=== PATIENT | female | born 1945 | race Caucasian/White ===

== ENCOUNTER 2020-01-03 11:11 | Outpatient (CLI) | payer MEDICARE, SELFPAY ==
--- NOTE | ~2020-01-03 | XR_ITS ---
EXAMINATION: XR hip BI 2V w AP pelvis DATE: 01/03/2020 11:58 INDICATION: Hip pain TECHNIQUE: Anteroposterior view of the pelvis and anteroposterior and frog-leg lateral views of the l eft hip and anteroposterior and frog-leg lateral views of the right hip and were obtained. COMPARISON: 05/21/18 FINDINGS: Mild lower lumbar dextrocurvature. Alignment is otherwise normal. No fracture or suspected avascular necrosis. Bilateral hip joint spaces are relatively preserved. Moderate lower lumbar spondylosis. Mul tiple phleboliths in the pelvis. IMPRESSION: 1. Moderate lumbar spondylosis. Unremarkable bilateral hips. Reviewed, dictated and finalized at location A.
== END 2020-01-03 11:12 | disposition home or self-care (01) ==
LOC: ANHIMG 11:21
PROVIDERS: PCP Internal Medicine; Visit Provider Internal Medicine
DX: M25.559 Pain in unspecified hip (principal); M47.816 Spondylosis without myelopathy or radiculopathy, lumbar region
CPT/HCPCS: 73521

== ENCOUNTER 2020-02-03 07:41 | Outpatient (CLI) | payer MEDICARE, SELFPAY ==
--- NOTE | ~2020-02-03 | MR_ITS ---
EXAMINATION: MR lumbar spine wo [facility] EXAM DATE: 02/03/2020 08:40 INDICATION: Low back pain, right hip and leg pain. TECHNIQUE: Multi-sequential, multiplanar MR images of the lumbar spine were obtained without contrast . Sagittal T1, T2, T2 fat saturation images. Axial T2 weighted images. There is no prior study for comparison. FINDINGS: There is moderate to severe disc disease at L2-3 and L5-S1, moderate at L3-4. There is 2-3 mm retrolisthesis L4 on L5 and 2 mm anterolisthesis L5 on S1. There is no spondylolysis. The conus me dullaris terminates at the L1/2 level and has normal signal intensity and morphology. There are no f ocal marrow signal abnormalities suspicious for malignancy or acute fracture. Prior right L5 hemilami notomy. There is mild to moderate upper lumbar levoscoliosis. Paraspinal soft tissue is unremarkable. Level by level evaluation: T12-L1: There is a mild to moderate diffuse disc bulge. Facet arthropathy: Mild. Neural foraminal stenosis: Mild bilateral. Central canal stenosis: Mild. L1-L2: There is a mild diffuse disc bulge. Facet arthropathy: Mild to moderate. Neural foraminal stenosis: Mild bilateral. Central canal stenosis: Mild. L2-L3: There is a large diffuse disc bulge. Facet arthropathy: Moderate . Ligamentum flavum enlargement. Neural foraminal stenosis: Moderate to severe right, mild left. Central canal stenosis: Moderate. L3-L4: There is a moderate to large diffuse disc bulge. Facet arthropathy: Severe right, moderate left . Ligamentum flavum enlargement. Neural foraminal stenosis: Moderate bilateral. Central canal stenosis: Severe. L4-L5: There is a moderate diffuse disc bulge. Facet arthropathy: Moderate . Ligamentum flavum enlargement. Neural foraminal stenosis: Moderate to severe left, moderate right. Central canal stenosis: Moderate to severe. L5-S1: There is a moderate diffuse disc bulge. Facet arthropathy: Moderate to severe left, moderate right. Neural foraminal stenosis: Moderate left, mild to moderate right. Central canal stenosis: Mild. IMPRESSION: 1. L3-4 severe central canal stenosis and facet arthropathy. 2. Lesser spondylosis above. 3. Mild to moderate upper lumbar levoscoliosis. Reviewed, dictated and finalized at location A.
== END 2020-02-03 07:42 | disposition home or self-care (01) ==
PROVIDERS: PCP Internal Medicine; Visit Provider Internal Medicine
DX: M47.816 Spondylosis without myelopathy or radiculopathy, lumbar region (principal)
CPT/HCPCS: 72148

== ENCOUNTER → 2020-10-13 12:19 | Outpatient (CLI) | payer MEDICARE, SELFPAY ==
--- NOTE | ~2020-10-13 | MM_ITS ---
EXAMINATION: MM screening [facility] HISTORY: Screening mammogram TECHNIQUE: Craniocaudal and mediolateral oblique 3-D tomosynthesis images were obtained and synthetic 2-D images were generated. CAD analysis was submitted and interpreted. COMPARISON: 06/03/2018, 04/29/2016, 04/13/2014 BREAST PARENCHYMAL COMPOSITION: There are scattered areas of fibroglandular density. FINDINGS: There is no evidence of suspicious mass, calcification, or architectural distortion to sugg est malignancy in either breast. There has been no suspicious interval change. IMPRESSION: 1. No mammographic evidence of malignancy. 2. Recommend routine screening mammography in one year. BI-RADS Category 1: Negative Reviewed, dictated and finalized at location A.
== END ==
PROVIDERS: Visit Provider Obstetrics & Gynecology
DX: Z12.31 Encounter for screening mammogram for malignant neoplasm of breast (principal)
CPT/HCPCS: 77063; 77067

== ENCOUNTER 2021-02-27 12:01 | Outpatient (CLI) | payer MEDICARE, SELFPAY ==
--- NOTE | 2021-03-23 10:42 | WPDHOMESLEEP ---
Sleep Study - Home Unattended Date of Study: 02/27/21 Ordering Provider: Seamus Anglin MD Interpreting Provider: Ashleigh Flores MD Home Sleep Study Type: Apnea Link Air Height: 1.68 m Weight: 83.915 kg Body Mass Index: 29.8 Neck Circumference (inches): 15 Strunk: 3 Reason for Sleep Study Hypersomnia Sleep History Bhargavi Denis is a 75 year old woman with a long history with restless sleep with tossing and turning during sleep. She frequently snores at night. She does not have trouble sleeping with a cold, gasping for air at night, sweat excessively at night, notice her heart pounding at night. She does not fall asleep during the day, fall asleep involuntarily, and does not fall asleep while driving. She does not have loss of muscle tone with strong emotion. There is no feeling of paralysis on waking or falling asleep. She denies having vivid dreamlike scenes on waking or falling asleep. She is not afraid to go to sleep. She remembers her dreams occasionally. She frequently has racing thought. She denies feeling sad, depressed or anxious. She has occasional mucles tension. She does not kick at night. She does not crawling or aching feelings in her legs. She occasionally has leg pain at night. No morning jaw pain and grinding teeth at night. She occasionally is bothered by pain in the day. She is rarely awakened by pain in the night. She frequently feels stiff in the morning and wakes with sore or achy muscles. She has vertigo, fatigue, feels unable to relax at night, and she takes sedatives. Normal bedtime is between 9:00 pm and 10:30 pm, and falling asleep takes a while due to inability to get comfortable. She wakes up 2-4 times at night, and she usually urinates while awake, returns to sleep. She wakes several times before 7:00 am which is the time she usually gets out of bed. The weekend schedule is the same. She does not take naps, and naps are not refreshing. She feels tired on waking. Habits: Never smoked. Caffeine used periodically. No alcohol or recreational drugs. [facility] Past Medical History Medical History (Updated 03/24/21 @ 02:53 by Ashleigh Flores MD) Anemia B12 deficiency CKD (chronic kidney disease) stage 3, GFR 30-59 ml/min Essential (primary) hypertension Fatigue Hypothyroidism (acquired) Insomnia Mixed hyperlipidemia Primary osteoarthritis of both hips Spinal stenosis Type 2 diabetes mellitus without complication Family History Family History Sibling Family history of diabetes mellitus in first degree relative Mother Family history of lung cancer Family history of malignant neoplasm of brain Social History Social History Smoking status: Never smoker Second hand tobacco smoke exposure: Yes Alcohol intake: never Medications Home Medications Medication Instructions Recorded Confirmed Type aspirin 81 mg tablet,delayed 81 mg PO DAILY 07/08/19 01/18/21 History release calcium carbonate 500 mg (1,250 1 tablet PO DAILY 07/08/19 01/18/21 History mg)-vitamin D3 125 unit tablet fexofenadine 60 mg tablet 60 mg PO Q12H 07/08/19 01/18/21 History glucosamine sulfate 500 mg capsule See Rx Instructions PO BID 07/08/19 01/18/21 History herbal drugs cap PO 07/08/19 01/18/21 History mecobalamin (vitamin B12) 1,000 1,000 mcg SUBLINGUAL DAILY 07/08/19 01/18/21 History mcg disintegrating tablet,sublingual levothyroxine 88 mcg tablet See Rx Instructions .ROUTE 07/31/20 01/18/21 Rx .COMPLEX #90 tablet trazodone 100 mg tablet 100 mg PO .qhs #90 tablet 02/12/21 Rx Sleep Procedure This test was performed using 4 channel monitoring including respiratory effort channel, snoring channel, heart rate channel, and oxygen saturation channel. This study was scored using CMS guidelines. Sleep Architecture Not applicable for home sleep test. Respiratory Analysis Recording time is 1
[2021-03-24 02:59] VITALS: BMI 29.8
== END 2021-02-28 09:43 | disposition home or self-care (01) ==
LOC: ANHCSM 12:01
PROVIDERS: PCP Internal Medicine; Visit Provider Internal Medicine
DX: G47.33 Obstructive sleep apnea (adult) (pediatric) (principal)
CPT/HCPCS: 95806

== ENCOUNTER → 2021-05-19 00:14 | Outpatient (CLI) | payer MEDICARE, SELFPAY ==
[2021-05-19 13:41] LABS: Influenza Control Positive
[2021-05-19 17:39] LABS: SARS-CoV-2 RNA PCR Negative
== END ==
PROVIDERS: PCP Internal Medicine; Visit Provider Internal Medicine
DX: R09.89 Other specified symptoms and signs involving the circulatory and respiratory systems (principal); Z20.822 Contact with and (suspected) exposure to COVID-19
CPT/HCPCS: 87804; C9803; U0003; U0005

== ENCOUNTER 2021-06-04 07:30 | Outpatient (CLI) | payer MEDICARE, SELFPAY ==
--- NOTE | 2021-06-19 11:40 | WPDSLEEPSTUD ---
Sleep Study Date of Study: 06/04/21 <Nadia Russ DO - Last Filed: 06/19/21 12:33> Ordering Provider: Mateus Vinson APRN <Nadia Russ DO - Last Filed: 06/19/21 12:33> Interpreting Physician: Nadia Russ DO <Nadia Russ DO - Last Filed: 06/19/21 12:33> Sleep Study Type: CPAP Titration <Nadia Russ DO - Last Filed: 06/19/21 12:33> Height: 1.68 m <Nadia Russ DO - Last Filed: 06/19/21 12:33> Weight: 79.379 kg <aNdia Russ DO - Last Filed: 06/19/21 12:33> Body Mass Index: 28.2 <Nadia Russ DO - Last Filed: 06/19/21 12:33> Neck Circumference (inches): 14.5 <Nadia Russ DO - Last Filed: 06/19/21 12:33> Lyle: 3 <Nadia uRss DO - Last Filed: 06/19/21 12:33> Reason for Sleep Study She had a home sleep test using ApneaLink on February 27, 2021 that showed moderate obstructive sleep apnea with an apnea-hypopnea index is 25 with 82% obstructive events, 17% central events, desaturation to 84%, snoring. <Nadia Russ DO - Last Filed: 06/19/21 12:33> Sleep History Bhargavi Denis is a 75 year old woman with a long history with restless sleep with tossing and turning during sleep. She frequently snores at night. She does not have trouble sleeping with a cold, gasping for air at night, sweat excessively at night, notice her heart pounding at night. She does not fall asleep during the day, fall asleep involuntarily, and does not fall asleep while driving. She does not have loss of muscle tone with strong emotion. There is no feeling of paralysis on waking or falling asleep. She denies having vivid dreamlike scenes on waking or falling asleep. She is not afraid to go to sleep. She remembers her dreams occasionally. She frequently has racing thought. She denies feeling sad, depressed or anxious. She has occasional mucles tension. She does not kick at night. She does not crawling or aching feelings in her legs. She occasionally has leg pain at night. No morning jaw pain and grinding teeth at night. She occasionally is bothered by pain in the day. She is rarely awakened by pain in the night. She frequently feels stiff in the morning and wakes with sore or achy muscles. She has vertigo, fatigue, feels unable to relax at night, and she takes sedatives. Normal bedtime is between 9:00 pm and 10:30 pm, and falling asleep takes a while due to inability to get comfortable. She wakes up 2-4 times at night, and she usually urinates while awake, returns to sleep. She wakes several times before 7:00 am which is the time she usually gets out of bed. The weekend schedule is the same. She does not take naps, and naps are not refreshing. She feels tired on waking. Habits: Never smoked. Caffeine used periodically. No alcohol or recreational drugs. <Nadia Russ DO - Last Filed: 06/19/21 12:33> [facility] Past Medical History Medical History: Medical History Anemia B12 deficiency CKD (chronic kidney disease) stage 3, GFR 30-59 ml/min Essential (primary) hypertension Fatigue Hypothyroidism (acquired) Insomnia Mixed hyperlipidemia Primary osteoarthritis of both hips Spinal stenosis Type 2 diabetes mellitus without complication <Nadia Russ DO - Last Filed: 06/19/21 12:33> Family History Family History: Family History Sibling Family history of diabetes mellitus in first degree relative Mother Family history of lung cancer Family history of malignant neoplasm of brain <Nadia Russ DO - Last Filed: 06/19/21 12:33> Social History Social History: Social History Smoking status: Never smoker Second hand tobacco smoke exposure: Yes Alcohol intake: never Substance use: never Substance use type: d
[2021-06-19 11:46] VITALS: BMI 28.2
== END 2021-06-05 07:01 | disposition home or self-care (01) ==
LOC: ANHCSM 07:31
PROVIDERS: PCP Internal Medicine; Visit Provider Nurse Practitioner Family
DX: G47.33 Obstructive sleep apnea (adult) (pediatric) (principal)
CPT/HCPCS: 95811

== ENCOUNTER 2022-10-30 14:04 | Outpatient (CLI) | payer MEDICARE, SELFPAY ==
--- NOTE | ~2022-10-30 | CT_ITS ---
EXAMINATION: CT diagnostic chest wo con DATE: 10/30/2022 14:42 INDICATION: Cough TECHNIQUE: Computed tomography (CT) of the chest was performed without intravenous contrast. The dose -length product was 247.99 mGy-cm. Automated exposure control and iterative reconstruction technique were employed. COMPARISON: CT dated 01/06/2022 FINDINGS: No significant pleural or pericardial effusion. There is atherosclerosis of the aorta and c oronary arteries. No lymphadenopathy. There is evidence for chronic granulomatous disease. No endobro nchial lesions. There are stable bilateral pulmonary nodules, largest measuring 5 mm in the right low er lobe. There is moderate-severe thoracic and upper lumbar spondylosis. No acute osseous abnormality . IMPRESSION: 1. Stable bilateral pulmonary nodules, likely benign. Follow-up low dose CT chest in 12 months recomm ended. Reviewed, dictated and finalized at location A. IMPRESSION: 1. Stable bilateral pulmonary nodules, likely benign. Follow-up low dose CT meir st in 12 months recommended.
--- NOTE | 2022-11-01 10:41 | WPDPFTINT ---
PFT Procedure Performed PFT Procedure Performed Spirometry with Pre/Post Bronchodilator Plethysmography (Lung Vol) Diffusing Cap (DLCO) Flow Vol Loop PFT Interpretation Lung volumes were measured with the body plethysmography method. Lung volumes are unremarkable. Spirometry showed normal expiratory flow rates and a normal FEV1 to FVC ratio 69%. Following administration of a bronchodilator there was significant increase in the FEV1. Lung diffusion capacity is within the normal range at 96% predicted. The flow-volume loop is consistent with suboptimal effort, especially during the initial measurement which may explain the significant post bronchodilator increase in the FEV1. Clinical correlation advised. Impression: spirometry, lung volumes, lung diffusion capacity all within the normal range.
== END 2022-10-30 14:05 | disposition home or self-care (01) ==
PROVIDERS: PCP Nurse Practitioner; Visit Provider Physician Assistant
DX: R05.9 Cough, unspecified (principal); R91.8 Other nonspecific abnormal finding of lung field
CPT/HCPCS: 71250; 94060; 94726; 94729

== ENCOUNTER 2023-01-01 01:39 | Day surgery (SDC) | payer MEDICARE, SELFPAY ==
[2022-12-27 11:08] VITALS: BMI 28.6
--- NOTE | 2022-12-31 22:39 | PM.HPGS ---
History of Present Illness History of Present Illness Consent: Risks, benefits, and alternatives have been discussed and questions answered. Patient agrees to proceed with procedure. Chief complaint: dysphagia Narrative: Bhargavi Denis is a 77 year old female Was having difficulty swallowing.Sometimes feels like she has a lump in her throat when she swallows. She states she does cough while eating and drinking. She has had a few instances in the last 6 months where food went 'down wrong pipe' and she had difficulty breathing/coughing - once was eating fish and another was with soup She also has a history of polyps. Her last 2 colonoscopies in 2008 and 1999 19 were negative for polyps Review of Systems Review of Systems: All systems reviewed & are unremarkable except as noted in HPI and below PMFSH Past Medical History Medical History Anemia B12 deficiency CKD (chronic kidney disease) stage 3, GFR 30-59 ml/min Cough Essential (primary) hypertension Fatigue Hypothyroidism (acquired) Insomnia Mixed hyperlipidemia Primary osteoarthritis of both hips Spinal stenosis Type 2 diabetes mellitus without complication Family History Family History Sibling Family history of diabetes mellitus in first degree relative Mother Family history of lung cancer Family history of malignant neoplasm of brain Social History Social History Smoking status: Never smoker Second hand tobacco smoke exposure: Yes Alcohol intake: never Substance use: never Substance use type: does not use Lack of Transportation: No Lack of Food: Never True Current Housing: I Have Housing Concerned About Future Housing: No Difficulty Paying Gas/Electric Bills: No Difficulty Paying for Meds: No Currently Unemployed: No Education: High School Diploma/GED Difficulty w/ Childcare or Family Care: No Living arrangements: with family Spiritual care concerns: No Meds Home Medications and Allergies Home Medications Medication Instructions Recorded Confirmed Type aspirin 81 mg tablet,delayed 81 mg PO DAILY 07/08/19 12/27/22 History release (Adult Low Dose Aspirin) mecobalamin (vitamin B12) 1,000 1,000 mcg sublingual DAILY 07/08/19 12/27/22 History mcg disintegrating tablet,sublingual Lactobacills gasseri-Bifidobac 1.5 cap PO DAILY 08/13/22 01/01/23 History bifidum,longum 1.5 billion cell capsule (CloudTran) calcium carbonate 500 mg-vitamin 1 tablet PO DAILY 08/13/22 12/27/22 History D3 3.125 mcg (125 unit) tablet (Calcium) folic acid 800 mcg tablet 0.8 mg PO DAILY 08/13/22 12/27/22 History zinc sulfate 50 mg zinc (220 mg) 50 mg PO DAILY 08/13/22 12/27/22 History capsule (Orazinc) trazodone 150 mg tablet See Rx Instructions .Route 10/08/22 12/27/22 Rx .COMPLEX #90 tabs fluoxetine 20 mg capsule (Prozac) 20 mg PO DAILY #90 caps 10/11/22 12/27/22 Rx levothyroxine 88 mcg tablet See Rx Instructions .Route 10/24/22 12/27/22 Rx .COMPLEX #90 tabs fluticasone propionate 110 1 puff inhalation Q12H #12 grams 11/12/22 12/27/22 Rx mcg/actuation HFA aerosol inhaler (Flovent HFA) meloxicam 15 mg tablet 15 mg PO DAILY #30 tabs 12/31/22 01/01/23 Rx Allergies Allergy/AdvReac Type Severity Reaction Status Date / Time erythromycin base Allergy Unknown Rash Verified 01/01/23 09:41 Penicillins Allergy Unknown Hives Verified 01/01/23 09:41 Exam Const: General: alert Orientation/consciousness: patient oriented x3 Resp: Auscultation: clear to auscultation bilaterally Cardio: Rhythm: regular rhythm GI: GI Palp: Yes Soft to palpation and No Tenderness to palpation present (GI) Neuro: General: patient oriented x3 Assessment and Plan Assessment and plan (1) Dysphagia: Code(s): R13.10 - Dysphagia, unspecifie
[2023-01-01 09:42] VITALS: BP 171/86; PULSE 66; RESP 18; TEMP 36.6; O2SAT 100
[2023-01-01] MEDS: LACTATED RINGERS 1,000 ML 150 ML IV CONT (09:58)
--- NOTE | 2023-01-01 10:24 | WPDANESEPPF ---
Anes - Initial Pre Proc Eval Procedure: Operation Date: 01/01/23 10:45 Proposed Procedures p Esophagogastroduodenoscopy - Vipul Meier MD Date/Time: 01/01/23 10:24 Surgeon: Vipul Meier MD Pre Op Diagnosis: dysphagia Patient Data Age: 77 Gender: F Height: 1.68 m Weight: 78.2 kg Last Vital Signs Temp 97.8 F 01/01/23 09:42 Pulse 66 01/01/23 09:42 Resp 18 01/01/23 09:42 BP 171/86 H 01/01/23 09:42 Pulse Ox 100 01/01/23 09:42 O2 Del Method Room Air 01/01/23 09:42 Allergies Allergy/AdvReac Type Severity Reaction Status Date / Time erythromycin base Allergy Unknown Rash Verified 01/01/23 09:41 Penicillins Allergy Unknown Hives Verified 01/01/23 09:41 Home Medications Medication Instructions Recorded Confirmed Type aspirin 81 mg tablet,delayed 81 mg PO DAILY 07/08/19 12/27/22 History release (Adult Low Dose Aspirin) mecobalamin (vitamin B12) 1,000 1,000 mcg sublingual DAILY 07/08/19 12/27/22 History mcg disintegrating tablet,sublingual Lactobacills gasseri-Bifidobac 1.5 cap PO DAILY 08/13/22 01/01/23 History bifidum,longum 1.5 billion cell capsule (Vostu) calcium carbonate 500 mg-vitamin 1 tablet PO DAILY 08/13/22 12/27/22 History D3 3.125 mcg (125 unit) tablet (Calcium) folic acid 800 mcg tablet 0.8 mg PO DAILY 08/13/22 12/27/22 History zinc sulfate 50 mg zinc (220 mg) 50 mg PO DAILY 08/13/22 12/27/22 History capsule (Orazinc) trazodone 150 mg tablet See Rx Instructions .Route 10/08/22 12/27/22 Rx .COMPLEX #90 tabs fluoxetine 20 mg capsule (Prozac) 20 mg PO DAILY #90 caps 10/11/22 12/27/22 Rx levothyroxine 88 mcg tablet See Rx Instructions .Route 10/24/22 12/27/22 Rx .COMPLEX #90 tabs fluticasone propionate 110 1 puff inhalation Q12H #12 grams 11/12/22 12/27/22 Rx mcg/actuation HFA aerosol inhaler (Flovent HFA) meloxicam 15 mg tablet 15 mg PO DAILY #30 tabs 12/31/22 01/01/23 Rx Patient hx anesthesia problems: none Family hx anesthesia problems: none Results Review: All pre-operative results and documents have been reviewed as part of the pre-operative evaluation. [facility] Past Medical History Medical History Anemia B12 deficiency CKD (chronic kidney disease) stage 3, GFR 30-59 ml/min Cough Essential (primary) hypertension Fatigue Hypothyroidism (acquired) Insomnia Mixed hyperlipidemia Primary osteoarthritis of both hips Spinal stenosis Type 2 diabetes mellitus without complication Family History Family History Sibling Family history of diabetes mellitus in first degree relative Mother Family history of lung cancer Family history of malignant neoplasm of brain Social History Social History Smoking status: Never smoker Second hand tobacco smoke exposure: Yes Alcohol intake: never Substance use: never Substance use type: does not use Lack of Transportation: No Lack of Food: Never True Current Housing: I Have Housing Concerned About Future Housing: No Difficulty Paying Gas/Electric Bills: No Difficulty Paying for Meds: No Currently Unemployed: No Education: High School Diploma/GED Difficulty w/ Childcare or Family Care: No Living arrangements: with family Spiritual care concerns: No Anes - Eval Final PreProcedure Day of Procedure 01/01/23 10:24 Patient weight: normal Heart: regular rate and rhythm Lungs: clear to auscultation Airway: Mallampati scale class II Neurological: alert and oriented Last oral intake: >/= 8 hours ASA classification: III Emergent: no Anesthetic plan: proceed Anesthesia type and monitoring: general GIVS and standard monitoring Results Review: All pre-operative results and documents have been reviewed as part of the pre-operative evaluation. Informed Consent: The alanna
[2023-01-01 11:21] VITALS: BP 178/64; PULSE 66; RESP 30; O2SAT 99
[2023-01-01 11:31] VITALS: BP 194/76; PULSE 68; RESP 20; O2SAT 96
[2023-01-01 11:41] VITALS: BP 198/90; PULSE 64; RESP 22; O2SAT 94
== END 2023-01-01 11:51 | disposition home or self-care (01) ==
PROVIDERS: PCP Nurse Practitioner; Referring Provider Physician Assistant; Visit Provider Internal Medicine Gastroenterology
PROC: 0DJ08ZZ Inspection of Upper Intestinal Tract, Via Natural or Artificial Opening Endoscopic (ICD-10-PCS; CPT 43235; principal; 2023-01-01 10:45)
DX: K21.9 Gastro-esophageal reflux disease without esophagitis (principal); K29.70 Gastritis, unspecified, without bleeding; K29.40 Chronic atrophic gastritis without bleeding; I12.9 Hypertensive chronic kidney disease with stage 1 through stage 4 chronic kidney disease, or unspecified chronic kidney disease; E11.22 Type 2 diabetes mellitus with diabetic chronic kidney disease; N18.30 Chronic kidney disease, stage 3 unspecified; E03.9 Hypothyroidism, unspecified; E78.2 Mixed hyperlipidemia; E53.8 Deficiency of other specified B group vitamins; Z79.82 Long term (current) use of aspirin; Z79.51 Long term (current) use of inhaled steroids
CPT/HCPCS: 43239; 87081; J2704; J7120

== ENCOUNTER 2023-01-02 14:00 | Outpatient (CLI) | payer MEDICARE, SELFPAY | END 2023-01-02 14:01 | disposition home or self-care (01) | LOC: ANHLAB 14:02 | PROVIDERS: PCP Nurse Practitioner; Visit Provider Physician Assistant | DX: R05.9 Cough, unspecified (principal); J30.9 Allergic rhinitis, unspecified | CPT/HCPCS: 36415; 82785; 86003 ==

== ENCOUNTER 2023-02-03 14:54 | Outpatient (CLI) | payer MEDICARE, SELFPAY ==
--- NOTE | ~2023-02-03 | XR_ITS ---
XR shoulder LT min 2V DATE: 02/03/2023 15:28 INDICATION: Fall. Left shoulder pain TECHNIQUE: 3 views COMPARISON: None FINDINGS: Diffuse osteopenia. There is joint space narrowing and spurring at the left acromioclavicular joint consistent with degen erative change. No fracture or dislocation, periosteal reaction or bone destruction. Degenerative change at the cervical spine and thoracic spine is noted. IMPRESSION: Osteopenia Degenerative change at the left acromioclavicular joint Reviewed, dictated and finalized at location B.
--- NOTE | ~2023-02-03 | XR_ITS ---
AP and oblique views of the left ribs Clinical History: Pain Findings: No rib fracture is seen. Osseous alignment is anatomic. Lungs are clear, without focal cons olidation or pleural effusion. Cardiomediastinal contour is within normal limits. Soft tissues are un remarkable. Impression: No rib fracture is seen. Reviewed, dictated and finalized at [facility]. Impression: No rib fracture is seen.
--- NOTE | ~2023-02-03 | XR_ITS ---
AP view of the pelvis and AP and lateral views of the bilateral hips Clinical history: Pain Findings: No acute fracture or dislocation is seen. Osseous alignment is anatomic. Bilateral hip and SI joint spaces are preserved. Scoliotic change of the lumbar spine is partially imaged with degenera tive disc disease. Soft tissues are unremarkable. Impression: Degenerative change of the lumbar spine, partially imaged. No significant abnormality of the hips. Reviewed, dictated and finalized at location M. Impression: Degenerative change of the lumbar spine, partially imaged. No significant abnormality of the hips.
== END 2023-02-03 14:55 | disposition home or self-care (01) ==
PROVIDERS: PCP Nurse Practitioner; Visit Provider Nurse Practitioner Family
DX: R07.9 Chest pain, unspecified (principal); M25.512 Pain in left shoulder; M85.88 Other specified disorders of bone density and structure, other site; M19.012 Primary osteoarthritis, left shoulder
CPT/HCPCS: 71100; 73030; 73521

== ENCOUNTER 2023-02-05 14:12 | Outpatient (CLI) | payer MEDICARE, SELFPAY ==
--- NOTE | ~2023-02-05 | CT_ITS ---
EXAMINATION: CT brain wo con DATE: 02/05/2023 14:42 INDICATION: Fall. Left forehead swelling. Headache. TECHNIQUE: Computed tomography (CT) of the head was performed without intravenous contrast. The mA wa s adjusted according to patient size. Iterative reconstruction technique was employed. Exam dose: 60 5.33 mGy-cm total exam DLP. COMPARISON: 06/01/2006 CT brain FINDINGS: The calcifications, basilar artery calcification and prominent bilateral carotid siphon int ernal carotid artery calcifications are noted. There is nonspecific diminished attenuation of the cerebral white matter, likely due to chronic small vessel ischemic changes. No intracranial mass lesion or hemorrhage or cerebrovascular accident, midline shift or mass effect i s detected. There is age-consistent moderate cerebral and cerebellar volume loss. No subdural or epidural hematoma. Focal posterior medial left sphenoid sinus soft tissue thickening and minimal patchy soft tissue thic kening of the ethmoid air cells. The included paranasal sinuses and the mastoid air cells otherwise a re normally developed and aerated. No fracture or bone destruction of the cranial vault. IMPRESSION: Cerebral atherosclerosis and chronic small vessel ischemic changes of the cerebral white matter No skull fracture or acute intracranial finding Reviewed, dictated and finalized at Location A. Reviewed, dictated and finalized at location B.
== END 2023-02-05 14:13 | disposition home or self-care (01) ==
PROVIDERS: PCP Nurse Practitioner; Visit Provider Nurse Practitioner Family
DX: M79.89 Other specified soft tissue disorders (principal); R51.9 Headache, unspecified
CPT/HCPCS: 70450

== ENCOUNTER → 2023-03-28 06:51 | Outpatient (CLI) | payer MEDICARE, SELFPAY ==
--- NOTE | ~2023-03-28 | MR_ITS ---
MRI of the lumbar spine Clinical History: Spinal stenosis Technique: Axial T2-weighted images, and sagittal T1-weighted, T2-weighted, and T2 fat-sat images wer e acquired. COMPARISON: 02/03/2020 Findings: No fracture identified. 3 mm anterolisthesis of L5 over S1 present. There are reactive sb ow signal changes due to underlying degenerative disc disease, particularly about the L2-L3 at L3-L4 disc spaces. At L1-L2, there is minimal disc bulge and mild to moderate facet arthropathy. No central canal stenos is. There is moderate to severe bilateral neural foraminal narrowing. At L2-L3, there is severe degenerative disc narrowing. Disc bulge and moderate facet arthropathy are present. No central canal stenosis. There is severe right neural foraminal narrowing, and moderate to severe left neural foraminal narrowing. At L3-L4, there is mild to moderate degenerative disc narrowing. There is diffuse disc bulge with sup erimposed central disc herniation which extends superiorly, behind the L3 vertebral body. There is se chip facet arthropathy. Deformity factors contribute to severe spinal canal stenosis/thecal sac compr ession. There is severe bilateral neural foraminal narrowing, right worse than left. At L4-L5, there is diffuse disc bulge and moderate to advanced facet arthropathy. There is minimal ce ntral canal stenosis. There is severe left neural foraminal narrowing, and mild right neural foramina l narrowing. At L5-S1, there is mild disc bulge with moderate facet arthropathy. There is severe left neural ramy inal narrowing. Right neural foramen preserved. No central canal stenosis. Paravertebral soft tissues are unremarkable. Impression: Severe degenerative spondylosis at L3-L4, disc bulge, central disc herniation, and severe facet arthr opathy, with severe spinal canal stenosis/thecal sac compression and severe bilateral neural foramina l narrowing. Severe left neural foraminal narrowing at L4-L5 and L5-S1. Moderate degenerative spondylosis at L1-L2 and L2-L3, as detailed above. 3 mm anterolisthesis of L5 over S1. Reviewed, dictated and finalized at [facility]. Impression: Severe degenerative spondylosis at L3-L4, disc bulge, central disc herniation, and severe facet arthropathy, with severe spinal canal stenosis/thecal sac comp ression and severe bilateral neural foraminal narrowing. Severe left neural foraminal narrowing at L4-L5 and L5-S1. Moderate degenerative spondylosis at L1-L2 and L2-L3, as detailed above. 3 mm anterolisthesis of L5 over S1.
== END ==
PROVIDERS: PCP Nurse Practitioner Family; Visit Provider Nurse Practitioner Family
DX: M48.00 Spinal stenosis, site unspecified (principal); R29.898 Other symptoms and signs involving the musculoskeletal system; M47.896 Other spondylosis, lumbar region
CPT/HCPCS: 72148

== ENCOUNTER 2023-07-02 19:39 | Inpatient (IN) | payer MEDICARE, SELFPAY ==
--- NOTE | ~2023-07-02 | CT_ITS ---
EXAMINATION: CT brain wo con DATE: 07/02/2023 23:50 INDICATION: Altered mental status. TECHNIQUE: Computed tomography (CT) of the head was performed without intravenous contrast. The mA wa s adjusted according to patient size. Iterative reconstruction technique was employed. The dose-lengt h product was 681.00 mGy-cm. COMPARISON: Head CT 02/05/2023 FINDINGS: There are scattered areas of low attenuation in the cerebral white matter. There is no intr acranial hemorrhage, acute infarction, or abnormal intracranial mass lesion. The ventricles are vazquez l in size. There is mild mucosal thickening in the paranasal sinuses. There are likely changes of ocu lar lens replacement surgeries. The mastoid air cells are normal. IMPRESSION: 1. Stable moderate nonspecific cerebral white matter disease, which likely represents chronic small v essel ischemic disease. Reviewed, dictated and finalized at location E. CH ENGINE MARKETING MANAGER IMPRESSION: 1. Stable moderate nonspecific cerebral white matter disease, which likely repr esents chronic small vessel ischemic disease.
--- NOTE | ~2023-07-02 | CT_ITS ---
EXAMINATION: CT brain wo con INDICATION: Head injury COMPARISON: TECHNIQUE: Standard unenhanced head CT. The dose-length product (DLP) was 605.33 mGy-cm. The mA was a djusted according to patient size. Iterative reconstruction technique was employed. FINDINGS: No acute intraparenchymal hemorrhage. No evidence of mass lesion. No evidence of acute infa rction. There is mild periventricular and subcortical hypodensity probably related to small vessel is chemic disease. There is mild prominence of the sulci and ventricles related to cerebral atrophy. Int racranial calcified cerebral atherosclerosis is noted. No extra-axial collections. No mass effect or midline shift. Changes in the globes are likely from ocular lens surgery. There is mild mucosal thick ening of the paranasal sinuses. IMPRESSION: 1. No acute intracranial abnormality. 2. Age related findings. Reviewed, dictated and finalized at location L. PACKERS MANAGER
--- NOTE | ~2023-07-02 | MR_ITS ---
EXAMINATION: MR brain/brain stem wo/w con DATE: 07/03/2023 12:11 INDICATION: Encephalopathy and hypertensive urgency. Assess for possible PRES TECHNIQUE: Magnetic resonance imaging (MRI) of the brain and brainstem was performed without and with 10 mL Multihance intravenous contrast. Sequences included sagittal and axial T1-weighted SE, axial d iffusion-weighted FS SE, axial T2*-weighted GRE, axial 3D SWAN, axial T2-weighted FLAIR, and axial T2 -weighted FSE. Postcontrast axial and coronal T1-weighted SE was obtained. Apparent diffusion coeffic ient (ADC) maps were created. COMPARISON: Head CT dated 07/02/2023 and 02/05/2023 FINDINGS: There are no areas of restricted diffusion to suggest acute infarction. No intracranial hemorrhage or abnormal intracranial mass lesion. There are scattered areas of nonspecific increased T2-weighted si gnal intensity in the cerebral white matter, predominantly involving the deep and periventricular whi te matter. The corresponding white matter hypoattenuation seen on the head CT from one day prior also appears stable since 02/05/2023. Small foci of susceptibility artifact at the bilateral basal ganglia which could be seen in setting of chronic microhemorrhage in the setting of hypertension although co uld also be seen with calcification which appears to correspond to one of the foci of susceptibility artifact at the posterior left lentiform nucleus. There are no intraparenchymal signal abnormalities seen on the other pulse sequences. The ventricles are symmetric and normal in size. There are no abno rmal extra-axial fluid collections. Flow voids are seen in the cerebral arteries on the T2-weighted s equences consistent with their expected patency. Changes of bilateral intraocular lens replacement. M ild mucosal thickening the bilateral ethmoid sinuses. Visualized orbits and soft tissues are unremark able. There are no areas of abnormal enhancement on the post contrast images. IMPRESSION: 1. Typical pattern of her ventricular predominant nonspecific white matter T2 hyperintensity which co rresponds to a similar pattern of white matter hypoattenuation on CT which has remained stable since 02/05/2023. This would be most consistent with sequela of chronic small vessel ischemic disease. No ot her acute intracranial process. 2. A few foci of susceptibility artifact at the bilateral basal ganglia suggestive of sequela of wire straightening machine operator tami microhemorrhage, typically related to hypertension. Reviewed, dictated and finalized at location A. ERCIAL LITIGATION ATTORNEY IMPRESSION: 1. Typical pattern of her ventricular predominant nonspecific white matter T2 h yperintensity which corresponds to a similar pattern of white matter hypoattenu ation on CT which has remained stable since 02/05/2023. This would be most consi stent with sequela of chronic small vessel ischemic disease. No other acute int racranial process. 2. A few foci of susceptibility artifact at the bilateral basal ganglia suggest chandrakant of sequela of chronic microhemorrhage, typically related to hypertension.
--- NOTE | ~2023-07-02 | XR_ITS ---
XR hip BI 2V w AP pelvis 07/05/2023 13:17 Indication: Status post fall. Hip pain. Procedure: AP pelvis and 2 views each hip Comparison: Comparison to multiple prior studies sequentially, with oldest reviewed study dated 01/02. Findings: There is mild osteoarthritis of the hips. Pelvic rings are intact. Sacral foramen are symme tric. No acute fracture or traumatic malalignment. There is advanced lower lumbar spondylosis. Impression: 1: Mild osteoarthritis of the hips. Reviewed, dictated and finalized at location A. H FOOD MANAGER Impression: 1: Mild osteoarthritis of the hips.
--- NOTE | ~2023-07-02 | XR_ITS ---
Portable chest x-ray Comparison: 02/03/2023 Clinical History: Altered mental status Findings: Lungs are clear, without focal consolidation or pleural effusion. Stable small calcified l ymph nodes are present. Cardiomediastinal silhouette is stable. Bones and soft tissues are unremarka ble. Impression: Clear lungs. Reviewed, dictated and finalized at location . E THERAPIST Impression: Clear lungs.
[2023-07-02 19:55] VITALS: BP 164/100; PULSE 72; RESP 19; TEMP 36.8; O2SAT 99
--- NOTE | 2023-07-02 20:00 | ECG_ITS ---
Measurements Intervals [place] Rate: 71 P: 53 WA: 182 QRS: -5 QRSD: 102 T: 60 QT: 393 QTc: 427 Interpretive Statements SINUS RHYTHM WITHIN NORMAL LIMITS NO PREVIOUS ECG AVAILABLE FOR COMPARISON Electronically Signed On 07-03-2023 17:29:56 GROUND INTELLIGENCE OFFICER by Moses Gunter M.D.
--- NOTE | 2023-07-02 22:39 | ED.GENADULT ---
HPI - General Adult General Chief complaint: Unspecified Stated complaint: high blood pressure Time Seen by Provider: 07/02/23 22:05 Source: patient and family (Niece who is DPOA) Limitations: no limitations History of Present Illness HPI narrative: Patient is a 77-year-old female presents to the emergency department accompanied by her niece for the knees being concerned that throughout the day today patient has appeared more tired and confused and her blood pressure was high at home and brought her in for further evaluation. Patient denies any current complaints. Patient is oriented x3. Patient denies chest pain, shortness of breath, cough, fever, dysuria, hematuria, urinary frequency, urinary urgency, diarrhea, melena, hematochezia, numbness, weakness, rash, abdominal, nausea, vomiting, headache, difficulty swallowing, dysphonia. No new or change medications. Patient did have a fall approximately 1 week ago min for. Patient is not on any blood thinners. Patient does not have a history of high blood pressure. Related Data Home Medications Medication Instructions Recorded Confirmed mecobalamin (vitamin B12) 1,000 1,000 mcg sublingual DAILY 07/08/19 05/19/23 mcg disintegrating tablet,sublingual Lactobacills gasseri-Bifidobac 1.5 cap PO DAILY 08/13/22 05/19/23 bifidum,longum 1.5 billion cell capsule (E[employer] Lighting) calcium carbonate 500 mg-vitamin 1 tablet PO DAILY 08/13/22 05/19/23 D3 3.125 mcg (125 unit) tablet (Calcium) folic acid 800 mcg tablet 0.8 mg PO DAILY 08/13/22 05/19/23 zinc sulfate 50 mg zinc (220 mg) 50 mg PO DAILY 08/13/22 05/19/23 capsule (Orazinc) Allergies Allergy/AdvReac Type Severity Reaction Status Date / Time erythromycin base Allergy Unknown Rash Verified 05/19/23 10:13 Penicillins Allergy Unknown Hives Verified 05/19/23 10:13 Review of Systems Review of Systems: A 10 system review of systems was completed on the patient and is negative except for what is stated in the HPI. Nursing and ancillary documentation was reviewed. [facility] Past Medical History Medical History Anemia B12 deficiency CKD (chronic kidney disease) stage 3, GFR 30-59 ml/min Cough Essential (primary) hypertension Fatigue Hypothyroidism (acquired) Insomnia Mixed hyperlipidemia Primary osteoarthritis of both hips Spinal stenosis Type 2 diabetes mellitus without complication Family History Family History Sibling Family history of diabetes mellitus in first degree relative Mother Family history of lung cancer Family history of malignant neoplasm of brain Social History Social History Smoking status: Never smoker Second hand tobacco smoke exposure: Yes Alcohol intake: never Substance use: never Substance use type: does not use Lack of Transportation: No Lack of Food: Never True Current Housing: I Have Housing Concerned About Future Housing: No Difficulty Paying Gas/Electric Bills: No Difficulty Paying for Meds: No Currently Unemployed: No Education: High School Diploma/GED Difficulty w/ Childcare or Family Care: No Living arrangements: with family Spiritual care concerns: No Comments At time of signature, I have reviewed and agree with nursing past medical, surgical, social and family history unless otherwise noted. Please see the nursing chart for further information. There is no relevant family history pertinent to the presenting complaint. Exam Narrative: CONST: No acute distress. Well nourished. HENMT: Head is normocephalic and atraumatic. Tacky mucous membranes. No posterior oropharynx erythema. EYES: No conjunctival icterus, injection, or pallor. PERRL. No nystagmus. Extraocular motions intact. NECK: No meningeal signs. RESP: Able to speak in full sentences. Normal resp
[2023-07-02 23:27] VITALS: BP 234/88; PULSE 73; RESP 17; O2SAT 96
[2023-07-02 23:32] LABS: Basophils Absolute Auto 0.1 K/mm3 (0.0-0.1); Eosinophils Absolute Auto 0.1 K/mm3 (0-0.3); Eosinophils Percent Auto 1.7 % (0-4.4); Hematocrit 34.1 % (37.0-47.0); Hemoglobin 10.8 g/dL (12.0-15.0); Lymphocytes Absolute Auto 1.42 K/mm3 (0.9-3.2); Mean Corpuscular HGB Conc 31.7 g/dl (32-36); Mean Corpuscular Hemoglobin 31.1 pg (26-34); Mean Corpuscular Volume 98.3 fl (80-100); Mean Platelet Volume 10.4 fl (7.4-10.4); Monocytes Absolute Auto 0.6 K/mm3 (0.1-0.6); Monocytes Percent Auto 11.4 % (2.6-8.5); Neutrophils Absolute Auto 3.1 K/mm3 (1.3-6.7); Neutrophils Percent Auto 58.9 % (45.5-73.1); Platelet Count Result 173 k/mm3 (150-375); Red Blood Count 3.47 M/mm3 (4.2-5.4); Red Cell Distribution Width 12.8 % (11.5-14.5); White Blood Count 5.3 K/mm3 (4.5-10.0)
[2023-07-02 23:41] LABS: Ethanol < 10 mg/dL (<10); Magnesium 1.6 mg/dL (1.6-2.3)
[2023-07-02 23:50] LABS: Acetaminophen < 10 ug/mL (10-30)
[2023-07-02 23:51] LABS: Alanine Aminotransferase 10 U/L (6-35); Albumin Level 3.8 g/dL (3.5-5.1); Alkaline Phosphatase 60 U/L (38-126); Anion Gap 3 mmol/L (8-16); Aspartate Amino Transferase 26 U/L (14-36); Bilirubin,Total 0.8 mg/dL (0.2-1.3); Blood Urea Nitrogen 17 mg/dL (7-17); Calcium 9.1 mg/dL (8.4-10.2); Carbon Dioxide 32 mmol/L (22-30); Chloride 101 mmol/L (98-107); Estimated CRCL calculation 44 ml/min; Estimated Glomerular Filt Rate 54; Glucose 93 mg/dL (65-110); Potassium 3.8 mmol/L (3.4-5.0); Sodium 136 mmol/L (137-145)
[2023-07-02 23:54] LABS: Troponin I < 0.012 ng/mL (0.000-0.034)
[2023-07-03] VITALS (37 sets, daily range): BP systolic 121–228; BP diastolic 57–136; PULSE 71–108; RESP 13–28; TEMP 36.5–37.2; O2SAT 92–100; BMI 19.8
[2023-07-03 00:07] LABS: Influenza A QL RT-PCR Negative (Negative); Influenza B QL RT-PCR Negative (Negative); SARS-CoV-2 RNA PCR Negative (Negative)
[2023-07-03 00:26] LABS: Appearance Urine Clear (Clear); Bacteria Urine None Seen /hpf; Bilirubin Urine Negative (Negative); Blood Urine 1+ (Negative); Color Urine Yellow (Yellow); Glucose Urine UA Negative (Negative); Ketones Urine Negative (Negative); Leukocyte Esterase Ur Trace LEU/UL (Negative); Nitrate Urine Negative (Negative); Non Pathogenic Casts 0-2; Protein Urine 3+ mg/dL (Negative); RBC Urine 0-2 /hpf (0-2); Specific Grav Ur 1.007 (1.001-1.035); Squamous Epithelial Cell Urine None seen /hpf (Few); Urobilinogen Urine 0.2 mg/dL (<2.0)
[2023-07-03 00:30] LABS: Add Urine Microscopic? YES
[2023-07-03 00:36] LABS: Amphetamine Screen Urine Negative (Negative); Barbiturate Screen Urine Negative (Negative); Benzodiazepines Screen Urine Negative (Negative); Cannabinoid Screen Urine Negative (Negative); Cocaine Screen Urine Negative (Negative); Methadone Screen Urine Negative (Negative); Opiate Screen Urine Negative (Negative); Phencyclidine Screen Urine Negative (Negative)
[2023-07-03] MEDS: niCARdipine 20 MG/200 ML 20 MG/200 ML BAG 50 MG IV CONT (00:57)
[2023-07-03] MEDS: niCARdipine 20 MG/200 ML 20 MG/200 ML BAG 25 MG IV CONT ×2 (02:45→08:32)
--- NOTE | 2023-07-03 02:54 | PM.IMHP ---
H&P: HPI History of Present Illness Date/Time: 07/03/23 02:54 Chief Complaint: Altered mental status Narrative: This is a 77 yo female with PMHx significant for HTN, CKD, osteoarthritis, spinal stenosis. Patient presents to the emergency room due to altered mental status, lethargy, stated states that was all day sleeping had been in her usual state of health prior to this. Upon presentation to emergency room patient was found to have a systolic blood pressure in the 200s. Patient denies any vision changes, no chest pain, no shortness of breath, no lightheadedness, no dizziness, no syncope or near syncope, no nausea, no vomiting, no epigastric pain. Patient has been placed on nicardipine drip and admitted to the intensive care unit. EXAMINATION: CT brain wo con DATE: 07/02/2023 23:50 INDICATION: Altered mental status. TECHNIQUE: Computed tomography (CT) of the head was performed without intravenous contrast. The mA was adjusted according to patient size. Iterative reconstruction technique was employed. The dose-length product was 681.00 mGy-cm. COMPARISON: Head CT 02/05/2023 FINDINGS: There are scattered areas of low attenuation in the cerebral white matter. There is no intracranial hemorrhage, acute infarction, or abnormal intracranial mass lesion. The ventricles are normal in size. There is mild mucosal thickening in the paranasal sinuses. There are likely changes of ocular lens replacement surgeries. The mastoid air cells are normal. IMPRESSION: 1. Stable moderate nonspecific cerebral white matter disease, which likely represents chronic small vessel ischemic disease. Review of Systems Review of Systems: Lethargy Constitutional: Constitutional: Reports daytime sleepiness Eyes: Eyes: Denies change in vision ENT: Denies dysphagia, Denies vertigo, Denies dizziness, Denies headache(s) and Denies odynophagia Cardiovascular: Cardiovascular: Denies chest pain, Denies syncope, Denies irregular heart rhythm, Denies leg edema and Denies lightheadedness Respiratory: Respiratory: Denies cough and Denies dyspnea Gastrointestinal: Gastrointestinal: Denies abdominal pain, Denies nausea and Denies vomiting Genitourinary: Genitourinary: Denies dysuria Musculoskeletal: Musculoskeletal: Denies abnormal gait and Denies myalgias Integumentary/Breasts: Skin/Breast: Denies rash Neurologic: Denies Abnormal speech present, Denies abnormal gait, Denies vertigo, Denies dizziness, Denies focal weakness and Denies Sensory deficit (Neuro) Psychiatric: Psychiatric: Reports no additional psychiatric complaints and Reports as per HPI Endocrine: Endocrine: Denies cold intolerance, Denies fatigue, Denies flushing, Denies heat intolerance, Denies polyphagia, Denies polydipsia and Denies palpitations Hematologic/Lymphatic: Hematologic/Lymphatic: Reports no additional hematologic/lymphatic complaints and Reports as per HPI Allergic/Immunologic: Allergic/Immunologic: Reports no additional allergic/immunologic complaints and Reports as per HPI PMFSH Past Medical History Medical History Anemia B12 deficiency CKD (chronic kidney disease) stage 3, GFR 30-59 ml/min Cough Essential (primary) hypertension Fatigue Hypothyroidism (acquired) Insomnia Mixed hyperlipidemia Primary osteoarthritis of both hips Spinal stenosis Type 2 diabetes mellitus without complication Family History Family History Sibling Family history of diabetes mellitus in first degree relative Mother Family history of lung cancer Family history of malignant neoplasm of brain Social History Social History Smoking status: Never smoker Second hand tobacco smoke exposure: Yes Alcohol intake: never Substance use: never Substance use type: does not use Do You Feel Safe in your Home?: Ye
[2023-07-03] MEDS: ENOXAPARIN 40 MG/0.4 ML SYRINGE SUB-Q (08:31)
[2023-07-03] MEDS: amLODIPine BESYLATE 5 MG TABLET PO (08:32)
[2023-07-03] MEDS: PANTOPRAZOLE 40 MG TABLET PO (08:32)
[2023-07-03] MEDS: SODIUM CHLORIDE 0.9% IV 1,000 ML 75 ML IV CONT (08:32)
[2023-07-03] MEDS: FLUoxetine HCL 10 MG CAPSULE 30 MG PO (08:35)
[2023-07-03] MEDS: CYANOCOBALAMIN 1,000 MCG TABLET 1000 MCG BY MOUTH (08:36)
[2023-07-03] MEDS: LEVOTHYROXINE SODIUM 88 MCG TABLET PO (08:36)
--- NOTE | 2023-07-03 09:43 | WPDCNINT ---
Assessment and Plan Assessment and plan (1) Hypertensive emergency: Code(s): I16.1 - Hypertensive emergency Status: Acute Assessment and Plan: Patient presented to the hospital with altered mental status, increasing confusion and somnolence on the day of admission -patient was started on nicardipine infusion in the ER and transferred to the ICU for further management -continue nicardipine infusion -started on low-dose amlodipine -discussed with TERE, patient was on some blood pressure medications in the past which had bottomed a blood pressures should was discontinued -obtain brain MRI to rule out PRES syndrome -neurology will be consulted (2) Hypertensive encephalopathy: Code(s): I67.4 - Hypertensive encephalopathy Status: Acute Assessment and Plan: As above 07/02/2023 CT brain without contrast: Stable moderate nonspecific cerebral white matter disease which likely represents chronic small vessel ischemic disease (3) Central stenosis of spinal canal: Code(s): M48.00 - Spinal stenosis, site unspecified Status: Acute Assessment and Plan: History of spinal stenosis, patient goes to a chiropractor (4) CKD (chronic kidney disease) stage 3, GFR 30-59 ml/min: Qualifiers: Chronic kidney disease stage 3 subtype: stage 3a (GFR 45-59) Qualified Code(s): N18.31 - Chronic kidney disease, stage 3a Code(s): N18.30 - Chronic kidney disease, stage 3 unspecified Status: Acute Assessment and Plan: BUN creatinine are within normal limits at this time -continue gentle hydration till she is NPO -continue to monitor renal function, electrolytes and urine output (5) GERD (gastroesophageal reflux disease): Code(s): K21.9 - Gastro-esophageal reflux disease without esophagitis Status: Acute Assessment and Plan: Continue Protonix (6) Type 2 diabetes mellitus without complication: Qualifiers: Diabetes mellitus terminal system operator insulin use: without terminal system operator use Qualified Code(s): E11.9 - Type 2 diabetes mellitus without complications Code(s): E11.9 - Type 2 diabetes mellitus without complications Status: Acute Assessment and Plan: Accu-Cheks and sliding scale insulin Plan DVT prophylaxis: Lovenox SQ Stress ulcer prophylaxis: Protonix Nutrition: NPO Code Status: Full code Critical Care Time Spent: 49 minutes Discussed with TERE Oro on the phone and updated her with patient's condition and plan of care. She is aware that the patient will be going for an MRI. Due to a high probability of clinically significant, life threatening deterioration, the patient required my highest level of preparedness to intervene emergently and I personally spent this critical care time directly and personally managing the patient. This critical care time included obtaining a history; examining the patient; pulse oximetry; ordering and review of studies; arranging urgent treatment with development of a management plan; evaluation of patient's response to treatment; frequent reassessment; and discussions with other providers. It was exclusive of separately billable procedures and treating other patients and teaching time. Please see Assessment and Plan section and the rest of the note for further information on patient assessment and treatment This dictation may have been done utilizing a voice recognition system. Attempts have been made to correct errors. However, there may be uncorrected grammatical, spelling, and recognitions errors present. Fence Repairman Consult Note Consult date: 07/03/23 Reason for consult: Hypertensive urgency, altered mental status HPI: Bhargavi Denis is a 77 year old female with past medical history of anemia, essential hypertension not on any medications, hypothyroidism, hyperlipidemia, type 2 diabetes, spinal stenosis presented the ED on on 07/02/2023 with complains of high blood pressures, confusion, altered m
--- NOTE | 2023-07-03 10:51 | WPDNEURCNPN ---
Assessment and Plan Assessment and plan (1) Hypertensive emergency: Code(s): I16.1 - Hypertensive emergency Status: Acute Plan Bhargavi Denis is a 77 year old female with a history of anemia, B12 deficency, CKD, HTN, hypothyroidism, HLD, DM, spinal stenosis who was brought in due to encephalopathy in the setting of hypertensive emergency. Blood pressure was in the 200s on admission, now down to 140-160s systolic. MRI brain to be obtained to evaluate for PRES vs acute stroke as cause of symptoms. - MRI brain pending Consult date: 07/03/23 Reason for consult: Concern for hypertensive encephalopathy HPI: Bhargavi Denis is a 77 year old female with a history of anemia, B12 deficency, CKD, HTN, hypothyroidism, HLD, DM, spinal stenosis who was brought in due to confusion. Per family, on day of presentation, patient was notably more tired, and confused. She was taken to [place] ED where she was noted to have initial BP of 203/93. She did not receive any PRN BP medications. She was started on nicardipine drip and transferred to the ICU. In the ER she was noted to have AOx3 mental status. CT head did not show any acute changes. Her UA showed some protein, trace blood and LE, but no bacteria. Her blood pressure since this morning has ranged from 140-160s systolic. Patient does not take any BP medications at home. There were no reports for any seizure-like activity. MRI brain has been ordered for evaluation of PRES. Patient's neice at bedside. She feels that patient has improved but her speech is not 100% back to baseline. She did not observe any other focal deficits on patient. Patient denies any complaints currently. She just had her MRI brain done. Review of Systems Review of Systems: All systems reviewed & are unremarkable except as noted in HPI and below PMFSH Past Medical History Medical History Anemia B12 deficiency CKD (chronic kidney disease) stage 3, GFR 30-59 ml/min Cough Essential (primary) hypertension Fatigue Hypothyroidism (acquired) Insomnia Mixed hyperlipidemia Primary osteoarthritis of both hips Spinal stenosis Type 2 diabetes mellitus without complication Family History Family History Sibling Family history of diabetes mellitus in first degree relative Mother Family history of lung cancer Family history of malignant neoplasm of brain Social History Social History Smoking status: Never smoker Second hand tobacco smoke exposure: Yes Alcohol intake: never Substance use: never Substance use type: does not use Do You Feel Safe in your Home?: Yes Lack of Transportation: No Lack of Food: Never True Current Housing: I Have Housing Concerned About Future Housing: No Difficulty Paying Gas/Electric Bills: No Difficulty Paying for Meds: No Currently Unemployed: No Education: High School Diploma/GED Difficulty w/ Childcare or Family Care: No Living arrangements: with family Spiritual care concerns: Yes Meds Home Medications and Allergies Home Medications Medication Instructions Recorded Confirmed Type mecobalamin (vitamin B12) 1,000 1,000 mcg sublingual DAILY 07/08/19 07/03/23 History mcg disintegrating tablet,sublingual calcium carbonate 500 mg-vitamin 1 tablet PO DAILY 08/13/22 07/03/23 History D3 3.125 mcg (125 unit) tablet (Calcium) meloxicam 15 mg tablet 15 mg PO DAILY #30 tabs 04/28/23 07/03/23 Rx fluoxetine 10 mg tablet 15 mg PO DAILY 07/03/23 07/03/23 History levothyroxine 88 mcg tablet 88 mcg PO DAILY 07/03/23 07/03/23 History pantoprazole 40 mg tablet,delayed 40 mg PO DAILY 07/03/23 07/03/23 History release trazodone 150 mg tablet 150 mg PO HS PRN Insomnia 07/03/23 07/03/23 History Allergies Allergy/AdvReac Type Severity Reaction Status Date / Time erythromycin base Mane
[2023-07-03 11:01] LABS: Glucose Point of Care 109 mg/dl (65-105)
--- NOTE | 2023-07-03 11:48 | PCFNICU ---
ICU Rounding Note: Pt current nutrition is NPO. Nutrition recommendation: advance as tolerated per MD orders. Last recorded weight is 55.8 kg Bowel Motility:No BM noted at this time. Labs Reviewed:GFR 54, Na 136 Meds Noted:Rocephin, NS, Vit B12, Protonix, Synthroid. Skin: WNL Additional Notes: Patient NPO at this time, plans for MRI today. Unsure of weight loss, nursing is calling family later on. She will ask about weight loss and report back. Plans for diet order to advance as tolerated. Following daily in ICU rounds.
--- NOTE | 2023-07-03 16:28 | PC.NURSE ---
Patient complained of having to void. She had asked to use the bathroom but was encouraged by me to use the commode. Patient agreed. I assisted patient to the bedside commode and placed her call light on her lap. The patient asked for privacy to have a BM. I left encouraging the patient not to get up without calling on the call light and waiting for my assistance. I was caring for a patient in an adjacent room when I heard a loud thump. I entered her room along with Constanza West RN and Yudy Gurrola RN. The patient was found to be lying on the floor in a pool of urine. The niece, Preethi Toro, was visiting in the patient room when The patient fell. She stated the patient did not want to take my assistance with wiping post void due to modesty. The patient stood to wipe, lost balance, and fell to the ground, pulling the commode down with her. The patient was found to be able to move all extremities. Pupils are equal and reactive. She complains of posterior head pain where her head struck the wai. Dr. Beltran was notified and the patient was taken to CT via stretcher post lifting her from the ground via gait belt and cleaning her up and applying a fresh gown. Bed alarm on.
[2023-07-03] MEDS: ACETAMINOPHEN 500 MG TABLET 1000 MG PO (17:16)
[2023-07-03 17:21] LABS: Glucose Point of Care 117 mg/dl (65-105)
[2023-07-03] MEDS: niCARdipine 20 MG/200 ML 20 MG/200 ML BAG 75 MG IV CONT (17:44)
--- NOTE | 2023-07-03 17:45 | PM.EVENT ---
Event Note Event Note Event Note: Notified by Nurse Merlos the patient had fell and was asked by wire transfer clerk to evaluate patient. Per charting, the patient fell at 1604 while getting up to wipe on the commode. A large thump was heard in a room nearby by Nurse Merlos. CT Head w/o con at 1638 demonstrated no acute abnormalities only age related changes. At 1735 my objective exam of the patient includes the following: General: no acute distress, alert and oriented x4, recent and remote memory intact HEENT: PERRLA, EOMI, local swelling left occipital region of skull Neurologic: GCS 15. Cranial Nerves 2-12 grossly intact. No ataxia. gait deferred. Sensation intact x4 extremities. Motor strength 5/5 x4 extremities. normal speech. DTR 2+ Neck: supple, no bony tenderness or step off, no pain on ROM of neck. CV: RRR Lungs: CTABL Ext: no edema The patient has no complaints aside from pain at the site of blunt skull trauma. She is receiving Tylenol for this. She has a bed rest order and should adhere to that until the morning. Lovenox has been held. Neurochecks ordered q1hr until 2100, then q2hr until tomorrow 0500 and then q4hr thereafter, this was verbalized to nurse Merlos. If the patient demonstrates any changes in neurological status, excessive vomiting, seizure or other concerning symptoms, a STAT Head ct w/o contrast would be appropriate coupled with communication to the audograph operator. Full Code.
[2023-07-03] MEDS: niCARdipine 20 MG/200 ML 20 MG/200 ML BAG 70 MG IV CONT (20:32)
[2023-07-04] VITALS (22 sets, daily range): BP systolic 124–162; BP diastolic 45–109; PULSE 74–102; RESP 15–21; TEMP 36.1–37; O2SAT 90–97; BMI 28.8
--- NOTE | 2023-07-04 | ECHO_ITS ---
Patient Info Name: Bhargavi Denis Age: 77 years : 1945 Gender: Female Ht: 66 in Wt: 123 lbs BSA: 1.61 m2 HR: 84 bpm BP: 148 / 58 mmHg Heart Rhythm: Sinus Rhythm Technical Quality: Fair Exam Date: 07/04/2023 9:27 AM Exam Location: Echo Lab Exam Room: ICU5 Patient Status: Inpatient Admit Date: 07/03/2023 Staff Ordering Physician: Stacie Beltran MD Pin Drafting Machine Tender: Kimberly Interiano RDCS Attending Provider: Tim Kamara MD Referring Physician: Ruby AWAN; Exam Type: CA echo doppler color flow Study Info Indications - HYPERTENSIVE URGENCY Complete two-dimensional, color flow and Doppler transthoracic echocardiogram is performed. Summary 1. Complete two-dimensional, color flow and Doppler transthoracic echocardiogram is performed. 2. Left ventricular hypertrophy with good systolic function and grade 1 diastolic noncompliance. 3. Left atrial enlargement. 4. Trivial mitral and aortic valve regurgitation. 5. TR velocities indicating moderately elevated PA pressure. Left Ventricle Left ventricular chamber dimension is normal. Left ventricular systolic function is normal, estimated at 60-65%. There is mild concentric increased left ventricular wall thickness. The left ventricular diastolic function is grade I diastolic dysfunction. Right Ventricle Right ventricular chamber dimension is normal. Left Atria Left atrial chamber dimension is mildly enlarged. Right Atria Right atrial chamber dimension is normal. Aortic Valve The aortic valve is normal. There is trace aortic valve regurgitation. Pulmonic Valve The pulmonic valve is not well visualized. Mitral Valve The mitral valve has normal leaflets. There is trace mitral valve regurgitation. Tricuspid Valve The tricuspid valve leaflets are normal. There is mild tricuspid valve regurgitation. Moderate pulmonary hypertension, estimated pulmonary arterial systolic pressure is 56 mmHg. Pericardium/Pleural The pericardium appears normal. Aorta The aortic root size at the sinus of Valsalva is normal. Left Ventricular Outflow Tract Name Value Normal LVOT 2D LVOT Diameter 2.0 cm LVOT Doppler LVOT Peak Gradient 8 mmHg LVOT Mean Gradient 5 mmHg LVOT VTI 29 cm LVOT VTI/AV VTI Ratio 0.9 LVOT Stroke Volume 93 ml LVOT CO 19.6 l/min LVOT CI 12.2 l/min/m2 Pulmonic Valve Name Value Normal RVOT Doppler RVOT Peak Gradient 3 mmHg PV Doppler PV Peak Gradient 8 mmHg Mitral Valve Name Value Normal
[2023-07-04] MEDS: niCARdipine 20 MG/200 ML 20 MG/200 ML BAG 60 MG IV CONT (00:05)
[2023-07-04 00:16] LABS: Glucose Point of Care 113 mg/dl (65-105)
[2023-07-04] MEDS: SODIUM CHLORIDE 0.9% IV 1,000 ML 75 ML IV CONT (00:35)
[2023-07-04] MEDS: niCARdipine 20 MG/200 ML 20 MG/200 ML BAG 40 MG IV CONT (04:24)
[2023-07-04 04:35] LABS: Basophils Absolute Auto 0.1 K/mm3 (0.0-0.1); Basophils Percent Auto 0.9 % (0.2-1.2); Eosinophils Absolute Auto 0.1 K/mm3 (0-0.3); Eosinophils Percent Auto 0.9 % (0-4.4); Hematocrit 31.4 % (37.0-47.0); Hemoglobin 10.4 g/dL (12.0-15.0); Immature Granulocyte Absolute 0.02 K/mm3 (0.00-0.031); Immature Granulocyte Percent A 0.3 % (0-0.5); Lymphocytes Absolute Auto 1.24 K/mm3 (0.9-3.2); Lymphocytes Percent Auto 18.7 % (18.3-44.2); Mean Corpuscular HGB Conc 33.1 g/dl (32-36); Mean Corpuscular Hemoglobin 31.8 pg (26-34); Mean Platelet Volume 10.9 fl (7.4-10.4); Monocytes Absolute Auto 0.7 K/mm3 (0.1-0.6); Monocytes Percent Auto 9.8 % (2.6-8.5); Neutrophils Absolute Auto 4.6 K/mm3 (1.3-6.7); Neutrophils Percent Auto 69.4 % (45.5-73.1); Nucleated Red Blood Cells Perc 0.5 % (0.0-0.2); Platelet Count Result 171 k/mm3 (150-375); Red Blood Count 3.27 M/mm3 (4.2-5.4); Red Cell Distribution Width 12.4 % (11.5-14.5); White Blood Count 6.6 K/mm3 (4.5-10.0)
[2023-07-04 04:47] LABS: Prothrombin Time 13.8 Seconds (11.1-14.7)
[2023-07-04 04:48] LABS: Partial Thromboplastin Time 29.4 SECONDS (22.3-36.8)
[2023-07-04 05:34] LABS: Alanine Aminotransferase 9 U/L (6-35); Albumin Level 3.3 g/dL (3.5-5.1); Alkaline Phosphatase 53 U/L (38-126); Anion Gap 4 mmol/L (8-16); Aspartate Amino Transferase 27 U/L (14-36); Bilirubin,Total 0.8 mg/dL (0.2-1.3); Blood Urea Nitrogen 16 mg/dL (7-17); Calcium 8.4 mg/dL (8.4-10.2); Carbon Dioxide 23 mmol/L (22-30); Chloride 103 mmol/L (98-107); Estimated CRCL calculation 44 ml/min; Estimated Glomerular Filt Rate > 60; Glucose 100 mg/dL (65-110); Lipase 73 U/L (23-300); Magnesium 1.5 mg/dL (1.6-2.3); Potassium 3.6 mmol/L (3.4-5.0); Sodium 130 mmol/L (137-145)
[2023-07-04] MEDS: LEVOTHYROXINE SODIUM 88 MCG TABLET PO (06:54)
[2023-07-04] MEDS: CYANOCOBALAMIN 1,000 MCG TABLET 1000 MCG BY MOUTH (08:40)
[2023-07-04] MEDS: amLODIPine BESYLATE 5 MG TABLET PO ×2 (08:40→10:08)
[2023-07-04] MEDS: PANTOPRAZOLE 40 MG TABLET PO (08:40)
[2023-07-04] MEDS: FLUoxetine HCL 10 MG CAPSULE 30 MG PO (08:40)
[2023-07-04] MEDS: ACETAMINOPHEN 325 MG TABLET 650 MG PO (08:40)
[2023-07-04] MEDS: niCARdipine 20 MG/200 ML 20 MG/200 ML BAG 25 MG IV CONT (09:09)
[2023-07-04] MEDS: MAGNESIUM SULF 2 GM/WATER 50ML 2 GM/50 ML BAG IVPB (10:07)
[2023-07-04] MEDS: POTASSIUM CHLORIDE 20 MEQ ER TABLET PO (10:08)
--- NOTE | 2023-07-04 10:46 | PM.CNCAR ---
Assessment and Plan Assessment and plan (1) Hypertensive emergency: Code(s): I16.1 - Hypertensive emergency Status: Acute Assessment and Plan: Blood pressure has improved during hospitalization with nicardipine and amlodipine. She is off of her neck heart a Pean drip at this point. Will continue with the amlodipine 10 mg daily and will add lisinopril 2.5 mg daily. Give 1st dose now. If her blood pressure remains elevated, would up titrate lisinopril. She also has p.r.n. IV hydralazine for the time being. I discussed the diagnosis of hypertension and importance of managing blood pressure for cardiovascular risk reduction and reduction of end organ damage. also encouraged lifestyle modifications for blood pressure management. Her echocardiogram showed normal left ventricular systolic function with some left ventricular hypertrophy and grade 1 diastolic dysfunction. She has mild mitral and aortic valve regurgitation, and moderate pulmonary hypertension. Monitor her in the hospital overnight and perhaps discharge tomorrow if her blood pressure remains controlled - disposition per primary service. Cardiology will sign off at this point. She may follow-up either with her primary care doctor or with Cardiology if she chooses to do so. History of Present Illness History of Present Illness Consult date/time: 07/04/23 10:46 Requesting physician: Stacie Beltran MD Consult reason: hypertension Reason For Visit: Hypertensive Encephalopathy Narrative: Bhargavi Denis is a 77 year old patient with hypertension and chronic kidney disease who is admitted to the hospital following a mechanical ground level fall. Patient states that she has been experiencing some weakness in her lower extremities recently and did trip and fall at home and was encouraged by her knees to come to the emergency department. When she arrived in the emergency department it was noted that her blood pressure was significantly elevated with a systolic blood pressure of 234 mmHg. She does state that she has been diagnosed with hypertension in the past and was placed on a medication for this but she is no longer taking that medication because it caused her to bottom out. She denies any known cardiac history including coronary artery disease, congestive heart failure, valvular problems , or arrhythmias. She does note that she has been experiencing some shaking and tremors lately. At the time of my visit with her she does not have any complaints and is resting comfortably in bed with multiple family members at the bedside. Review of Systems Review of Systems: All systems reviewed & are unremarkable except as noted in HPI and below PMFSH Past Medical History Medical History Anemia B12 deficiency CKD (chronic kidney disease) stage 3, GFR 30-59 ml/min Cough Essential (primary) hypertension Fatigue Hypothyroidism (acquired) Insomnia Mixed hyperlipidemia Primary osteoarthritis of both hips Spinal stenosis Type 2 diabetes mellitus without complication Family History Family History Sibling Family history of diabetes mellitus in first degree relative Mother Family history of lung cancer Family history of malignant neoplasm of brain Social History Social History Smoking status: Never smoker Second hand tobacco smoke exposure: Yes Alcohol intake: never Substance use: never Substance use type: does not use Do You Feel Safe in your Home?: Yes Lack of Transportation: No Lack of Food: Never True Current Housing: I Have Housing Concerned About Future Housing: No Difficulty Paying Gas/Electric Bills: No Difficulty Paying for Meds: No Currently Unemployed: No Education: High School Diploma/GED Difficulty w/ Childcare or Family Care: No Living arrangement
[2023-07-04 12:13] LABS: Glucose Point of Care 132 mg/dl (65-105)
[2023-07-04] MEDS: hydrALAZINE HCL 20 MG/ML VIAL 10 MG IV PUSH ×2 (12:53→21:06)
--- NOTE | 2023-07-04 13:42 | WPDINTPN ---
Progress Note: A&P Assessment and Plan (1) Hypertensive emergency: Code(s): I16.1 - Hypertensive emergency Status: Acute Assessment and Plan: Patient presented to the hospital with altered mental status, increasing confusion and somnolence on the day of admission -patient was started on nicardipine infusion in the ER and transferred to the ICU for further management -continue nicardipine infusion -discussed with POA, patient was on some blood pressure medications in the past which had bottomed a blood pressures should was discontinued -amlodipine dose was increased to 10 mg, p.r.n. hydralazine -cardiology has been consulted\ -09/02/2022 echocardiogram: Left ventricular hypertrophy with EF of 60-65%, grade 1 diastolic dysfunction will mitral and aortic valve regurg, moderate pulmonary hypertension with RVSP of 56 mm Hg 07/03/2023 MRI brain IMPRESSION: 1. Typical pattern of her ventricular predominant nonspecific white matter T2 hyperintensity which corresponds to a similar pattern of white matter hypoattenuation on CT which has remained stable since 02/05/2023. This would be most consistent with sequela of chronic small vessel ischemic disease. No other acute intracranial process. 2. A few foci of susceptibility artifact at the bilateral basal ganglia suggestive of sequela of chronic microhemorrhage, typically related to hypertension. (2) Hypertensive encephalopathy: Code(s): I67.4 - Hypertensive encephalopathy Status: Acute Assessment and Plan: As above 07/02/2023 CT brain without contrast: Stable moderate nonspecific cerebral white matter disease which likely represents chronic small vessel ischemic disease 07/03/2023: CT scan of the brain showed no intracranial abnormality, age-related finding. This was done after she had a fall in the room, she was leaning forward on the bedside commode and fell forward hitting her head on the floor (3) Central stenosis of spinal canal: Code(s): M48.00 - Spinal stenosis, site unspecified Status: Acute Assessment and Plan: History of spinal stenosis, patient goes to a chiropractor (4) CKD (chronic kidney disease) stage 3, GFR 30-59 ml/min: Qualifiers: Chronic kidney disease stage 3 subtype: stage 3a (GFR 45-59) Qualified Code(s): N18.31 - Chronic kidney disease, stage 3a Code(s): N18.30 - Chronic kidney disease, stage 3 unspecified Status: Acute Assessment and Plan: BUN creatinine are within normal limits at this time -is continued IV fluid as patient tolerating p.o. diet -continue to monitor renal function, electrolytes and urine output (5) GERD (gastroesophageal reflux disease): Code(s): K21.9 - Gastro-esophageal reflux disease without esophagitis Status: Acute Assessment and Plan: Continue Protonix (6) Type 2 diabetes mellitus without complication: Qualifiers: Diabetes mellitus local intermodal truck driver insulin use: without local intermodal truck driver use Qualified Code(s): E11.9 - Type 2 diabetes mellitus without complications Code(s): E11.9 - Type 2 diabetes mellitus without complications Status: Acute Assessment and Plan: Accu-Cheks and sliding scale insulin Plan DVT prophylaxis: Lovenox SQ Stress ulcer prophylaxis: Protonix Nutrition: Heart healthy diet Code Status: Full code Critical Care Time Spent: 33 minutes Patient may transfer out of the ICU as she is off nicardipine infusion Discussed with TERE Oro on the phone and updated her with patient's condition and plan of care. She is aware that the patient will be going for an MRI. Due to a high probability of clinically significant, life threatening deterioration, the patient required my highest level of preparedness to intervene emergently and I personally spent this critical care time directly and personally managing the patient. This critical care time included obtaining a history; examining the patient; pulse oxim
[2023-07-04] MEDS: lisinopriL 2.5 MG TABLET PO (15:20)
[2023-07-04 18:26] LABS: Glucose Point of Care 154 mg/dl (65-105)
--- NOTE | 2023-07-04 18:50 | PC.NURSE ---
This patient, Bhargavi Denis, was received from ICU 5 on 07/04/23 at 1850. Patient/family oriented to unit policies and routines.
--- NOTE | 2023-07-04 19:03 | PC.NURSE ---
This patient, Bhargavi Denis, was transferred to [facility] on 07/04/23 at 1845. Personal belongings sent with patient. Report given to Len Bliss. Appropriate documentation sent with patient.
[2023-07-04 22:10] LABS: Glucose Point of Care 113 mg/dl (65-105)
[2023-07-05] VITALS (10 sets, daily range): BP systolic 123–183; BP diastolic 60–104; PULSE 75–92; RESP 16; TEMP 36.8–37.2; O2SAT 95–100
[2023-07-05 05:04] LABS: Basophils Absolute Auto 0.1 K/mm3 (0.0-0.1); Eosinophils Absolute Auto 0.1 K/mm3 (0-0.3); Eosinophils Percent Auto 2.1 % (0-4.4); Hematocrit 31.9 % (37.0-47.0); Hemoglobin 10.6 g/dL (12.0-15.0); Immature Granulocyte Absolute 0.03 K/mm3 (0.00-0.031); Immature Granulocyte Percent A 0.4 % (0-0.5); Lymphocytes Absolute Auto 1.26 K/mm3 (0.9-3.2); Lymphocytes Percent Auto 18.6 % (18.3-44.2); Mean Corpuscular HGB Conc 33.2 g/dl (32-36); Mean Corpuscular Hemoglobin 31.8 pg (26-34); Mean Corpuscular Volume 95.8 fl (80-100); Mean Platelet Volume 10.9 fl (7.4-10.4); Monocytes Absolute Auto 0.8 K/mm3 (0.1-0.6); Monocytes Percent Auto 11.2 % (2.6-8.5); Neutrophils Absolute Auto 4.5 K/mm3 (1.3-6.7); Neutrophils Percent Auto 66.7 % (45.5-73.1); Platelet Count Result 173 k/mm3 (150-375); Red Blood Count 3.33 M/mm3 (4.2-5.4); Red Cell Distribution Width 12.8 % (11.5-14.5); White Blood Count 6.8 K/mm3 (4.5-10.0)
[2023-07-05 05:33] LABS: Alanine Aminotransferase 12 U/L (6-35); Albumin Level 3.3 g/dL (3.5-5.1); Alkaline Phosphatase 55 U/L (38-126); Anion Gap 6 mmol/L (8-16); Aspartate Amino Transferase 29 U/L (14-36); Bilirubin,Total 0.5 mg/dL (0.2-1.3); Blood Urea Nitrogen 16 mg/dL (7-17); Calcium 8.6 mg/dL (8.4-10.2); Carbon Dioxide 27 mmol/L (22-30); Chloride 102 mmol/L (98-107); Estimated CRCL calculation 48 ml/min; Estimated Glomerular Filt Rate > 60; Glucose 91 mg/dL (65-110); Magnesium 1.9 mg/dL (1.6-2.3); Phosphorus 3.3 mg/dL (2.5-4.5); Potassium 3.6 mmol/L (3.4-5.0); Sodium 135 mmol/L (137-145)
[2023-07-05] MEDS: LEVOTHYROXINE SODIUM 88 MCG TABLET PO (06:33)
[2023-07-05 08:15] LABS: Glucose Point of Care 91 mg/dl (65-105)
[2023-07-05] MEDS: FLUoxetine HCL 10 MG CAPSULE 30 MG PO (09:01)
[2023-07-05] MEDS: CYANOCOBALAMIN 1,000 MCG TABLET 1000 MCG BY MOUTH (09:01)
[2023-07-05] MEDS: amLODIPine BESYLATE 5 MG TABLET 10 MG PO (09:02)
[2023-07-05] MEDS: lisinopriL 5 MG TABLET PO (09:02)
[2023-07-05] MEDS: PANTOPRAZOLE 40 MG TABLET PO (09:02)
[2023-07-05 11:42] LABS: Glucose Point of Care 115 mg/dl (65-105)
--- NOTE | 2023-07-05 15:26 | PM.DS ---
DS: Admitting Diagnosis Discharge Date 07/05/23 Admitting Diagnosis Altered mental status DS: Discharge Diagnosis Discharge Diagnosis (1) Hypertensive emergency: Code(s): I16.1 - Hypertensive emergency Status: Acute (2) Hypertensive encephalopathy: Code(s): I67.4 - Hypertensive encephalopathy Status: Acute (3) Central stenosis of spinal canal: Code(s): M48.00 - Spinal stenosis, site unspecified Status: Acute (4) CKD (chronic kidney disease) stage 3, GFR 30-59 ml/min: Qualifiers: Chronic kidney disease stage 3 subtype: stage 3a (GFR 45-59) Qualified Code(s): N18.31 - Chronic kidney disease, stage 3a Code(s): N18.30 - Chronic kidney disease, stage 3 unspecified Status: Acute (5) GERD (gastroesophageal reflux disease): Code(s): K21.9 - Gastro-esophageal reflux disease without esophagitis Status: Acute (6) Type 2 diabetes mellitus without complication: Qualifiers: Diabetes mellitus manager terminal insulin use: without group home use Qualified Code(s): E11.9 - Type 2 diabetes mellitus without complications Code(s): E11.9 - Type 2 diabetes mellitus without complications Status: Acute DS: Summary Hospital Course Reason for hospitalization: 77yo female with HTN and CKD here for altered mental status. Please see H&P for detials. Hospital Course: Patient presented to the hospital with altered mental status, increasing confusion and somnolence on the day of admission. She was noted to have elevated BP with concern for HTn encephalopathy. She was started on nicardipine infusion in the ER and transferred to the ICU for further management. Patient was on some blood pressure medications in the past which had caused a drop in her blood pressure so she discontinued then. She was started on amlodipine and dose was advanced. Echo here showing LVH with EF of 60-65%, grade 1 diastolic dysfunction and moderate pulmonary HTN. Cardiology was consulted and lisinopril added. CT brain without contrast shows stable moderate nonspecific cerebral white matter disease which likely represents chronic small vessel ischemic disease. Repeat CT brain performed because patient had a fall and showing similar findings. Pelvic and hip xray negative for fracture. Brain MRI showing: Typical pattern of her ventricular predominant nonspecific white matter T2 hyperintensity which corresponds to a similar pattern of white matter hypoattenuation on CT which has remained stable since 02/05/2023. This would be most consistent with sequela of chronic small vessel ischemic disease. No other acute intracranial process. And a few foci of susceptibility artifact at the bilateral basal ganglia suggestive of sequela of chronic microhemorrhage, typically related to hypertension. Has a history of CKD and BUN creatinine were within normal limits. She feels well. has been working with therapy. She is walking with the walker. She is 'wobbly' but this is normal for her per family (although they felt she was more stable with walking since BP is better controlled). PT felt patient had decreased functional independence with functional mobility due to balance and endurance. She was contact guard using 2 w/w and with transfers. She overall did well and was able to be discharged home on 07/05/23. Home health at discharge Status at Discharge Cognitive/behavioral status at discharge: stable Time Spent with Patient Time attestation: Total time spent providing and/or coordinating discharge services: 38 minutes Time spent: Greater than 30 minutes Exam Narrative: AF 98.2 123/75 80 16 98% ra Gen - NARD Chest - CTA bilaterally, nml RR CV - RRR S1/S2. Tele showing no signifincat dysrhytmias Abd - Soft, NT/ND, Positive BS Ext - No pedal edema Neuro - Alert and oriented. Nonfocal exam. Psych - Nml mood and affect Skin - Warm and dry DS: Data Data Completed and Pending Labs on day o
== END 2023-07-05 16:28 | disposition home health service (06) | DRG 305 ==
LOC: ANHED 07-03 02:03 → ANHICU 07-03 02:12 → ANHIMU 07-04 18:44
PROVIDERS: Internal Medicine; Admitting Provider Internal Medicine; Emergency Provider Student in an Organized Health Care Education/Training Program; PCP Nurse Practitioner Family; Visit Provider Internal Medicine
DX: I16.1 Hypertensive emergency (principal); I67.4 Hypertensive encephalopathy; S09.90XA Unspecified injury of head, initial encounter; W19.XXXA Unspecified fall, initial encounter; E53.8 Deficiency of other specified B group vitamins; E03.9 Hypothyroidism, unspecified; E78.2 Mixed hyperlipidemia; I12.9 Hypertensive chronic kidney disease with stage 1 through stage 4 chronic kidney disease, or unspecified chronic kidney disease; I27.20 Pulmonary hypertension, unspecified; I08.0 Rheumatic disorders of both mitral and aortic valves; K21.9 Gastro-esophageal reflux disease without esophagitis; M16.0 Bilateral primary osteoarthritis of hip; M48.00 Spinal stenosis, site unspecified; N18.31 Chronic kidney disease, stage 3a; Z11.52 Encounter for screening for COVID-19; Z88.0 Allergy status to penicillin
CPT/HCPCS: 36415; 70450; 70553; 71045; 73521; 80053; 80307; 81001; 82948; 83690; 83735; 84100; 84443; 84484; 85025; 85610; 85730; 87086; 87088; 87636; 93005; 93306; 96365; 97161; 97165; 99285; A9270; A9577; J0360; J0696; J1650; J3475; J7030

== ENCOUNTER 2023-08-05 13:00 | Outpatient (CLI) | payer MEDICARE, SELFPAY | END 2023-08-05 13:01 | disposition home or self-care (01) | LOC: ANHAUDIO 13:00 | PROVIDERS: PCP Nurse Practitioner Family; Visit Provider Nurse Practitioner Family | DX: H90.3 Sensorineural hearing loss, bilateral (principal) | CPT/HCPCS: 92557; 92567 ==

== ENCOUNTER 2023-08-13 11:59 | Outpatient (CLI) | payer MEDICARE, SELFPAY ==
--- NOTE | ~2023-08-13 | XR_ITS ---
XR lumbar spine min 4V DATE: 08/13/2023 13:02 INDICATION: Spinal stenosis TECHNIQUE: Standing AP, lateral, coned lateral lumbosacral views and standing flexion and extension l ateral views COMPARISON: 03/28/2023 MR lumbar spine 05/21/2018 lumbar spine FINDINGS: There is osteopenia. There is 25 degrees rotatory levoscoliosis measured from L2 to L4. There is minimal anterolisthesis at L5-S1. The lumbar vertebrae are otherwise normally aligned, witho ut instability on flexion or extension. There are severe degenerative disc disease at L2-3 and L3-4, especially on the right at the concavity of the scoliosis. There is moderate degenerative disease at L1-2. The L4-5 interspace is relatively well-preserved. There is moderately severe degenerative disc disease at L5-S1. No fracture or bone destruction is evident. The lumbar pedicles appear intact. The sacroiliac joints appear normal. IMPRESSION: Osteopenia 25 degrees rotatory levoscoliosis Multilevel degenerative disc disease, most severe at L2-3, L3-4 and L5-S1 Reviewed, dictated and finalized at location [facility]
== END 2023-08-13 12:00 ==
PROVIDERS: PCP Nurse Practitioner Family; Visit Provider Physician Assistant
DX: M48.062 Spinal stenosis, lumbar region with neurogenic claudication (principal); M85.88 Other specified disorders of bone density and structure, other site; M51.36 Other intervertebral disc degeneration, lumbar region; M51.37 Other intervertebral disc degeneration, lumbosacral region
CPT/HCPCS: 72110

== ENCOUNTER 2023-09-13 12:37 | Outpatient (CLI) | payer MEDICARE, SELFPAY ==
[2023-09-13 13:08] LABS: Hematocrit 33.5 % (37.0-47.0); Hemoglobin 10.7 g/dL (12.0-15.0); Mean Corpuscular HGB Conc 31.9 g/dl (32-36); Mean Corpuscular Hemoglobin 31.5 pg (26-34); Mean Corpuscular Volume 98.5 fl (80-100); Mean Platelet Volume 9.5 fl (7.4-10.4); Platelet Count Result 231 k/mm3 (150-375); Red Cell Distribution Width 12.6 % (11.5-14.5); White Blood Count 5.3 K/mm3 (4.5-10.0)
[2023-09-13 13:16] LABS: Appearance Urine Clear (Clear); Bacteria Urine None Seen /hpf; Bilirubin Urine Negative (Negative); Blood Urine Negative (Negative); Color Urine Yellow (Yellow); Glucose Urine UA Negative (Negative); Ketones Urine Negative (Negative); Leukocyte Esterase Ur Negative LEU/UL (Negative); Nitrate Urine Negative (Negative); Protein Urine Trace mg/dL (Negative); RBC Urine 0-2 /hpf (0-2); Specific Grav Ur 1.007 (1.001-1.035); Squamous Epithelial Cell Urine None seen /hpf (Few); Urobilinogen Urine 0.2 mg/dL (<2.0); WBC Urine 0-5 /hpf; pH Urine 6.5 (5.0-9.0)
[2023-09-13 13:18] LABS: Anion Gap 4 mmol/L (8-16); Blood Urea Nitrogen 12 mg/dL (7-17); Calcium 9.1 mg/dL (8.4-10.2); Carbon Dioxide 32 mmol/L (22-30); Chloride 97 mmol/L (98-107); Estimated Glomerular Filt Rate 43; Glucose 98 mg/dL (65-110); Potassium 4.4 mmol/L (3.4-5.0); Sodium 133 mmol/L (137-145)
[2023-09-13 13:19] LABS: INR 0.9
[2023-09-13 13:20] LABS: Partial Thromboplastin Time 28.2 SECONDS (22.3-36.8)
[2023-09-13 13:22] LABS: Add Urine Microscopic? YES
== END 2023-09-13 12:38 | disposition home or self-care (01) ==
PROVIDERS: PCP Nurse Practitioner Family; Visit Provider Neurological Surgery
DX: M48.062 Spinal stenosis, lumbar region with neurogenic claudication (principal); Z01.818 Encounter for other preprocedural examination
CPT/HCPCS: 36415; 80048; 81001; 85027; 85610; 85730

== ENCOUNTER 2023-09-17 01:53 | Day surgery (SDC) | payer MEDICARE, SELFPAY ==
[2023-09-01 12:03] VITALS: BMI 28.0
--- NOTE | 2023-09-01 12:31 | PC.NURSE ---
Report to the Outpatient Waiting Room, entrance under the green pavilion located off [facility], at time __6:00AM on date __09/10/23 . Planned Procedure Time: __7:30AM . Time changes happen often and if your time is changed the preop area will call you the afternoon before. - You and your visitor will be asked to self-screen and do not enter if you have any COVID symptoms. - A mask is optional within the hospital at this time. Patients may have clear liquids (water, carbonated beverages, clear teas, apple juice) until 3 hours prior to surgery with a maximum of 20 ounces. - No food from midnight until time of surgery. Take the following medications with a SIP of water the morning of surgery: AMLODIPINE, FLUOXETINE, LEVOTHYROXINE DO NOT STOP ANY OF YOUR OTHER PRESCRIPTION MEDICATIONS PRIOR TO SURGERY ?EXCEPT THE FOLLOWING Medications to discontinue per physician HOLD ALL VITAMINS/SUPPLEMENTS 3 DAYS PRE-OP PER ANESTHESIA Date to take last dose 09/06/23 Please no make-up, nail malian, hairspray, perfume, deodorant, or body powder the day of surgery. No jewelry (including any body piercings) or valuables the day of surgery, leave them at home. Please take a shower or bath the night before, or the morning of, surgery with an antibacterial soap. Wear comfortable, loose fitting clothing. - Jewelry must be removed prior to entering the operating room. Rings and piercings that are not removed may be cut off. - The hospital will not accept responsibility for valuables. - Please leave all valuables, including medications, at home the day of surgery. If you are going home after surgery, a licensed tank wagon driver must drive you home. - NO public transportation without another adult if you receive anesthesia. - We recommend that an adult stay with you for 24 hours following discharge. - We also recommend that you do not drive, make important decision, drink alcoholic beverages, or take any drugs that were not prescribed by your health care provider for at least 24 hours after your discharge time. Follow any additional instructions given to you from your surgeon. If you or anyone in your household have experienced Covid symptoms in the past week, please notify your surgeon or the nurse liaison at the phone number below for possible testing. Telephone instructions given to __PATIENT & NIECE and asked if any additional questions and then verbalized understanding. Patient advised to call surgeon office or pre surgery nurse liaison [phone] if any additional questions.
--- NOTE | 2023-09-12 11:46 | PC.NURSE ---
PATIENT RESCHEDULED R/T INSURANCE ISSUE. PT DENIES CHANGES IN PMH, MEDS OR ALLERGIES. ALL PRE-OP INSTRUCTIONS REVIEWED WITH NEW DATE/TIMES AND NPO/CLEAR LIQUIDS UNTIL 0800. SHE RELAYS UNDERSTANDING. Report to the Outpatient Waiting Room, entrance under the green pavilion located off [facility], at time __9:00AM on date __09/17/23 . Planned Procedure Time: __11:00AM . Time changes happen often and if your time is changed the preop area will call you the afternoon before. - You and your visitor will be asked to self-screen and do not enter if you have any COVID symptoms. - A mask is optional within the hospital at this time. Patients may have clear liquids (water, carbonated beverages, clear teas, apple juice) until 3 hours prior to surgery with a maximum of 20 ounces. - No food from midnight until time of surgery. Take the following medications with a SIP of water the morning of surgery: __AMLODIPINE, FLUOXETINE & LEVOTHYROXINE DO NOT STOP ANY OF YOUR OTHER PRESCRIPTION MEDICATIONS PRIOR TO SURGERY ?EXCEPT THE FOLLOWING Medications to discontinue per physician ___HOLD ALL VITAMINS/SUPPLEMENTS 3 DAYS PRE-OP PER ANESTHESIA Date to take last dose 09/13/23 Please no make-up, nail english, hairspray, perfume, deodorant, or body powder the day of surgery. No jewelry (including any body piercings) or valuables the day of surgery, leave them at home. Please take a shower or bath the night before, or the morning of, surgery with an antibacterial soap. Wear comfortable, loose fitting clothing. - Jewelry must be removed prior to entering the operating room. Rings and piercings that are not removed may be cut off. - The hospital will not accept responsibility for valuables. - Please leave all valuables, including medications, at home the day of surgery. If you are going home after surgery, a licensed warehouse driver must drive you home. - NO public transportation without another adult if you receive anesthesia. - We recommend that an adult stay with you for 24 hours following discharge. - We also recommend that you do not drive, make important decision, drink alcoholic beverages, or take any drugs that were not prescribed by your health care provider for at least 24 hours after your discharge time. Follow any additional instructions given to you from your surgeon. If you or anyone in your household have experienced Covid symptoms in the past week, please notify your surgeon or the nurse liaison at the phone number below for possible testing. Telephone instructions given to ____PATIENT and asked if any additional questions and then verbalized understanding. Patient advised to call surgeon office or pre surgery nurse liaison [phone] if any additional questions.
[2023-09-17] VITALS (9 sets, daily range): BP systolic 125–154; BP diastolic 55–66; PULSE 73–92; RESP 12–20; TEMP 36.4–36.6; O2SAT 95–100
--- NOTE | ~2023-09-17 | XR_ITS ---
EXAMINATION: XR fluoroscopy no charge DATE: 09/17/2023 11:58 INDICATION: Lumbar laminectomy TECHNIQUE: 2 lateral fluoroscopic images of the lower lumbar spine were obtained during procedure per formed by Dr. Cortez. Radiologist was not present for the imaging or procedure. The amount of fluoro scopy time used during this procedure was 0.1 minutes. COMPARISON: Lumbar spine radiographs dated 08/13/2023 and MRI dated 03/28/2023 FINDINGS/IMPRESSION: Lap sponge markers, soft tissue retractors and a metallic probe projecting over the soft tissues post erior to L4. See procedure note for further detail. Reviewed, dictated and finalized at location A. ON ACREAGE MEASURER
--- NOTE | 2023-09-17 09:01 | WPDHPUPDATE1 ---
History and Physical Update Update Date/Time: 09/17/23 09:01 History and Physical has been reviewed, including an updated exam of the patient. There are NO changes in the patient's condition. Risks, benefits, and alternatives have been discussed and questions answered. Patient agrees to proceed with procedure.
--- NOTE | 2023-09-17 09:08 | WPDANESEPPF ---
Anes - Initial Pre Proc Eval Procedure: Operation Date: 09/17/23 11:00 Proposed Procedures p L3-4 Lumbar Laminectomy, Possible Microdiscectomy - Pinky Cortez MD Date/Time: 09/17/23 09:08 Surgeon: Pinky Cortez MD Pre Op Diagnosis: lumbar stenosis with neurogenic claudication Patient Data Age: 78 Gender: F Height: 1.68 m Weight: 80.1 kg Last Vital Signs Temp 97.5 F L 09/17/23 09:01 Pulse 73 09/17/23 09:01 Resp 16 09/17/23 09:01 BP 147/62 H 09/17/23 09:01 Pulse Ox 98 09/17/23 09:01 O2 Del Method Room Air 09/17/23 09:01 Allergies Allergy/AdvReac Type Severity Reaction Status Date / Time erythromycin base Allergy Unknown Hyperactive Verified 09/17/23 08:48 Penicillins Allergy Unknown HIVES?, PT Verified 09/17/23 08:48 UNSURE OF REACTION Home Medications Medication Instructions Recorded Confirmed Type mecobalamin (vitamin B12) 1,000 1,000 mcg sublingual DAILY 07/08/19 09/17/23 History mcg disintegrating tablet,sublingual calcium carbonate 500 mg-vitamin 1 tablet PO DAILY 08/13/22 09/17/23 History D3 3.125 mcg (125 unit) tablet (Calcium) trazodone 150 mg tablet See Rx Instructions .Route 08/18/23 09/17/23 Rx .COMPLEX #90 tabs amlodipine 10 mg tablet 10 mg PO QAM 09/01/23 09/17/23 History fluoxetine 10 mg tablet 5 mg PO QAM 09/01/23 09/17/23 History levothyroxine 88 mcg tablet 88 mcg PO QAM 09/01/23 09/17/23 History pantoprazole 40 mg tablet,delayed 40 mg PO QAM 09/01/23 09/17/23 History release valsartan 40 mg tablet 40 mg PO HS #90 tabs 09/12/23 09/17/23 Rx Patient hx anesthesia problems: none Family hx anesthesia problems: none Results Review: All pre-operative results and documents have been reviewed as part of the pre-operative evaluation. [facility] Past Medical History Medical History (Updated 09/01/23 @ 12:30 by Catrina Beard APRN) Anemia B12 deficiency CKD (chronic kidney disease) stage 3, GFR 30-59 ml/min Cough Essential (primary) hypertension Fatigue Hypertensive emergency Hypertensive encephalopathy Hypothyroidism (acquired) Insomnia Mixed hyperlipidemia Primary osteoarthritis of both hips Spinal stenosis Type 2 diabetes mellitus without complication Family History Family History Sibling Family history of diabetes mellitus in first degree relative Mother Family history of lung cancer Family history of malignant neoplasm of brain Social History Social History (Updated 09/01/23 @ 10:42 by Trini Wong [facility]) Smoking status: Never smoker Second hand tobacco smoke exposure: Yes Alcohol intake: never Substance use: never Substance use type: does not use Do You Feel Safe in your Home?: Yes Lack of Transportation: No Lack of Food: Never True Current Housing: I Have Housing Concerned About Future Housing: No Difficulty Paying Gas/Electric Bills: No Difficulty Paying for Meds: No Currently Unemployed: Decline to Answer Education: High School Diploma/GED Difficulty w/ Childcare or Family Care: No Living arrangements: with family Additional living arrangements comments: SON WITH [employer] LIVES W/ PATIENT Spiritual care concerns: No Anes - Eval Final PreProcedure Day of Procedure 09/17/23 09:08 Patient weight: normal Heart: regular rate and rhythm Lungs: clear to auscultation Airway: Mallampati scale class II Neurological: alert and oriented Last oral intake: >/= 8 hours ASA classification: III Emergent: no Anesthetic plan: proceed Anesthesia type and monitoring: general ETT and standard monitoring Results Review: All pre-operative results and documents have been reviewed as part of the pre-operative evaluation. Informed Consent: The patient's anesthetic plan and its attendant risks and benefits were discussed with the patient/family/POA. Questions were solicited and answers provided to the satisfact
[2023-09-17] MEDS: LACTATED RINGERS 1,000 ML 30 ML IV CONT (09:14)
[2023-09-17] MEDS: ceFAZolin 2 GM/D5W 50 ML 2 GM/50 ML BAG IVPB (09:53)
[2023-09-17] MEDS: BUPIVACAINE/EPINEPHRINE 0.5% 30 ML VIAL INFILTRATE (09:53)
--- NOTE | 2023-09-17 11:10 | SUR.OPER ---
pre op noted = strength and + sensation in feet bilateral. Patient stated when she has pain it is in left leg. Has walker with her.
--- NOTE | 2023-09-17 12:26 | PM.OP ---
Procedure Note - Brief Procedure Note - Brief Date of procedure: 09/17/23 lumbar stenosis with neurogenic claudication Post-op diagnosis: Same Procedure performed: 1. Bilateral L3-4 hemilaminotomies 2. Right L3-4 microdiskectomy 3. Use of C-arm 4. Use of microscope Surgeon: Pinky Cortez MD Airport Engineer: Dionisio Anesthesia: GETA Findings: Bilateral hemilam performed. Disc herniation found and removed on right side at L3-4. Estimated blood loss (mL): 25 Drains: No Packing: No Pathology: None sent Complications: None Condition: Stable Disposition: PACU
--- NOTE | 2023-09-17 12:33 | W.PM.PROC2 ---
Procedure Note - Detailed Date of Procedure 09/17/23 Pre-op Diagnosis lumbar stenosis with neurogenic claudication Post-op Diagnosis Same Procedure Performed 1. Bilateral hemilaminotomies at L3-4 2. Right microdiskectomy at L3-4 3. Use of C-arm for fluoroscopy 4. Use of microscope for microsurgical dissection Surgeon Pinky Cortez MD Manager Business Planning Dionisio Anesthesia General Indications Ms. Denis is a?78-year-old female with history of CKD, hypertension, hypothyroidism who presents with 1 year of lower extremity weakness and 2 months of worsening urinary urgency, frequency, and incontinence.? She previously had back and leg pain when her symptoms initially started which improved with meloxicam.? She is neurologically intact on physical exam but does appear unsteady on her feet with ambulation.? MRI lumbar spine shows degenerative scoliosis.? There is significant central stenosis at L3-4 from a combination of ligamentum flavum hypertrophy as well as a right-sided cranially migrated disc herniation. I recommended surgery in the form of L3-4 laminectomy and microdiskectomy.?Due to her scoliosis with right-sided collapse at L3-4, I ultimately elected to perform bilateral hemilaminotomies at L3-4 to try to maintain the midline ligamentous structures and avoid any worsening of her scoliosis. Risks including pain, bleeding, infection, CSF leak, weakness, numbness, nerve damage, failure to relieve symptoms, and anesthetic complications were discussed. The patient provided written informed consent to proceed with surgery. Description of Procedure The patient was brought to the operating room, and general anesthesia was induced. The patient was placed prone on the Saad frame, and all pressure points were padded. Compression devices were placed on the patient's calves. The skin was cleaned with alcohol. The C-arm was brought onto the field to localize the appropriate disc space and assist with incisional planning. The area was prepped and draped in usual sterile fashion. A time out was conducted, and pre-operative antibiotics were administered. Local anesthesia was injected into the planned incision. A midline skin incision was made with a 10-blade scalpel, and dissection was carried down with the monopolar cautery to open the fascia. Once the spinous processes were located, a subperiosteal dissection was performed to expose the laminae bilaterally. A self-retaining retractor was placed. The C-arm was brought in to confirm the correct level. The microscope was draped and brought into the field. Starting on the left side, the high-speed drill was used to thin the lamina to the ligamentum flavum which was elevated and removed with a kerrison until the dura appeared well decompressed. I then moved to the right side where I similarly thinned the lamina to the ligamentum flavum. This was noted to be quite hypertrophied on this side. This was gradually elevated and removed. A 4 penfield was then used to separate the dura from the posterior longitudinal ligament, and the disc bulge was immediately identified. A nerve hook was used to open the annulus and gradually tease out the degenerated disc. This was removed in small pieces until the dura appeared well decompressed. A Woodsen was used to verify adequate decompression at the cranial and caudal aspects of the decompression. Hemostasis was ensured, and the area was copiously irrigated. No evidence of CSF leak was noted. The muscle was loosely approximated with 0-Vicryl. The fascia was closed with 0-Vicryl in an interrupted fashion. The soft tissue was again copiously irrigated. The dermis was closed with 2-0 interrupted Vicryl. The skin was closed with 4-0 monocryl, and the incision was covered with skin glue. The patient was returned supine on the stretcher, extubated, and transferred to PACU without incident. Billing codes: 66685, 66058, 43845 Estimated Blood Loss 25 Drains No Packing No Pathology None sent Complications N
== END 2023-09-17 14:31 | disposition home or self-care (01) ==
PROVIDERS: PCP Nurse Practitioner Family; Visit Provider Neurological Surgery
PROC: (CPT 63005; principal; 2023-09-17 11:00)
DX: M48.062 Spinal stenosis, lumbar region with neurogenic claudication (principal); I12.9 Hypertensive chronic kidney disease with stage 1 through stage 4 chronic kidney disease, or unspecified chronic kidney disease; E11.22 Type 2 diabetes mellitus with diabetic chronic kidney disease; N18.30 Chronic kidney disease, stage 3 unspecified; E03.9 Hypothyroidism, unspecified; E78.2 Mixed hyperlipidemia; E53.8 Deficiency of other specified B group vitamins
CPT/HCPCS: 63030; 36415; 80048; 81001; 85027; 85610; 85730; 99199; A9270; J0690; J1100; J1170; J2371; J2405; J2704; J3010; J7120

== ENCOUNTER 2024-01-04 13:25 | Outpatient (CLI) | payer MEDICARE, SELFPAY ==
--- NOTE | ~2024-01-04 | XR_ITS ---
EXAMINATION: XR hip RT min 2V DATE: 01/04/2024 13:50 INDICATION: Right hip pain. TECHNIQUE: 2 views of right hip were obtained. COMPARISON: Right hip radiographs 05/05/2023 FINDINGS: Bone alignment is normal. No fracture. There is mild right hip osteoarthritis. IMPRESSION: 1. Mild right hip osteoarthritis. Reviewed, dictated and finalized at location E.
--- NOTE | ~2024-01-04 | MR_ITS ---
EXAMINATION: MR lumbar spine wo con DATE: 01/04/2024 14:13 INDICATION: Radiculopathy, lumbar region. TECHNIQUE: Magnetic resonance imaging (MRI) of the lumbar spine was performed without intravenous con trast. Sequences included sagittal T2-weighted FSE, sagittal T2-weighted FS FSE, sagittal T1-weighted FSE, and axial T2-weighted FSE. COMPARISON: Lumbar spine MRI 03/28/2023 FINDINGS: There is 28 degrees levoscoliosis of lumbar spine. There is 3 mm anterolisthesis of L5 on S 1. Vertebral body heights are normal. There is moderately decreased disc height at T12-L1, mildly dec reased disc height at L1-L2, severely decreased disc height at L2-L3 and L3-L4, mildly decreased disc height at L4-L5, and severely decreased disc height at L5-S1. The distal spinal cord signal intensit y is normal. The conus medullaris is at L1. The following disc levels are specifically discussed: L1-L2: The disc is bulging. There is mild bilateral facet joint osteoarthritis. There is mild bilater al neural foraminal stenosis. There is mild central canal stenosis. L2-L3: The disc is bulging and has an annular fissure. There is severe bilateral facet joint osteoart hritis. There is moderate right and mild left neural foraminal stenosis. There is mild central canal stenosis. L3-L4: The disc is bulging with superimposed right central extrusion. There is severe bilateral facet joint osteoarthritis. There is moderate right and mild left neural foraminal stenosis. There is mode rate central canal stenosis. There is severe stenosis of right lateral recess. L4-L5: The disc is bulging. There is moderate bilateral facet joint osteoarthritis. There is mild yohan ateral neural foraminal stenosis. There is mild central canal stenosis. L5-S1: The disc is bulging and has an annular fissure. There is severe bilateral facet joint osteoart hritis. There is mild bilateral neural foraminal stenosis. There is mild central canal stenosis. IMPRESSION: 1. Severe lumbar spondylosis, stable from 03/28/2023. 2. Lumbar levoscoliosis. Reviewed, dictated and finalized at location E.
== END 2024-01-04 13:26 | disposition home or self-care (01) ==
PROVIDERS: PCP Nurse Practitioner Family; Visit Provider Neurological Surgery
DX: M43.06 Spondylolysis, lumbar region (principal); M41.86 Other forms of scoliosis, lumbar region; M16.11 Unilateral primary osteoarthritis, right hip
CPT/HCPCS: 72148; 73502

== ENCOUNTER 2024-05-07 11:09 | Outpatient (CLI) | payer MEDICARE, SELFPAY ==
--- NOTE | ~2024-05-07 | MM_ITS ---
EXAMINATION: MM screening garrett BI w lance HISTORY: Screening TECHNIQUE: Craniocaudal and mediolateral oblique 3-D tomosynthesis images were obtained and synthetic 2-D images were generated. CAD analysis was submitted and interpreted. COMPARISON: No prior mammogram is available for comparison at this institution. BREAST PARENCHYMAL COMPOSITION: Not dense: There are scattered areas of fibroglandular density. FINDINGS: There are new asymmetries in the right breast on MLO view. These are not confirmed on CC vi ew. The left breast is stable without evidence for malignancy. IMPRESSION: 1. New right breast asymmetries. 2. Additional mammographic views and possible breast ultrasound are recommended. BI-RADS Category 0: Incomplete: Needs additional imaging evaluation. Reviewed, dictated and finalized at location B. IMPRESSION: 1. New right breast asymmetries. 2. Additional mammographic views and possible breast ultrasound are recommended . BI-RADS Category 0: Incomplete: Needs additional imaging evaluation.
== END 2024-05-07 11:10 | disposition home or self-care (01) ==
LOC: MICIMG 11:09
PROVIDERS: PCP Nurse Practitioner Family; Visit Provider Nurse Practitioner Family
DX: Z12.31 Encounter for screening mammogram for malignant neoplasm of breast (principal); R92.8 Other abnormal and inconclusive findings on diagnostic imaging of breast
CPT/HCPCS: 77063; 77067

== ENCOUNTER 2024-10-06 10:17 | Outpatient (CLI) | payer MEDICARE, SELFPAY ==
--- NOTE | ~2024-10-06 | US_ITS ---
EXAMINATION:US venous doppler LE RT INDICATION:Localized TECHNIQUE: Multiple grayscale, color flow and Doppler images of the right lower extremity deep venous systems were obtained and reviewed. COMPARISON:No prior studies for comparison. FINDINGS: The common femoral, superficial femoral and popliteal veins demonstrate normal respiratory variation, augmentation and compressibility. Color flow is also seen within the posterior tibial, pe roneal, greater saphenous and profunda veins. IMPRESSION: 1: No lower extremity deep venous thrombosis. Reviewed, dictated and finalized at location A.
[2024-10-06 12:12] LABS: Vitamin D 25 Hydroxy 72.2 ng/mL
== END 2024-10-06 10:18 | disposition home or self-care (01) ==
PROVIDERS: PCP Nurse Practitioner Family; Visit Provider Physician Assistant Surgical
DX: E55.9 Vitamin D deficiency, unspecified (principal); R60.0 Localized edema
CPT/HCPCS: 36415; 82306; 93971

== ENCOUNTER 2025-04-01 01:03 | Inpatient (IN) | payer MEDICARE, SELFPAY ==
--- OUTSIDE RECORDS SUMMARY | 2025-03-31 12:00 | XMS_ITS | Encounter Summary ---
Author Organization [facility] Healthcare Address [address] [place] [address] Care Team Providers Care Planting Machine Operator Name Role Phone Catrina Beard NP Primary Care Provider [phone] Reason for Referral * Diagnostic Imaging (Routine) - Closed Specialty Diagnoses / Procedures Referred By Jessieac t Referred To Contact Diagnoses Closed fracture of shaft of right femur with routine healing, unspecified fracture morphology, subsequent encounter Procedures XR Femur Right 2 or More Views Codey Batista MD [address] [employer] /[address] [place] [address] Phone: tel: fax: [facility] Referral ID Status Reason Start Date Expiration Date Visits Re quested Visits Authorized [id number] Closed 03/28/2025 04/27/2026 1 1 Reason for Visit * Diagnostic Imaging (Routine) - Closed Specialty Diagnoses / Procedures Referred By Anamaria t Referred To Contact Diagnoses Closed fracture of shaft of right femur with routine healing, unspecified fracture morphology, subsequent encounter Procedures XR Femur Right 2 or More Views Codey Batista MD [address] [employer] [address]6B[address], [place] [address] Phone: tel: fax: [facility] Referral ID Status Reason Start Date Expiration Date Visits Re quested Visits Authorized [id number] Closed 03/28/2025 04/27/2026 1 1 Encounter Details Date Type Department Care Team (Late st Contact Info) Description 03/31/2025 12:00 PM CDT - 03/31/2025 11:59 PM CDT Hospital Encounter 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 Gender Identity Not on file Sexual Orientation Not on file documented as of this encounter Medications at Time of Discharge acetaminophen (TYLENOL) 325 mg tablet TAKE 2 TABLETS BY MOUTH EVERY 6 HOURS NEEDED FOR PAIN ON SCALE 4-6 (MODERATE) 09/28/2024 amLODIPine (NORVASC) 10 mg tablet Take 1 tablet (10 mg total) by mouth every morning 10/06/2024 docusate sodium (COLACE) 100 mg capsule Take 2 capsules (200 mg total) by mouth daily 09/28/2024 Eliquis 2.5 mg tablet Take 1 tablet (2.5 mg total) by mouth 2 (two) times a day 10/06/2024 famotidine (PEPCID) 20 mg tablet TAKE 1 TABLET BY MOUTH EVERY DAY AT BEDTIME NEEDED FOR 30 DAYS 09/16/2024 FLUoxetine 10 mg tablet Take 1 tablet/capsule (10 mg total) by mouth every morning 08/19/2024 gabapentin (NEURONTIN) 100 mg capsule Take 1 capsule (100 mg total) by mouth 3 (three) times a day 09/28/2024 gabapentin (NEURONTIN) 300 mg capsule TAKE 1 CAPSULE BY MOUTH IN THE MORNING AND 1 CAPSULE AT NIGHT 09/16/2024 hydrocortisone (ANUSOL-HC) 2.5 % rectal cream APPLY 1 APPLICATION TOPICAL 2 TO 4 TIMES DAILY NEEDED 09/28/2024 ipratropium (ATROVENT) 21 mcg (0.03 %) nasal spray INSTILL 1 SPRAY INTO EACH NOSTRIL TWICE DAILY 09/16/2024 levothyroxine (SYNTHROID) 88 mcg tablet Take 1 tablet (88 mcg total) by mouth every morning 10/15/2024 methylPREDNISolo ne (MEDROL DOSEPACK) 4 mg Dosepack TAKE 6 TABLETS ON DAY 1 DIRECTED ON PACKAGE AND DECREASE BY 1 TAB EACH DAY FOR A TOTAL OF 6 DAYS 09/15/2024 omeprazole (PriLOSEC) 40 mg capsule TAKE 1 CAPSULE BY MOUTH 30 MINS TO 1 HOUR BEFORE MORNING MEAL 09/16/2024 traMADoL (ULTRAM) 50 mg tablet TAKE 1 TABLET BY MOUTH EVERY 6 HOURS NEEDED FOR PAIN *INS DOES NOT COVER - OPIOID NAIVE* 10/11/2024 traZODone (DESYREL) 150 mg tablet TAKE 1 TABLET BY MOUTH DAILY AT BEDTIME NEEDED FOR SLEEP. 09/27/2024 valsartan (DIOVAN) 40 mg tablet Take 1 tablet (40 mg total) by mouth nightly 08/23/2024 documented as of this encounter Discharge Disposition Disposition Code Departure Means Destination Discharge to home or self care documented in this encounter Plan of Treatment Not on file documented as of this encounter Procedures Procedure Name Priority Date/Time Associated Diagnosis Comments XR FEMUR RIGHT 2 OR MORE VIEWS Schedule Routine, Read Routine (OP Routine) 03/31/2025 1:30 PM CDT Closed fracture of shaft of right femur with routine healing, unspecified fracture morphology, subsequent encounter documented in this encounter Results * XR Femur Right 2 or More Views (03/31/2025 1:30 PM CDT) Anatomical Region Laterality Modality Lower Extremities, Thigh, Femur Right Computed Radiography 03/31/2025 2:59 PM CDT Impressions 03/31/2025 3:22 PM CDT Continued interval healing of an internally fixated comminuted right femoral metadiaphyseal fracture. Dictated by: Salma Miller M.D. The radiology attending physician has personally reviewed this study, and had reviewed and/or edited this written report and agrees with it. Electronically signed by: Tobias Alcantara M.D. Narrative 03/31/2025 3:22 PM CDT EXAMINATION: XR FEMUR RIGHT 2 OR MORE VIEWS HISTORY: Right femur fracture, follow-up FINDINGS: 4 radiographs of the right femur were provided for interpretation with comparison to 12/02/2024. Continued interval healing of a comminuted right femoral metadiaphyseal fracture, internally fixated with a retrograde intramedullary nail and interlocking screws. Instrumentation is intact. There is no evidence of tamela-hardware fractures or osteolysis. No new fractures are identified. 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 Chondrocalcinosis is noted in the medial and lateral knee joint spaces. Procedure Note Tobias Alcantara MD - 03/31/2025 EXAMINATION: XR FEMUR RIGHT 2 OR MORE VIEWS HISTORY: Right femur fracture, follow-up FINDINGS: 4 radiographs of the right femur were provided for interpretation with comparison to 12/02/2024. Continued interval healing of a comminuted right femoral metadiaphyseal fracture, internally fixated with a retrograde intramedullary nail and interlocking screws. Instrumentation is intact. There is no evidence of tamela-hardware fractures or osteolysis. No new fractures are identified. 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 Chondrocalcinosis is noted in the medial and lateral knee joint spaces. IMPRESSION: Continued interval healing of an internally fixated comminuted right femoral metadiaphyseal fracture. Dictated by: Salma Miller M.D. The radiology attending physician has personally reviewed this study, and had reviewed and/or edited this written report and agrees with it. Electronically signed by: Tobias Alcantara M.D. Codey Batista MD IMG XR PROCEDURES Final Result documented in this encounter Visit Diagnoses Diagnosis Closed fracture of shaft of right femur with routine healing, unspecified fracture morphology, subsequent encounter documented in this encounter Care Teams Planting Machine Operator Relationship Specialty Start Date End Date Catrina Beard NP [address] [place] [address] PCP - General Nurse Practitioner 07/03/23 documented as of this encounter
--- OUTSIDE RECORDS SUMMARY | 2025-03-31 12:00 | XMS_ITS | Encounter Summary ---
Author Organization [facility] Healthcare Address [address] [place] [address] Care Team Providers Care Creamery Worker Name Role Phone Catrina Beard NP Primary Care Provider [phone] Reason for Referral * Diagnostic Imaging (Routine) - Closed Specialty Diagnoses / Procedures Referred By Jessieac t Referred To Contact Diagnoses Closed fracture of shaft of right femur with routine healing, unspecified fracture morphology, subsequent encounter Procedures XR Femur Right 2 or More Views Codey Batista MD [address] [employer] /[address] [place] [address] Phone: tel: fax: [facility] Referral ID Status Reason Start Date Expiration Date Visits Re quested Visits Authorized [id number] Closed 03/28/2025 04/27/2026 1 1 Reason for Visit * Diagnostic Imaging (Routine) - Closed Specialty Diagnoses / Procedures Referred By Anamaria t Referred To Contact Diagnoses Closed fracture of shaft of right femur with routine healing, unspecified fracture morphology, subsequent encounter Procedures XR Femur Right 2 or More Views Codey Batista MD [address] [employer] [address] [address] Phone: tel: fax: [facility] Referral ID Status Reason Start Date Expiration Date Visits Re quested Visits Authorized [id number] Closed 03/28/2025 04/27/2026 1 1 Encounter Details Date Type Department Care Team (Late st Contact Info) Description 03/31/2025 12:00 PM CDT - 03/31/2025 11:59 PM CDT Hospital Encounter [facility]) [address] [place] [address] Codey Batista MD [address] [facility] 6A[address]6B[address] [place] [address] Closed fracture of shaft of right femur with routine healing, unspecified fracture morphology, subsequent encounter Discharge Disposition: Discharge to home or self care Social History Tobacco Use Types Packs/Day Years Used Date Smoking Tobacco: Never Assessed Comments Unknown Sex and Gender Information Value Date Recorded Sex Assigned at Not on file 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
--- OUTSIDE RECORDS SUMMARY | 2025-03-31 12:40 | XMS_ITS | Encounter Summary ---
Author Organization [facility] Address [address] [place] [address] Phone Care Team Providers Care V Belt Curer Name Role Phone Catrina Beard NP Primary Care Provider [phone] Reason for Referral * Diagnostic Imaging (Routine) - Closed Specialty Diagnoses / Procedures Referred By Anamaria loomis Referred To Contact Diagnoses Closed fracture of shaft of right femur with routine healing, unspecified fracture morphology, subsequent encounter Procedures XR Femur Right 2 or More Views Codey Batista MD [address] [place] [address] Phone: tel: fax: [facility] Referral ID Status Reason Start Date Expiration Date Visits Re quested Visits Authorized [id number] Closed 03/28/2025 04/27/2026 1 1 Reason for Visit * Reason Comments Fracture * Consultation (Routine) - Closed Specialty Diagnoses / Procedures Referred By Anamaria loomis Referred To Contact Orthopedic Surgery Diagnoses Oth fracture of unsp femur, init encntr for closed fracture (HCC) [facility] Medicine Orthopaedic Surgery [address] [place] [address] Phone: tel: fax: [facility] (All Locations) Referral ID Status Reason Start Date Expiration Date V isits Requested Visits Authorized [id number] Closed Specialty Services Required 03/23/2025 04/22/2026 1 1 Encounter Details Date Type Department Care Team (Late st Contact Info) Description 03/31/2025 12:40 PM CDT Office Visit [facility] Medicine Orthopaedic Surgery [address] 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 She presents with a new problem. She was in [place] again and broke her right proximalfemur a brother with a retrograde nail. They did a sliding hip screw. She is here for postoperativerecovery. She reports she has been getting around with a walker. A little bit increase in pain overthe last day after starting in-home physical therapy Location: Right hip Severity: moderate to severe Duration: ongoing since time of injury Quality: Sharp PAST MEDICAL HISTORY has no past medical history on file. PAST SURGICAL HISTORY She has no past surgical history on file. INITIAL REVIEW OF MEDICATIONS She has a current medication list which includes the following prescription(s): acetaminophen, amlodipine, docusate sodium, eliquis, famotidine, fluoxetine, gabapentin, gabapentin, hydrocortisone, ipratropium, levothyroxine, methylprednisolone, omeprazole, tramadol, trazodone, and valsartan. DRUG ALLERGIES She is allergic to penicillins and erythromycin base. SOCIAL HISTORY She No alcohol history on file. FAMILY HISTORY Her family history is not on file. Review of Systems: Review of systems per HPI and as listed below, otherwise remainder of all systems were normal Objective: Well-developed, well-nourished, in no acute distress. Alert and oriented x 3. Normal respirations, no dyspnea with speaking. The uninjured extremities are warm and show good perfusion; neurologically intact to light touch throughout. Skin is intact and there is no lymphedema. Physical exam of the right lower extremity demonstrates a healing incision. No drainage. Range motion of the right hip 0 90?? neurovascularly intact right lower extremity. Imaging I have ordered reviewed and personally interpreted x-rays of the right femur demonstrating a healedfemoral shaft fracture with retrograde nail in place. She has a sliding hip screw above the retrograde nail. Reduction of the proximal femur fracture intertrochanteric line as acceptable. Lag screw relatively high position in the femoral head and neck.. Good alignment on lateral view Assessment: Ms. Denis is a 79 y.o. female who sustained a right side intertrochanteric tamela implant fracturestatus post open treatment with a sliding hip screw. Plan: I did discuss that the lag screw was positioned high in the head and neck. The alignment is good of the reduction itself. Hopefully this will go onto heal. She should continue weight-bearing astolerated continue her home therapy sutures removed and we will see her back in about 5 weeks' time. documented in this encounter Plan of Treatment Not on file documented as of this encounter Results * XR Femur Right [...] with routine healing, unspecified fracture morphology, subsequent encounter- Primary Closed fracture of shaft of right femur with routine healing, unspecified fracture morphology, subsequent encounter documented in this encounter Orders Outpatient Referral Count Last Ordered Date Fir st Ordered Date AMB REFERRAL TO ORTHOPEDIC TRAUMA 1 025 documented in this encounter Care Teams V Belt Curer Relationship Specialty Start Date End Date Catrina Beard NP [address] [place] [address] PCP - General Nurse Practitioner 07/03/23 documented as of this encounter
--- NOTE | ~2025-04-01 | CT_ITS ---
EXAMINATION: CT brain wo con DATE: 04/01/2025 22:37 INDICATION: Weakness. TECHNIQUE: Computed tomography (CT) of the head was performed without intravenous contrast. The mA was adjusted according to patient size. Iterative reconstruction technique was employed. The dose-length product was 681.00 mGy-cm. COMPARISON: Head CT 07/03/2023 FINDINGS: There are scattered areas of low attenuation in the cerebral white matter. There is no intracranial hemorrhage, acute infarction, or abnormal intracranial mass lesion. The ventricles are normal in size. There is mild mucosal thickening in the paranasal sinuses. The mastoid air cells are normal. There are likely changes of ocular lens replacement surgeries. IMPRESSION: 1. Stable moderate nonspecific cerebral white matter disease, which likely represents chronic small vessel ischemic disease. Reviewed, dictated and finalized at location E. IMPRESSION: 1. Stable moderate nonspecific cerebral white matter disease, which likely repr esents chronic small vessel ischemic disease.
--- NOTE | ~2025-04-01 | XR_ITS ---
EXAMINATION: XR hip BI 2V w AP pelvis DATE: 04/01/2025 11:21 INDICATION: Pelvic pain TECHNIQUE: Anteroposterior view of the pelvis and anteroposterior and frog-leg lateral views of the left hip and anteroposterior and frog-leg lateral views of the right hip and were obtained. COMPARISON: Right femur radiographs dated 10/06/2024 and pelvis and bilateral hip radiographs dated 07/05/2023 FINDINGS: Again seen is retrograde intramedullary pieter fixation with a few proximal and distal interlocking screws which span a distal metadiaphyseal fracture of the right femur which is healing in near-anatomic alignment. Interval mildly comminuted intertrochanteric fracture of the proximal right femur with new lateral plate and femoral neck dynamic compression screw fixation. There is mild proximal medial distraction of a lesser trochanteric fragment which is not included within the fixation. No other fractures identified. Mild bilateral hip and sacroiliac osteoarthritis. Chondrocalcinosis at the medial lateral compartments of the right knee. Right knee osteoarthritis with mild to moderate medial compartment joint space narrowing. Severe lower lumbar spondylosis. IMPRESSION: 1. Relatively recent mildly comminuted intertrochanteric fracture the proximal right femur with internal fixation which is new since 10/06/2024. No other acute osseous abnormality. 2. Relatively advanced healing at an internally fixed distal metadiaphyseal fracture of the right femur. 3. Right knee chondrocalcinosis with mild to moderate osteoarthritis at the medial compartment. Reviewed, dictated and finalized at location A. IMPRESSION: 1. Relatively recent mildly comminuted intertrochanteric fracture the proximal right femur with internal fixation which is new since 10/06/2024. No other acute osseous abnormality. 2. Relatively advanced healing at an internally fixed distal metadiaphyseal fra cture of the right femur. 3. Right knee chondrocalcinosis with mild to moderate osteoarthritis at the med ial compartment.
--- OUTSIDE RECORDS SUMMARY | 2025-04-01 01:06 | XMS_ITS | Clinical Summary ---
Author Organization [facility] [address] Address [address] [place] [address] Care Team Providers Care Sheep Or Calf Grader Name Role Phone Catrina Beard NP Primary Care Provider [phone] Allergies Active Allergy Reactions Criticality Noted Date Comments Erythromycin Base Other (See comments) 12/25/19 24 Penicillins Hives Medium 12/25/2023 Medications acetaminophen (TYLENOL) 325 mg tablet TAKE 2 TABLETS BY MOUTH EVERY 6 HOURS NEEDED FOR PAIN ON SCALE 4-6 (MODERATE) 5 Active amLODIPine (NORVASC) 10 mg tablet Take 1 tablet (10 mg total) by mouth every morning 5 Active Eliquis 2.5 mg tablet Take 1 tablet (2.5 mg total) by mouth 2 (two) times a day 5 Active docusate sodium (COLACE) 100 mg capsule Take 2 capsules (200 mg total) by mouth daily 5 Active famotidine (PEPCID) 20 mg tablet TAKE 1 TABLET BY MOUTH EVERY DAY AT BEDTIME NEEDED FOR 30 DAYS 5 Active FLUoxetine 10 mg tablet Take 1 tablet/capsule (10 mg total) by mouth every morning 5 Active gabapentin (NEURONTIN) 100 mg capsule Take 1 capsule (100 mg total) by mouth 3 (three) times a day 5 Active hydrocortisone (ANUSOL-HC) 2.5 % rectal cream APPLY 1 APPLICATION TOPICAL 2 TO 4 TIMES DAILY NEEDED 5 Active traZODone (DESYREL) 150 mg tablet TAKE 1 TABLET BY MOUTH DAILY AT BEDTIME NEEDED FOR SLEEP. 5 Active valsartan (DIOVAN) 40 mg tablet Take 1 tablet (40 mg total) by mouth nightly 5 Active traMADoL (ULTRAM) 50 mg tablet TAKE 1 TABLET BY MOUTH EVERY 6 HOURS NEEDED FOR PAIN *INS DOES NOT COVER - OPIOID NAIVE* 5 Active methylPREDNISol one (MEDROL DOSEPACK) 4 mg Dosepack TAKE 6 TABLETS ON DAY 1 DIRECTED ON PACKAGE AND DECREASE BY 1 TAB EACH DAY FOR A TOTAL OF 6 DAYS 5 Active ipratropium (ATROVENT) 21 mcg (0.03 %) nasal spray INSTILL 1 SPRAY INTO EACH NOSTRIL TWICE DAILY 5 Active omeprazole (PriLOSEC) 40 mg capsule TAKE 1 CAPSULE BY MOUTH 30 MINS TO 1 HOUR BEFORE MORNING MEAL 5 Active levothyroxine (SYNTHROID) 88 mcg tablet Take 1 tablet (88 mcg total) by mouth every morning 5 Active gabapentin (NEURONTIN) 300 mg capsule TAKE 1 CAPSULE BY MOUTH IN THE MORNING AND 1 CAPSULE AT NIGHT 5 Active Active Problems No known active problems Encounters Date Type Department Care Team Description 03/31/2025 12:40 PM CDT Office Visit [facility] Medicine Orthopaedic Surgery [address] [place] [address] [facility] 6th [place] [address] [place] [address] Codey Batista MD Closed fracture of shaft of right femur with routine healing, unspecified fracture morphology, subsequent encounter (Primary Dx) 03/31/2025 12:00 PM CDT - 03/31/2025 11:59 PM CDT Hospital Encounter [facility]) [address] [place] [address] Codey Batista MD Closed fracture of shaft of right femur with routine healing, unspecified fracture morphology, subsequent encounter Discharge Disposition: Discharge to home or self care 03/30/2025 Telephone [facility] Medicine Orthopaedic Surgery [address] [facility] 6th [place] [address] [place] [address] Blacna Walls MS 03/23/2025 Orders Only [facility] Medicine Orthopaedic Surgery [address] [place] [address] Transcribed Order, Provider Oth fracture of unsp femur, init encntr for closed fracture (HCC) (Primary Dx) from Last 3 Months Social History Tobacco Use Types Packs/Day Years Used Date Smoking Tobacco: Never Assessed Comments Unknown Sex and Gender Information Value Date Recorded Sex Assigned at Not on file 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 Gender Identity Not on file Sexual Orientation Not on file Obstetrics History Plan of Treatment Health Maintenance Due Date Last Done Comments Depression Screening 1944 Fall Risk Assessment 1944 Osteoporosis Screening-Bone Density Scan 1944 Hepatitis B Screening 1962 Pneumococcal vaccine 65+ (1 of 1 - PCV) 1994 Well Visit 65+ 2009 Zoster Vaccine (2 of 3) 08/01/2014 06/06/2014 Covid-19 Vaccine (3 - season) 2025, 02/19/2021 Influenza Vaccine (#1) 2025 DTaP/Tdap/Td Vaccine (2 - Td or Tdap) 08/04/2025 Procedures Procedure Name Priority Date/Time Associated Diagnosis Comments XR FEMUR RIGHT 2 OR MORE VIEWS Schedule Routine, Read Routine (OP Routine) 03/31/2025 1:30 PM CDT Closed fracture of shaft of right femur with routine healing, unspecified fracture morphology, subsequent encounter from Last 3 Months Results * XR Femur Right 2 or [...] Batista MD IMG XR PROCEDURES Final Result from Last 3 Months Insurance [facility] Care Teams Sheep Or Calf Grader Relationship Specialty Start Date End Date Catrina Beard NP [address] [place] [address] PCP - General Nurse Practitioner 07/03/23
[2025-04-01 03:59] LABS: Alanine Aminotransferase 13 U/L (6-35); Albumin Level 3.6 g/dL (3.5-5.1); Alkaline Phosphatase 144 U/L (38-126); Anion Gap 6 mmol/L (4-12); Aspartate Amino Transferase 28 U/L (14-36); Bilirubin,Total 0.7 mg/dL (0.2-1.3); Blood Urea Nitrogen 27 mg/dL (7-17); Calcium 9.4 mg/dL (8.4-10.2); Carbon Dioxide 31 mmol/L (22-30); Chloride 90 mmol/L (98-107); Estimated Glomerular Filt Rate 43; Glucose 118 mg/dL (65-110); Hematocrit 29.7 % (37.0-47.0); Hemoglobin 9.7 g/dL (12.0-15.0); Immature Granulocyte Percent A 0.3 % (0-0.5); Lymphocytes Absolute Auto 0.88 K/mm3 (0.9-3.2); Mean Corpuscular HGB Conc 32.7 g/dl (32-36); Mean Corpuscular Hemoglobin 32.4 pg (26-34); Mean Corpuscular Volume 99.3 fl (80-100); Nucleated Red Blood Cells Absolute Auto 0.000 K/mm3 (0.0-0.012); Nucleated Red Blood Cells Perc 0.0 % (0.0-0.2); Platelet Count Result 281 k/mm3 (150-375); Potassium 4.8 mmol/L (3.4-5.0); Red Blood Count 2.99 M/mm3 (4.2-5.4); Sodium 127 mmol/L (137-145); Total Protein 6.8 g/dL (6.3-8.2); White Blood Count 13.4 K/mm3 (4.5-10.0)
--- NOTE | 2025-04-01 04:26 | ED.NEUROSD ---
HPI - Neuro Symptoms/Deficit General Chief Complaint: Suspected CVA Stated Complaint: leaning to the side, unable to use good foot Time Seen by Provider: 04/01/25 03:51 History of Present Illness HPI Narrative: Patient had hip surgery 3 weeks ago in [place], she has now been undergoing physical therapy, last session was 2 days ago but she is not sure if they over worked her because she is now quite sore in her left hip and having trouble walking as a result, she is having trouble lifting her left hip; ongoing since yesterday, more than 24 hours. No focal numbness or weakness anywhere. Her family member but that her face looked flat and she seemed to be leaning to 1 side, she is unsure if this may have been a stroke. Patient not having any of these symptoms now. Related Data Home Medications ?Medication ?Instructions ?Recorded ?Confirmed ?Last Taken ?Type mecobalamin (vitamin B12) 1,000 1,000 mcg sublingual DAILY 07/08/19 03/22/25 09/14/23 History mcg disintegrating tablet,sublingual calcium 500 mg (as 1 tablet PO DAILY 08/13/22 03/22/25 09/14/23 History carbonate)-vitamin D3 3.125 mcg (125 unit) tablet (Calcium) ascorbic acid (vitamin C) 1,000 mg 1 g PO DAILY 07/27/24 03/22/25 Unknown History capsule docusate sodium 100 mg capsule 100 mg PO DAILY PRN 10/06/24 03/22/25 Unknown History (Colace) aspirin 81 mg tablet 81 mg PO BID 03/22/25 03/22/25 Unknown History ferrous sulfate 325 mg (65 mg 325 mg PO TID 03/22/25 03/22/25 Unknown History iron) tablet (FeroSul) Allergies Allergy/AdvReac Type Severity Reaction Status Date / Time erythromycin base Allergy Unknown Hyperactive Verified 03/22/25 10:25 Penicillins Allergy Unknown HIVES?, PT Verified 03/22/25 10:25 UNSURE OF REACTION Review of Systems Review of Systems: All systems reviewed & are unremarkable except as noted in HPI and below PMFSH Past Medical History Medical History Hypertensive emergency Hypertensive encephalopathy Cough Spinal stenosis Fatigue B12 deficiency CKD (chronic kidney disease) stage 3, GFR 30-59 ml/min Anemia Essential (primary) hypertension Hypothyroidism (acquired) Insomnia Mixed hyperlipidemia Primary osteoarthritis of both hips Type 2 diabetes mellitus without complication Surgical History Surgical History H/O microdiscectomy Family History Family History Sibling Family history of diabetes mellitus in first degree relative Mother Family history of lung cancer Family history of malignant neoplasm of brain Social History Social History Smoking status: Never smoker Second hand tobacco smoke exposure: Yes Alcohol intake: never Substance use: never Substance use type: does not use Do You Feel Safe in your Home?: Yes Lack of Transportation: No Lack of Food: Never True Current Housing: Decline to Answer Concerned About Future Housing: Decline to Answer Difficulty Paying Gas/Electric Bills: Decline to Answer Difficulty Paying for Meds: Decline to Answer Currently Unemployed: Decline to Answer Education: Decline to Answer Difficulty w/ Childcare or Family Care: Decline to Answer Living arrangements: with family Additional living arrangements comments: SON WITH [employer] LIVES W/ PATIENT Occupation/Education: retired Gender identity (if verbalized by the patient): Female Sexual Orientation (if Verbalized by the Patient): Straight or Heterosexual Spiritual care concerns: No Agree to blood products: No Exam Narrative: EXAMINATION OF ORGAN SYSTEMS/BODY AREAS: Constitutional: Vital signs per nursing GENERAL:[No acute distress, non-toxic appearing.] HEAD: Normal with no signs of head trauma. EYES: EOMI, conjunctiva normal ENT: Hearing grossly intact LUNGS: Nonlabored breathing. HEART: [Regular rate and rhythm] ABD: [Soft], [nontender to palpation] EXT: Normal range of motion SKIN: [No rashes or lesions.] NEURO: [Alert and oriented x 3. Unable to flex either leg at the hip, however normal good strength with ankle flexion and extension, and knee flexion extension bilateral. Normal strength upper and lower extremities. No facial droop. Clear normal speech.] PSYCH: Normal affect MDM - Neuro Symptoms/Deficit MDM Narrative Medical decision making narrative: Patient presents here after recent hip surgery, now sore and having trouble moving her left leg, family member concerned that this may be a stroke. Patient on my exam has NIH Stroke Scale of 0. Quite well-appearing here, she does have some trouble with hip flexor bilaterally but has normal strength left knee and ankle, no sensory deficits. Had a long discussion with the patient and family member at bedside, discussed that there is no Neurology here this weekend, and that given the concern for possible CVA, I would advise transfer to hospital with Neurology. Did discuss that she is not a candidate for any acute intervention since she has no focal symptoms currently, and is out of window for any intervention based on the onset of symptoms more than 24 hours ago. Patient does not want to be transferred and wants to be admitted at this hospital, with her understanding that even if this were an acute CVA there would likely not be any intervention, she just wants to be admitted for physical therapy, possible rehab or placement since she cannot walk. She does understand that there may be missed diagnosis/delayed diagnosis if she were to remain here. Discussed with hospitalist for admission Lab Data 04/01/25 02:33 04/01/25 02:33 Labs: Lab Results 04/01/25 Range/Units 02:33 WBC 13.4 H (4.5-10.0) K/mm3 RBC 2.99 L (4.2-5.4) M/mm3 Hgb 9.7 L (12.0-15.0) g/dL Hct 29.7 L (37.0-47.0) % MCV 99.3 (80-100) fl MCH 32.4 (26-34) pg MCHC 32.7 (32-36) g/dl RDW 13.4 (11.5-14.5) % Plt Count 281 (150-375) k/mm3 MPV 9.3 (7.4-10.4) fl Immature Gran % (Auto) 0.3 (0-0.5) % Neut % (Auto) 80.7 H (45.5-73.1) % Lymph % (Auto) 6.6 L (18.3-44.2) % [place] % (Auto) 11.9 H (2.6-8.5) % Eos % (Auto) 0.1 (0-4.4) % Baso % (Auto) 0.4 (0.2-1.2) % Lymph # (Auto) 0.88 L (0.9-3.2) K/mm3 [place] # (Auto) 1.6 H (0.1-0.6) K/mm3 Eos # (Auto) 0.0 (0-0.3) K/mm3 Baso # (Auto) 0.1 (0.0-0.1) K/mm3 Abs Immat Gran (auto) 0.04 H (0.00-0.031) K/mm3 Absolute Neuts (auto) 10.8 H (1.3-6.7) K/mm3 Absolute Nucleated RBC 0.000 (0.0-0.012) K/mm3 Nucleated RBC % 0.0 (0.0-0.2) % Sodium 127 L (137-145) mmol/L Potassium 4.8 (3.4-5.0) mmol/L Chloride 90 L (98-107) mmol/L Carbon Dioxide 31 H (22-30) mmol/L Anion Gap 6 (4-12) mmol/L BUN 27 H D (7-17) mg/dL Creatinine 1.20 H (0.7-1.0) mg/dL Estim Creat Clear Calc Not Reportable Estimated GFR 43 L (59 - ) Glucose 118 H (65-110) mg/dL Calcium 9.4 (8.4-10.2) mg/dL Total Bilirubin 0.7 (0.2-1.3) mg/dL AST 28 (14-36) U/L ALT 13 (6-35) U/L Alkaline Phosphatase 144 H (38-126) U/L Total Protein 6.8 (6.3-8.2) g/dL Albumin 3.6 (3.5-5.1) g/dL Discharge Plan Discharge Clinical Impression: Cannot walk Patient Disposition: Still a Patient Condition: Stable Patient Language: Tamazight Prescriptions: No Action tramadol 50 mg tablet 50 mg PO Q6H PRN (Reason: pain) Qty: 60 0RF ferrous sulfate [FeroSul] 325 mg (65 mg iron) tablet 325 mg PO TID aspirin 81 mg tablet 81 mg PO BID mecobalamin (vitamin B12) 1,000 mcg tablet,disintegrating 1,000 mcg SUBLINGUAL DAILY calcium carbonate-vitamin D3 [Calcium 500 + D (D3)] 500 mg-3.125 mcg (125 unit) tablet 1 tablet PO DAILY ascorbic acid (vitamin C) 1,000 mg capsule 1 g PO DAILY fluoxetine 20 mg tablet 20 mg PO DAILY Qty: 90 1RF amlodipine 10 mg tablet 10 mg PO QAM Qty: 90 1RF levothyroxine 88 mcg tablet 88 mcg PO QAM Qty: 90 1RF gabapentin 100 mg capsule 200 mg PO QHS Qty: 90 1RF trazodone 150 mg tablet See Rx Instructions .ROUTE .COMPLEX Qty: 90 1RF Dose Instruction: TAKE 1 TABLET BY MOUTH DAILY AT BEDTIME NEEDED FOR SLEEP. Rx Instructions: TAKE 1 TABLET BY MOUTH DAILY AT BEDTIME NEEDED FOR SLEEP. valsartan 40 mg tablet See Rx Instructions .ROUTE .COMPLEX Qty: 90 1RF Dose Instruction: TAKE 1 TABLET BY MOUTH EVERYDAY AT BEDTIME Rx Instructions: TAKE 1 TABLET BY MOUTH EVERYDAY AT BEDTIME docusate sodium [Colace] 100 mg capsule 100 mg PO DAILY PRN acetaminophen [Tylenol 8 Hour] 650 mg tablet extended release 650 mg PO Q8H Qty: 60 0RF meclizine 25 mg tablet 25 mg PO TID PRN (Reason: dizziness) Qty: 20 0RF Follow-up/Referrals: Catrina Beard APRN [Primary Care Provider, Internal Medicine]
[2025-04-01] MEDS: LACTATED RINGERS 1,000 ML 999 ML IV CONT (04:30)
--- NOTE | 2025-04-01 06:01 | ADMGEN ---
This patient, Bhargavi Denis, was admitted to Medical Room 258-. Patient/family oriented to hospital policies and general routines including ID bracelet, bed and alarms, visiting hours, pain management, procedures, bathroom and other care routines, personal items, smoking policy, room service/diet, and visiting hours. Information on how to activate the Rapid Response Team has been discussed. Patient/Family are encouraged to report perceived risks to care and to ask questions if they do not understand what they are told or what they should do.
[2025-04-01 06:05] VITALS: BP 142/53; PULSE 85; RESP 18; TEMP 36.5; O2SAT 97; BMI 30.2
[2025-04-01 07:15] LABS: Sodium 127 mmol/L (137-145)
--- OUTSIDE RECORDS SUMMARY | 2025-04-01 08:00 | XMS_ITS | Clinical Summary ---
Author Organization [facility] [address] Address [address] [place] [address] Care Team Providers Care Etcher Hand Name Role Phone Catrina Beard NP Primary Care Provider [phone] Allergies Active Allergy Reactions Criticality Noted Date [...] Description 03/31/2025 12:40 PM CDT Office Visit [facility] Medicine Orthopaedic Surgery [address] [place] [address] [facility] [address]th [place] [address] [place] [address] Codey Batista MD Closed fracture of shaft of right femur with routine healing, unspecified fracture morphology, subsequent encounter (Primary Dx) 03/31/2025 12:00 PM CDT - 03/31/2025 11:59 PM CDT Hospital Encounter [facility] [address] [place] [id number] Codey Batista MD Closed fracture of shaft of right femur with routine healing, unspecified fracture morphology, subsequent encounter Discharge Disposition: Discharge to home or self care 03/30/[address] [facility] Medicine Orthopaedic Surgery [address] [facility] Advanced Medicine [address]th [place] [address] [place] [address] Blanca Walls MS 03/23/[address] 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
--- NOTE | 2025-04-01 08:05 | PM.IMHP ---
H&P: HPI History of Present Illness Date/Time: 04/01/25 08:05 Chief Complaint: Left leg weakness Narrative: This is a 79-year-old female recently had hip surgery 3 weeks ago and lowered a undergoing physical therapy last session was 2 days ago comes in to the ER with left hip shortness and trouble walking since yesterday. No numbness. Her family member noticed that her face looked flat and seemed to be leaning to 1 side concern for stroke and hence brought her to the ER In the ED her vitals were stable. She is unable to flex either leg at hip but had normal speech with no facial droop. Laboratory workup showed WBC of 13.4 hemoglobin 9.7 platelet count 281. Sodium of 127 potassium 4.8 chloride 90 bicarbonate 31 BUN 27 creatinine 1.2 blood glucose of 118. LFTs with normal bilirubin normal AST ALT alkaline phosphatase is mildly elevated 144. She is admitted for further treatment Review of Systems Review of Systems: - CONSTITUTIONAL: Denies weight loss, fever and chills. - HEENT: Denies changes in vision and hearing - RESPIRATORY: Denies SOB and cough. - CV: Denies palpitations and CP. - GI: Denies abdominal pain, nausea, vomiting and diarrhea. - : Denies dysuria and urinary frequency. - MSK: Denies myalgia and joint pain. - SKIN: Denies rash and pruritus. - NEUROLOGICAL: Denies headache and syncope. See HPI - PSYCHIATRIC: Denies recent changes in mood. Denies anxiety and depression. [facility] Past Medical History Medical History Hypertensive emergency Hypertensive encephalopathy Cough Spinal stenosis Fatigue B12 deficiency CKD (chronic kidney disease) stage 3, GFR 30-59 ml/min Anemia Essential (primary) hypertension Hypothyroidism (acquired) Insomnia Mixed hyperlipidemia Primary osteoarthritis of both hips Type 2 diabetes mellitus without complication Surgical History Surgical History H/O microdiscectomy Family History Family History Sibling Family history of diabetes mellitus in first degree relative Mother Family history of lung cancer Family history of malignant neoplasm of brain Social History Social History Smoking status: Never smoker Second hand tobacco smoke exposure: Yes Alcohol intake: never Substance use: never Substance use type: does not use Do You Feel Safe in your Home?: Yes Lack of Transportation: No Lack of Food: Never True Current Housing: I Have Housing Concerned About Future Housing: No Difficulty Paying Gas/Electric Bills: No Difficulty Paying for Meds: No Currently Unemployed: No Education: High School Diploma/GED Difficulty w/ Childcare or Family Care: No Living arrangements: with family Additional living arrangements comments: SON WITH [employer] LIVES W/ PATIENT Occupation/Education: retired Gender identity (if verbalized by the patient): Female Sexual Orientation (if Verbalized by the Patient): Straight or Heterosexual Spiritual care concerns: No Agree to blood products: No Meds Home Medications and Allergies Home Medications ?Medication ?Instructions ?Recorded ?Confirmed ?Type mecobalamin (vitamin B12) 1,000 1,000 mcg sublingual DAILY 07/08/19 04/01/25 History mcg disintegrating tablet,sublingual calcium 500 mg (as 1 tablet PO DAILY 08/13/22 04/01/25 History carbonate)-vitamin D3 3.125 mcg (125 unit) tablet (Calcium) ascorbic acid (vitamin C) 1,000 mg 1 g PO DAILY 07/27/24 04/01/25 History capsule docusate sodium 100 mg capsule 100 mg PO DAILY PRN constipation 10/06/24 04/01/25 History (Colace) acetaminophen 650 mg 650 mg PO Q8H #60 tabs 10/11/24 04/01/25 Rx tablet,extended release (Tylenol 8 Hour) amlodipine 10 mg tablet 10 mg PO QAM #90 tabs 02/03/25 04/01/25 Rx fluoxetine 20 mg tablet 20 mg PO DAILY #90 tabs 02/03/25 04/01/25 Rx gabapentin 100 mg capsule 200 mg (2 x 100 mg) PO QHS #90 caps 02/03/25 04/01/25 Rx levothyroxine 88 mcg tablet 88 mcg PO QAM #90 tabs 02/03/25 04/01/25 Rx trazodone 150 mg tablet See Rx Instructions .Route 02/03/25 04/01/25 Rx .COMPLEX #90 tabs valsartan 40 mg tablet See Rx Instructions .Route 02/03/25 04/01/25 Rx .COMPLEX #90 tabs meclizine 25 mg tablet 25 mg PO TID PRN dizziness #20 tabs 02/09/25 04/01/25 Rx aspirin 81 mg tablet 81 mg PO BID 03/22/25 04/01/25 History tramadol 50 mg tablet 50 mg PO Q6H PRN pain #60 tabs 03/22/25 04/01/25 Rx Allergies Allergy/AdvReac Type Severity Reaction Status Date / Time erythromycin base Allergy Unknown Hyperactive Verified 03/22/25 10:25 Penicillins Allergy Unknown HIVES?, PT Verified 03/22/25 10:25 UNSURE OF REACTION Vital Signs Vital Signs - 24 hr 04/01/25 06:00 04/01/25 06:05 Temperature 97.7 F Pulse Rate 85 Respiratory Rate 18 Blood Pressure 142/53 H Pulse Oximetry 97 Oxygen Delivery Room Air Exam Narrative: GENERAL:[No acute distress, non-toxic appearing.] HEAD: Normal with no signs of head trauma. EYES: EOMI, conjunctiva normal ENT: Hearing grossly intact LUNGS: Nonlabored breathing. HEART: [Regular rate and rhythm] ABD: [Soft], [nontender to palpation] EXT: Normal range of motion SKIN: [No rashes or lesions.] NEURO: Alert and oriented x 3. Unable to flex right hip, right hip surgical scar with Steri-Strips, wound well healed with no drainage or erythema, No facial droop. Clear normal speech. PSYCH: Normal affect H&P: Results Labs Labs: Short CBC 04/01/25 Range/Units 02:33 WBC 13.4 H (4.5-10.0) K/mm3 Hgb 9.7 L (12.0-15.0) g/dL Hct 29.7 L (37.0-47.0) % Plt Count 281 (150-375) k/mm3 BMP 04/01/25 04/01/25 02:33 06:49 Sodium 127 L 127 L Potassium 4.8 Chloride 90 L Carbon Dioxide 31 H BUN 27 H D Creatinine 1.20 H Glucose 118 H Calcium 9.4 Liver Function 04/01/25 Range/Units 02:33 Total Bilirubin 0.7 (0.2-1.3) mg/dL AST 28 (14-36) U/L ALT 13 (6-35) U/L Alkaline Phosphatase 144 H (38-126) U/L Albumin 3.6 (3.5-5.1) g/dL Assessment and Plan Assessment and plan (1) Depression: Code(s): F32.A - Depression, unspecified Status: Acute (2) Essential (primary) hypertension: Code(s): I10 - Essential (primary) hypertension Status: Acute (3) Mixed hyperlipidemia: Code(s): E78.2 - Mixed hyperlipidemia Status: Acute (4) Type 2 diabetes mellitus in remission: Code(s): E11.9 - Type 2 diabetes mellitus without complications Status: Acute (5) Hypothyroidism (acquired): Code(s): E03.9 - Hypothyroidism, unspecified Status: Acute (6) Osteopenia: Qualifiers: Osteopenia location: multiple sites Qualified Code(s): M85.89 - Other specified disorders of bone density and structure, multiple sites Code(s): M85.80 - Other specified disorders of bone density and structure, unspecified site Status: Acute (7) GERD (gastroesophageal reflux disease): Code(s): K21.9 - Gastro-esophageal reflux disease without esophagitis Status: Acute (8) CKD (chronic kidney disease) stage 3, GFR 30-59 ml/min: Qualifiers: Chronic kidney disease stage 3 subtype: stage 3a (GFR 45-59) Qualified Code(s): N18.31 - Chronic kidney disease, stage 3a Code(s): N18.30 - Chronic kidney disease, stage 3 unspecified Status: Acute (9) Anemia: Qualifiers: Anemia type: unspecified type Qualified Code(s): D64.9 - Anemia, unspecified Code(s): D64.9 - Anemia, unspecified Status: Acute (10) Leg weakness: Code(s): R29.898 - Other symptoms and signs involving the musculoskeletal system Status: Acute Plan This is a 79-year-old female recently had hip surgery 3 weeks ago and lowered a undergoing physical therapy last session was 2 days ago comes in to the ER with left hip shortness and trouble walking since yesterday. No numbness. Her family member noticed that her face looked flat and seemed to be leaning to 1 side concern for stroke and hence brought her to the ER In the ED her vitals were stable. She is unable to flex either leg at hip but had normal speech with no facial droop. Laboratory workup showed WBC of 13.4 hemoglobin 9.7 platelet count 281. Sodium of 127 potassium 4.8 chloride 90 bicarbonate 31 BUN 27 creatinine 1.2 blood glucose of 118. LFTs with normal bilirubin normal AST ALT alkaline phosphatase is mildly elevated 144. She is admitted for further treatment Left leg weakness/pain will get x-ray drip. On also get CT head. Will have PT OT see Hyponatremia mild continue to monitor Anemia [id number] chronic CKD stage 3 Pre diabetes Hypothyroidism Anxiety depression Hypertension Hyperlipidemia DVT prophylaxis Code status code Hospitalist [facility] Advance Care Plan I have confirmed that the patient's Advanced Care Plan is present, code status is documented, or surrogate decision maker is listed in patient medical record.: Yes Medication Reconciliation I have utilized all available resources to obtain, update and review the patients current medications (includes all prescriptions, OTC, herbals, cannabis, and nutritional supplements).: Yes
[2025-04-01] MEDS: ACETAMINOPHEN 325 MG TABLET 650 MG PO ×3 (09:39→22:05)
[2025-04-01] MEDS: ASCORBIC ACID 500 MG TABLET 1000 MG PO (09:39)
[2025-04-01] MEDS: ASPIRIN 81 MG ENTERIC TABLET PO ×2 (09:40→17:05)
--- NOTE | 2025-04-01 10:05 | PCPTNOTE ---
Attempted PT evaluation, pt not able to clearly state type of surgery and precautions of recent R hip surgery. Attempted to call family, but did not get an answer. Dr. Sarabia present and requesting x-rays prior to PT evaluation. Will follow.
[2025-04-01 10:08] LABS: Add Urine Microscopic? YES; Appearance Urine Clear (Clear); Glucose Urine UA Negative (Negative); Leukocyte Esterase Ur Trace LEU/UL (Negative); Nitrate Urine Negative (Negative); Non Pathogenic Casts 0-2; Specific Grav Ur 1.006 (1.001-1.035)
[2025-04-01 10:14] LABS: Total Protein Urine Random 54 mg/dL; Ur Ttl Prot Creatinine Ratio 1.82 mg/mg (0-0.20)
--- NOTE | 2025-04-01 12:15 | P.CONNP_ITS ---
Assessment and Plan Assessment and plan (1) Hyponatremia: Code(s): E87.1 - Hypo-osmolality and hyponatremia Status: Acute Assessment and Plan: * appears acute * noted about a month ago during hospitalization in [place] (exact sodium level not known) * previous sodium levels ~ 135 - 139 since 2024 * however, has been as low as 130mmol/L in June 2023 * appears otherwise asymptomatic * risk factors for low sodium * pain * medications: - trazodone - sertraline (SSRI) - gabapentin * thyroid disease * excessive free water intake * check TSH, cortisol, SPEP/UPEP, serum/urine immunofixation, serum/urine osmolality, and kappa/lambda ratio * consider checking CXR... * head CT noted * start fluid restriction * follow trend of repeat sodium levels (2) Stage 3 chronic kidney disease: Code(s): N18.30 - Chronic kidney disease, stage 3 unspecified Status: Chronic Assessment and Plan: * present since early 2023 * baseline creatinine ~ 1.1 - 1.3mg/dl * this causes her to fluctuate between CKD stage 3A and stage 3B (3) Left leg weakness: Code(s): R29.898 - Other symptoms and signs involving the musculoskeletal system Status: Acute Assessment and Plan: * as noted on presentation * no apparent injury by imaging to date * PT/OT as tolerated (4) Hip fracture, right: Code(s): S72.001A - Fracture of unspecified part of neck of right femur, initial encounter for closed fracture Status: Acute Assessment and Plan: * noted injury ~ 3 weeks ago * s/p operative intervention * ongoing PT/OT as tolerated (5) Anemia: Qualifiers: Anemia type: unspecified type Qualified Code(s): D64.9 - Anemia, unspecified Code(s): D64.9 - Anemia, unspecified Status: Acute Assessment and Plan: * noted on admission * possibly exacerbated by recent operative intervention ~ a month ago * underlying CKD could be playing a role * follow trend of H/H (6) Essential (primary) hypertension: Code(s): I10 - Essential (primary) hypertension Status: Acute Assessment and Plan: * reasonable control * follow trend of hemodynamics (7) Obstructive sleep apnea: Onset Date: ~02/2021 Code(s): G47.33 - Obstructive sleep apnea (adult) (pediatric) Status: Chronic Assessment and Plan: * follows with [facility] * on CPAP (8) Type 2 diabetes mellitus in remission: Code(s): E11.9 - Type 2 diabetes mellitus without complications Status: Chronic Assessment and Plan: * apparently diet controlled * not requiring medications * follow blood sugars I will continue to follow the patient with you while she remains hospitalized and make further recommendations as deemed necessary. Thank you for allowing me to participate in the care of this patient. L History of Present Illness Reason for Consult Consult date: 04/01/25 Reason for consult: hyponatremia Chief Complaint Chief complaint: can't walk, generalized weakness, hypoNa History of Present Illness Narrative: The patient is an 79-year-old female with a past medical history as outlined below who presented to the emergency room with left hip pain and difficulty with ambulation. The patient was in [facility] about a month ago where she sustained a left hip fracture requiring surgical intervention. Since that time, she has traveled back to this area and has been undergoing physical therapy for ongoing rehabilitation since her surgery. Her last physical therapy session was approximately 2 days prior to her presentation to the ER and since that time, her left hip has been more sore and painful with resulting difficulty in ambulating/ walking as a result. She further states that she has had trouble lifting up her left hip as well but no associated paresthesias or tingling. Family was also somewhat concerned as her face looked flat and she seemed to be leaning to 1 side with a concern for possible CVA/TIA. Due to these constellation of symptoms as mentioned, her family brought her to the emergency room for further assessment. Workup and evaluation emergency room demonstrated the patient be hemodynamically stable and afebrile. There was no apparent facial droop or dysarthria but she did have significant discomfort in her left hip and was unable to flex both of lower extremities at the hip But apparently had normal strength in the knees and ankles with no associated sensory deficits and no neurological deficits in her upper extremities Routine blood test demonstrated white blood cell count of 13.4, hemoglobin 9.7, platelet count of 281, sodium 127, potassium 4.8, chloride 90, bicarbonate 31, BUN 27, creatinine 1.2, glucose 118, normal LFTs with the exception of an elevated alkaline phosphatase of 144. Bilateral hip and pelvis x-rays demonstrated a recent mildly comminuted intertrochanteric fracture the proximal right femur with internal fixation which is new since 10/06/2024, relatively advanced healing at an internally fixed distal metadiaphyseal fracture of the right femur, and right knee chondrocalcinosis with mild to moderate osteoarthritis at the medial compartment. her head CT scan showed stable moderate nonspecific cerebral white matter disease, which likely represents chronic small vessel ischemic disease. the ER had a discussion with the patient's family about possible transfer to another facility given known Neurology coverage over the weekend given the concern for possible CVA/TIA but the patient and family were not interested hospital transfer and wanted hospitalization more so for further physical/occupational therapy as well as possible rehab placement. Hence, the patient was admitted to the hospital for further evaluation and therapy. Renal consultation was requested due to her acute hyponatremia as noted by her admission labs. Since her admission, repeat labs this morning show stability in her sodium level at 127millimoles per L but repeat labs done just recently showed her most recent sodium level at 125millimoles per L. Upon further questioning of the patient's family, while she was hospitalized in [place] several weeks ago, she apparently was noted to have low sodium levels as well but does not appear that any further intervention was done with regard to this issue. Unfortunately, the specifics on how low her sodium level was is not entirely clear to myself or the family but apparently was not significant enough to warrant further evaluation. Labs done approximately over the last several months at the [facility] show her sodium level running around 135 - 139 millimoles per L since earlier this year. Currently, at the time my evaluation, she appears to be in no acute distress. [facility] Past Medical History Medical History Hypertensive emergency Hypertensive encephalopathy Cough Spinal stenosis Fatigue B12 deficiency CKD (chronic kidney disease) stage 3, GFR 30-59 ml/min Anemia Essential (primary) hypertension Hypothyroidism (acquired) Insomnia Mixed hyperlipidemia Primary osteoarthritis of both hips Type 2 diabetes mellitus without complication Surgical History Surgical History H/O microdiscectomy Family History Family History Sibling Family history of diabetes mellitus in first degree relative Mother Family history of lung cancer Family history of malignant neoplasm of brain Social History Social History Smoking status: Never smoker Second hand tobacco smoke exposure: Yes Alcohol intake: never Substance use: never Substance use type: does not use Do You Feel Safe in your Home?: Yes Lack of Transportation: No Lack of Food: Never True Current Housing: I Have Housing Concerned About Future Housing: No Difficulty Paying Gas/Electric Bills: No Difficulty Paying for Meds: No Currently Unemployed: No Education: High School Diploma/GED Difficulty w/ Childcare or Family Care: No Living arrangements: with family Additional living arrangements comments: SON WITH [employer] [facility] W/ PATIENT Occupation/Education: retired Gender identity (if verbalized by the patient): Female Sexual Orientation (if Verbalized by the Patient): Straight or Heterosexual Spiritual care concerns: No Agree to blood products: No Meds Home Medications and Allergies Home Medications ?Medication ?Instructions ?Recorded ?Confirmed ?Type mecobalamin (vitamin B12) 1,000 1,000 mcg sublingual D AILY 07/08/19 04/01/25 History mcg disintegrating tablet,sublingual calcium 500 mg (as 1 tablet PO DAILY 08/13/22 0 04/01/25 History carbonate)-vitamin D3 3.125 mcg (125 unit) tablet (Calcium) ascorbic acid (vitamin C) 1,000 mg 1 g PO DAILY 04/01/25 History capsule docusate sodium 100 mg capsule 100 mg PO DAILY PRN con stipation 10/06/24 04/01/25 History (Colace) acetaminophen 650 mg 650 mg PO Q8H #60 tabs 10/1104/01/25 Rx tablet,extended release (Tylenol 8 Hour) amlodipine 10 mg tablet 10 mg PO QAM #90 tabs 04/01/25 Rx fluoxetine 20 mg tablet 20 mg PO DAILY #90 tabs 01/1204/01/25 Rx gabapentin 100 mg capsule 200 mg (2 x 100 mg) PO QHS # 90 caps 02/03/25 04/01/25 Rx levothyroxine 88 mcg tablet 88 mcg PO QAM #90 tabs 04/01/25 Rx trazodone 150 mg tablet See Rx Instructions .Route 0 02/03/25 04/01/25 Rx .COMPLEX #90 tabs valsartan 40 mg tablet See Rx Instructions .Route 0 02/03/25 04/01/25 Rx .COMPLEX #90 tabs meclizine 25 mg tablet 25 mg PO TID PRN dizziness # 20 tabs 02/09/25 04/01/25 Rx aspirin 81 mg tablet 81 mg PO BID 03/22/25 History tramadol 50 mg tablet 50 mg PO Q6H PRN pain #60 ta bs 03/22/25 04/01/25 Rx Allergies Allergy/AdvReac Type Severity Reaction Status Date / Time erythromycin base Allergy Unknown Hyperactive Verified 03/22/25 10:25 Penicillins Allergy Unknown HIVES?, PT Verified 03/22/25 10:25 UNSURE OF REACTION Vital Signs Vital Signs Temp Pulse Resp BP Pulse Ox O2 Del Method 04/01/25 12:15 Room Air 04/01/25 08:00 Room Air 04/01/25 06:05 97.7 F 85 18 142/53 H 97 04/01/25 06:00 Room Air Exam 2 Narrative: GENERAL APPEARANCE: elderly but well developed well nourished female in no acute distress HEENT: normocephalic, atraumatic, normal conjunctiva and sclera, nares patient NECK: no lymphadenopathy, thyromegaly, or JVD MOUTH: normal lips, teeth, and gums CARDIOVASCULAR: RRR, normal S1 and S2, no rub RESPIRATORY: clear to auscultation bilaterally ABDOMEN: soft, nontender, nondistended, positive bowel sounds present EXTREMITIES: no evidence of cyanosis, clubbing, or edema; right hip surgical scan noted NEUROLOGICAL: alert and oriented x 3; CN II - XII intact bilaterally; unable to flex right hip Results Lab Results 04/02/25 05:00 04/02/25 05:00 Lab results: Most recent lab results Calcium 9.4 mg/dL (8.4-10.2) 04/01/25 02:33 Urine Creatinine 29.7 mg/dL 04/01/25 07:03 Urine Creatinine Cancelled 04/01/25 07:03
[2025-04-01 12:55] LABS: Sodium 125 mmol/L (137-145)
[2025-04-01] MEDS: CYANOCOBALAMIN 1,000 MCG TABLET 1000 MCG PO (13:10)
[2025-04-01 13:31] LABS: Thyroid Stimulating Hormone Reflex 8.290 uIU/mL (0.465-4.68)
[2025-04-01 15:10] VITALS: BP 128/48; PULSE 70; RESP 18; TEMP 36.7; O2SAT 98
[2025-04-01 15:49] LABS: Free T4 Free Thyroxine Reflex 0.97 ng/dL (0.78-2.19)
[2025-04-01 16:44] LABS: Total Triiodothyronine (T3) 0.55 NG/ML (0.82-1.58)
[2025-04-01] MEDS: CALCIUM/VITAMIN D 500 MG/5 MCG (200 I.U.) TABLET PO (17:04)
[2025-04-01] MEDS: SODIUM CHLORIDE 500 MG TABLET PO (17:05)
[2025-04-01 20:52] VITALS: BP 146/60; PULSE 78; RESP 18; TEMP 36.2; O2SAT 96
[2025-04-01] MEDS: GABAPENTIN 100 MG CAPSULE 200 MG PO (22:05)
[2025-04-01] MEDS: VALSARTAN 40 MG TABLET BY MOUTH (22:06)
[2025-04-01 23:15] VITALS: PULSE 78; RESP 18; O2SAT 96
[2025-04-02 03:55] VITALS: PULSE 73; RESP 18; O2SAT 96
[2025-04-02 05:13] LABS: Hematocrit 27.9 % (37.0-47.0); Hemoglobin 8.9 g/dL (12.0-15.0); Immature Granulocyte Percent A 0.4 % (0-0.5); Lymphocytes Absolute Auto 0.99 K/mm3 (0.9-3.2); Mean Corpuscular HGB Conc 31.9 g/dl (32-36); Mean Corpuscular Hemoglobin 32.6 pg (26-34); Mean Corpuscular Volume 102.2 fl (80-100); Nucleated Red Blood Cells Absolute Auto 0.000 K/mm3 (0.0-0.012); Nucleated Red Blood Cells Perc 0.0 % (0.0-0.2); Platelet Count Result 229 k/mm3 (150-375); Red Blood Count 2.73 M/mm3 (4.2-5.4); White Blood Count 9.4 K/mm3 (4.5-10.0)
[2025-04-02 05:41] LABS: Alanine Aminotransferase 10 U/L (6-35); Albumin Level 3.1 g/dL (3.5-5.1); Alkaline Phosphatase 123 U/L (38-126); Anion Gap 4 mmol/L (4-12); Aspartate Amino Transferase 26 U/L (14-36); Bilirubin,Total 0.4 mg/dL (0.2-1.3); Blood Urea Nitrogen 22 mg/dL (7-17); Calcium 8.8 mg/dL (8.4-10.2); Carbon Dioxide 32 mmol/L (22-30); Chloride 91 mmol/L (98-107); Estimated CRCL calculation 41 ml/min; Estimated Glomerular Filt Rate 49; Glucose 94 mg/dL (65-110); Magnesium 1.7 mg/dL (1.6-2.3); Potassium 4.5 mmol/L (3.4-5.0); Sodium 127 mmol/L (137-145); Total Protein 6.1 g/dL (6.3-8.2)
[2025-04-02] MEDS: LEVOTHYROXINE SODIUM 88 MCG TABLET PO (05:57)
[2025-04-02] MEDS: ACETAMINOPHEN 325 MG TABLET 650 MG PO ×3 (05:57→21:30)
[2025-04-02 06:00] VITALS: BP 123/60; PULSE 79; RESP 18; TEMP 36.4; O2SAT 100
[2025-04-02] MEDS: ASCORBIC ACID 500 MG TABLET 1000 MG PO (09:21)
[2025-04-02] MEDS: CYANOCOBALAMIN 1,000 MCG TABLET 1000 MCG PO (09:21)
[2025-04-02] MEDS: ASPIRIN 81 MG ENTERIC TABLET PO ×2 (09:21→18:10)
[2025-04-02] MEDS: CALCIUM/VITAMIN D 500 MG/5 MCG (200 I.U.) TABLET PO (09:22)
[2025-04-02] MEDS: SODIUM CHLORIDE 500 MG TABLET PO ×2 (09:22→18:10)
--- NOTE | 2025-04-02 12:50 | P.PNIM_ITS ---
Progress Note: A&P Assessment and Plan (1) Depression: Code(s): F32.A - Depression, unspecified Status: Acute (2) Essential (primary) hypertension: Code(s): I10 - Essential (primary) hypertension Status: Acute (3) Mixed hyperlipidemia: Code(s): E78.2 - Mixed hyperlipidemia Status: Acute (4) Type 2 diabetes mellitus in remission: Code(s): E11.9 - Type 2 diabetes mellitus without complications Status: Acute (5) Hypothyroidism (acquired): Code(s): E03.9 - Hypothyroidism, unspecified Status: Acute (6) Osteopenia: Qualifiers: Osteopenia location: multiple sites Qualified Code(s): M85.89 - Other specified disorders of bone density and structure, multiple sites Code(s): M85.80 - Other specified disorders of bone density and structure, unspecified site Status: Acute (7) GERD (gastroesophageal reflux disease): Code(s): K21.9 - Gastro-esophageal reflux disease without esophagitis Status: Acute (8) CKD (chronic kidney disease) stage 3, GFR 30-59 ml/min: Qualifiers: Chronic kidney disease stage 3 subtype: stage 3a (GFR 45-59) Qualified Code(s): N18.31 - Chronic kidney disease, stage 3a Code(s): N18.30 - Chronic kidney disease, stage 3 unspecified Status: Acute (9) Anemia: Qualifiers: Anemia type: unspecified type Qualified Code(s): D64.9 - Anemia, unspecified Code(s): D64.9 - Anemia, unspecified Status: Acute (10) Leg weakness: Code(s): R29.898 - Other symptoms and signs involving the musculoskeletal system Status: Acute Plan This is a 79-year-old female recently had hip surgery 3 weeks ago and lowered a undergoing physical therapy last session was 2 days ago comes in to the ER with left hip shortness and trouble walking since yesterday. No numbness. Her family member noticed that her face looked flat and seemed to be leaning to 1 side concern for stroke and hence brought her to the ER In the ED her vitals were stable. She is unable to flex either leg at hip but had normal speech with no facial droop. Laboratory workup showed WBC of 13.4 hemoglobin 9.7 platelet count 281. Sodium of 127 potassium 4.8 chloride 90 bicarbonate 31 BUN 27 creatinine 1.2 blood glucose of 118. LFTs with normal bilirubin normal AST ALT alkaline phosphatase is mildly elevated 144. She is admitted for further treatment Left leg weakness/pain. X-ray hip with intact hardware. CT head negative. PT OT to see. Will need rehabilitation potentially MARCELLE Hyponatremia mild continue to monitor on salt tablets and fluid restriction Anemia [id number] chronic CKD stage 3 Pre diabetes Hypothyroidism Anxiety depression Hypertension Hyperlipidemia DVT prophylaxis Code status code Subjective Date/time seen: 04/02/25 12:50 Interval history: No overnight events. Work with therapy. Able to ambulate. Still has difficulty and limited ambulation. Agreeable for therapy Review of Systems Review of Systems: All systems reviewed & are unremarkable except as noted in HPI and below Exam Narrative: GENERAL: No acute distress, non-toxic appearing. HEAD: Normal with no signs of head trauma. EYES: EOMI, conjunctiva normal ENT: Hearing grossly intact LUNGS: Nonlabored breathing. HEART: Regular rate and rhythm ABD: Soft, [nontender to palpation EXT: Normal range of motion SKIN: No rashes or lesions. NEURO: Alert and oriented x 3. Unable to flex right hip, right hip surgical scar with Steri-Strips, wound well healed with no drainage or erythema, No facial droop. Clear normal speech. PSYCH: Normal affect Objective Data Vital Signs Vital Signs: Vital Signs - 24 hr 04/01/25 13:51 04/01/25 15:10 04/01/25 20:00 Temperature 98.0 F Pulse Rate 70 Respiratory Rate 18 Blood Pressure 128/48 L Pulse Oximetry 98 Oxygen Delivery Room Air Room Air 04/01/25 20:52 04/01/25 23:15 04/01/25 23:15 Temperature 97.1 F L Pulse Rate 78 78 Respiratory Rate 18 18 Blood Pressure 146/60 H Pulse Oximetry 96 96 96 Oxygen Delivery Autopap Autopap 04/02/25 03:55 04/02/25 06:00 Temperature 97.6 F Pulse Rate 73 79 Respiratory Rate 18 18 Blood Pressure 123/60 Pulse Oximetry 96 100 Oxygen Delivery Autopap Intake/Output Intake/Output: Intake & Output 03/30/25 03/31/25 04/01/25 04/02/25 23:59 23:59 23:59 23:59 Intake Total 1490 780 Output Total 400 600 Balance 1090 180 Meds/Results Medications: Active Medications Generic Name Dose Route Start Last Admin Trade Name Jasper PRN Reason Stop Dose Admin Acetaminophen 650 mg 04/01/25 08:10 04/02/25 05:57 Acetaminophen 325 Mg Tablet PO 650 mg Q8HR VALERIA Administration Amlodipine Besylate 10 mg 04/01/25 09:00 04/02/25 09:21 Amlodipine Besylate 10 Mg Tablet PO 10 mg QAM VALERIA Administration Ascorbic Acid 1,000 mg 04/01/25 09:00 04/02/25 09:21 Ascorbic Acid 500 Mg Tablet PO 1,000 mg QAM VALERIA Administration Aspirin 81 mg 04/01/25 09:00 04/02/25 09:21 Aspirin 81 Mg Enteric Tablet PO 81 mg BID VALERIA Administration Calcium Carbonate 500 mg 04/01/25 09:00 04/02/25 09:22 Calcium/Vitamin D 500 Mg/5 Mcg (200 I.U.) Tablet PO 500 mg DAILY VALERIA Administration Cyanocobalamin 1,000 mcg 04/01/25 09:00 04/02/25 09:21 Cyanocobalamin 1,000 Mcg Tablet PO 1,000 mcg QAM [facility] Administration Docusate Sodium 100 mg 04/01/25 08:10 Docusate Sodium 100 Mg Capsule PO DAILY PRN Constipation Fluoxetine HCl 20 mg 04/01/25 09:00 04/02/25 09:21 Fluoxetine Hcl 20 Mg Capsule PO 20 mg DAILY VALERIA Administration Gabapentin 200 mg 04/01/25 21:00 04/01/25 22:05 Gabapentin 100 Mg Capsule PO 200 mg QHS [facility] Administration Levothyroxine Sodium 88 mcg 04/01/25 08:15 04/02/25 05:57 Levothyroxine Sodium 88 Mcg Tablet PO 88 mcg DAILY@0630 [facility] Administration Meclizine HCl 25 mg 04/01/25 08:10 Meclizine Hcl 25 Mg Tablet PO TID PRN Dizziness Sodium Chloride 500 mg 04/01/25 17:00 04/02/25 09:22 Sodium Chloride 500 Mg Tablet PO 500 mg BID VALERIA Administration Tramadol HCl 50 mg 04/01/25 08:10 Tramadol Hcl (*Crx) 50 Mg Tablet PO Q6H PRN Pain Trazodone HCl 150 mg 04/01/25 08:10 Trazodone Hcl 50 Mg Tablet BY MOUTH HS PRN Sleep Valsartan 40 mg 04/01/25 21:00 04/01/25 22:06 Valsartan 40 Mg Tablet BY MOUTH 40 mg HS VALERIA Administration Radiology Results: ITS Impressions Hip/Pelvis X-Ray 04/01/25 11:36 IMPRESSION: 1. Relatively recent mildly comminuted intertrochanteric fracture the proximal right femur with internal fixation which is new since 10/06/2024. No other acute osseous abnormality. 2. Relatively advanced healing at an internally fixed distal metadiaphyseal fracture of the right femur. 3. Right knee chondrocalcinosis with mild to moderate osteoarthritis at the medial compartment. Head CT 04/02/25 07:58 IMPRESSION: 1. Stable moderate nonspecific cerebral white matter disease, which likely represents chronic small vessel ischemic disease. Labs Labs: Laboratory Results - last 24 hr 04/01/25 04/02/25 12:35 05:00 WBC 9.4 RBC 2.73 L Hgb 8.9 L Hct 27.9 L MCV 102.2 H MCH 32.6 MCHC 31.9 L RDW 13.5 Plt Count 229 MPV 9.2 Immature Gran % (Auto) 0.4 Neut % (Auto) 75.8 H Lymph % (Auto) 10.5 L [place] % (Auto) 11.7 H Eos % (Auto) 1.1 Baso % (Auto) 0.5 Lymph # (Auto) 0.99 [place] # (Auto) 1.1 H Eos # (Auto) 0.1 Baso # (Auto) 0.1 Abs Immat Gran (auto) 0.04 H Absolute Neuts (auto) 7.2 H Absolute Nucleated RBC 0.000 Nucleated RBC % 0.0 Sodium 125 L 127 L Potassium 4.5 Chloride 91 L Carbon Dioxide 32 H Anion Gap 4 BUN 22 H Creatinine 1.07 H Estim Creat Clear Calc 41 Estimated GFR 49 L Glucose 94 Calcium 8.8 Magnesium 1.7 Total Bilirubin 0.4 AST 26 ALT 10 Alkaline Phosphatase 123 Total Protein 6.1 L Albumin 3.1 L TSH (Reflex) 8.290 H Free T4 0.97 Total T3 0.55 L Random Cortisol 12.40
--- NOTE | 2025-04-02 13:20 | P.PNNP_ITS ---
Progress Note: A&P Assessment and Plan (1) Hyponatremia: Code(s): E87.1 - Hypo-osmolality and hyponatremia Status: Acute Assessment and Plan: * appears acute * noted about during hospitalization (late February/early Mar 2025) in [place] -- sodium running ~ 132 - 136mmol/L at that time * previous sodium levels ~ 135 - 139 since July 2024 * however, has been as low as 130mmol/L in June 2023 * appears otherwise asymptomatic * risk factors for low sodium * pain * medications: - trazodone - sertraline (SSRI) - gabapentin * thyroid disease * excessive free water intake * evaluation to date noted: * TSH elevated with low T3 * cortisol okay * SPEP/UPEP and serum/urine osmolality pending * head CT noted * started on fluid restriction * follow trend of repeat sodium levels (2) Stage 3 chronic kidney disease: Code(s): N18.30 - Chronic kidney disease, stage 3 unspecified Status: Chronic Assessment and Plan: * present since early 2023 * baseline creatinine ~ 1.1 - 1.3mg/dl * this causes her to fluctuate between CKD stage 3A and stage 3B (3) Left leg weakness: Code(s): R29.898 - Other symptoms and signs involving the musculoskeletal system Status: Acute Assessment and Plan: * as noted on presentation * no apparent injury by imaging to date * PT/OT as tolerated (4) Hip fracture, right: Code(s): S72.001A - Fracture of unspecified part of neck of right femur, initial encounter for closed fracture Status: Acute Assessment and Plan: * noted injury ~ 3 weeks ago * s/p operative intervention * ongoing PT/OT as tolerated (5) Anemia: Qualifiers: Anemia type: unspecified type Qualified Code(s): D64.9 - Anemia, unspecified Code(s): D64.9 - Anemia, unspecified Status: Acute Assessment and Plan: * noted on admission * possibly exacerbated by recent operative intervention ~ a month ago * underlying CKD could be playing a role * follow trend of H/H (6) Essential (primary) hypertension: Code(s): I10 - Essential (primary) hypertension Status: Acute Assessment and Plan: * reasonable control * follow trend of hemodynamics (7) Obstructive sleep apnea: Onset Date: ~02/2021 Code(s): G47.33 - Obstructive sleep apnea (adult) (pediatric) Status: Chronic Assessment and Plan: * follows with [facility] * on CPAP (8) Type 2 diabetes mellitus in remission: Code(s): E11.9 - Type 2 diabetes mellitus without complications Status: Chronic Assessment and Plan: * apparently diet controlled * not requiring medications * follow blood sugars As per my discussion with family today, they want the fluid restriction to be discontinued and they do believe I need to be seeing her since the patient was seen by PCP just prior to this admission and was not concerned about anything. Hence, I will discontinue the fluid restriction per family request and informed the hospitalist of my conservation with family. Will sign off... L Subjective Date/time seen: 04/02/25 10:30 Interval history: Follow-up for acute hyponatremia. Sodium relatively stable at the time of my visit; no apparent distress noted when seen; family at bedside and informed that they want her fluid restriction discontinued and that since the patient saw her PCP before the hospitalization and said that everything was okay, they do not think I need to be seeing her in the hospital. Exam 2 Narrative: General: elderly but WD/WN female in NAD Heart: normal S1 and S2; no rub Lungs: clear to auscultation Abdomen: soft, nontender, nondistended, positive bowel sounds Extremities: no cyanosis or clubbing; no edema Skin: warm and dry Objective Data Vital Signs Vital Signs: Vital Signs Temp Pulse Resp BP Pulse Ox O2 Del Method 04/02/25 06:00 97.6 F 79 18 123/60 100 04/02/25 03:55 73 18 96 Autopap 04/01/25 23:15 78 18 96 Autopap 04/01/25 23:15 96 Autopap 04/01/25 20:52 97.1 F L 78 18 146/60 H 96 04/01/25 20:00 Room Air Intake/Output Intake/Output: Intake & Output 03/30/25 03/31/25 04/01/25 04/02/25 23:59 23:59 23:59 23:59 Intake Total 1490 780 Output Total 400 600 Balance 1090 180 Meds/Results Medications: Active Medications Generic Name Dose Route Start Last Admin Trade Name Freq PRN Reason Stop Dose Admin Acetaminophen 650 mg 04/01/25 08:10 04/02/25 14:32 Acetaminophen 325 Mg Tablet PO 650 mg Q8HR VALERIA Administration Amlodipine Besylate 10 mg 04/01/25 09:00 04/02/25 09:21 Amlodipine Besylate 10 Mg Tablet PO 10 mg QAM VALERIA Administration Ascorbic Acid 1,000 mg 04/01/25 09:00 04/02/25 09:21 Ascorbic Acid 500 Mg Tablet PO 1,000 mg QAM VALERIA Administration Aspirin 81 mg 04/01/25 09:00 04/02/25 09:21 Aspirin 81 Mg Enteric Tablet PO 81 mg BID VALERIA Administration Calcium Carbonate 500 mg 04/01/25 09:00 04/02/25 09:22 Calcium/Vitamin D 500 Mg/5 Mcg (200 I.U.) Tablet PO 500 mg DAILY VALERIA Administration Cyanocobalamin 1,000 mcg 04/01/25 09:00 04/02/25 09:21 Cyanocobalamin 1,000 Mcg Tablet PO 1,000 mcg QAM [facility] Administration Docusate Sodium 100 mg 04/01/25 08:10 Docusate Sodium 100 Mg Capsule PO DAILY PRN Constipation Fluoxetine HCl 20 mg 04/01/25 09:00 04/02/25 09:21 Fluoxetine Hcl 20 Mg Capsule PO 20 mg DAILY VALERIA Administration Gabapentin 200 mg 04/01/25 21:00 04/01/25 22:05 Gabapentin 100 Mg Capsule PO 200 mg QHS [facility] Administration Levothyroxine Sodium 88 mcg 04/01/25 08:15 04/02/25 05:57 Levothyroxine Sodium 88 Mcg Tablet PO 88 mcg DAILY@0630 VALERIA Administration Meclizine HCl 25 mg 04/01/25 08:10 Meclizine Hcl 25 Mg Tablet PO TID PRN Dizziness Sodium Chloride 500 mg 04/01/25 17:00 04/02/25 09:22 Sodium Chloride 500 Mg Tablet PO 500 mg BID VALERIA Administration Tramadol HCl 50 mg 04/01/25 08:10 Tramadol Hcl (*Crx) 50 Mg Tablet PO Q6H PRN Pain Trazodone HCl 150 mg 04/01/25 08:10 Trazodone Hcl 50 Mg Tablet BY MOUTH HS PRN Sleep Valsartan 40 mg 04/01/25 21:00 04/01/25 22:06 Valsartan 40 Mg Tablet BY MOUTH 40 mg HS VALERIA Administration Radiology Results: ITS Impressions Hip/Pelvis X-Ray 04/01/25 11:36 IMPRESSION: 1. Relatively recent mildly comminuted intertrochanteric fracture the proximal right femur with internal fixation which is new since 10/06/2024. No other acute osseous abnormality. 2. Relatively advanced healing at an internally fixed distal metadiaphyseal fracture of the right femur. 3. Right knee chondrocalcinosis with mild to moderate osteoarthritis at the medial compartment. Head CT 04/02/25 07:58 IMPRESSION: 1. Stable moderate nonspecific cerebral white matter disease, which likely represents chronic small vessel ischemic disease. Labs Labs: Laboratory Tests 04/02/25 05:00 04/02/25 05:00 Calcium 8.8 Magnesium 1.7 Total Bilirubin 0.4 AST 26 ALT 10 Alkaline Phosphatase 123 Total Protein 6.1 L Albumin 3.1 L
[2025-04-02 15:38] VITALS: BP 138/50; PULSE 80; RESP 18; TEMP 37.1; O2SAT 95
[2025-04-02 20:38] VITALS: BP 137/50; PULSE 72; RESP 16; TEMP 36.9; O2SAT 98
[2025-04-02] MEDS: GABAPENTIN 100 MG CAPSULE 200 MG PO (21:30)
[2025-04-02] MEDS: VALSARTAN 40 MG TABLET BY MOUTH (21:30)
[2025-04-02 22:10] VITALS: PULSE 100; RESP 12; O2SAT 95
[2025-04-03 02:58] VITALS: PULSE 85; RESP 14; O2SAT 96
[2025-04-03 05:28] VITALS: BP 144/55; PULSE 71; RESP 17; TEMP 36.6; O2SAT 97
[2025-04-03 05:32] LABS: Hematocrit 28.0 % (37.0-47.0); Hemoglobin 8.9 g/dL (12.0-15.0); Immature Granulocyte Percent A 0.5 % (0-0.5); Lymphocytes Absolute Auto 1.15 K/mm3 (0.9-3.2); Mean Corpuscular HGB Conc 31.8 g/dl (32-36); Mean Corpuscular Hemoglobin 32.0 pg (26-34); Mean Corpuscular Volume 100.7 fl (80-100); Nucleated Red Blood Cells Absolute Auto 0.000 K/mm3 (0.0-0.012); Nucleated Red Blood Cells Perc 0.0 % (0.0-0.2); Platelet Count Result 257 k/mm3 (150-375); Red Blood Count 2.78 M/mm3 (4.2-5.4); White Blood Count 7.8 K/mm3 (4.5-10.0)
[2025-04-03] MEDS: ACETAMINOPHEN 325 MG TABLET 650 MG PO ×2 (05:57→21:18)
[2025-04-03] MEDS: LEVOTHYROXINE SODIUM 88 MCG TABLET PO (05:57)
[2025-04-03 07:56] LABS: Alanine Aminotransferase 9 U/L (6-35); Albumin Level 3.1 g/dL (3.5-5.1); Alkaline Phosphatase 122 U/L (38-126); Anion Gap 6 mmol/L (4-12); Aspartate Amino Transferase 25 U/L (14-36); Bilirubin,Total 0.3 mg/dL (0.2-1.3); Blood Urea Nitrogen 19 mg/dL (7-17); Calcium 8.6 mg/dL (8.4-10.2); Carbon Dioxide 27 mmol/L (22-30); Chloride 95 mmol/L (98-107); Estimated CRCL calculation 44 ml/min; Estimated Glomerular Filt Rate 53; Glucose 82 mg/dL (65-110); Magnesium 1.8 mg/dL (1.6-2.3); Potassium 4.2 mmol/L (3.4-5.0); Sodium 128 mmol/L (137-145); Total Protein 6.1 g/dL (6.3-8.2)
[2025-04-03] MEDS: ASCORBIC ACID 500 MG TABLET 1000 MG PO (08:44)
[2025-04-03] MEDS: CALCIUM/VITAMIN D 500 MG/5 MCG (200 I.U.) TABLET PO (08:44)
[2025-04-03] MEDS: ASPIRIN 81 MG ENTERIC TABLET PO ×2 (08:44→16:53)
[2025-04-03] MEDS: CYANOCOBALAMIN 1,000 MCG TABLET 1000 MCG PO (08:44)
[2025-04-03] MEDS: SODIUM CHLORIDE 500 MG TABLET PO ×2 (08:44→16:53)
[2025-04-03 09:20] VITALS: O2SAT 92
--- NOTE | 2025-04-03 14:08 | PM.IMPN ---
Progress Note: A&P Assessment and Plan (1) Depression: Code(s): F32.A - Depression, unspecified Status: Acute (2) Essential (primary) hypertension: Code(s): I10 - Essential (primary) hypertension Status: Acute (3) Mixed hyperlipidemia: Code(s): E78.2 - Mixed hyperlipidemia Status: Acute (4) Type 2 diabetes mellitus in remission: Code(s): E11.9 - Type 2 diabetes mellitus without complications Status: Chronic (5) Hypothyroidism (acquired): Code(s): E03.9 - Hypothyroidism, unspecified Status: Acute (6) Osteopenia: Qualifiers: Osteopenia location: multiple sites Qualified Code(s): M85.89 - Other specified disorders of bone density and structure, multiple sites Code(s): M85.80 - Other specified disorders of bone density and structure, unspecified site Status: Acute (7) GERD (gastroesophageal reflux disease): Code(s): K21.9 - Gastro-esophageal reflux disease without esophagitis Status: Acute (8) CKD (chronic kidney disease) stage 3, GFR 30-59 ml/min: Qualifiers: Chronic kidney disease stage 3 subtype: stage 3a (GFR 45-59) Qualified Code(s): N18.31 - Chronic kidney disease, stage 3a Code(s): N18.30 - Chronic kidney disease, stage 3 unspecified Status: Acute (9) Anemia: Qualifiers: Anemia type: unspecified type Qualified Code(s): D64.9 - Anemia, unspecified Code(s): D64.9 - Anemia, unspecified Status: Acute (10) Leg weakness: Code(s): R29.898 - Other symptoms and signs involving the musculoskeletal system Status: Acute Plan This is a 79-year-old female recently had hip surgery 3 weeks ago and lowered a undergoing physical therapy last session was 2 days ago comes in to the ER with left hip shortness and trouble walking since yesterday. No numbness. Her family member noticed that her face looked flat and seemed to be leaning to 1 side concern for stroke and hence brought her to the ER In the ED her vitals were stable. She is unable to flex either leg at hip but had normal speech with no facial droop. Laboratory workup showed WBC of 13.4 hemoglobin 9.7 platelet count 281. Sodium of 127 potassium 4.8 chloride 90 bicarbonate 31 BUN 27 creatinine 1.2 blood glucose of 118. LFTs with normal bilirubin normal AST ALT alkaline phosphatase is mildly elevated 144. She is admitted for further treatment Left leg weakness/pain. X-ray hip with intact hardware. CT head negative. PT OT to see. Will need rehabilitation potentially MARCELLE Hyponatremia mild continue to monitor on salt tablets and fluid restriction. Refuses to stay on fluid restriction which has been stopped. Anemia [id number] chronic CKD stage 3 Pre diabetes Hypothyroidism Anxiety depression Hypertension Hyperlipidemia DVT prophylaxis Code status code Subjective Date/time seen: 04/03/25 14:08 Interval history: Patient ambulating with a walker. Pain in the right hip. Does not like fluid restriction. Review of Systems Review of Systems: All systems reviewed & are unremarkable except as noted in HPI and below Exam Narrative: GENERAL: No acute distress, non-toxic appearing. HEAD: Normal with no signs of head trauma. EYES: EOMI, conjunctiva normal ENT: Hearing grossly intact LUNGS: Nonlabored breathing. HEART: Regular rate and rhythm ABD: Soft, [nontender to palpation EXT: Normal range of motion SKIN: No rashes or lesions. NEURO: Alert and oriented x 3. Unable to flex right hip, right hip surgical scar with Steri-Strips, wound well healed with no drainage or erythema, No facial droop. Clear normal speech. PSYCH: Normal affect Objective Data Vital Signs Vital Signs: Vital Signs - 24 hr 04/02/25 15:38 04/02/25 20:00 04/02/25 20:38 Temperature 98.7 F 98.5 F Pulse Rate 80 72 Respiratory Rate 18 16 Blood Pressure 138/50 L 137/50 L Pulse Oximetry 95 98 Oxygen Delivery Autopap 04/02/25 22:10 04/03/25 02:58 04/03/25 05:28 Temperature 97.8 F Pulse Rate 100 85 71 Respiratory Rate 12 14 17 Blood Pressure 144/55 H Pulse Oximetry 95 96 97 Oxygen Delivery Autopap Autopap 04/03/25 08:00 04/03/25 09:20 Temperature Pulse Rate Respiratory Rate Blood Pressure Pulse Oximetry 92 Oxygen Delivery Autopap Room Air Intake/Output Intake/Output: Intake & Output 03/31/25 04/01/25 04/02/25 04/03/25 23:59 23:59 23:59 23:59 Intake Total 1490 1320 480 Output Total 400 600 Balance 1090 720 480 Meds/Results Medications: Active Medications Generic Name Dose Route Start Last Admin Trade Name Freq PRN Reason Stop Dose Admin Acetaminophen 650 mg 04/01/25 08:10 04/03/25 05:57 Acetaminophen 325 Mg Tablet PO 650 mg Q8HR [facility]ERIA Administration Amlodipine Besylate 10 mg 04/01/25 09:00 04/03/25 08:44 Amlodipine Besylate 10 Mg Tablet PO 10 mg QAM [facility] Administration Ascorbic Acid 1,000 mg 04/01/25 09:00 04/03/25 08:44 Ascorbic Acid 500 Mg Tablet PO 1,000 mg QAM [facility] Administration Aspirin 81 mg 04/01/25 09:00 04/03/25 08:44 Aspirin 81 Mg Enteric Tablet PO 81 mg BID VALERIA Administration Calcium Carbonate 500 mg 04/01/25 09:00 04/03/25 08:44 Calcium/Vitamin D 500 Mg/5 Mcg (200 I.U.) Tablet PO 500 mg DAILY [facility]ERIA Administration Cyanocobalamin 1,000 mcg 04/01/25 09:00 04/03/25 08:44 Cyanocobalamin 1,000 Mcg Tablet PO 1,000 mcg QAM [facility] Administration Docusate Sodium 100 mg 04/01/25 08:10 Docusate Sodium 100 Mg Capsule PO DAILY PRN Constipation Fluoxetine HCl 20 mg 04/01/25 09:00 04/03/25 08:44 Fluoxetine Hcl 20 Mg Capsule PO 20 mg DAILY VALERIA Administration Gabapentin 200 mg 04/01/25 21:00 04/02/25 21:30 Gabapentin 100 Mg Capsule PO 200 mg QHS [facility] Administration Levothyroxine Sodium 88 mcg 04/01/25 08:15 04/03/25 05:57 Levothyroxine Sodium 88 Mcg Tablet PO 88 mcg DAILY@0630 [facility] Administration Meclizine HCl 25 mg 04/01/25 08:10 Meclizine Hcl 25 Mg Tablet PO TID PRN Dizziness Sodium Chloride 500 mg 04/01/25 17:00 04/03/25 08:44 Sodium Chloride 500 Mg Tablet PO 500 mg BID VALERIA Administration Tramadol HCl 50 mg 04/01/25 08:10 Tramadol Hcl (*Crx) 50 Mg Tablet PO Q6H PRN Pain Trazodone HCl 150 mg 04/01/25 08:10 Trazodone Hcl 50 Mg Tablet BY MOUTH HS PRN Sleep Valsartan 40 mg 04/01/25 21:00 04/02/25 21:30 Valsartan 40 Mg Tablet BY MOUTH 40 mg HS VALERIA Administration Radiology Results: ITS Impressions Hip/Pelvis X-Ray 04/01/25 11:36 IMPRESSION: 1. Relatively recent mildly comminuted intertrochanteric fracture the proximal right femur with internal fixation which is new since 10/06/2024. No other acute osseous abnormality. 2. Relatively advanced healing at an internally fixed distal metadiaphyseal fracture of the right femur. 3. Right knee chondrocalcinosis with mild to moderate osteoarthritis at the medial compartment. Head CT 04/02/25 07:58 IMPRESSION: 1. Stable moderate nonspecific cerebral white matter disease, which likely represents chronic small vessel ischemic disease. Labs Labs: Laboratory Results - last 24 hr 04/03/25 04:35 WBC 7.8 RBC 2.78 L Hgb 8.9 L Hct 28.0 L MCV 100.7 H MCH 32.0 MCHC 31.8 L RDW 13.2 Plt Count 257 MPV 9.9 Immature Gran % (Auto) 0.5 Neut % (Auto) 71.4 Lymph % (Auto) 14.7 L [place] % (Auto) 10.6 H Eos % (Auto) 1.9 Baso % (Auto) 0.9 Lymph # (Auto) 1.15 [place] # (Auto) 0.8 H Eos # (Auto) 0.2 Baso # (Auto) 0.1 Abs Immat Gran (auto) 0.04 H Absolute Neuts (auto) 5.6 Absolute Nucleated RBC 0.000 Nucleated RBC % 0.0 Sodium 128 L Potassium 4.2 Chloride 95 L Carbon Dioxide 27 Anion Gap 6 BUN 19 H Creatinine 1.00 Estim Creat Clear Calc 44 Estimated GFR 53 L Glucose 82 Calcium 8.6 Magnesium 1.8 Total Bilirubin 0.3 AST 25 ALT 9 Alkaline Phosphatase 122 Total Protein 6.1 L Albumin 3.1 L
[2025-04-03] MEDS: traMADol HCL (*CRX) 50 MG TABLET PO (14:19)
[2025-04-03 15:46] VITALS: BP 144/55; PULSE 86; RESP 18; TEMP 37.2; O2SAT 99
[2025-04-03 20:45] VITALS: BP 137/65; PULSE 82; RESP 16; TEMP 36.6; O2SAT 97
[2025-04-03] MEDS: VALSARTAN 40 MG TABLET BY MOUTH (21:18)
[2025-04-03] MEDS: GABAPENTIN 100 MG CAPSULE 200 MG PO (21:18)
[2025-04-03 21:50] VITALS: PULSE 88; RESP 16; O2SAT 96
[2025-04-04 05:08] LABS: Hematocrit 27.1 % (37.0-47.0); Hemoglobin 8.7 g/dL (12.0-15.0); Immature Granulocyte Percent A 0.6 % (0-0.5); Lymphocytes Absolute Auto 1.41 K/mm3 (0.9-3.2); Mean Corpuscular HGB Conc 32.1 g/dl (32-36); Mean Corpuscular Hemoglobin 32.3 pg (26-34); Mean Corpuscular Volume 100.7 fl (80-100); Nucleated Red Blood Cells Absolute Auto 0.000 K/mm3 (0.0-0.012); Nucleated Red Blood Cells Perc 0.0 % (0.0-0.2); Platelet Count Result 273 k/mm3 (150-375); Red Blood Count 2.69 M/mm3 (4.2-5.4); White Blood Count 7.1 K/mm3 (4.5-10.0)
[2025-04-04 05:39] LABS: Alanine Aminotransferase 9 U/L (6-35); Albumin Level 2.9 g/dL (3.5-5.1); Alkaline Phosphatase 115 U/L (38-126); Anion Gap 5 mmol/L (4-12); Aspartate Amino Transferase 22 U/L (14-36); Bilirubin,Total 0.2 mg/dL (0.2-1.3); Blood Urea Nitrogen 19 mg/dL (7-17); Calcium 8.6 mg/dL (8.4-10.2); Carbon Dioxide 28 mmol/L (22-30); Chloride 95 mmol/L (98-107); Estimated CRCL calculation 44 ml/min; Estimated Glomerular Filt Rate 54; Glucose 82 mg/dL (65-110); Magnesium 1.8 mg/dL (1.6-2.3); Potassium 4.2 mmol/L (3.4-5.0); Sodium 128 mmol/L (137-145); Total Protein 5.9 g/dL (6.3-8.2)
[2025-04-04 05:49] VITALS: BP 136/60; PULSE 74; RESP 16; TEMP 36.8; O2SAT 98
[2025-04-04] MEDS: LEVOTHYROXINE SODIUM 88 MCG TABLET PO (06:04)
[2025-04-04] MEDS: ACETAMINOPHEN 325 MG TABLET 650 MG PO ×3 (06:04→21:09)
[2025-04-04] MEDS: ASPIRIN 81 MG ENTERIC TABLET PO ×2 (09:10→18:01)
[2025-04-04] MEDS: SODIUM CHLORIDE 500 MG TABLET PO ×2 (09:10→18:01)
[2025-04-04] MEDS: CYANOCOBALAMIN 1,000 MCG TABLET 1000 MCG PO (09:10)
[2025-04-04] MEDS: ASCORBIC ACID 500 MG TABLET 1000 MG PO (09:10)
[2025-04-04] MEDS: CALCIUM/VITAMIN D 500 MG/5 MCG (200 I.U.) TABLET PO (09:10)
--- NOTE | 2025-04-04 11:33 | PM.IMPN ---
Progress Note: A&P Assessment and Plan (1) Depression: Code(s): F32.A - Depression, unspecified Status: Acute (2) Essential (primary) hypertension: Code(s): I10 - Essential (primary) hypertension Status: Acute (3) Mixed hyperlipidemia: Code(s): E78.2 - Mixed hyperlipidemia Status: Acute (4) Type 2 diabetes mellitus in remission: Code(s): E11.9 - Type 2 diabetes mellitus without complications Status: Chronic (5) Hypothyroidism (acquired): Code(s): E03.9 - Hypothyroidism, unspecified Status: Acute (6) Osteopenia: Qualifiers: Osteopenia location: multiple sites Qualified Code(s): M85.89 - Other specified disorders of bone density and structure, multiple sites Code(s): M85.80 - Other specified disorders of bone density and structure, unspecified site Status: Acute (7) GERD (gastroesophageal reflux disease): Code(s): K21.9 - Gastro-esophageal reflux disease without esophagitis Status: Acute (8) CKD (chronic kidney disease) stage 3, GFR 30-59 ml/min: Qualifiers: Chronic kidney disease stage 3 subtype: stage 3a (GFR 45-59) Qualified Code(s): N18.31 - Chronic kidney disease, stage 3a Code(s): N18.30 - Chronic kidney disease, stage 3 unspecified Status: Acute (9) Anemia: Qualifiers: Anemia type: unspecified type Qualified Code(s): D64.9 - Anemia, unspecified Code(s): D64.9 - Anemia, unspecified Status: Acute (10) Leg weakness: Code(s): R29.898 - Other symptoms and signs involving the musculoskeletal system Status: Acute Plan This is a 79-year-old female recently had hip surgery 3 weeks ago and lowered a undergoing physical therapy last session was 2 days ago comes in to the ER with left hip shortness and trouble walking since yesterday. No numbness. Her family member noticed that her face looked flat and seemed to be leaning to 1 side concern for stroke and hence brought her to the ER In the ED her vitals were stable. She is unable to flex either leg at hip but had normal speech with no facial droop. Laboratory workup showed WBC of 13.4 hemoglobin 9.7 platelet count 281. Sodium of 127 potassium 4.8 chloride 90 bicarbonate 31 BUN 27 creatinine 1.2 blood glucose of 118. LFTs with normal bilirubin normal AST ALT alkaline phosphatase is mildly elevated 144. She is admitted for further treatment Left leg weakness/pain. X-ray hip with intact hardware. CT head negative. PT OT to see. Will need rehabilitation potentially MARCELLE Hyponatremia mild continue to monitor on salt tablets and fluid restriction. Refuses to stay on fluid restriction which has been stopped. Anemia [id number] chronic CKD stage 3 Pre diabetes Hypothyroidism Anxiety depression Hypertension Hyperlipidemia DVT prophylaxis Code status code Subjective Date/time seen: 04/04/25 11:33 Interval history: No overnight events. Labs reviewed. Doing well working with therapy. Review of Systems Review of Systems: All systems reviewed & are unremarkable except as noted in HPI and below Exam Narrative: GENERAL: No acute distress, non-toxic appearing. HEAD: Normal with no signs of head trauma. EYES: EOMI, conjunctiva normal ENT: Hearing grossly intact LUNGS: Nonlabored breathing. HEART: Regular rate and rhythm ABD: Soft, [nontender to palpation EXT: Normal range of motion SKIN: No rashes or lesions. NEURO: Alert and oriented x 3. Unable to flex right hip, right hip surgical scar with Steri-Strips, wound well healed with no drainage or erythema, No facial droop. Clear normal speech. PSYCH: Normal affect Objective Data Vital Signs Vital Signs: Vital Signs - 24 hr 04/03/25 15:46 04/03/25 20:00 04/03/25 20:45 Temperature 98.9 F 97.9 F Pulse Rate 86 82 Respiratory Rate 18 16 Blood Pressure 144/55 H 137/65 Pulse Oximetry 99 97 Oxygen Delivery Room Air 04/03/25 21:50 04/04/25 05:49 04/04/25 08:00 Temperature 98.2 F Pulse Rate 88 74 Respiratory Rate 16 16 Blood Pressure 136/60 Pulse Oximetry 96 98 Oxygen Delivery Autopap Autopap Intake/Output Intake/Output: Intake & Output 04/01/25 04/02/25 04/03/25 04/04/25 23:59 23:59 23:59 23:59 Intake Total 1490 1320 1070 390 Output Total 400 600 Balance 9227 669 8519 390 Meds/Results Medications: Active Medications Generic Name Dose Route Start Last Admin Trade Name Freq PRN Reason Stop Dose Admin Acetaminophen 650 mg 04/01/25 08:10 04/04/25 06:04 Acetaminophen 325 Mg Tablet PO 650 mg Q8HR [facility]ERIA Administration Amlodipine Besylate 10 mg 04/01/25 09:00 04/03/25 08:44 Amlodipine Besylate 10 Mg Tablet PO 10 mg QAM [facility]IA Administration Ascorbic Acid 1,000 mg 04/01/25 09:00 04/03/25 08:44 Ascorbic Acid 500 Mg Tablet PO 1,000 mg QAM [facility] Administration Aspirin 81 mg 04/01/25 09:00 04/03/25 16:53 Aspirin 81 Mg Enteric Tablet PO 81 mg BID VALERIA Administration Calcium Carbonate 500 mg 04/01/25 09:00 04/03/25 08:44 Calcium/Vitamin D 500 Mg/5 Mcg (200 I.U.) Tablet PO 500 mg DAILY [facility]ERIA Administration Cyanocobalamin 1,000 mcg 04/01/25 09:00 04/03/25 08:44 Cyanocobalamin 1,000 Mcg Tablet PO 1,000 mcg QAM [facility] Administration Docusate Sodium 100 mg 04/01/25 08:10 Docusate Sodium 100 Mg Capsule PO DAILY PRN Constipation Fluoxetine HCl 20 mg 04/01/25 09:00 04/03/25 08:44 Fluoxetine Hcl 20 Mg Capsule PO 20 mg DAILY [facility]ERIA Administration Gabapentin 200 mg 04/01/25 21:00 04/03/25 21:18 Gabapentin 100 Mg Capsule PO 200 mg QHS [facility] Administration Levothyroxine Sodium 88 mcg 04/01/25 08:15 04/04/25 06:04 Levothyroxine Sodium 88 Mcg Tablet PO 88 mcg DAILY@0630 [facility] Administration Meclizine HCl 25 mg 04/01/25 08:10 Meclizine Hcl 25 Mg Tablet PO TID PRN Dizziness Sodium Chloride 500 mg 04/01/25 17:00 04/03/25 16:53 Sodium Chloride 500 Mg Tablet PO 500 mg BID VALERIA Administration Tramadol HCl 50 mg 04/01/25 08:10 04/03/25 14:19 Tramadol Hcl (*Crx) 50 Mg Tablet PO 50 mg Q6H PRN Administration Pain Trazodone HCl 150 mg 04/01/25 08:10 04/03/25 21:29 Trazodone Hcl 50 Mg Tablet BY MOUTH 150 mg HS PRN Administration Sleep Valsartan 40 mg 04/01/25 21:00 04/03/25 21:18 Valsartan 40 Mg Tablet BY MOUTH 40 mg HS VALERIA Administration Radiology Results: ITS Impressions Hip/Pelvis X-Ray 04/01/25 11:36 IMPRESSION: 1. Relatively recent mildly comminuted intertrochanteric fracture the proximal right femur with internal fixation which is new since 10/06/2024. No other acute osseous abnormality. 2. Relatively advanced healing at an internally fixed distal metadiaphyseal fracture of the right femur. 3. Right knee chondrocalcinosis with mild to moderate osteoarthritis at the medial compartment. Head CT 04/02/25 07:58 IMPRESSION: 1. Stable moderate nonspecific cerebral white matter disease, which likely represents chronic small vessel ischemic disease. Labs Labs: Laboratory Results - last 24 hr 04/04/25 04:34 WBC 7.1 RBC 2.69 L Hgb 8.7 L Hct 27.1 L MCV 100.7 H MCH 32.3 MCHC 32.1 RDW 12.9 Plt Count 273 MPV 9.8 Immature Gran % (Auto) 0.6 H Neut % (Auto) 64.4 Lymph % (Auto) 19.9 [place] % (Auto) 11.6 H Eos % (Auto) 2.5 Baso % (Auto) 1.0 Lymph # (Auto) 1.41 [place] # (Auto) 0.8 H Eos # (Auto) 0.2 Baso # (Auto) 0.1 Abs Immat Gran (auto) 0.04 H Absolute Neuts (auto) 4.6 Absolute Nucleated RBC 0.000 Nucleated RBC % 0.0 Sodium 128 L Potassium 4.2 Chloride 95 L Carbon Dioxide 28 Anion Gap 5 BUN 19 H Creatinine 0.99 Estim Creat Clear Calc 44 Estimated GFR 54 L Glucose 82 Calcium 8.6 Magnesium 1.8 Total Bilirubin 0.2 AST 22 ALT 9 Alkaline Phosphatase 115 Total Protein 5.9 L Albumin 2.9 L
[2025-04-04 14:00] VITALS: BP 141/56; PULSE 75; RESP 16; TEMP 36.9; O2SAT 98
[2025-04-04 15:09] LABS: Albumin 3.1 g/dL (2.9-4.4); Alpha-1-Globulin 0.4 g/dL (0.0-0.4); Alpha-2-Globulin 0.8 g/dL (0.4-1.0); Gamma Globulin 0.8 g/dL (0.4-1.8)
[2025-04-04] MEDS: VALSARTAN 40 MG TABLET BY MOUTH (21:09)
[2025-04-04] MEDS: GABAPENTIN 100 MG CAPSULE 200 MG PO (21:09)
[2025-04-04 21:48] VITALS: BP 150/56; PULSE 75; RESP 16; TEMP 36.6; O2SAT 97
[2025-04-04 23:11] VITALS: RESP 14
[2025-04-05 03:15] VITALS: RESP 12
[2025-04-05 05:03] VITALS: BP 140/61; PULSE 70; RESP 18; TEMP 36.9; O2SAT 97
[2025-04-05 05:22] LABS: Hematocrit 32.4 % (37.0-47.0); Hemoglobin 10.3 g/dL (12.0-15.0); Immature Granulocyte Percent A 0.4 % (0-0.5); Lymphocytes Absolute Auto 1.75 K/mm3 (0.9-3.2); Mean Corpuscular HGB Conc 31.8 g/dl (32-36); Mean Corpuscular Hemoglobin 32.1 pg (26-34); Mean Corpuscular Volume 100.9 fl (80-100); Nucleated Red Blood Cells Absolute Auto 0.000 K/mm3 (0.0-0.012); Nucleated Red Blood Cells Perc 0.0 % (0.0-0.2); Platelet Count Result 310 k/mm3 (150-375); Red Blood Count 3.21 M/mm3 (4.2-5.4); White Blood Count 7.2 K/mm3 (4.5-10.0)
[2025-04-05 05:38] LABS: Alanine Aminotransferase 10 U/L (6-35); Albumin Level 3.5 g/dL (3.5-5.1); Alkaline Phosphatase 127 U/L (38-126); Anion Gap 4 mmol/L (4-12); Aspartate Amino Transferase 28 U/L (14-36); Bilirubin,Total 0.2 mg/dL (0.2-1.3); Blood Urea Nitrogen 17 mg/dL (7-17); Calcium 9.1 mg/dL (8.4-10.2); Carbon Dioxide 31 mmol/L (22-30); Chloride 94 mmol/L (98-107); Estimated CRCL calculation 44 ml/min; Estimated Glomerular Filt Rate 54; Glucose 90 mg/dL (65-110); Magnesium 1.9 mg/dL (1.6-2.3); Potassium 4.2 mmol/L (3.4-5.0); Sodium 129 mmol/L (137-145); Total Protein 6.8 g/dL (6.3-8.2)
[2025-04-05] MEDS: ACETAMINOPHEN 325 MG TABLET 650 MG PO ×2 (06:59→14:01)
[2025-04-05] MEDS: LEVOTHYROXINE SODIUM 88 MCG TABLET PO (06:59)
[2025-04-05 09:00] VITALS: BP 138/60; PULSE 72; RESP 16; O2SAT 98
[2025-04-05] MEDS: CYANOCOBALAMIN 1,000 MCG TABLET 1000 MCG PO (09:01)
[2025-04-05] MEDS: ASPIRIN 81 MG ENTERIC TABLET PO (09:01)
[2025-04-05] MEDS: ASCORBIC ACID 500 MG TABLET 1000 MG PO (09:01)
[2025-04-05] MEDS: SODIUM CHLORIDE 500 MG TABLET PO (09:01)
[2025-04-05] MEDS: CALCIUM/VITAMIN D 500 MG/5 MCG (200 I.U.) TABLET PO (09:01)
--- NOTE | 2025-04-05 11:29 | PC.NURSE ---
On 04/05/25, the student, [Janine Durand], provided care and completed [facility] documentation on this patient. I have reviewed the student's documentation and agree with the findings.
--- NOTE | 2025-04-05 12:01 | PM.DS ---
DS: Admitting Diagnosis Discharge Date 04/05/2025 Admitting Diagnosis weakness DS: Discharge Diagnosis Discharge Diagnosis (1) Depression: Code(s): F32.A - Depression, unspecified Status: Acute (2) Essential (primary) hypertension: Code(s): I10 - Essential (primary) hypertension Status: Acute (3) Mixed hyperlipidemia: Code(s): E78.2 - Mixed hyperlipidemia Status: Acute (4) Type 2 diabetes mellitus in remission: Code(s): E11.9 - Type 2 diabetes mellitus without complications Status: Chronic (5) Hypothyroidism (acquired): Code(s): E03.9 - Hypothyroidism, unspecified Status: Acute (6) Osteopenia: Qualifiers: Osteopenia location: multiple sites Qualified Code(s): M85.89 - Other specified disorders of bone density and structure, multiple sites Code(s): M85.80 - Other specified disorders of bone density and structure, unspecified site Status: Acute (7) GERD (gastroesophageal reflux disease): Code(s): K21.9 - Gastro-esophageal reflux disease without esophagitis Status: Acute (8) CKD (chronic kidney disease) stage 3, GFR 30-59 ml/min: Qualifiers: Chronic kidney disease stage 3 subtype: stage 3a (GFR 45-59) Qualified Code(s): N18.31 - Chronic kidney disease, stage 3a Code(s): N18.30 - Chronic kidney disease, stage 3 unspecified Status: Acute (9) Anemia: Qualifiers: Anemia type: unspecified type Qualified Code(s): D64.9 - Anemia, unspecified Code(s): D64.9 - Anemia, unspecified Status: Acute (10) Leg weakness: Code(s): R29.898 - Other symptoms and signs involving the musculoskeletal system Status: Acute DS: Summary Hospital Course Hospital Course: This is a 79-year-old female recently had hip surgery 3 weeks ago and lowered a undergoing physical therapy last session was 2 days ago comes in to the ER with left hip shortness and trouble walking since yesterday. No numbness. Her family member noticed that her face looked flat and seemed to be leaning to 1 side concern for stroke and hence brought her to the ER In the ED her vitals were stable. She is unable to flex either leg at hip but had normal speech with no facial droop. Laboratory workup showed WBC of 13.4 hemoglobin 9.7 platelet count 281. Sodium of 127 potassium 4.8 chloride 90 bicarbonate 31 BUN 27 creatinine 1.2 blood glucose of 118. LFTs with normal bilirubin normal AST ALT alkaline phosphatase is mildly elevated 144. She is admitted for further treatment Left leg weakness/pain. X-ray hip with intact hardware. CT head negative. PT OT to see. Will need rehabilitation but has been improving with physical therapy here. Home health will be arranged for discharge. discussion to transfer to rehabilitation was made however patient eventually did not wanted to wait until insurance approval. Hyponatremia mild continue to monitor on salt tablets and fluid restriction. Refuses to stay on fluid restriction which has been stopped. On salt tablet which will be continued at discharge Anemia [id number] chronic CKD stage 3 Pre diabetes Hypothyroidism Anxiety depression Hypertension Hyperlipidemia DVT prophylaxis Code status code Time Spent with Patient Time attestation: Total time spent providing and/or coordinating discharge services: 45 minutes Exam Narrative: GENERAL: No acute distress, non-toxic appearing. HEAD: Normal with no signs of head trauma. EYES: EOMI, conjunctiva normal ENT: Hearing grossly intact LUNGS: Nonlabored breathing. HEART: Regular rate and rhythm ABD: Soft, [nontender to palpation EXT: Normal range of motion SKIN: No rashes or lesions. NEURO: Alert and oriented x 3. right hip surgical scar with Steri-Strips, wound well healed with no drainage or erythema, No facial droop. Clear normal speech. able to move left hip PSYCH: Normal affect DS: Data Data Completed and Pending Labs on day of discharge: Labs from last 24 hours 04/05/25 04/01/25 04:22 12:35 WBC 7.2 RBC 3.21 L Hgb 10.3 L Hct 32.4 L MCV 100.9 H MCH 32.1 MCHC 31.8 L RDW 13.1 Plt Count 310 MPV 9.8 Immature Gran % (Auto) 0.4 Neut % (Auto) 58.6 Lymph % (Auto) 24.4 Union % (Auto) 11.7 H Eos % (Auto) 3.8 Baso % (Auto) 1.1 Lymph # (Auto) 1.75 Union # (Auto) 0.8 H Eos # (Auto) 0.3 Baso # (Auto) 0.1 Abs Immat Gran (auto) 0.03 Absolute Neuts (auto) 4.2 Absolute Nucleated RBC 0.000 Nucleated RBC % 0.0 Sodium 129 L Potassium 4.2 Chloride 94 L Carbon Dioxide 31 H Anion Gap 4 BUN 17 Creatinine 0.99 Estim Creat Clear Calc 44 Estimated GFR 54 L Glucose 90 Calcium 9.1 Magnesium 1.9 Total Bilirubin 0.2 AST 28 ALT 10 Alkaline Phosphatase 127 H Total Protein 6.8 Total Protein (PEP) 6.0 Albumin 3.5 Albumin (PEP) 3.1 Globulin (PEP) 2.9 Albumin/Globulin Ratio 1.1 Quhns-0-Gdpizxwcs 0.4 Oulkv-0-Gyfiywkxg 0.8 Beta Globulins 0.9 Gamma Globulins 0.8 PEP Comment Comment Pr Electrophoresis MSpike Not observed Imaging Radiologist's impression: ITS Impressions Hip/Pelvis X-Ray 04/01/25 11:36 IMPRESSION: 1. Relatively recent mildly comminuted intertrochanteric fracture the proximal right femur with internal fixation which is new since 10/06/2024. No other acute osseous abnormality. 2. Relatively advanced healing at an internally fixed distal metadiaphyseal fracture of the right femur. 3. Right knee chondrocalcinosis with mild to moderate osteoarthritis at the medial compartment. Head CT 04/02/25 07:58 IMPRESSION: 1. Stable moderate nonspecific cerebral white matter disease, which likely represents chronic small vessel ischemic disease. Discharge Plan Discharge Attending physician on discharge: Mandeep Sarabia Consulting providers: Susan Lopez; Vernon Bennett Discharging Clinician: Mandeep Sarabia Anticipated Discharge Date/Time: 04/05/25 12:04 Patient Disposition: Home with Home Health Service Activity: as tolerated Diet: heart healthy Discharge Instructions: Per Care Coordination. Patient to resume [facility] for RN/PT/OT eval and treat [phone]. RN please fax discharge instructions to [phone] follow-up with orthopedics at [facility] as scheduled Patient Instructions: Antibiotic Form Patient Language: Greenlandic Stand Alone Forms: General Discharge Information Follow-up/Referrals: Catrina Beard APRN [Primary Care Provider, Internal Medicine] - 1 Week Discharge Medications: New sodium chloride 1,000 mg tablet,soluble 500 mg PO DAILY Qty: 30 0RF sodium chloride 1,000 mg tablet,soluble 500 mg PO DAILY Qty: 30 0RF Continued tramadol 50 mg tablet 50 mg PO Q6H PRN (Reason: pain) Qty: 60 0RF aspirin 81 mg tablet 81 mg PO BID mecobalamin (vitamin B12) 1,000 mcg tablet,disintegrating 1,000 mcg SUBLINGUAL DAILY calcium carbonate-vitamin D3 [Calcium 500 + D (D3)] 500 mg-3.125 mcg (125 unit) tablet 1 tablet PO DAILY ascorbic acid (vitamin C) 1,000 mg capsule 1 g PO DAILY fluoxetine 20 mg tablet 20 mg PO DAILY Qty: 90 1RF amlodipine 10 mg tablet 10 mg PO QAM Qty: 90 1RF levothyroxine 88 mcg tablet 88 mcg PO QAM Qty: 90 1RF gabapentin 100 mg capsule 200 mg PO QHS Qty: 90 1RF trazodone 150 mg tablet See Rx Instructions .ROUTE .COMPLEX Qty: 90 1RF Dose Instruction: TAKE 1 TABLET BY MOUTH DAILY AT BEDTIME NEEDED FOR SLEEP. Rx Instructions: TAKE 1 TABLET BY MOUTH DAILY AT BEDTIME NEEDED FOR SLEEP. valsartan 40 mg tablet See Rx Instructions .ROUTE .COMPLEX Qty: 90 1RF Dose Instruction: TAKE 1 TABLET BY MOUTH EVERYDAY AT BEDTIME Rx Instructions: TAKE 1 TABLET BY MOUTH EVERYDAY AT BEDTIME docusate sodium [Colace] 100 mg capsule 100 mg PO DAILY PRN (Reason: constipation) acetaminophen [Tylenol 8 Hour] 650 mg tablet extended release 650 mg PO Q8H Qty: 60 0RF meclizine 25 mg tablet 25 mg PO TID PRN (Reason: dizziness) Qty: 20 0RF Other Ambulatory Orders: Basic Metabolic Panel (Routine) Timeframe: 1 Week Location: Determined by Patient Ordered By: Mandeep Sarabia Date of admission: 04/02/25 13:20 Primary Care Provider: Catrina Beard Admitting Provider: Luis Thomson Attending physician on admission: Luis Thomson Condition: Stable
--- NOTE | 2025-04-05 13:15 | PC.NURSE ---
On 04/05/25, the student, [Janine Durand], provided care and completed [facility] documentation on this patient. I have reviewed the student's documentation and agree with the findings.
--- NOTE | 2025-04-05 13:31 | WPDNEURCNPN ---
Assessment and Plan Assessment and plan (1) Stage 3 chronic kidney disease: Code(s): N18.30 - Chronic kidney disease, stage 3 unspecified Status: Chronic (2) Hyponatremia: Code(s): E87.1 - Hypo-osmolality and hyponatremia Status: Acute (3) Diabetes mellitus with neuropathy: Code(s): E11.40 - Type 2 diabetes mellitus with diabetic neuropathy, unspecified Status: Acute (4) Neurologic gait dysfunction: Code(s): R26.9 - Unspecified abnormalities of gait and mobility Status: Acute Plan 1. Status post left hip surgery about 3 [place] with recent difficulties in walking and lifting her left hip. Though patient has manifested some improvement during her hospitalization and she has been discharged to home to continue the physical therapy at home and also awaiting the approval to be admitted to the rehab for further rehab therapy 2. History of hypo osmolality and hyponatremia which has been corrected 3. Chronic renal disease stage III 4. Left lower extremity weakness at the time of admission obviously related to the recent hip surgery from which she is improving and required the more physical therapy. 4. Ongoing medical problem as outlined before 5. Diabetes mellitus with neuropathy will result in more gait dysfunction during the physical therapy and needs to be observed for the fall. Consult date: 04/05/25 HPI: Bhargavi Denis is a 79 year old female Admitted to the hospital through the emergency room with a history that she had hip surgery about 3 weeks ago in [place], has been undergoing physical therapy, with information that last session was 2 days ago, but now she was experiencing soreness in her left hip and having trouble walking. She was also experiencing trouble in lifting her left hip of 24hours duration with no focal weakness or numbness otherwise she had been leaning to 1 side as per the family members they were not sure that she had a stroke but they were concerned about. She has been taking multiple medications including aspirin 81mg daily and supplements. She is reportedly allergic to penicillin and erythromycin. She does have ongoing history of 1. Hypertensive emergency with encephalopathy, 2. Spinal stenosis, 3. B12 deficiency, 4. Hypertension, 5. Hypothyroidism, 6. Osteoarthritis of both hips and 7. Diabetes mellitus. She is never a smoker, never alcohol intake or, and on initial exam in the emergency her general physical and neuro examination was nonfocal. CBC was normal, BMP was normal, and mast scan was normal except the alkaline phos of 144 and estimated GFR of only 43. X-rays revealed mildly comminuted intertrochanteric fracture of the proximal right femur internal fixation and right knee chondrocalcinosis with moderate osteoarthritis, CT scan of the head was normal. Venous Doppler study was normal as well. During the hospitalization nephrology consultation was obtained which documented hypo-osmolality and hypernatremia with underlying stage III chronic renal disease but no further intervention. Hypo osmolality in hyponatremia was acute in nature and subsequently fluid restriction discontinued. Patient has been documented to have depression as well patient has been undergoing physical therapy and medical has been cleared with all the diagnoses as mentioned above. [facility] Past Medical History Medical History Hypertensive emergency Hypertensive encephalopathy Cough Spinal stenosis Fatigue B12 deficiency CKD (chronic kidney disease) stage 3, GFR 30-59 ml/min Anemia Essential (primary) hypertension Hypothyroidism (acquired) Insomnia Mixed hyperlipidemia Primary osteoarthritis of both hips Type 2 diabetes mellitus without complication Surgical History Surgical History H/O microdiscectomy Family History Family History Sibling Family history of diabetes mellitus in first degree relative Mother Family history of lung cancer Family history of malignant neoplasm of brain Social History Social History Smoking status: Never smoker Second hand tobacco smoke exposure: Yes Alcohol intake: never Substance use: never Substance use type: does not use Do You Feel Safe in your Home?: Yes Lack of Transportation: No Lack of Food: Never True Current Housing: I Have Housing Concerned About Future Housing: No Difficulty Paying Gas/Electric Bills: No Difficulty Paying for Meds: No Currently Unemployed: No Education: High School Diploma/GED Difficulty w/ Childcare or Family Care: No Living arrangements: with family Additional living arrangements comments: SON WITH [employer] LIV[facility] W/ PATIENT Occupation/Education: retired Gender identity (if verbalized by the patient): Female Sexual Orientation (if Verbalized by the Patient): Straight or Heterosexual Spiritual care concerns: No Agree to blood products: No Meds Home Medications and Allergies Home Medications ?Medication ?Instructions ?Recorded ?Confirmed ?Type mecobalamin (vitamin B12) 1,000 1,000 mcg sublingual DAILY 07/08/19 04/01/25 History mcg disintegrating tablet,sublingual calcium 500 mg (as 1 tablet PO DAILY 08/13/22 04/01/25 History carbonate)-vitamin D3 3.125 mcg (125 unit) tablet (Calcium) ascorbic acid (vitamin C) 1,000 mg 1 g PO DAILY 07/27/24 04/01/25 History capsule docusate sodium 100 mg capsule 100 mg PO DAILY PRN constipation 10/06/24 04/01/25 History (Colace) acetaminophen 650 mg 650 mg PO Q8H #60 tabs 10/11/24 04/01/25 Rx tablet,extended release (Tylenol 8 Hour) amlodipine 10 mg tablet 10 mg PO QAM #90 tabs 02/03/25 04/01/25 Rx fluoxetine 20 mg tablet 20 mg PO DAILY #90 tabs 02/03/25 04/01/25 Rx gabapentin 100 mg capsule 200 mg (2 x 100 mg) PO QHS #90 caps 02/03/25 04/01/25 Rx levothyroxine 88 mcg tablet 88 mcg PO QAM #90 tabs 02/03/25 04/01/25 Rx trazodone 150 mg tablet See Rx Instructions .Route 02/03/25 04/01/25 Rx .COMPLEX #90 tabs valsartan 40 mg tablet See Rx Instructions .Route 02/03/25 04/01/25 Rx .COMPLEX #90 tabs meclizine 25 mg tablet 25 mg PO TID PRN dizziness #20 tabs 02/09/25 04/01/25 Rx aspirin 81 mg tablet 81 mg PO BID 03/22/25 04/01/25 History tramadol 50 mg tablet 50 mg PO Q6H PRN pain #60 tabs 03/22/25 04/01/25 Rx Allergies Allergy/AdvReac Type Severity Reaction Status Date / Time erythromycin base Allergy Unknown Hyperactive Verified 03/22/25 10:25 Penicillins Allergy Unknown HIVES?, PT Verified 03/22/25 10:25 UNSURE OF REACTION Vital Signs Vital Signs - 24 hr 04/04/25 14:00 04/04/25 21:48 04/04/25 23:11 Temperature 36.9 C 36.6 C Pulse Rate 75 75 Respiratory Rate 16 16 14 Blood Pressure 141/56 H 150/56 H Pulse Oximetry 98 97 Oxygen Delivery Autopap 04/05/25 03:15 04/05/25 05:03 04/05/25 09:00 Temperature 36.9 C Pulse Rate 70 72 Respiratory Rate 12 18 16 Blood Pressure 140/61 138/60 Pulse Oximetry 97 98 Oxygen Delivery Autopap 04/05/25 09:40 Temperature Pulse Rate Respiratory Rate Blood Pressure Pulse Oximetry Oxygen Delivery Room Air Exam Narrative: Examination today revealed her to be awake alert cooperative in no obvious acute distress oriented x3 with normal speech without evidence of dysphagia dysarthria or dysphonia. Head normocephalic with no cranial bruit, ear nose throat examination normal, neck supple with no cervical bruit no thyromegaly no lymphadenopathy, heart regular with no murmur, lungs clear to auscultation with no rhonchi or crepitations, abdomen is soft nontender with normal bowel sounds, neurologically she is awake alert, oriented x3 speech not dysphasic not dysarthric not dysphonic, pupils round regular valadez of the vision ,full extraocular movements ,full facial sensation intact, face symmetrical, midline, motor examination revealed her to have normal strength and tone in upper extremity with no evidence of drift against gravity and the deep tendon reflexes is a 1+ symmetrical, motor exams and lower extremities rather limited but she is able to both upper extremities and dorsiflex both ankles with knee jerks 1+ and ankle jerk 1+ plantars responses are definitely downgoing. There is no evidence of cerebellar dysfunction. She had decreased sensation distally in both lower extremities Results Labs 04/05/25 04:22 04/05/25 04:22 Labs: Short CBC 04/05/25 Range/Units 04:22 WBC 7.2 (4.5-10.0) K/mm3 Hgb 10.3 L (12.0-15.0) g/dL Hct 32.4 L (37.0-47.0) % Plt Count 310 (150-375) k/mm3 BMP 04/05/25 04:22 Sodium 129 L Potassium 4.2 Chloride 94 L Carbon Dioxide 31 H BUN 17 Creatinine 0.99 Glucose 90 Calcium 9.1 Liver Function 04/05/25 Range/Units 04:22 Total Bilirubin 0.2 (0.2-1.3) mg/dL AST 28 (14-36) U/L ALT 10 (6-35) U/L Alkaline Phosphatase 127 H (38-126) U/L Albumin 3.5 (3.5-5.1) g/dL
[2025-04-05 14:08] LABS: Albumin, U 51.7 % (.); Alpha-1-Globulin, U 6.6 % (.); Alpha-2-Globulin, U 13.6 % (.); Beta Globulin, U 19.9 % (.); Gamma Globulin, U 8.2 % (.)
[2025-04-05 15:09] LABS: Immunoglobulin A, Qn 390 mg/dL (64-422); Immunoglobulin G, Qn 945 mg/dL (586-1602); Immunoglobulin M, Qn 93 mg/dL (26-217)
[2025-04-08 07:09] LABS: Osmolality, Urine 194 mOsmol/kg (.)
[2025-04-08 22:07] LABS: Osmolality, Serum 269 mOsmol/kg (280-301)
== END 2025-04-05 15:11 | disposition home health service (06) | DRG 92 ==
LOC: ANHED 04:54 → ANH2MED 07:58
PROVIDERS: Internal Medicine Nephrology; Nurse Practitioner; Admitting Provider Internal Medicine; Emergency Provider Emergency Medicine; PCP Nurse Practitioner Family; Visit Provider Internal Medicine
DX: R26.89 Other abnormalities of gait and mobility (principal); E87.1 Hypo-osmolality and hyponatremia; I67.82 Cerebral ischemia; R53.1 Weakness; R29.898 Other symptoms and signs involving the musculoskeletal system; M16.0 Bilateral primary osteoarthritis of hip; S79.19 Other physeal fracture of lower end of femur; N18.31 Chronic kidney disease, stage 3a; I12.9 Hypertensive chronic kidney disease with stage 1 through stage 4 chronic kidney disease, or unspecified chronic kidney disease; E11.22 Type 2 diabetes mellitus with diabetic chronic kidney disease; E11.40 Type 2 diabetes mellitus with diabetic neuropathy, unspecified; M11.261 Other chondrocalcinosis, right knee; E78.2 Mixed hyperlipidemia; E03.9 Hypothyroidism, unspecified; M21.752 Unequal limb length (acquired), left femur; M85.89 Other specified disorders of bone density and structure, multiple sites; K21.9 Gastro-esophageal reflux disease without esophagitis; D63.1 Anemia in chronic kidney disease; F41.9 Anxiety disorder, unspecified; F32.A Depression, unspecified; M48.00 Spinal stenosis, site unspecified; G47.33 Obstructive sleep apnea (adult) (pediatric); S72.141D Displaced intertrochanteric fracture of right femur, subsequent encounter for closed fracture with routine healing; X58.XXXD Exposure to other specified factors, subsequent encounter; Z77.22 Contact with and (suspected) exposure to environmental tobacco smoke (acute) (chronic); E53.8 Deficiency of other specified B group vitamins; Z91.81 History of falling; Z99.89 Dependence on other enabling machines and devices
CPT/HCPCS: 36415; 70450; 73521; 80053; 81001; 81050; 82533; 82570; 82784; 83735; 83930; 83935; 84155; 84156; 84165; 84166; 84295; 84300; 84439; 84443; 84480; 84540; 85025; 86334; 86335; 96360; 96361; 97110; 97116; 97162; 97166; 97530; 97535; 99285; A9270; G0378; J7120

== ENCOUNTER 2025-04-14 09:29 | Inpatient (IN) | payer MEDICARE, OTHER, SELFPAY ==
--- OUTSIDE RECORDS SUMMARY | 2024-10-15 05:45 | XMS_ITS ---
Author Organization [facility] montemayor Billing Info Address [address] [place] [address] [place] [address] Care Team Providers Care Channeler Insole Name Role Phone GEORGIA MOODY Unavailable [phone] REASON FOR VISIT [id number]- femur fracture, Dr. Kan. Encounters Encounter Location Date Provider Diagnosis [id number] [id number] [id number] 10/15/2024 GEORGIA MOODY Plan Of Treatment No Information Progress Notes * Bhargavi DENIS LDOB:[birth year] (79 yo F)Acc No.[id number]:10/15/2024 PROGRESS NOTE Patient: Bhargavi DEL RIO Provider: Meghana MOODY APRN :1945 A ge:79 Y S ex:Female Date:10/15/2024 C HN#:[id number] Address:[id number] Subjective: * Chief Complaints: * 1 . [id number]- femur fracture, Dr. Kan.. * HPI: F irst Point of Contact Screening: Do any of the following apply to you? N ew rash or open sores N o, F ever and/or chills in the past 7 days N o, C ough N o, M uscle or body aches (other than from an injury) N o, S ore throat N o, I n the past 3 weeks, have you or a close contact traveled outside the [facility] and you are now ill? N o, O FFICE USE (If universal masking is not in place, provide patients age 2 years and older with a facemask to wear over their mouth and nose while in the practice.): P atient answered no to all questions OR only answered yes to question 1, N o further action needed 0 10/15/2024. * Medical History: Objective: * Vitals: Assessment: Plan: * Treatment: * * This progress note has not b een verified nor is it considered complete until locked and signed by the provider. Sign off status: Pending * Provider: Meghana MOODY APRN Date: 0 10/15/2024 Generated for Anahy nash/Ghazal/Rocaelitting on: 1 10:58 AM EDT History and Physical Notes * HPI (History of Present Illness) Category Sub-Category Detail Notes Category Not es First Point of Contact Screening Do any of the following apply to you? New rash or open sores: No Fever and/or chills in the past 7 days: No Cough: No Muscle or body aches (other than from an injury): No Sore throat: No In the past 3 weeks, have yo u or a close contact traveled outside the [place] and you are now ill? : No OFFICE USE (If universal mas naveed is not in place, provide patients age 2 years and older with a facemask to wear over their mouth and nose while in the practice.):: Patient answered no to all questions OR only answered yes to question 1 No further action needed : 10/15/2024
[2025-04-14] VITALS (7 sets, daily range): BP systolic 100–153; BP diastolic 58–64; PULSE 71–86; RESP 10–18; TEMP 36.6–36.8; O2SAT 97–100; BMI 29.5
--- NOTE | ~2025-04-14 | CT_ITS ---
EXAMINATION: CT LE RT w con DATE: 04/15/2025 12:59 INDICATION: Purulent tunneling wound at the site of recent right hip surgery TECHNIQUE: High resolution computed tomography (CT) of the right femur was performed without intravenous contrast. Additional sagittal and coronal reconstructions were performed. Automated exposure control and iterative reconstruction technique were employed. The dose-length product was 1063.39 mGy-cm. COMPARISON: Radiographs dated 04/01/25 and 10/06/2024 FINDINGS: There is bridging callus formation at a healing mildly comminuted distal diaphyseal fractures of the right femur which is fixed with a retrograde intramedullary pieter and distal interlocking screws. More recent-appearing comminuted intertrochanteric fracture the proximal right femur which is fixed with a lateral plate and screws with femoral neck dynamic compression screw. Both of the internally fixed fractures are in near anatomic alignment. Mild residual medial distraction of the lesser trochanteric fragment which is not included within the fixation.. There is also some callus formation associated w ith healing and fixed fracture at the junction of the right pubic body and the right superior and inferior pubic rami. Old healed fracture deformity at the left inferior pubic ramus. Mild bilateral hip osteoarthritis. Mild medial compartment predominant compartment osteoarthritis of both knees. There is small amount of gas, fluid and high attenuation material within subcutaneous collection extending 10.3 cm craniocaudally along a surgical wound lateral to the proximal right femur with the collection measures up to 4.3 by 2.4 cm in maximal orthogonal dimensions. The collection remains superficial to the superficial muscular fascia with no evident direct contact with the fixation instrumentation at the proximal right femur or lucency surrounding the instrumentation to suggest secondary osteomyelitis. No hip joint effusion. IMPRESSION: 1. 10.3 x 4.3 x 2.4 cm subcutaneous collection of gas, fluid and some high attenuation material, potentially packing material along a surgical wound lateral to the proximal right femur where there has been recent internal fixation of a recent comminuted intratrochanteric fracture. 3. More advanced healing of a more chronic comminuted extra articular fracture of the distal right femur with separate retrograde intramedullary pieter fixation. Reviewed, dictated and finalized at location A. IMPRESSION: 1. 10.3 x 4.3 x 2.4 cm subcutaneous collection of gas, fluid and some high atte nuation material, potentially packing material along a surgical wound lateral t o the proximal right femur where there has been recent internal fixation of a r ecent comminuted intratrochanteric fracture. 3. More advanced healing of a more chronic comminuted extra articular fracture of the distal right femur with separate retrograde intramedullary pieter fixation.
--- NOTE | ~2025-04-14 | XR_ITS ---
Examination: XR chest 1V portable Clinical History: Hyponatremia Comparison: 07/02/2023 Technique: Portable AP Findings: Heart size normal. Lungs clear. No acute bony abnormality. IMPRESSION: 1. No acute cardiopulmonary findings given portable technique. Reviewed, dictated and finalized at location R.
--- OUTSIDE RECORDS SUMMARY | 2025-04-14 09:58 | XMS_ITS | Encounter Summary ---
Author Organization [facility] Address [address] [place] [address] Phone Care Team Providers Care Inspector Handbag Frames Name Role Phone Catrina Beard NP Primary Care Provider [phone] Encounter Details Date Type Department Care Team (Late st Contact Info) Description 04/13/[address] [facility] Medicine Orthopaedic Surgery [address] 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 Patients home health nurse called (Mendy) from [facility]. She expressed concerns regarding the patients incision. She is experiencing some redness and warmth to the area. She is draining from two small locations in the incision. She is having increased pain with activity. No fever, sweatsor chills. They cleaned the area with saline and applied a dry dressing. They have been changing the dressing 2x daily. They sent us a photo for review. Dr Batista would like to see the patient in clinic. I contacted the patient and got her scheduled. She will continue with dry dressings until we see her tomorrow. She had no additional questions. documented in this encounter Plan of Treatment Not on file documented as of this encounter Visit Diagnoses Not on filedocumented in this encounter Care Teams Inspector Handbag Frames Relationship Specialty Start Date End Date Catrina Beard NP [address] [facility] [address] [place] [address] PCP - General Nurse Practitioner 07/03/23 documented as of this encounter
--- OUTSIDE RECORDS SUMMARY | 2025-04-14 09:58 | XMS_ITS | Clinical Summary ---
Author Organization [facility] [place] [address] Address [address] [place] [address] Care Team Providers Care It Application Architect Name Role Phone Catrina Beard NP Primary Care Provider [phone] Allergies Active Allergy Reactions Criticality Noted Date [...] Encounters Date Type Department Care Team Description 04/13/2025 Telephone [facility] Orthopaedic Surgery [address] [place] [address] [facility] 6th [place] [address] [place] [address] Blanca Walls MS 03/31/2025 12:40 PM CDT Office Visit [facility] Orthopaedic Surgery [address] [place] [address] 6th [place] [address] [place] [address] Codey Batista MD Closed fracture of shaft of right femur with routine healing, unspecified fracture morphology, subsequent encounter (Primary Dx) 03/31/2025 12:00 PM CDT - 03/31/2025 11:59 PM CDT Hospital Encounter [facility] [address] [place] [address] Codey Batista MD Closed fracture of shaft of right femur with routine healing, unspecified fracture morphology, subsequent encounter Discharge Disposition: Discharge to home or self care 03/30/2025 Telephone [facility] Medicine Orthopaedic Surgery [address] 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
--- OUTSIDE RECORDS SUMMARY | 2025-04-14 09:59 | XMS_ITS | Patient Health Record ---
Author Organization [facility] Billing Info Address [address] [place], [place] [address] [address] Care Team Providers Care Stone Carriage Operator Name Role Phone [place] MOODY Unavailable [phone] Reason For Referral No Information Plan Of Treatment No Information Insurance Providers Payer Name Payer Address Payer Phone Subscriber Number Group Number Insured Name Patient Relationship to Insured Coverage Start Date Coverage End Date [employer] PPO [facility] [address] [address] [place], [place] [id number] Self - patient is the insured
[2025-04-14 10:03] LABS: Hematocrit 31.7 % (37.0-47.0); Hemoglobin 10.7 g/dL (12.0-15.0); Immature Granulocyte Percent A 0.4 % (0-0.5); Lymphocytes Absolute Auto 1.09 K/mm3 (0.9-3.2); Mean Corpuscular HGB Conc 33.8 g/dl (32-36); Mean Corpuscular Hemoglobin 31.9 pg (26-34); Mean Corpuscular Volume 94.6 fl (80-100); Nucleated Red Blood Cells Absolute Auto 0.000 K/mm3 (0.0-0.012); Nucleated Red Blood Cells Perc 0.0 % (0.0-0.2); Platelet Count Result 460 k/mm3 (150-375); Red Blood Count 3.35 M/mm3 (4.2-5.4); White Blood Count 9.6 K/mm3 (4.5-10.0)
--- NOTE | 2025-04-14 10:22 | ED.GENADULT ---
HPI - General Adult General Chief complaint: Recheck/Abnormal Lab/Rx Stated complaint: low sodium level on lab drawn yesterday Time Seen by Provider: 04/14/25 09:43 History of Present Illness HPI narrative: 79-year-old female present to the emergency department for evaluation for a sodium recheck. Patient did have recent hip surgery but is at home. Patient did have repeat labs a few days ago to primary care physician was found have a low sodium. Patient states she is eating and drinking well. Patient denies any altered mental status denies any nausea vomiting or diarrhea. Patient has distress at time of evaluation. Patient has had previous issues with hyponatremia and has had previous evaluations by Nephrology. Related Data Home Medications ?Medication ?Instructions ?Recorded ?Confirmed ?Last Taken ?Type mecobalamin (vitamin B12) 1,000 1,000 mcg sublingual DAILY 07/08/19 04/14/25 04/14/25 History mcg disintegrating tablet,sublingual calcium 500 mg (as 1 tablet PO DAILY 08/13/22 04/14/25 04/14/25 History carbonate)-vitamin D3 3.125 mcg (125 unit) tablet (Calcium) ascorbic acid (vitamin C) 1,000 mg 1 g PO DAILY 07/27/24 04/14/25 04/14/25 History capsule gabapentin 100 mg capsule 100 mg PO QHS 04/14/25 04/14/25 04/14/25 History Allergies Allergy/AdvReac Type Severity Reaction Status Date / Time erythromycin base Allergy Unknown Hyperactive Verified 04/11/25 12:48 Penicillins Allergy Unknown HIVES?, PT Verified 04/11/25 12:48 UNSURE OF REACTION Review of Systems Review of Systems: All systems reviewed & are unremarkable except as noted in HPI and below PMFSH Past Medical History Medical History (Updated 04/14/25 @ 17:59 by Luis Antonio Gaona MD) Hypertensive emergency Hypertensive encephalopathy Cough Spinal stenosis Fatigue B12 deficiency CKD (chronic kidney disease) stage 3, GFR 30-59 ml/min Anemia Essential (primary) hypertension Hypothyroidism (acquired) Insomnia Mixed hyperlipidemia Primary osteoarthritis of both hips Surgical History Surgical History H/O microdiscectomy Family History Family History Sibling Family history of diabetes mellitus in first degree relative Mother Family history of lung cancer Family history of malignant neoplasm of brain Social History Social History Smoking status: Never smoker Second hand tobacco smoke exposure: Yes Alcohol intake: never Substance use: never Substance use type: does not use Do You Feel Safe in your Home?: Yes Lack of Transportation: No Lack of Food: Never True Current Housing: I Have Housing Concerned About Future Housing: No Difficulty Paying Gas/Electric Bills: No Difficulty Paying for Meds: No Currently Unemployed: No Education: High School Diploma/GED Difficulty w/ Childcare or Family Care: No Living arrangements: with family Additional living arrangements comments: SON WITH [employer] LIVES W/ PATIENT Occupation/Education: retired Gender identity (if verbalized by the patient): Female Sexual Orientation (if Verbalized by the Patient): Straight or Heterosexual Spiritual care concerns: No Agree to blood products: No Exam Narrative: APPEARANCE: Well appearing, no pain, no distress, well-nourished. HEAD: normocephalic, atraumatic. EYES: PERRLA/EOMI, conjunctivae clear. NOSE: Normal no drainage EARS:TMS clear with good light reflex. THROAT: Pharynx clear, no exudate. NECK: Supple. No adenopathy, no masses. RESPIRATORY: Airway patent, respirations nonlabored. Clear to auscultation bilaterally, no rales, rhonchi, wheezing. CARDIOVASCULAR: Regular rate and rhythm without murmurs rubs or gallops. ABDOMINAL: Soft, nontender, nondistended, normal bowel sounds MUSCULOSKELETAL: Moves all extremities. Strength/ROM intact, No edema, No calf tenderness. NEURO: Alert. Cranial nerves II through XII intact. Good gait. Good coordination SKIN: Well-appearing surgical incision on the right lateral hip Course Vital Signs Vital signs: Vital Signs Pulse Rate 75 04/14/25 09:45 Respiratory Rate 10 L 04/14/25 09:45 Blood Pressure 143/64 H 04/14/25 09:45 Pulse Oximetry 98 04/14/25 09:45 Oxygen Delivery Room Air 04/14/25 09:45 Temperature 97.8 F 04/14/25 13:23 Pulse Rate 86 04/14/25 13:23 Respiratory Rate 18 04/14/25 13:23 Blood Pressure 100/59 L 10/02/25 13:23 Pulse Oximetry 100 04/14/25 13:23 Oxygen Delivery Room Air 04/14/25 11:44 Medical Decision Making MDM Narrative Medical decision making narrative: 79-year-old female presented emergency department for evaluation for hyponatremia. Patient's repeat sodium was 118 with normal kidney function. Nephrology was consulted. Patient and family are updated on the results of the workup plan for admission. All questions concerns were addressed. Case was discussed with hospitalist patient was accepted for admission. Patient denies any confusion patient appears to be alert orientated. Patient has had no seizure-like activity. Differential Diagnosis Differential Diagnosis: Hyponatremia, hyperkalemia, fluid overload Vital Signs Vital Signs: Vital Signs Pulse Rate 75 04/14/25 09:45 Respiratory Rate 10 L 04/14/25 09:45 Blood Pressure 143/64 H 04/14/25 09:45 Pulse Oximetry 98 04/14/25 09:45 Oxygen Delivery Room Air 04/14/25 09:45 Temperature 97.8 F 04/14/25 13:23 Pulse Rate 86 04/14/25 13:23 Respiratory Rate 18 04/14/25 13:23 Blood Pressure 100/59 L 04/14/25 13:23 Pulse Oximetry 100 04/14/25 13:23 Oxygen Delivery Room Air 04/14/25 11:44 Lab Data Lab results reviewed: Yes I reviewed the patient's lab results. 04/14/25 09:58 04/14/25 09:58 Labs: Lab Results 04/14/25 04/14/25 Range/Units 09:58 10:29 WBC 9.6 (4.5-10.0) K/mm3 RBC 3.35 L (4.2-5.4) M/mm3 Hgb 10.7 L (12.0-15.0) g/dL Hct 31.7 L (37.0-47.0) % MCV 94.6 (80-100) fl MCH 31.9 (26-34) pg MCHC 33.8 (32-36) g/dl RDW 12.3 (11.5-14.5) % Plt Count 460 H (150-375) k/mm3 MPV 8.6 (7.4-10.4) fl Immature Gran % (Auto) 0.4 (0-0.5) % Neut % (Auto) 79.5 H (45.5-73.1) % Lymph % (Auto) 11.3 L (18.3-44.2) % [place] % (Auto) 6.9 (2.6-8.5) % Eos % (Auto) 1.0 (0-4.4) % Baso % (Auto) 0.9 (0.2-1.2) % Lymph # (Auto) 1.09 (0.9-3.2) K/mm3 [place] # (Auto) 0.7 H (0.1-0.6) K/mm3 Eos # (Auto) 0.1 (0-0.3) K/mm3 Baso # (Auto) 0.1 (0.0-0.1) K/mm3 Abs Immat Gran (auto) 0.04 H (0.00-0.031) K/mm3 Absolute Neuts (auto) 7.6 H (1.3-6.7) K/mm3 Absolute Nucleated RBC 0.000 (0.0-0.012) K/mm3 Nucleated RBC % 0.0 (0.0-0.2) % Sodium 118 L* (137-145) mmol/L Potassium 4.0 (3.4-5.0) mmol/L Chloride 83 L (98-107) mmol/L Carbon Dioxide 29 (22-30) mmol/L Anion Gap 6 (4-12) mmol/L BUN 18 H (7-17) mg/dL Creatinine 1.03 H (0.7-1.0) mg/dL Estim Creat Clear Calc 42 ml/min Estimated GFR 52 L (59 - ) Glucose 114 H (65-110) mg/dL Calcium 9.4 (8.4-10.2) mg/dL Total Bilirubin 0.3 (0.2-1.3) mg/dL AST 30 (14-36) U/L ALT 12 (6-35) U/L Alkaline Phosphatase 123 (38-126) U/L Total Protein 7.3 (6.3-8.2) g/dL Albumin 3.7 (3.5-5.1) g/dL Urine Color Yellow (Yellow) Urine Appearance Clear (Clear) Urine pH 6.0 (5.0-9.0) Ur Specific [place] 1.005 (1.001-1.035) Urine Protein Trace (Negative) mg/dL Urine Glucose (UA) Negative (Negative) mg/dL Urine Ketones Negative (Negative) mg/dL Ur Blood (Man) Negative (Negative) Urine Nitrate Negative (Negative) Urine Bilirubin Negative (Negative) Urine Urobilinogen 0.2 (<2.0) mg/dL Add Ur Microanalysis Reviewed Leukocyte Esterase Rfl Negative (Negative) ROBBY/UL Urine RBC 0-2 (0-2) /hpf Urine WBC 0-5 (0-3) /hpf Ur Squamous Epith Cells None seen (Few) /hpf Urine Bacteria None seen /hpf Urine Casts 0-2 Discharge Plan Discharge Clinical Impression: Acute hyponatremia Patient Disposition: Still a Patient Condition: Serious
[2025-04-14 10:29] LABS: Alanine Aminotransferase 12 U/L (6-35); Albumin Level 3.7 g/dL (3.5-5.1); Alkaline Phosphatase 123 U/L (38-126); Anion Gap 6 mmol/L (4-12); Aspartate Amino Transferase 30 U/L (14-36); Bilirubin,Total 0.3 mg/dL (0.2-1.3); Blood Urea Nitrogen 18 mg/dL (7-17); Calcium 9.4 mg/dL (8.4-10.2); Carbon Dioxide 29 mmol/L (22-30); Chloride 83 mmol/L (98-107); Estimated CRCL calculation 42 ml/min; Estimated Glomerular Filt Rate 52; Glucose 114 mg/dL (65-110); Potassium 4.0 mmol/L (3.4-5.0); Sodium 118 mmol/L (137-145); Total Protein 7.3 g/dL (6.3-8.2)
[2025-04-14 10:47] LABS: Add Urine Microscopic? YES; Appearance Urine Clear (Clear); Glucose Urine UA Negative (Negative); Leukocyte Esterase Ur Negative LEU/UL (Negative); Need Manual Microscopic Reviewed; Nitrate Urine Negative (Negative); Non Pathogenic Casts 0-2; Specific Grav Ur 1.005 (1.001-1.035)
--- OUTSIDE RECORDS SUMMARY | 2025-04-14 10:50 | XMS_ITS | Clinical Summary ---
Author Organization [facility] [address] Address [address] [place] [address] Care Team Providers Care Ingot Header Name Role Phone Catrina Beard NP Primary Care Provider [phone] Allergies Active Allergy Reactions Criticality Noted Date [...] Type Department Care Team Description 04/13/2025 Telephone [facility] Medicine Orthopaedic Surgery [address] [place] [address] Advanced Medicine 6th [place] [address] [place] [address] Blanca Walls MS 03/31/2025 12:40 PM CDT Office Visit [facility] Orthopaedic Surgery [address] [place] [address] Advanced [facility] 6th [place] [address] [place] [address] Codey Batista MD Closed fracture of shaft of right femur with routine healing, unspecified fracture morphology, subsequent encounter (Primary Dx) 03/31/2025 12:00 PM CDT - 03/31/2025 11:59 PM CDT Hospital Encounter [facility] [address] [place] [address] Codey Batista MD Closed fracture of shaft of right femur with routine healing, unspecified fracture morphology, subsequent encounter Discharge Disposition: Discharge to home or self care 03/30/2025 Telephone [facility] Medicine Orthopaedic Surgery [address] [facility] Advanced Medicine 6th [place] [address] [place] [id number] Blanca Walls MS 03/23/2025 Orders Only [facility] Medicine Orthopaedic Surgery [address] [place] [id number] Transcribed Order, Provider Oth fracture of unsp femur, init encntr for closed fracture (HCC) (Primary Dx) from Last 3 Months Social History Tobacco Use Types Packs/Day Years Used Date Smoking Tobacco: Never Assessed Comments Unknown Sex and Gender Information Value Date Recorded Sex Assigned at Not on file 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 [employer] Care Teams Ingot Header Relationship Specialty Start Date End Date Catrina Beard NP [address] [place] [address] PCP - General Nurse Practitioner 07/03/23
--- OUTSIDE RECORDS SUMMARY | 2025-04-14 10:50 | XMS_ITS | Encounter Summary ---
Author Organization [facility] Address [address] [place] [address] Phone Care Team Providers Care Clay Pigeon Setter Name Role Phone Catrina Beard NP Primary Care Provider [phone] Encounter Details Date Type Department Care Team (Late st Contact Info) Description 04/13/2025 Telephone [facility] Medicine Orthopaedic Surgery [address] [facility] Advanced Medicine [address]th [place] [address] [place] [address] Blanca Walls MS Social History Tobacco Use Types Packs/Day Years Used Date Smoking Tobacco: Never Assessed Comments Unknown Sex and Gender Information Value Date Recorded Sex Assigned at Not on file 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 Patients home health nurse called (Mendy) from [facility]. She expressed concerns regarding the patients incision. [...] on filedocumented in this encounter Care Teams Clay Pigeon Setter Relationship Specialty Start Date End Date Catrina Beard NP [address] [place] [address] PCP - General Nurse Practitioner 07/03/23 documented as of this encounter
--- NOTE | 2025-04-14 11:44 | ADMGEN ---
This patient, Bhargavi Denis, was admitted to Medical Room 261-01. Patient/family oriented to hospital policies and general routines including ID bracelet, bed and alarms, visiting hours, pain management, procedures, bathroom and other care routines, personal items, smoking policy, room service/diet, and visiting hours. Information on how to activate the Rapid Response Team has been discussed. Patient/Family are encouraged to report perceived risks to care and to ask questions if they do not understand what they are told or what they should do.
--- NOTE | 2025-04-14 14:18 | PCRCNOTE ---
Pt. does not want to bring her CPAP in and declines use of one of our machines. Pt. asked to let the Nurse know if she changed her mind. R.N. notified.
--- NOTE | 2025-04-14 16:40 | PM.IMHP ---
H&P: HPI History of Present Illness Date/Time: 04/14/25 23:00 Chief Complaint: Abnormal Labs Narrative: 79 y/o F with PMH of CKD, anemia, HTN, hypothyroidism, HLD, DM, recent hip surgery 5 weeks ago (undergoing PT/OT w/HH) presents here with hyponatremia. The patient presents here from home on 04/14 for further evaluation of abnormal outpatient lab work. She was seen by her PCP, Miguel NEWTON, on 04/11 and had outpatient lab work ordered. She completed the lab work on 04/13 which showed a sodium of 120. Repeat today was 118. Of note, she was recently hospitalized from 03/31/2025 to 04/05/2025 for evaluation of left hip shortness and difficulty ambulating as well as a flat affect and concerned she was leaning to 1 side. Inpatient workup showed a negative head CT, hip XR showed intact hardware. She was evaluated by PT/OT and had home health/PT/OT outpatient arranged. Hyponatremia was noted upon admission at 127, lowest at 125 during her admission. She was evaluated by Nephrology who believed the hyponatremia was acute. She did have risk factors for hyponatremia including thyroid disease and medications (trazodone, sertraline, gabapentin), may have some excessive free water intake. She was recommended salt tabs and fluid restriction, however family did not want the patient to be on a fluid restriction. She was continued on the NaCl tablet at discharge. She has not been taking this due to cost, reports they were 50 dollars with prescription. Initial VS at presentation: 97.8? F, HR 75, R 18, 143/64, and 98% on RA. ED workup showed: No leukocytosis, hemoglobin 10.7, sodium 118, creatinine 1.03 and GFR 52, glucose 114, and UA was unremarkable. Review of Systems Review of Systems: All systems reviewed & are unremarkable except as noted in HPI and below [facility] Past Medical History Medical History (Updated 04/14/25 @ 23:19 by Britni Galeas APRN) Hypertensive emergency Hypertensive encephalopathy Cough Spinal stenosis Fatigue B12 deficiency CKD (chronic kidney disease) stage 3, GFR 30-59 ml/min Anemia Essential (primary) hypertension Hypothyroidism (acquired) Insomnia Mixed hyperlipidemia Primary osteoarthritis of both hips Surgical History Surgical History H/O microdiscectomy Family History Family History Sibling Family history of diabetes mellitus in first degree relative Mother Family history of lung cancer Family history of malignant neoplasm of brain Social History Social History Smoking status: Never smoker Second hand tobacco smoke exposure: Yes Alcohol intake: never Substance use: never Substance use type: does not use Do You Feel Safe in your Home?: Yes Lack of Transportation: No Lack of Food: Never True Current Housing: I Have Housing Concerned About Future Housing: No Difficulty Paying Gas/Electric Bills: No Difficulty Paying for Meds: No Currently Unemployed: No Education: High School Diploma/GED Difficulty w/ Childcare or Family Care: No Living arrangements: with family Additional living arrangements comments: SON WITH [employer] LIVES W/ PATIENT Occupation/Education: retired Gender identity (if verbalized by the patient): Female Sexual Orientation (if Verbalized by the Patient): Straight or Heterosexual Spiritual care concerns: No Agree to blood products: No Meds Home Medications and Allergies Home Medications ?Medication ?Instructions ?Recorded ?Confirmed ?Type mecobalamin (vitamin B12) 1,000 1,000 mcg sublingual DAILY 07/08/19 04/14/25 History mcg disintegrating tablet,sublingual calcium 500 mg (as 1 tablet PO DAILY 08/13/22 04/14/25 History carbonate)-vitamin D3 3.125 mcg (125 unit) tablet (Calcium) ascorbic acid (vitamin C) 1,000 mg 1 g PO DAILY 07/27/24 04/14/25 History capsule acetaminophen 650 mg 650 mg PO Q8H #60 tabs 10/11/24 04/14/25 Rx tablet,extended release (Tylenol 8 Hour) amlodipine 10 mg tablet 10 mg PO QAM #90 tabs 02/03/25 04/14/25 Rx fluoxetine 20 mg tablet 20 mg PO DAILY #90 tabs 02/03/25 04/14/25 Rx levothyroxine 88 mcg tablet 88 mcg PO QAM #90 tabs 02/03/25 04/14/25 Rx trazodone 150 mg tablet See Rx Instructions .Route 02/03/25 04/14/25 Rx .COMPLEX #90 tabs valsartan 40 mg tablet See Rx Instructions .Route 02/03/25 04/14/25 Rx .COMPLEX #90 tabs tramadol 50 mg tablet 50 mg PO Q6H PRN pain #60 tabs 03/22/25 04/14/25 Rx sodium chloride 1,000 mg soluble 500 mg (1/2 x 1,000 mg) PO DAILY 04/05/25 04/14/25 Rx tablet #30 tabs gabapentin 100 mg capsule 100 mg PO QHS 04/14/25 04/14/25 History Allergies Allergy/AdvReac Type Severity Reaction Status Date / Time erythromycin base Allergy Unknown Hyperactive Verified 04/11/25 12:48 Penicillins Allergy Unknown HIVES?, PT Verified 04/11/25 12:48 UNSURE OF REACTION Vital Signs Vital Signs - 24 hr 04/14/25 09:45 04/14/25 10:14 04/14/25 11:44 Temperature Pulse Rate 75 Respiratory Rate 10 L Blood Pressure 143/64 H Pulse Oximetry 98 99 Oxygen Delivery Room Air Room Air 04/14/25 12:00 04/14/25 13:23 Temperature 97.8 F Pulse Rate 79 86 Respiratory Rate 18 Blood Pressure 100/59 L Pulse Oximetry 100 Oxygen Delivery Exam Const: General: comfortable and no acute distress Other: , female, elderly, nontoxic appearance HENMT: Face/Nose/Sinus: Normal nares present Mouth: Yes moist mucous membranes Eyes: General: appearance normal, both eyes and all related structures Sclera: sclerae normal Pupils: Equal, round and reactive pupils present EOM: EOMs intact bilaterally Resp: Effort & Inspection: normal respiratory effort Auscultation: clear to auscultation bilaterally Cardio: Rate: regular rate Rhythm: regular rhythm Other: S1-S2 present without murmur, rub, ectopy GI: Other: Abdomen soft, nondistended, nontender. Normoactive bowel sounds in all quadrants. Skin: General skin exam: normal color and no rashes or lesions noted Wounds: no wounds Neuro: Speech: normal speech Motor exam (neuro): 5/5 motor strength present throughout Sensory Exam: normal sensation Other: A&O x4 Extrem: General: normal to inspection Psych: Mental Status: mental status grossly normal Affect: normal affect Other: Good insight judgment, pleasant H&P: Results Labs Labs: Short CBC 04/14/25 Range/Units 09:58 WBC 9.6 (4.5-10.0) K/mm3 Hgb 10.7 L (12.0-15.0) g/dL Hct 31.7 L (37.0-47.0) % Plt Count 460 H (150-375) k/mm3 [facility] 04/14/25 09:58 Sodium 118 L* Potassium 4.0 Chloride 83 L Carbon Dioxide 29 BUN 18 H Creatinine 1.03 H Glucose 114 H Calcium 9.4 Liver Function 04/14/25 Range/Units 09:58 Total Bilirubin 0.3 (0.2-1.3) mg/dL AST 30 (14-36) U/L ALT 12 (6-35) U/L Alkaline Phosphatase 123 (38-126) U/L Albumin 3.7 (3.5-5.1) g/dL Urine 04/14/25 Range/Units 10:29 Urine Color Yellow (Yellow) Urine Appearance Clear (Clear) Urine pH 6.0 (5.0-9.0) Ur Specific [place] 1.005 (1.001-1.035) Urine Protein Trace (Negative) mg/dL Urine Glucose (UA) Negative (Negative) mg/dL Assessment and Plan Assessment and plan (1) Hyponatremia: Code(s): E87.1 - Hypo-osmolality and hyponatremia Status: Acute Assessment and Plan: Here recently for evaluation of her hip/concern for stroke. Imaging at that time was negative for changes to her hip and CVA. Noted to have hyponatremia. Nephrology was consulted at that time and concerned the hyponatremia. Acute. Previous sodium is have ran between 135-139 since July 2024. Previously been as low as 130 in June of 2023. Currently asymptomatic. Previous risk factors identified including thyroid disease, excessive free water intake, and medications including trazodone, sertraline, and gabapentin. During her most recent workup her TSH was re-evaluated which was elevated with a low T3, cortisol okay, and SPEP/UPEP and serum/urine osmolality completed. She was recommended to start a fluid restriction, however at that time a she declined. She was discharged home on NaCl tablets but did not start taking them due to cost. - open to taking medication, looked into [employer] coupon. available at [employer] with coupon for 6 dollars. - open to trying a fluid restriction, started on restriction of 1600 mL - nephrology consulted - placed on regular diet (2) Hypothyroidism (acquired): Code(s): E03.9 - Hypothyroidism, unspecified Status: Chronic Assessment and Plan: - TSH 8.29, T4 0.97, T3 0.55 on 04/01/25 - continue Synthroid (3) CKD (chronic kidney disease) stage 3, GFR 30-59 ml/min: Qualifiers: Chronic kidney disease stage 3 subtype: stage 3a (GFR 45-59) Qualified Code(s): N18.31 - Chronic kidney disease, stage 3a Code(s): N18.30 - Chronic kidney disease, stage 3 unspecified Status: Chronic Assessment and Plan: - history of CKD - creatinine 1.03, BUN 18, GFR 52 upon admission on 04/14 - trend renal function and electrolytes, correct electrolytes as needed (4) Essential (primary) hypertension: Code(s): I10 - Essential (primary) hypertension Status: Chronic Assessment and Plan: - chronic, currently 153/58, stable - continue home medications: Amlodipine, valsartan - monitor (5) Depression: Qualifiers: Depression Type: unspecified Qualified Code(s): F32.A - Depression, unspecified Code(s): F32.A - Depression, unspecified Status: Chronic Assessment and Plan: - continue fluoxetine Plan Diet: regular GI Prophylaxis: n/a DVT Prophylaxis: SCDs IV fluids: none, fluid restriction Lines/Tubes: peripheral IV Code Status: DNR Quality VTE Prophylaxis VTE prophylaxis: mechanical ordered Hospitalist MIPS Advance Care Plan I have confirmed that the patient's Advanced Care Plan is present, code status is documented, or surrogate decision maker is listed in patient medical record.: Yes Medication Reconciliation I have utilized all available resources to obtain, update and review the patients current medications (includes all prescriptions, OTC, herbals, cannabis, and nutritional supplements).: Yes
[2025-04-14] MEDS: SODIUM CHLORIDE 500 MG TABLET PO (17:14)
[2025-04-14] MEDS: ACETAMINOPHEN 325 MG TABLET 650 MG PO (22:02)
[2025-04-14] MEDS: GABAPENTIN 100 MG CAPSULE PO (22:02)
[2025-04-14] MEDS: VALSARTAN 40 MG TABLET PO (22:02)
[2025-04-15] VITALS (9 sets, daily range): BP systolic 151–163; BP diastolic 56–74; PULSE 67–88; RESP 16; TEMP 36.6–36.8; O2SAT 94–98
[2025-04-15 05:00] LABS: Hematocrit 27.0 % (37.0-47.0); Hemoglobin 9.1 g/dL (12.0-15.0); Immature Granulocyte Percent A 0.7 % (0-0.5); Lymphocytes Absolute Auto 1.28 K/mm3 (0.9-3.2); Mean Corpuscular HGB Conc 33.7 g/dl (32-36); Mean Corpuscular Hemoglobin 32.2 pg (26-34); Mean Corpuscular Volume 95.4 fl (80-100); Nucleated Red Blood Cells Absolute Auto 0.000 K/mm3 (0.0-0.012); Nucleated Red Blood Cells Perc 0.0 % (0.0-0.2); Platelet Count Result 408 k/mm3 (150-375); Red Blood Count 2.83 M/mm3 (4.2-5.4); White Blood Count 8.1 K/mm3 (4.5-10.0)
[2025-04-15 05:11] LABS: Anion Gap 4 mmol/L (4-12); Blood Urea Nitrogen 19 mg/dL (7-17); Calcium 8.7 mg/dL (8.4-10.2); Carbon Dioxide 29 mmol/L (22-30); Chloride 88 mmol/L (98-107); Estimated CRCL calculation 48 ml/min; Estimated Glomerular Filt Rate 60; Glucose 87 mg/dL (65-110); Potassium 4.0 mmol/L (3.4-5.0); Sodium 121 mmol/L (137-145)
[2025-04-15] MEDS: ACETAMINOPHEN 325 MG TABLET 650 MG PO ×3 (06:07→20:49)
[2025-04-15] MEDS: LEVOTHYROXINE SODIUM 88 MCG TABLET PO (06:07)
--- NOTE | 2025-04-15 06:58 | P.PNIM_ITS ---
Progress Note: A&P Assessment and Plan (1) Foreign body of right hip with infection: Code(s): S70.251A - Superficial foreign body, right hip, initial encounter; L08.9 - Local infection of the skin and subcutaneous tissue, unspecified Status: Acute Assessment and Plan: S/p right DHS Plate for Intertrochanteric fracture on 03/10/2025 in [facility]. Earlier in 2024, when she again fell and sustained a closed distal 1/3 femoral shaft fracture that was treated with a retrograde IM pieter. Had scheduled appointment for follow up With Dr. Duke Marin, however was not able to make this appointment due to hyponatremia Approximately 1 week ago patient developed warmth, redness and blistering wound to the lower aspect of surgical incision with clear drainage, this has continues to worsen and new wound formed to mid aspect with clear drainage CT lower extremity: 10.3 x 4.3 x 2.4 cm subcutaneous collection of gas, fluid and some high attenuation material, potentially packing material along a maria rgical wound lateral to the proximal right femur where there has been recent internal fixation of a recent comminuted intratrochanteric fracture. More advanced healing of a more chronic comminuted extra articular fracture of the distal right femur with separate retrograde intramedullary pieter fixation. Wound culture obtained: pending Antibiotic: Vancomycin and cefepime started on 04/15, adjust per wound culture ID consulted, patient will need residential antibiotic coverage as no acute surgical intervention at this time Wound care following Ortho consulted, discussed patients care plan and reviewed imaging with Dr. Santamaria No acute surgical intervention at this time Recommend addressing the hyponatremia, family working on re-scheduling appointment with Dr Duke Marin at [place]. (2) Hyponatremia: Code(s): E87.1 - Hypo-osmolality and hyponatremia Status: Acute Assessment and Plan: Seen by her PCP, Miguel [employer], had outpatient lab work which showed a sodium of 120. Repeat Na on admission was 118. She was recently hospitalized from 03/31/2025 to 04/05/2025, hyponatremia was noted upon admission at 127, lowest at 125 during her hospitalization. Evaluated by Nephrology who believed the hyponatremia was acute. Risk factors for hyponatremia include thyroid disease and medications (trazodone, sertraline, gabapentin), may have some excessive free water intake. Nephrology recommended salt tabs and fluid restriction, however family did not want the patient to be on a fluid restriction. She was continued on the NaCl tablet at discharge. She has not been taking this due to cost. - Na 121 on am labs - open to taking medication, GoodRx coupon available at [facility] - open to trying a fluid restriction, started on restriction of 1600 mL - diet: regular - nephrology consulted, appreciate recommendations (3) Hypothyroidism (acquired): Code(s): E03.9 - Hypothyroidism, unspecified Status: Chronic Assessment and Plan: - 04/01: TSH 8.29, T4 0.97, T3 0.55 on 04/01/25 - continue Synthroid 88 mcg daily (4) CKD (chronic kidney disease) stage 3, GFR 30-59 ml/min: Qualifiers: Chronic kidney disease stage 3 subtype: stage 3a (GFR 45-59) Qualified Code(s): N18.31 - Chronic kidney disease, stage 3a Code(s): N18.30 - Chronic kidney disease, stage 3 unspecified Status: Chronic Assessment and Plan: History of CKD. Baseline creatinine ~ 1.1 - 1.3mg/dl - appears at baseline renal function - trend renal function and electrolytes, correct electrolytes as needed - avoid nephrotoxic medications - renally dose medications - monitor I/O (5) Essential (primary) hypertension: Code(s): I10 - Essential (primary) hypertension Status: Chronic Assessment and Plan: Chronic, continue home medications - Amlodipine 10 mg daily and valsartan 40 mg daily - blood pressures reviewed and stable, continue to monitor (6) Depression: Qualifiers: Depression Type: unspecified Qualified Code(s): F32.A - Depression, unspecified Code(s): F32.A - Depression, unspecified Status: Chronic Assessment and Plan: Continue fluoxetine Plan Diet: regular GI Prophylaxis: n/a DVT Prophylaxis: SCDs IV fluids: none, fluid restriction Lines/Tubes: peripheral IV Code Status: DNR Subjective Date/time seen: 04/15/25 06:58 Interval history: 79 year old female with past medical history of CKD, anemia, HTN, hypothyroidism, HLD, DM, recent hip surgery 5 weeks ago (undergoing PT/OT w/HH) presents to the hospital with hyponatremia. Patient is pleasant sitting up comfortably in bed. Patient states that she has not been taking her salt tabs as they were too expensive and has not been strictly following the fluid restriction either. She states that per her family she had been having increased confusion which prompted them to see her PCP. On outpatient labs patient was noted to have hyponatremia which led to this admission. Patient currently denies any confusion, dizziness/lightheadedness, muscle weakness/aches/spasms. She is now open to taking the salt tabs and states she plans to strictly follow the fluid restriction. Patient underwent a right DHS Plate for Intertrochanteric fracture on 03/10/2025 in [facility] after a fall. Patient notes that she has a worsening wound to her right thigh along the surgical incision that has been progressing for at least 1 week with warmth, redness and blistering to the lower aspect with clear drainage and new wound to mid aspect with clear drainage. She was to have an appointment for follow up With Dr. Duke Marin at [place], however was not able to make this appointment due to hospitalization. Patient denies any tingling/numbness/shooting pain to the lower extremity. Review of Systems Review of Systems: All systems reviewed & are unremarkable except as noted in HPI and below Exam Narrative: AF HR 79 RR 16 SpO2 97 BP 163/74 General: female in no acute respiratory distress who is nontoxic appearing, sitting up in bed. HEENT: Normocephalic. Atraumatic. Extraocular movement intact. Sclera clear and anicteric. No facial asymmetry. Chest: Lungs are clear to auscultation bilaterally. CV: Heart was regular rate and rhythm. Abd: Abdomen was soft. Nontender. Nondistended. Positive bowel sounds. Ext: No clubbing, cyanosis, or edema. Surgical incision to the mid lateral hip with two blistering wounds to the lower and mid aspect along the incision site. Redness and warmth noted. Purulent drainage per wound care during dressing. Neuro: Patient is alert. Speech is clear. Objective Data Vital Signs Vital Signs: Vital Signs - 24 hr 04/14/25 09:45 04/14/25 10:14 04/14/25 11:44 Temperature Pulse Rate 75 Respiratory Rate 10 L Blood Pressure 143/64 H Pulse Oximetry 98 99 Oxygen Delivery Room Air Room Air 04/14/25 12:00 04/14/25 13:23 04/14/25 16:00 Temperature 97.8 F Pulse Rate 79 86 71 Respiratory Rate 18 Blood Pressure 100/59 L Pulse Oximetry 100 Oxygen Delivery 04/14/25 19:58 04/14/25 20:00 04/14/25 20:00 Temperature 98.3 F Pulse Rate 76 74 Respiratory Rate 18 Blood Pressure 153/58 H Pulse Oximetry 97 Oxygen Delivery Room Air 04/15/25 00:00 04/15/25 04:00 04/15/25 06:00 Temperature 98 F Pulse Rate 70 77 79 Respiratory Rate 16 Blood Pressure 163/74 H Pulse Oximetry 97 Oxygen Delivery Intake/Output Intake/Output: Intake & Output 04/12/25 04/13/25 04/14/25 04/15/25 23:59 23:59 23:59 23:59 Intake Total 1190 300 Output Total 220 Balance 970 300 Meds/Results Medications: Active Medications Generic Name Dose Route Start Last Admin Trade Name Freq PRN Reason Stop Dose Admin Acetaminophen 650 mg 04/14/25 22:00 04/15/25 06:07 Acetaminophen 325 Mg Tablet PO 650 mg Q8HR VALERIA Administration Amlodipine Besylate 10 mg 04/15/25 09:00 Amlodipine Besylate 10 Mg Tablet PO QAM [facility] Ascorbic Acid 1,000 mg 04/15/25 09:00 Ascorbic Acid 500 Mg Tablet PO QAM [facility] Calcium Carbonate 500 mg 04/15/25 12:00 Calcium/Vitamin D 500 Mg/5 Mcg (200 I.U.) Tablet PO DAILY@1200 [facility] Cyanocobalamin 1,000 mcg 04/15/25 09:00 Cyanocobalamin 1,000 Mcg Tablet PO QAM [facility] Fluoxetine HCl 20 mg 04/15/25 09:00 Fluoxetine Hcl 20 Mg Capsule PO DAILY VALERIA Gabapentin 100 mg 04/14/25 21:00 04/14/25 22:02 Gabapentin 100 Mg Capsule PO 100 mg QHS VALERIA Administration Levothyroxine Sodium 88 mcg 04/15/25 06:30 04/15/25 06:07 Levothyroxine Sodium 88 Mcg Tablet PO 88 mcg DAILY@0630 VALERIA Administration Sodium Chloride 500 mg 04/14/25 17:00 04/14/25 17:14 Sodium Chloride 500 Mg Tablet PO 500 mg BID VALERIA Administration Trazodone HCl 150 mg 04/14/25 16:55 04/14/25 22:06 Trazodone Hcl 50 Mg Tablet PO 150 mg HS PRN Administration Sleep Valsartan 40 mg 04/14/25 21:00 04/14/25 22:02 Valsartan 40 Mg Tablet PO 40 mg HS VALERIA Administration Labs Labs: Laboratory Results - last 24 hr 04/14/25 04/14/25 04/15/25 09:58 10:29 04:31 WBC 9.6 8.1 RBC 3.35 L 2.83 L Hgb 10.7 L 9.1 L Hct 31.7 L 27.0 L MCV 94.6 95.4 MCH 31.9 32.2 MCHC 33.8 33.7 RDW 12.3 12.3 Plt Count 460 H 408 H MPV 8.6 8.9 Immature Gran % (Auto) 0.4 0.7 H Neut % (Auto) 79.5 H 67.9 Lymph % (Auto) 11.3 L 15.9 L Dewitt % (Auto) 6.9 12.0 H Eos % (Auto) 1.0 2.6 Baso % (Auto) 0.9 0.9 Lymph # (Auto) 1.09 1.28 Dewitt # (Auto) 0.7 H 1.0 H Eos # (Auto) 0.1 0.2 Baso # (Auto) 0.1 0.1 Abs Immat Gran (auto) 0.04 H 0.06 H Absolute Neuts (auto) 7.6 H 5.5 Absolute Nucleated RBC 0.000 0.000 Nucleated RBC % 0.0 0.0 Sodium 118 L* 121 L Potassium 4.0 4.0 Chloride 83 L 88 L Carbon Dioxide 29 29 Anion Gap 6 4 BUN 18 H 19 H Creatinine 1.03 H 0.90 Estim Creat Clear Calc 42 48 Estimated GFR 52 L 60 Glucose 114 H 87 Calcium 9.4 8.7 Total Bilirubin 0.3 AST 30 ALT 12 Alkaline Phosphatase 123 Total Protein 7.3 Albumin 3.7 Urine Color Yellow Urine Appearance Clear Urine pH 6.0 Ur Specific [place] 1.005 Urine Protein Trace Urine Glucose (UA) Negative Urine Ketones Negative Ur Blood (Man) Negative Urine Nitrate Negative Urine Bilirubin Negative Urine Urobilinogen 0.2 Add Ur Microanalysis Reviewed Leukocyte Esterase Rfl Negative Urine RBC 0-2 Urine WBC 0-5 Ur Squamous Epith Cells None seen Urine Bacteria None seen Urine Casts 0-2 Quality VTE Prophylaxis VTE prophylaxis: mechanical ordered
[2025-04-15] MEDS: ASCORBIC ACID 500 MG TABLET 1000 MG PO (08:25)
[2025-04-15] MEDS: CYANOCOBALAMIN 1,000 MCG TABLET 1000 MCG PO (08:25)
[2025-04-15] MEDS: SODIUM CHLORIDE 500 MG TABLET PO ×2 (08:26→16:47)
--- NOTE | 2025-04-15 10:29 | WNDPHOTO ---
PHOTO ONLY - See Nursing Notes and/ or assessments for documentation.
[2025-04-15 11:47] LABS: CRP 1.3 mg/dL (<1.0)
--- NOTE | 2025-04-15 12:05 | P.CONNP_ITS ---
Assessment and Plan Assessment and plan (1) Hyponatremia: Code(s): E87.1 - Hypo-osmolality and hyponatremia Status: Acute Assessment and Plan: * appears acute * noted about during hospitalization (late February/early Mar 2025) in [place] -- sodium running ~ 132 - 136mmol/L at that time * previous sodium levels ~ 135 - 139 since July 2024 * however, has been as low as 130mmol/L in June 2023 * appears otherwise asymptomatic * risk factors for low sodium noted previously: * pain * medications: - trazodone - fluoxetine (SSRI) - gabapentin * thyroid disease * possibly excessive free water intake * evaluation to date noted (last and current hospitalization: * TSH elevated with low T3 * cortisol okay * urine electrolyte non-prerenal * SPEP and serum immunofixation negative * UPEP with asymmetrical beta but urine immunofixation negative * serum osmolality 269 & urine osmolality 194 * head CT noted * CXR negative * started on fluid restriction * restarted on salt tablets * follow trend of repeat sodium levels (2) Postoperative wound infection of right hip: Code(s): T81.49XA - Infection following a procedure, other surgical site, initial encounter Status: Acute Assessment and Plan: * s/p right DHS plate for intertrochanteric right hip fracture (on 03/10/2025 in [facility]) * ~ 1 week prior to presentation, noted warmth, redness and blistering wound to the lower aspect of surgical incision with clear drainage -- this has continues to worsen and new wound formed to mid aspect with clear drainage * CT lower extremity ordered for further evaluation * follow culture data * on antibiotics. (3) Anemia: Qualifiers: Anemia type: unspecified type Qualified Code(s): D64.9 - Anemia, unspecified Code(s): D64.9 - Anemia, unspecified Status: Acute Assessment and Plan: * noted on admission * due to possible infection issues/concerns * mild/underlying CKD could be playing a role * follow trend of H/H (4) Obstructive sleep apnea: Onset Date: ~02/2021 Code(s): G47.33 - Obstructive sleep apnea (adult) (pediatric) Status: Chronic Assessment and Plan: * follows with [facility] * on CPAP (5) Essential (primary) hypertension: Code(s): I10 - Essential (primary) hypertension Status: Chronic Assessment and Plan: * reasonable control * follow trend of hemodynamics (6) Type 2 diabetes mellitus in remission: Code(s): E11.9 - Type 2 diabetes mellitus without complications Status: Chronic Assessment and Plan: * apparently diet controlled * not requiring medications * follow blood sugars I will continue to follow the patient with you while she remains hospitalized and make further recommendations as deemed necessary. Thank you for allowing me to participate in the care of this patient. L History of Present Illness Reason for Consult Consult date: 04/15/25 Reason for consult: hyponatremia Chief Complaint Chief complaint: Hyponatremia, Left Hip Infection s/p Fx Fixation History of Present Illness Narrative: The patient is an 79-year-old female with a past medical history as outlined below who presented to [facility] Emergency Room due to abnormal labs, specifically, significant hyponatremia. The but patient was just recently hospitalized here at [facility] in mid March of this year for difficulties T ambulating and generalized weakness. Evaluation at that time demonstrated a negative head CT, negative pathology with regard to her previous history of hip fractures, although she was noted be some hyponatremic with an admission sodium level of 127. Her sodium level did drop to as low as 125 but with the initiation of salt tablets her sodium level did improve and she was discharged on oral sodium chloride tablet therapy along with outpatient physical/occupational therapy. She saw her primary care physician for hospital follow-up few days ago and outpatient labs done on 04/13 showed a sodium level of 120. Further complicating matters was that apparently her right hip surgical wound was draining as well. Given these 2 issues as mentioned, she was referred back to the emergency room for further assessment. Workup and evaluation emergency room demonstrated the patient be hemodynamically stable and in no apparent distress. Repeat testing done in the emergency room demonstrated her sodium level to be down to 118 millimoles per L but otherwise no other critical electrolyte abnormalities and her CBC showed white cell count of 9.6, hemoglobin 10.7, hematocrit 31.7, and a platelet count of 460. Her urinalysis was unremarkable. Upon further questioning, the patient apparently had not been taking her outpatient sodium chloride tablets apparently due to the cost of the medication. Due to the issue with her right hip wound in conjunction with her worsening hyponatremia, she was admitted to the hospital for further evaluation therapy. Since her admission to the hospital, she was restarted on sodium chloride tablets and was agreeable to institution of a fluid restriction. Her sodium level has slightly improved but is still not back to baseline. In spite of the aforementioned low sodium level, she remains completely asymptomatic from it. Renal consultation was requested due to her worsening hyponatremia as noted by her outpatinet and admission labs.The patient is somewhat familiar to me as I saw her in consultation for her hyponatremia on her last hospitalization although at that time, her hyponatremia was not as severe as on this hospital admission. During that previous hospitalization here at [facility], the family was not really interested in my suggestions for treatment of her hyponatremia as that was not the primary reason why she was admitted to the hospital at that time. In spite of this, her sodium level seemed to improve/stabilize with just the addition of salt tablets and she apparently was discharged with a plan to continue salt tablets as an outpatient. Unfortunately, as already mentioned above, her sodium level worsen by repeat outpatient labs although was noted that she was not taking her salt tablets as an outpatient due to cost of the medication. Currently, at the time my evaluation, she appears to be in no acute distress. Review of Systems 2 Review of Systems: As per HPI. [facility] Past Medical History Medical History (Updated 04/15/25 @ 22:52 by Susan Lopez MD) Hypertensive emergency Hypertensive encephalopathy Cough Spinal stenosis Fatigue B12 deficiency CKD (chronic kidney disease) stage 3, GFR 30-59 ml/min Anemia Essential (primary) hypertension Hypothyroidism (acquired) Insomnia Mixed hyperlipidemia Primary osteoarthritis of both hips Surgical History Surgical History H/O microdiscectomy Family History Family History Sibling Family history of diabetes mellitus in first degree relative Mother Family history of lung cancer Family history of malignant neoplasm of brain Social History Social History Smoking status: Never smoker Second hand tobacco smoke exposure: Yes Alcohol intake: never Substance use: never Substance use type: does not use Do You Feel Safe in your Home?: Yes Lack of Transportation: No Lack of Food: Never True Current Housing: I Have Housing Concerned About Future Housing: No Difficulty Paying Gas/Electric Bills: No Difficulty Paying for Meds: No Currently Unemployed: No Education: High School Diploma/GED Difficulty w/ Childcare or Family Care: No Living arrangements: with family Additional living arrangements comments: SON WITH [employer] LIV[facility] W/ PATIENT Occupation/Education: retired Gender identity (if verbalized by the patient): Female Sexual Orientation (if Verbalized by the Patient): Straight or Heterosexual Spiritual care concerns: No Agree to blood products: No Meds Home Medications and Allergies Home Medications ?Medication ?Instructions ?Recorded ?Confirmed ?Type mecobalamin (vitamin B12) 1,000 1,000 mcg sublingual D AILY 07/08/19 04/14/25 History mcg disintegrating tablet,sublingual calcium 500 mg (as 1 tablet PO DAILY 08/13/22 1 History carbonate)-vitamin D3 3.125 mcg (125 unit) tablet (Calcium) ascorbic acid (vitamin C) 1,000 mg 1 g PO DAILY 04/14/25 History capsule acetaminophen 650 mg 650 mg PO Q8H #60 tabs 10/1104/14/25 Rx tablet,extended release (Tylenol 8 Hour) amlodipine 10 mg tablet 10 mg PO QAM #90 tabs 04/14/25 Rx fluoxetine 20 mg tablet 20 mg PO DAILY #90 tabs 01/1204/14/25 Rx levothyroxine 88 mcg tablet 88 mcg PO QAM #90 tabs 04/14/25 Rx trazodone 150 mg tablet See Rx Instructions .Route 0 02/03/25 04/14/25 Rx .COMPLEX #90 tabs valsartan 40 mg tablet See Rx Instructions .Route 0 02/03/25 04/14/25 Rx .COMPLEX #90 tabs tramadol 50 mg tablet 50 mg PO Q6H PRN pain #60 ta bs 03/22/25 04/14/25 Rx sodium chloride 1,000 mg soluble 500 mg (1/2 x 1,000 m g) PO DAILY 04/05/25 04/14/25 Rx tablet #30 tabs gabapentin 100 mg capsule 100 mg PO QHS 04/14/2504/14 History Allergies Allergy/AdvReac Type Severity Reaction Status Date / Time erythromycin base Allergy Unknown Hyperactive Verified 04/11/25 12:48 Penicillins Allergy Unknown HIVES?, PT Verified 04/11/25 12:48 UNSURE OF REACTION Vital Signs Vital Signs Temp Pulse Resp BP Pulse Ox O2 Del Method 04/15/25 12:00 97.8 F 72 16 158/68 H 97 04/15/25 08:40 88 04/15/25 08:40 94 Room Air 04/15/25 06:00 98 F 79 16 163/74 H 97 04/15/25 04:00 77 04/15/25 00:00 70 04/14/25 20:00 74 04/14/25 20:00 Room Air 04/14/25 19:58 98.3 F 76 18 153/58 H 97 Exam 2 Narrative: GENERAL APPEARANCE: elderly but well developed well nourished female in no acute distress HEENT: normocephalic, atraumatic, normal conjunctiva and sclera, nares patient NECK: no lymphadenopathy, thyromegaly, or JVD MOUTH: normal lips, teeth, and gums CARDIOVASCULAR: RRR, normal S1 and S2, no rub RESPIRATORY: clear to auscultation bilaterally ABDOMEN: soft, nontender, nondistended, positive bowel sounds present EXTREMITIES: no evidence of cyanosis, clubbing, or edema; right hip surgical wounds noted NEUROLOGICAL: alert and oriented x 3; CN II - XII intact bilaterally; no focal deficits Results Lab Results 04/16/25 04:53 04/16/25 04:53 Lab results: Most recent lab results Calcium 8.7 mg/dL (8.4-10.2) 04/15/25 04:31
[2025-04-15] MEDS: CEFEPIME 1 GM in SODIUM CHLORIDE 0.9% IV 50 ML 100 ML IVPB ×2 (12:33→23:50)
[2025-04-15] MEDS: CALCIUM/VITAMIN D 500 MG/5 MCG (200 I.U.) TABLET PO (12:33)
--- NOTE | 2025-04-15 12:44 | PM.CNOR ---
Assessment and Plan Assessment and plan (1) Foreign body of right hip with infection: Code(s): S70.251A - Superficial foreign body, right hip, initial encounter; L08.9 - Local infection of the skin and subcutaneous tissue, unspecified Status: Acute Plan 79 yr old female s/p LEFT DHS Plate for Intertrochanteric fracture on 03/10/2025 in [facility]. She was vacationing in a condo, walking out to the [facility], tripped on a threshold, and landed on to her Left Hip. Earlier in 2024, she recalls it may have been in September, she was again vacationing in [place], with plans on boarding a cruise ship, when she again fell and sustained a closed LEFT distal 1/3 femoral shaft fracture that was treated with a retrograde IM fuad. She was recovering from this surgery at the time she sustained a 2nd fracture in the same extremity. She was in a hospital in [facility] for a few days, then soon after her discharge, about a week later, she drove back to [facility] with family. Her nephew is a patient of Dr Duke Marin at [facility] and had scheduled an appointment for her follow up. Unfortunately this appointment was yesterday. She was not able to make this appointment due to symptoms associated with hyponatremia (confusion etc..). She recalls that she was doing ok until about 10 days ago (about 3 weeks postop), when she noted drainage from the LEFT hip. It was noted to be purulent. She reports no fevers or chills but does have a decreased apatite. - review of xrays show a DHS and a retrograde IM Fuad with excellent healing of the distal 1/3 femoral shaft fx site. - Left hip incision exam as described above. - recommend addressing the hyponatremia, her newhew is working on re-scheduling appointment with Dr Jaime Marin at [place]. History of Present Illness HPI Consult date: 04/15/25 Chief complaint: Hyponatremia, Left Hip Infection s/p Fx Fixation Narrative: 79 yr old female s/p LEFT DHS Plate for Intertrochanteric fracture on 03/10/2025 in [facility]. She was vacationing in a condo, walking out to the [facility], tripped on a threshold, and landed on to her Left Hip. Earlier in 2024, she recalls it may have been in September, she was again vacationing in [place], with plans on boarding a cruise ship, when she again fell and sustained a closed LEFT distal 1/3 femoral shaft fracture that was treated with a retrograde IM fuad. She was recovering from this surgery at the time she sustained a 2nd fracture in the same extremity. She was in a hospital in [facility] for a few days, then soon after her discharge, about a week later, she drove back to [facility] with family. Her nephew is a patient of Dr Duke Marin at [facility] and had scheduled an appointment for her follow up. Unfortunately this appointment was yesterday. She was not able to make this appointment due to symptoms associated with hyponatremia (confusion etc..). She recalls that she was doing ok until about 10 days ago (about 3 weeks postop), when she noted drainage from the LEFT hip. It was noted to be purulent. She reports no fevers or chills but does have a decreased apatite. [facility] Past Medical History Medical History (Updated 04/15/25 @ 12:55 by Mk Santamaria MD) Hypertensive emergency Hypertensive encephalopathy Cough Spinal stenosis Fatigue B12 deficiency CKD (chronic kidney disease) stage 3, GFR 30-59 ml/min Anemia Essential (primary) hypertension Hypothyroidism (acquired) Insomnia Mixed hyperlipidemia Primary osteoarthritis of both hips Surgical History Surgical History H/O microdiscectomy Family History Family History Sibling Family history of diabetes mellitus in first degree relative Mother Family history of lung cancer Family history of malignant neoplasm of brain Social History Social History Smoking status: Never smoker Second hand tobacco smoke exposure: Yes Alcohol intake: never Substance use: never Substance use type: does not use Do You Feel Safe in your Home?: Yes Lack of Transportation: No Lack of Food: Never True Current Housing: I Have Housing Concerned About Future Housing: No Difficulty Paying Gas/Electric Bills: No Difficulty Paying for Meds: No Currently Unemployed: No Education: High School Diploma/GED Difficulty w/ Childcare or Family Care: No Living arrangements: with family Additional living arrangements comments: SON WITH [employer] LIVES W/ PATIENT Occupation/Education: retired Gender identity (if verbalized by the patient): Female Sexual Orientation (if Verbalized by the Patient): Straight or Heterosexual Spiritual care concerns: No Agree to blood products: No Meds Home Medications and Allergies Home Medications ?Medication ?Instructions ?Recorded ?Confirmed ?Type mecobalamin (vitamin B12) 1,000 1,000 mcg sublingual DAILY 07/08/19 04/14/25 History mcg disintegrating tablet,sublingual calcium 500 mg (as 1 tablet PO DAILY 08/13/22 04/14/25 History carbonate)-vitamin D3 3.125 mcg (125 unit) tablet (Calcium) ascorbic acid (vitamin C) 1,000 mg 1 g PO DAILY 07/27/24 04/14/25 History capsule acetaminophen 650 mg 650 mg PO Q8H #60 tabs 10/11/24 04/14/25 Rx tablet,extended release (Tylenol 8 Hour) amlodipine 10 mg tablet 10 mg PO QAM #90 tabs 02/03/25 04/14/25 Rx fluoxetine 20 mg tablet 20 mg PO DAILY #90 tabs 02/03/25 04/14/25 Rx levothyroxine 88 mcg tablet 88 mcg PO QAM #90 tabs 02/03/25 04/14/25 Rx trazodone 150 mg tablet See Rx Instructions .Route 02/03/25 04/14/25 Rx .COMPLEX #90 tabs valsartan 40 mg tablet See Rx Instructions .Route 02/03/25 04/14/25 Rx .COMPLEX #90 tabs tramadol 50 mg tablet 50 mg PO Q6H PRN pain #60 tabs 03/22/25 04/14/25 Rx sodium chloride 1,000 mg soluble 500 mg (1/2 x 1,000 mg) PO DAILY 04/05/25 04/14/25 Rx tablet #30 tabs gabapentin 100 mg capsule 100 mg PO QHS 04/14/25 04/14/25 History Allergies Allergy/AdvReac Type Severity Reaction Status Date / Time erythromycin base Allergy Unknown Hyperactive Verified 04/11/25 12:48 Penicillins Allergy Unknown HIVES?, PT Verified 04/11/25 12:48 UNSURE OF REACTION Vital Signs Vital Signs - 24 hr 04/14/25 13:23 04/14/25 16:00 04/14/25 19:58 Temperature 36.6 C 36.8 C Pulse Rate 86 71 76 Respiratory Rate 18 18 Blood Pressure 100/59 L 153/58 H Pulse Oximetry 100 97 Oxygen Delivery 04/14/25 20:00 04/14/25 20:00 04/15/25 00:00 Temperature Pulse Rate 74 70 Respiratory Rate Blood Pressure Pulse Oximetry Oxygen Delivery Room Air 04/15/25 04:00 04/15/25 06:00 Temperature 36.6 C Pulse Rate 77 79 Respiratory Rate 16 Blood Pressure 163/74 H Pulse Oximetry 97 Oxygen Delivery Exam Narrative: Exam of Left hip shows a lateral incision 8 inches with 2 areas of wound dehiscence with packing and drainage. Const: General: cooperative, comfortable and alert Nutritional Appearance: obese Results Labs 04/15/25 04:31 04/15/25 04:31 Labs: Abnormal lab results 04/15/25 04/15/25 Range/Units 04:31 11:46 RBC 2.83 L (4.2-5.4) M/mm3 Hgb 9.1 L (12.0-15.0) g/dL Hct 27.0 L (37.0-47.0) % Plt Count 408 H (150-375) k/mm3 Immature Gran % (Auto) 0.7 H (0-0.5) % Lymph % (Auto) 15.9 L (18.3-44.2) % [place] % (Auto) 12.0 H (2.6-8.5) % [place] # (Auto) 1.0 H (0.1-0.6) K/mm3 Abs Immat Gran (auto) 0.06 H (0.00-0.031) K/mm3 ESR > 140 H (0-20) mm/hr Sodium 121 L (137-145) mmol/L Chloride 88 L (98-107) mmol/L BUN 19 H (7-17) mg/dL C-Reactive Protein 1.3 H (<1.0) mg/dL H & H 04/14/25 04/15/25 Range/Units 09:58 04:31 Hgb 10.7 L 9.1 L (12.0-15.0) g/dL Hct 31.7 L 27.0 L (37.0-47.0) % All other labs normal.
[2025-04-15] MEDS: VANCOMYCIN 2,000 MG/NS 500 ML 2,000 MG/500 ML BAG 250 MG IVPB (13:40)
[2025-04-15] MEDS: VALSARTAN 40 MG TABLET PO (20:47)
[2025-04-15] MEDS: GABAPENTIN 100 MG CAPSULE PO (20:47)
[2025-04-16] VITALS (9 sets, daily range): BP systolic 137–144; BP diastolic 57–68; PULSE 74–98; RESP 16–18; TEMP 36.4–36.9; O2SAT 94–98
[2025-04-16 05:20] LABS: Hematocrit 28.4 % (37.0-47.0); Hemoglobin 9.4 g/dL (12.0-15.0); Mean Corpuscular HGB Conc 33.1 g/dl (32-36); Mean Corpuscular Hemoglobin 32.2 pg (26-34); Mean Corpuscular Volume 97.3 fl (80-100); Platelet Count Result 430 k/mm3 (150-375); Red Blood Count 2.92 M/mm3 (4.2-5.4); White Blood Count 9.3 K/mm3 (4.5-10.0)
[2025-04-16] MEDS: ACETAMINOPHEN 325 MG TABLET 650 MG PO ×3 (05:21→21:39)
[2025-04-16] MEDS: LEVOTHYROXINE SODIUM 88 MCG TABLET PO (05:21)
[2025-04-16 05:44] LABS: Alanine Aminotransferase 9 U/L (6-35); Albumin Level 3.0 g/dL (3.5-5.1); Alkaline Phosphatase 90 U/L (38-126); Anion Gap 4 mmol/L (4-12); Aspartate Amino Transferase 31 U/L (14-36); Bilirubin,Total 0.3 mg/dL (0.2-1.3); Blood Urea Nitrogen 18 mg/dL (7-17); Calcium 8.9 mg/dL (8.4-10.2); Carbon Dioxide 27 mmol/L (22-30); Chloride 93 mmol/L (98-107); Estimated CRCL calculation 52 ml/min; Estimated Glomerular Filt Rate > 60; Glucose 90 mg/dL (65-110); Potassium 4.2 mmol/L (3.4-5.0); Sodium 124 mmol/L (137-145); Total Protein 6.1 g/dL (6.3-8.2)
[2025-04-16] MEDS: SODIUM CHLORIDE 500 MG TABLET 1000 MG PO ×2 (08:20→16:48)
[2025-04-16] MEDS: CYANOCOBALAMIN 1,000 MCG TABLET 1000 MCG PO (08:20)
[2025-04-16] MEDS: ASCORBIC ACID 500 MG TABLET 1000 MG PO (08:20)
--- NOTE | 2025-04-16 08:25 | P.PNIM_ITS ---
Progress Note: A&P Assessment and Plan (1) Foreign body of right hip with infection: Code(s): S70.251A - Superficial foreign body, right hip, initial encounter; L08.9 - Local infection of the skin and subcutaneous tissue, unspecified Status: Acute Assessment and Plan: S/p right DHS Plate for Intertrochanteric fracture on 03/10/2025 in [facility]. Earlier in 2024, when she again fell and sustained a closed distal 1/3 femoral shaft fracture that was treated with a retrograde IM pieter. Had scheduled appointment for follow up With Dr. Duke Marin, however was not able to make this appointment due to hyponatremia Approximately 1 week ago patient developed warmth, redness and blistering wound to the lower aspect of surgical incision with clear drainage, this has continues to worsen and new wound formed to mid aspect with clear drainage CT lower extremity: 10.3 x 4.3 x 2.4 cm subcutaneous collection of gas, fluid and some high attenuation material, potentially packing material along a maria rgical wound lateral to the proximal right femur where there has been recent internal fixation of a recent comminuted intratrochanteric fracture. More advanced healing of a more chronic comminuted extra articular fracture of the distal right femur with separate retrograde intramedullary pieter fixation. Wound culture obtained: pending Antibiotic: Vancomycin and cefepime started on 04/15, adjust per wound culture ID consulted, patient will need snf antibiotic coverage as no acute surgical intervention at this time Wound care following Ortho consulted, discussed patients care plan and reviewed imaging with Dr. Santamaria No acute surgical intervention at this time, family working on re-scheduling appointment with Dr Duke Marin at [place]. Recommend addressing the hyponatremia PT/OT Wound continues to have purulent drainage, redness and warmth. Patient remains afebrile without leukocytosis. Cultures still pending. Continue current antibiotic regimen. Patient endorsing increased pain with ambulation. Remains on tylenol, will start norco prn. (2) Hyponatremia: Code(s): E87.1 - Hypo-osmolality and hyponatremia Status: Acute Assessment and Plan: Seen by her PCP, Miguel SEBD TEACHER, had outpatient lab work which showed a sodium of 120. Repeat Na on admission was 118. She was recently hospitalized from 03/31/2025 to 04/05/2025, hyponatremia was noted upon admission at 127, lowest at 125 during her hospitalization. Evaluated by Nephrology who believed the hyponatremia was acute. Risk factors for hyponatremia include thyroid disease and medications (trazodone, sertraline, gabapentin), may have some excessive free water intake. Nephrology recommended salt tabs and fluid restriction, however family did not want the patient to be on a fluid restriction. She was continued on the NaCl tablet at discharge. She has not been taking this due to cost. - Na 124 on am labs - Continue salt tabs and fluid restriction (1600 ml) - diet: regular - nephrology consulted, appreciate recommendations * started on fluid restriction * restarted on salt tablets * follow trend of repeat sodium levels (3) Hypothyroidism (acquired): Code(s): E03.9 - Hypothyroidism, unspecified Status: Chronic Assessment and Plan: - 04/01: TSH 8.29, T4 0.97, T3 0.55 on 04/01/25 - continue Synthroid 88 mcg daily (4) CKD (chronic kidney disease) stage 3, GFR 30-59 ml/min: Qualifiers: Chronic kidney disease stage 3 subtype: stage 3a (GFR 45-59) Qualified Code(s): N18.31 - Chronic kidney disease, stage 3a Code(s): N18.30 - Chronic kidney disease, stage 3 unspecified Status: Chronic Assessment and Plan: History of CKD. Baseline creatinine ~ 1.1 - 1.3mg/dl - appears at baseline renal function - trend renal function and electrolytes, correct electrolytes as needed - avoid nephrotoxic medications - renally dose medications - monitor I/O (5) Essential (primary) hypertension: Code(s): I10 - Essential (primary) hypertension Status: Chronic Assessment and Plan: Chronic, continue home medications - Amlodipine 10 mg daily and valsartan 40 mg daily - blood pressures reviewed and stable, continue to monitor (6) Depression: Qualifiers: Depression Type: unspecified Qualified Code(s): F32.A - Depression, unspecified Code(s): F32.A - Depression, unspecified Status: Chronic Assessment and Plan: Continue fluoxetine Plan Diet: regular GI Prophylaxis: n/a DVT Prophylaxis: SCDs IV fluids: none, fluid restriction Lines/Tubes: peripheral IV Code Status: DNR Time Spent With Patient Time with patient: 25 - 35 minutes Subjective Date/time seen: 04/16/25 08:25 Interval history: 79 year old female with past medical history of CKD, anemia, HTN, hypothyroidism, HLD, DM, recent hip surgery 5 weeks ago (undergoing PT/OT w/HH) presents to the hospital with hyponatremia. Patient is pleasant sitting up comfortably in bed. She is endorsing increased right leg pain that is exacerbated with ambulation. She states that she has not been getting out of bed because of pain in the nursing staff has been using a [facility] for transfer. Discussed with patient she was previously ambulating and we can give medications for pain to make ambulation tolerable. PT/OT consulted given decreased mobility. Patient denies any tingling/numbness or shooting pains to the lower extremity. Patient has no other complaints denying chest pain, shortness a breath, palpitations, nausea/vomiting, dizziness/lightheadedness, and muscles aches/pains/tremors. Review of Systems Review of Systems: All systems reviewed & are unremarkable except as noted in HPI and below Exam Narrative: AF HR 79 RR 16 Spo2 98 BP 138/59 General: female in no acute respiratory distress who is nontoxic appearing, sitting up in bed. HEENT: Normocephalic. Atraumatic. Extraocular movement intact. Sclera clear and anicteric. No facial asymmetry. Chest: Lungs are clear to auscultation bilaterally. CV: Heart was regular rate and rhythm. Abd: Abdomen was soft. Nontender. Nondistended. Positive bowel sounds. Ext: No clubbing, cyanosis, or edema. Surgical incision to the mid lateral hip with two draining wounds to the lower and mid aspect along the incision site. Redness and warmth noted. Purulent drainage. No pain with palpation. Neuro: Patient is alert. Speech is clear. Objective Data Vital Signs Vital Signs: Vital Signs - 24 hr 04/15/25 08:40 04/15/25 08:40 04/15/25 12:00 Temperature Pulse Rate 88 72 Respiratory Rate Blood Pressure Pulse Oximetry 94 Oxygen Delivery Room Air 04/15/25 14:00 04/15/25 16:00 04/15/25 20:00 Temperature 97.8 F Pulse Rate 72 86 67 Respiratory Rate 16 Blood Pressure 158/68 H Pulse Oximetry 97 Oxygen Delivery 04/15/25 20:40 04/15/25 21:01 04/16/25 00:00 Temperature 98.3 F Pulse Rate 81 98 Respiratory Rate 16 Blood Pressure 151/56 H Pulse Oximetry 98 Oxygen Delivery Room Air 04/16/25 04:00 04/16/25 05:54 Temperature 98.4 F Pulse Rate 75 79 Respiratory Rate 16 Blood Pressure 138/59 L Pulse Oximetry 98 Oxygen Delivery Intake/Output Intake/Output: Intake & Output 04/13/25 04/14/25 04/15/25 04/16/25 23:59 23:59 23:59 23:59 Intake Total 1190 1570 350 Output Total 220 401 Balance 970 1570 -51 Meds/Results Medications: Active Medications Generic Name Dose Route Start Last Admin Trade Name Freq PRN Reason Stop Dose Admin Acetaminophen 650 mg 04/14/25 22:00 04/16/25 05:21 Acetaminophen 325 Mg Tablet PO 650 mg Q8HR VALERIA Administration Amlodipine Besylate 10 mg 04/15/25 09:00 04/16/25 08:20 Amlodipine Besylate 10 Mg Tablet PO 10 mg QAM VALERIA Administration Ascorbic Acid 1,000 mg 04/15/25 09:00 04/16/25 08:20 Ascorbic Acid 500 Mg Tablet PO 1,000 mg QAM VALERIA Administration Calcium Carbonate 500 mg 04/15/25 12:00 04/15/25 12:33 Calcium/Vitamin D 500 Mg/5 Mcg (200 I.U.) Tablet PO 500 mg DAILY@1200 [facility] Administration Cyanocobalamin 1,000 mcg 04/15/25 09:00 04/16/25 08:20 Cyanocobalamin 1,000 Mcg Tablet PO 1,000 mcg QAM VALERIA Administration Fluoxetine HCl 20 mg 04/15/25 09:00 04/16/25 08:20 Fluoxetine Hcl 20 Mg Capsule PO 20 mg DAILY VALERIA Administration Gabapentin 100 mg 04/14/25 21:00 04/15/25 20:47 Gabapentin 100 Mg Capsule PO 100 mg QHS VALERIA Administration Cefepime HCl 1 gm/ Sodium 50 mls @ 100 mls/hr 04/15/25 12:00 04/16/25 00:20 Chloride IVPB Infused Q12H VALERIA Infusion Vancomycin HCl 1,250 mg in 250 mls @ 166.667 mls/hr 04/16/25 13:00 Vancomycin 1,250 Mg/Ns 250 Ml IVPB Q24H [facility] Levothyroxine Sodium 88 mcg 04/15/25 06:30 04/16/25 05:21 Levothyroxine Sodium 88 Mcg Tablet PO 88 mcg DAILY@0630 VALERIA Administration Sodium Chloride 1,000 mg 04/16/25 09:00 04/16/25 08:20 Sodium Chloride 500 Mg Tablet PO 1,000 mg BID VALERIA Administration Trazodone HCl 150 mg 04/14/25 16:55 04/15/25 21:17 Trazodone Hcl 50 Mg Tablet PO 150 mg HS PRN Administration Sleep Valsartan 40 mg 04/14/25 21:00 04/15/25 20:47 Valsartan 40 Mg Tablet PO 40 mg HS VALERIA Administration Radiology Results: ITS Impressions Chest X-Ray 04/15/25 08:41 IMPRESSION: 1. No acute cardiopulmonary findings given portable technique. Lower Extremity CT 04/15/25 13:10 IMPRESSION: 1. 10.3 x 4.3 x 2.4 cm subcutaneous collection of gas, fluid and some high attenuation material, potentially packing material along a surgical wound lateral to the proximal right femur where there has been recent internal fixation of a recent comminuted intratrochanteric fracture. 3. More advanced healing of a more chronic comminuted extra articular fracture of the distal right femur with separate retrograde intramedullary pieter fixation. Labs Labs: Laboratory Results - last 24 hr 04/15/25 04/15/25 04/16/25 04:31 11:46 04:53 WBC 9.3 RBC 2.92 L Hgb 9.4 L Hct 28.4 L MCV 97.3 MCH 32.2 MCHC 33.1 RDW 12.4 Plt Count 430 H MPV 8.9 ESR > 140 H Sodium 124 L Potassium 4.2 Chloride 93 L Carbon Dioxide 27 Anion Gap 4 BUN 18 H Creatinine 0.82 Estim Creat Clear Calc 52 Estimated GFR > 60 Glucose 90 Calcium 8.9 Total Bilirubin 0.3 AST 31 ALT 9 Alkaline Phosphatase 90 C-Reactive Protein 1.3 H Total Protein 6.1 L Albumin 3.0 L Quality VTE Prophylaxis VTE prophylaxis: mechanical ordered
--- NOTE | 2025-04-16 10:08 | PC.NURSE ---
Changed dressing. Copious amount of drainage present. Packing changed. Pt tolerated well, no pain.
--- NOTE | 2025-04-16 10:34 | PM.PNNEP ---
Progress Note: A&P Assessment and Plan (1) Hyponatremia: Code(s): E87.1 - Hypo-osmolality and hyponatremia Status: Acute Assessment and Plan: slow improvement noted appears acute noted about during hospitalization (late February/early Mar 2025) in [place] -- sodium running ~ 132 - 136mmol/L at that time previous sodium levels ~ 135 - 139 since July 2024 however, has been as low as 130mmol/L in June 2023 appears otherwise asymptomatic risk factors for low sodium noted previously: pain (right hip wound) medications: - trazodone - fluoxetine (SSRI) --> family says this was started ~ year ago with dosage increase 3 months ago... - gabapentin thyroid disease possibly excessive free water intake evaluation to date noted (from last and current hospitalization): thyroid studies noted cortisol okay urine electrolyte non-prerenal (repeat is pending) SPEP and serum immunofixation negative UPEP with asymmetrical beta but urine immunofixation negative serum osmolality 269 & urine osmolality [address] noted CXR negative on fluid restriction restarted on salt tablets consider low dose lasix but follow trend of sodium for now... follow trend of repeat sodium levels (2) Postoperative wound infection of right hip: Code(s): T81.49XA - Infection following a procedure, other surgical site, initial encounter Status: Acute Assessment and Plan: s/p right DHS plate for intertrochanteric right hip fracture (on 03/10/2025 in [place], [place]) ~ 1 week prior to presentation, noted warmth, redness and blistering wound to the lower aspect of surgical incision with clear drainage -- this has continues to worsen and new wound formed to mid aspect with clear drainage CT right lower extremity (on 04/15) noted: 10.3 x 4.3 x 2.4 cm subcutaneous collection of gas, fluid and some high attenuation material, potentially packing material along a surgical wound lateral to the proximal right femur where there has been recent internal fixation of a recent comminuted intratrochanteric fracture more advanced healing of a more chronic comminuted extra articular fracture of the distal right femur with separate retrograde intramedullary pieter fixation follow culture data on antibiotics local wound care Orthopedic Surgery following (3) Anemia: Qualifiers: Anemia type: unspecified type Qualified Code(s): D64.9 - Anemia, unspecified Code(s): D64.9 - Anemia, unspecified Status: Acute Assessment and Plan: noted on admission due to possible infection issues/concerns mild/underlying CKD could be playing a role follow trend of H/H (4) Obstructive sleep apnea: Onset Date: ~02/2021 Code(s): G47.33 - Obstructive sleep apnea (adult) (pediatric) Status: Chronic Assessment and Plan: follows with [facility] on CPAP (5) Essential (primary) hypertension: Code(s): I10 - Essential (primary) hypertension Status: Chronic Assessment and Plan: reasonable control follow trend of hemodynamics (6) Type 2 diabetes mellitus in remission: Code(s): E11.9 - Type 2 diabetes mellitus without complications Status: Chronic Assessment and Plan: apparently diet controlled not requiring medications follow blood sugars Will continue to follow. Subjective Date/time seen: 04/16/25 10:34 Interval history: Follow-up for acute hyponatremia. Major complaint on my visit in that of increase right lower extremity pain which is worse with movement; her pain make it difficult for her to even get out of bed; nursing reports ongoing drainage with right hip dressing changes; sodium level has improved with current interventions (fluid restriction and salt tablets); discussed with family at bedside. Exam Narrative: General: elderly but WD/WN female in NAD Heart: normal S1 and S2; no rub Lungs: clear to auscultation Abdomen: soft, nontender, nondistended, positive bowel sounds Extremities: no cyanosis or clubbing; no edema Skin: warm and dry Objective Data Vital Signs Vital Signs: Vital Signs Temp Pulse Resp BP Pulse Ox O2 Del Method 04/16/25 11:39 Room Air 04/16/25 08:00 74 04/16/25 08:00 79 16 98 Room Air 04/16/25 05:54 98.4 F 79 16 138/59 L 98 04/16/25 04:00 75 04/16/25 00:00 98 04/15/25 21:01 98.3 F 81 16 151/56 H 98 04/15/25 20:40 Room Air 04/15/25 20:00 67 04/15/25 16:00 86 04/15/25 14:00 97.8 F 72 16 158/68 H 97 Intake/Output Intake/Output: Intake & Output 04/13/25 04/14/25 04/15/25 04/16/25 23:59 23:59 23:59 23:59 Intake Total 1190 1570 350 Output Total 220 1101 Balance 970 1570 -751 Meds/Results Medications: Active Medications Generic Name Dose Route Start Last Admin Trade Name Freq PRN Reason Stop Dose Admin Acetaminophen 650 mg 04/14/25 22:00 04/16/25 05:21 Acetaminophen 325 Mg Tablet PO 650 mg Q8HR VALERIA Administration Hydrocodone Bitart/Acetaminophen 1 tab 04/16/25 12:19 Hydrocodone/Acetaminophen (*Crx) 5-325 Mg Tablet PO Q6H PRN Pain Rated 4-6 Amlodipine Besylate 10 mg 04/15/25 09:00 04/16/25 08:20 Amlodipine Besylate 10 Mg Tablet PO 10 mg QAM VALERIA Administration Ascorbic Acid 1,000 mg 04/15/25 09:00 04/16/25 08:20 Ascorbic Acid 500 Mg Tablet PO 1,000 mg QAM VALERIA Administration Calcium Carbonate 500 mg 04/15/25 12:00 04/16/25 12:11 Calcium/Vitamin D 500 Mg/5 Mcg (200 I.U.) Tablet PO 500 mg DAILY@1200 [facility] Administration Cyanocobalamin 1,000 mcg 04/15/25 09:00 04/16/25 08:20 Cyanocobalamin 1,000 Mcg Tablet PO 1,000 mcg QAM VALERIA Administration Fluoxetine HCl 20 mg 04/15/25 09:00 04/16/25 08:20 Fluoxetine Hcl 20 Mg Capsule PO 20 mg DAILY VALERIA Administration Gabapentin 100 mg 04/14/25 21:00 04/15/25 20:47 Gabapentin 100 Mg Capsule PO 100 mg QHS [facility] Administration Cefepime HCl 1 gm/ Sodium 50 mls @ 100 mls/hr 04/15/25 12:00 04/16/25 12:10 Chloride IVPB 100 mls/hr Q12H VALERIA Administration Vancomycin HCl 1,250 mg in 250 mls @ 166.667 mls/hr 04/16/25 13:00 Vancomycin 1,250 Mg/Ns 250 Ml IVPB Q24H [facility] Levothyroxine Sodium 88 mcg 04/15/25 06:30 04/16/25 05:21 Levothyroxine Sodium 88 Mcg Tablet PO 88 mcg DAILY@0630 [facility] Administration Sodium Chloride 1,000 mg 04/16/25 09:00 04/16/25 08:20 Sodium Chloride 500 Mg Tablet PO 1,000 mg BID VALERIA Administration Trazodone HCl 150 mg 04/14/25 16:55 04/15/25 21:17 Trazodone Hcl 50 Mg Tablet PO 150 mg HS PRN Administration Sleep Valsartan 40 mg 04/14/25 21:00 04/15/25 20:47 Valsartan 40 Mg Tablet PO 40 mg HS VALERIA Administration Radiology Results: ITS Impressions Chest X-Ray 04/15/25 08:41 IMPRESSION: 1. No acute cardiopulmonary findings given portable technique. Lower Extremity CT 04/15/25 13:10 IMPRESSION: 1. 10.3 x 4.3 x 2.4 cm subcutaneous collection of gas, fluid and some high attenuation material, potentially packing material along a surgical wound lateral to the proximal right femur where there has been recent internal fixation of a recent comminuted intratrochanteric fracture. 3. More advanced healing of a more chronic comminuted extra articular fracture of the distal right femur with separate retrograde intramedullary pieter fixation. Labs Labs: Laboratory Tests 04/16/25 04:53 04/16/25 04:53 Calcium 8.9 Total Bilirubin 0.3 AST 31 ALT 9 Alkaline Phosphatase 90 Total Protein 6.1 L Albumin 3.0 L
[2025-04-16] MEDS: CEFEPIME 1 GM in SODIUM CHLORIDE 0.9% IV 50 ML 100 ML IVPB (12:10)
[2025-04-16] MEDS: CALCIUM/VITAMIN D 500 MG/5 MCG (200 I.U.) TABLET PO (12:11)
[2025-04-16 12:38] LABS: Total Protein Urine Random 71 mg/dL; Ur Ttl Prot Creatinine Ratio 1.15 mg/mg (0-0.20)
--- NOTE | 2025-04-16 13:00 | PC.NURSE ---
Dressing changed, moderate amount of discharge present. Pt tolerated well.
[2025-04-16 13:36] LABS: Urea Random Urine 365 MG/DL
[2025-04-16] MEDS: VANCOMYCIN 1,250 MG/NS 250 ML 1,250 MG/250 ML BAG 166.67 MG IVPB (13:38)
[2025-04-16 14:02] LABS: Iron 42 ug/dL (37-170)
[2025-04-16 14:11] LABS: Percent Iron Saturation 23 % (20-50)
[2025-04-16 14:43] LABS: Ferritin 274.00 ng/mL (11.1-264)
[2025-04-16 15:09] LABS: Vitamin B12 969.0 pg/mL (239-931)
[2025-04-16] MEDS: VALSARTAN 40 MG TABLET PO (21:38)
[2025-04-16] MEDS: GABAPENTIN 100 MG CAPSULE PO (21:39)
[2025-04-17] VITALS (10 sets, daily range): BP systolic 148–160; BP diastolic 60–67; PULSE 64–82; RESP 18–20; TEMP 36.4–36.6; O2SAT 97–99
[2025-04-17] MEDS: CEFEPIME 1 GM in SODIUM CHLORIDE 0.9% IV 50 ML 100 ML IVPB ×3 (00:13→23:04)
[2025-04-17 05:24] LABS: Hematocrit 28.2 % (37.0-47.0); Hemoglobin 9.1 g/dL (12.0-15.0); Mean Corpuscular HGB Conc 32.3 g/dl (32-36); Mean Corpuscular Hemoglobin 31.7 pg (26-34); Mean Corpuscular Volume 98.3 fl (80-100); Platelet Count Result 410 k/mm3 (150-375); Red Blood Count 2.87 M/mm3 (4.2-5.4); White Blood Count 7.1 K/mm3 (4.5-10.0)
[2025-04-17] MEDS: ACETAMINOPHEN 325 MG TABLET 650 MG PO ×3 (05:37→21:33)
[2025-04-17] MEDS: LEVOTHYROXINE SODIUM 88 MCG TABLET PO (05:37)
[2025-04-17 06:02] LABS: Alanine Aminotransferase 9 U/L (6-35); Albumin Level 2.9 g/dL (3.5-5.1); Alkaline Phosphatase 95 U/L (38-126); Anion Gap 5 mmol/L (4-12); Aspartate Amino Transferase 26 U/L (14-36); Bilirubin,Total 0.2 mg/dL (0.2-1.3); Blood Urea Nitrogen 17 mg/dL (7-17); Calcium 8.7 mg/dL (8.4-10.2); Carbon Dioxide 28 mmol/L (22-30); Chloride 95 mmol/L (98-107); Estimated CRCL calculation 47 ml/min; Estimated Glomerular Filt Rate 59; Glucose 86 mg/dL (65-110); Potassium 4.0 mmol/L (3.4-5.0); Sodium 128 mmol/L (137-145); Total Protein 5.8 g/dL (6.3-8.2)
--- NOTE | 2025-04-17 07:57 | PM.IMPN ---
Progress Note: A&P Assessment and Plan (1) Foreign body of right hip with infection: Code(s): S70.251A - Superficial foreign body, right hip, initial encounter; L08.9 - Local infection of the skin and subcutaneous tissue, unspecified Status: Acute Assessment and Plan: S/p right DHS Plate for Intertrochanteric fracture on 03/10/2025 in [facility] [place] [facility]. Earlier in 2024, when she again fell and sustained a closed distal 1/3 femoral shaft fracture that was treated with a retrograde IM pieter. Had scheduled appointment for follow up With Dr. Duke Marin, however was not able to make this appointment due to hyponatremia Approximately 1 week ago patient developed warmth, redness and blistering wound to the lower aspect of surgical incision with clear drainage, this has continues to worsen and new wound formed to mid aspect with clear drainage CT lower extremity: 10.3 x 4.3 x 2.4 cm subcutaneous collection of gas, fluid and some high attenuation material, potentially packing material along a surgical wound lateral to the proximal right femur where there has been recent internal fixation of a recent comminuted intratrochanteric fracture. More advanced healing of a more chronic comminuted extra articular fracture of the distal right femur with separate retrograde intramedullary pieter fixation. Wound culture obtained: pending Antibiotic: Vancomycin and cefepime started on 04/15, adjust per wound culture ID consulted, patient will need buttermaker helper antibiotic coverage as no acute surgical intervention at this time Wound care following Ortho consulted, discussed patients care plan and reviewed imaging with Dr. Santamaria No acute surgical intervention at this time, family working on re-scheduling appointment with Dr Duke Marin at [place]. Recommend addressing the hyponatremia PT/OT Patient remains afebrile without leukocytosis. Cultures still pending. Continue current antibiotic regimen. (2) Hyponatremia: Code(s): E87.1 - Hypo-osmolality and hyponatremia Status: Acute Assessment and Plan: Seen by her PCP, Miguel [employer]UCATION COUNSELOR, had outpatient lab work which showed a sodium of 120. Repeat Na on admission was 118. She was recently hospitalized from 03/31/2025 to 04/05/2025, hyponatremia was noted upon admission at 127, lowest at 125 during her hospitalization. Evaluated by Nephrology who believed the hyponatremia was acute. Risk factors for hyponatremia include thyroid disease and medications (trazodone, sertraline, gabapentin), may have some excessive free water intake. Nephrology recommended salt tabs and fluid restriction, however family did not want the patient to be on a fluid restriction. She was continued on the NaCl tablet at discharge. She has not been taking this due to cost. - Na 128 on am labs - Continue salt tabs and fluid restriction (1600 ml) - diet: regular - nephrology consulted, appreciate recommendations Sodium improving. Patient remains asymptomatic. (3) Hypothyroidism (acquired): Code(s): E03.9 - Hypothyroidism, unspecified Status: Chronic Assessment and Plan: - 04/01: TSH 8.29, T4 0.97, T3 0.55 on 04/01/25 - continue Synthroid 88 mcg daily (4) CKD (chronic kidney disease) stage 3, GFR 30-59 ml/min: Qualifiers: Chronic kidney disease stage 3 subtype: stage 3a (GFR 45-59) Qualified Code(s): N18.31 - Chronic kidney disease, stage 3a Code(s): N18.30 - Chronic kidney disease, stage 3 unspecified Status: Chronic Assessment and Plan: History of CKD. Baseline creatinine ~ 1.1 - 1.3mg/dl - appears at baseline renal function - trend renal function and electrolytes, correct electrolytes as needed - avoid nephrotoxic medications - renally dose medications - monitor I/O (5) Essential (primary) hypertension: Code(s): I10 - Essential (primary) hypertension Status: Chronic Assessment and Plan: Chronic, continue home medications - Amlodipine 10 mg daily and valsartan 40 mg daily - blood pressures reviewed and stable, continue to monitor (6) Depression: Qualifiers: Depression Type: unspecified Qualified Code(s): F32.A - Depression, unspecified Code(s): F32.A - Depression, unspecified Status: Chronic Assessment and Plan: Continue fluoxetine Time Spent With Patient Time with patient: 25 - 35 minutes Subjective Date/time seen: 04/17/25 07:57 Interval history: 79 year old female with past medical history of CKD, anemia, HTN, hypothyroidism, HLD, DM, recent hip surgery 5 weeks ago (undergoing PT/OT w/HH) presents to the hospital with hyponatremia. Patient is pleasant sitting up comfortably in bed. She continues to deny any confusion, nausea/vomiting, dizziness/lightheadedness, and muscle aches/ pains/tremors. She states that she was able to ambulate throughout her room using a walker he denies any hip pain, dizziness, lightheadedness. She has no other complaints denying chest pain, shortness a breath, and palpitations. Review of Systems Review of Systems: All systems reviewed & are unremarkable except as noted in HPI and below Exam Narrative: AF HR 78 RR 18 Spo2 99 BP 151/60 General: female in no acute respiratory distress who is nontoxic appearing, sitting up in bed. HEENT: Normocephalic. Atraumatic. Extraocular movement intact. Sclera clear and anicteric. No facial asymmetry. Chest: Lungs are clear to auscultation bilaterally. CV: Heart was regular rate and rhythm. Abd: Abdomen was soft. Nontender. Nondistended. Positive bowel sounds. Ext: No clubbing, cyanosis, or edema. Surgical incision to the mid lateral hip with two draining wounds to the lower and mid aspect along the incision site, less drainage noted and now serosanguineous. Redness and warmth is improving. No pain with palpation. Objective Data Vital Signs Vital Signs: Vital Signs - 24 hr 04/16/25 08:00 04/16/25 08:00 04/16/25 11:39 Temperature Pulse Rate 79 74 Respiratory Rate 16 Blood Pressure Pulse Oximetry 98 Oxygen Delivery Room Air Room Air 04/16/25 12:00 04/16/25 13:58 04/16/25 14:00 Temperature 98.0 F Pulse Rate 80 82 Respiratory Rate 18 Blood Pressure 144/68 H Pulse Oximetry 94 Oxygen Delivery Room Air 04/16/25 16:00 04/16/25 20:00 04/16/25 21:15 Temperature 97.6 F Pulse Rate 84 78 82 Respiratory Rate 18 Blood Pressure 137/57 L Pulse Oximetry 96 Oxygen Delivery 04/16/25 21:32 04/17/25 00:00 04/17/25 04:00 Temperature Pulse Rate 77 73 Respiratory Rate Blood Pressure Pulse Oximetry Oxygen Delivery Room Air 04/17/25 05:24 Temperature 97.6 F Pulse Rate 78 Respiratory Rate 18 Blood Pressure 151/60 H Pulse Oximetry 99 Oxygen Delivery Intake/Output Intake/Output: Intake & Output 04/14/25 04/15/25 04/16/25 04/17/25 23:59 23:59 23:59 23:59 Intake Total 1190 1570 640 260 Output Total 220 1101 400 Balance 974 3398 -464 -168 Meds/Results Medications: Active Medications Generic Name Dose Route Start Last Admin Trade Name Freq PRN Reason Stop Dose Admin Acetaminophen 650 mg 04/14/25 22:00 04/17/25 05:37 Acetaminophen 325 Mg Tablet PO 650 mg Q8HR VALERIA Administration Hydrocodone Bitart/Acetaminophen 1 tab 04/16/25 12:19 Hydrocodone/Acetaminophen (*Crx) 5-325 Mg Tablet PO Q6H PRN Pain Rated 4-6 Amlodipine Besylate 10 mg 04/15/25 09:00 04/16/25 08:20 Amlodipine Besylate 10 Mg Tablet PO 10 mg QAM VALERIA Administration Ascorbic Acid 1,000 mg 04/15/25 09:00 04/16/25 08:20 Ascorbic Acid 500 Mg Tablet PO 1,000 mg QAM VALERIA Administration Calcium Carbonate 500 mg 04/15/25 12:00 04/16/25 12:11 Calcium/Vitamin D 500 Mg/5 Mcg (200 I.U.) Tablet PO 500 mg DAILY@1200 VALERIA Administration Cyanocobalamin 1,000 mcg 04/15/25 09:00 04/16/25 08:20 Cyanocobalamin 1,000 Mcg Tablet PO 1,000 mcg QAM VALERIA Administration Fluoxetine HCl 20 mg 04/15/25 09:00 04/16/25 08:20 Fluoxetine Hcl 20 Mg Capsule PO 20 mg DAILY VALERIA Administration Gabapentin 100 mg 04/14/25 21:00 04/16/25 21:39 Gabapentin 100 Mg Capsule PO 100 mg QHS VALERIA Administration Cefepime HCl 1 gm/ Sodium 50 mls @ 100 mls/hr 04/15/25 12:00 04/17/25 00:43 Chloride IVPB Infused Q12H VALERIA Infusion Vancomycin HCl 1,250 mg in 250 mls @ 166.667 mls/hr 04/16/25 13:00 04/16/25 13:38 Vancomycin 1,250 Mg/Ns 250 Ml IVPB 166.67 mls/hr Q24H VALERIA Administration Levothyroxine Sodium 88 mcg 04/15/25 06:30 04/17/25 05:37 Levothyroxine Sodium 88 Mcg Tablet PO 88 mcg DAILY@0630 VALERIA Administration Sodium Chloride 1,000 mg 04/16/25 09:00 04/16/25 16:48 Sodium Chloride 500 Mg Tablet PO 1,000 mg BID VALERIA Administration Trazodone HCl 150 mg 04/14/25 16:55 04/16/25 21:39 Trazodone Hcl 50 Mg Tablet PO 150 mg HS PRN Administration Sleep Valsartan 40 mg 04/14/25 21:00 04/16/25 21:38 Valsartan 40 Mg Tablet PO 40 mg HS VALERIA Administration Radiology Results: ITS Impressions Chest X-Ray 04/15/25 08:41 IMPRESSION: 1. No acute cardiopulmonary findings given portable technique. Lower Extremity CT 04/15/25 13:10 IMPRESSION: 1. 10.3 x 4.3 x 2.4 cm subcutaneous collection of gas, fluid and some high attenuation material, potentially packing material along a surgical wound lateral to the proximal right femur where there has been recent internal fixation of a recent comminuted intratrochanteric fracture. 3. More advanced healing of a more chronic comminuted extra articular fracture of the distal right femur with separate retrograde intramedullary pieter fixation. Labs Labs: Laboratory Results - last 24 hr 04/16/25 04/16/25 04/17/25 04:52 12:20 04:34 WBC 7.1 RBC 2.87 L Hgb 9.1 L Hct 28.2 L MCV 98.3 MCH 31.7 MCHC 32.3 RDW 12.6 Plt Count 410 H MPV 8.8 Sodium 128 L Potassium 4.0 Chloride 95 L Carbon Dioxide 28 Anion Gap 5 BUN 17 Creatinine 0.92 Estim Creat Clear Calc 47 Estimated GFR 59 Glucose 86 Calcium 8.7 Iron 42 TIBC 183 L % Saturation 23 Ferritin 274.00 H Total Bilirubin 0.2 AST 26 ALT 9 Alkaline Phosphatase 95 Total Protein 5.8 L Albumin 2.9 L Vitamin B12 969.0 H Folate > 20.0 H U Random Total Protein 71 Ur Random Sodium 31 Ur Random Urea 365 Urine Creatinine 61.7 Protein/Creat Ratio 2 1.15 H Quality VTE Prophylaxis VTE prophylaxis: mechanical ordered
[2025-04-17] MEDS: CYANOCOBALAMIN 1,000 MCG TABLET 1000 MCG PO (09:13)
[2025-04-17] MEDS: SODIUM CHLORIDE 500 MG TABLET 1000 MG PO ×2 (09:14→17:11)
[2025-04-17] MEDS: ASCORBIC ACID 500 MG TABLET 1000 MG PO (09:14)
--- NOTE | 2025-04-17 12:17 | P.PNNP_ITS ---
Progress Note: A&P Assessment and Plan (1) Hyponatremia: Code(s): E87.1 - Hypo-osmolality and hyponatremia Status: Acute Assessment and Plan: * slow improvement noted * appears acute * noted about during hospitalization (late February/early Mar 2025) in [place] -- sodium running ~ 132 - 136mmol/L at that time * previous sodium levels ~ 135 - 139 since July 2024 * however, has been as low as 130mmol/L in June 2023 * appears otherwise asymptomatic * risk factors for low sodium noted previously: * pain (right hip wound) * medications: - trazodone - fluoxetine (SSRI) --> family says this was started ~ year ago with suzanne garrido 3 months ago... - gabapentin * thyroid disease * possibly excessive free water intake * evaluation to date noted (from last and current hospitalization): * thyroid studies noted * cortisol okay * urine electrolyte non-prerenal (on last admission) * repeat urine electrolytes prerenal * SPEP and serum immunofixation negative * UPEP with asymmetrical beta but urine immunofixation negative * serum osmolality 269 & urine osmolality 194 * head CT noted * CXR negative * on fluid restriction * on salt tablets * follow trend of repeat sodium levels (2) Postoperative wound infection of right hip: Code(s): T81.49XA - Infection following a procedure, other surgical site, initial encounter Status: Acute Assessment and Plan: * s/p right DHS plate for intertrochanteric right hip fracture (on 03/10/2025 in [place], [place]) * ~ 1 week prior to presentation, noted warmth, redness and blistering wound to the lower aspect of surgical incision with clear drainage -- this has continues to worsen and new wound formed to mid aspect with clear drainage * CT right lower extremity (on 04/15) noted: * 10.3 x 4.3 x 2.4 cm subcutaneous collection of gas, fluid and some high attenuation material, potentially packing material along a surgical wound lateral to the proximal right femur where there has been recent internal fixation of a recent comminuted intratrochanteric fracture * more advanced healing of a more chronic comminuted extra articular fracture of the distal right femur with separate retrograde intramedullary pieter fixation * follow culture data * on antibiotics * local wound care * Orthopedic Surgery following (3) Anemia: Qualifiers: Anemia type: unspecified type Qualified Code(s): D64.9 - Anemia, unspecified Code(s): D64.9 - Anemia, unspecified Status: Acute Assessment and Plan: * noted on admission * due to possible infection issues/concerns * mild/underlying CKD could be playing a role * follow trend of H/H (4) Obstructive sleep apnea: Onset Date: ~02/2021 Code(s): G47.33 - Obstructive sleep apnea (adult) (pediatric) Status: Chronic Assessment and Plan: * follows with [facility] * on CPAP (5) Essential (primary) hypertension: Code(s): I10 - Essential (primary) hypertension Status: Chronic Assessment and Plan: * reasonable control * follow trend of hemodynamics (6) Type 2 diabetes mellitus in remission: Code(s): E11.9 - Type 2 diabetes mellitus without complications Status: Chronic Assessment and Plan: * apparently diet controlled * not requiring medications * follow blood sugars Will continue to follow. L Subjective Date/time seen: 04/17/25 12:17 Interval history: Follow-up for acute hyponatremia. Pain control seems to be doing better in general; no other acute complaints voiced at the time of my visit; sodium has been slowly improving since admission with current interventions/therapy (salt tablets and fluid restriction); no events overnight or earlier this morning. Exam 2 Narrative: General: elderly but WD/WN female in NAD Heart: normal S1 and S2; no rub Lungs: clear to auscultation Abdomen: soft, nontender, nondistended, positive bowel sounds Extremities: no cyanosis or clubbing; no edema Skin: warm and intact Objective Data Vital Signs Vital Signs: Vital Signs Temp Pulse Resp BP Pulse Ox O2 Del Method 04/17/25 12:00 82 04/17/25 09:15 Room Air 04/17/25 08:45 97 Room Air 04/17/25 08:00 76 04/17/25 05:24 97.6 F 78 18 151/60 H 99 04/17/25 04:00 73 04/17/25 00:00 77 04/16/25 21:32 Room Air 04/16/25 21:15 97.6 F 82 18 137/57 L 96 04/16/25 20:00 78 Intake/Output Intake/Output: Intake & Output 04/14/25 04/15/25 04/16/25 04/17/25 23:59 23:59 23:59 23:59 Intake Total 1190 1355 338 8080 Output Total 220 1101 400 Balance 970 1570 -461 1130 Meds/Results Medications: Active Medications Generic Name Dose Route Start Last Admin Trade Name Freq PRN Reason Stop Dose Admin Acetaminophen 650 mg 04/14/25 22:00 04/17/25 14:23 Acetaminophen 325 Mg Tablet PO 650 mg Q8HR VALERIA Administration Hydrocodone Bitart/Acetaminophen 1 tab 04/16/25 12:19 Hydrocodone/Acetaminophen (*Crx) 5-325 Mg Tablet PO Q6H PRN Pain Rated 4-6 Amlodipine Besylate 10 mg 04/15/25 09:00 04/17/25 09:13 Amlodipine Besylate 10 Mg Tablet PO 10 mg QAM VALERIA Administration Ascorbic Acid 1,000 mg 04/15/25 09:00 04/17/25 09:14 Ascorbic Acid 500 Mg Tablet PO 1,000 mg QAM VALERIA Administration Calcium Carbonate 500 mg 04/15/25 12:00 04/17/25 12:22 Calcium/Vitamin D 500 Mg/5 Mcg (200 I.U.) Tablet PO 500 mg DAILY@1200 VALERIA Administration Cyanocobalamin 1,000 mcg 04/15/25 09:00 04/17/25 09:13 Cyanocobalamin 1,000 Mcg Tablet PO 1,000 mcg QAM VALERIA Administration Fluoxetine HCl 20 mg 04/15/25 09:00 04/17/25 09:13 Fluoxetine Hcl 20 Mg Capsule PO 20 mg DAILY VALERIA Administration Gabapentin 100 mg 04/14/25 21:00 04/16/25 21:39 Gabapentin 100 Mg Capsule PO 100 mg QHS VALERIA Administration Cefepime HCl 1 gm/ Sodium 50 mls @ 100 mls/hr 04/15/25 12:00 04/17/25 12:52 Chloride IVPB Infused Q12H VALERIA Infusion Vancomycin HCl 1,500 mg in 500 mls @ 250 mls/hr 04/17/25 13:00 04/17/25 14:58 Vancomycin 1,500 Mg/Ns 500 Ml IVPB Infused Q24H VALERIA Infusion Levothyroxine Sodium 88 mcg 04/15/25 06:30 04/17/25 05:37 Levothyroxine Sodium 88 Mcg Tablet PO 88 mcg DAILY@0630 VALERIA Administration Sodium Chloride 1,000 mg 04/16/25 09:00 04/17/25 17:11 Sodium Chloride 500 Mg Tablet PO 1,000 mg BID VALERIA Administration Trazodone HCl 150 mg 04/14/25 16:55 04/16/25 21:39 Trazodone Hcl 50 Mg Tablet PO 150 mg HS PRN Administration Sleep Valsartan 40 mg 04/14/25 21:00 04/16/25 21:38 Valsartan 40 Mg Tablet PO 40 mg HS VALERIA Administration Radiology Results: ITS Impressions Chest X-Ray 04/15/25 08:41 IMPRESSION: 1. No acute cardiopulmonary findings given portable technique. Lower Extremity CT 04/15/25 13:10 IMPRESSION: 1. 10.3 x 4.3 x 2.4 cm subcutaneous collection of gas, fluid and some high attenuation material, potentially packing material along a surgical wound lateral to the proximal right femur where there has been recent internal fixation of a recent comminuted intratrochanteric fracture. 3. More advanced healing of a more chronic comminuted extra articular fracture of the distal right femur with separate retrograde intramedullary pieter fixation. Labs Labs: Laboratory Tests 04/17/25 04:34 04/17/25 04:34 Calcium 8.7 Total Bilirubin 0.2 AST 26 ALT 9 Alkaline Phosphatase 95 Total Protein 5.8 L Albumin 2.9 L
[2025-04-17] MEDS: CALCIUM/VITAMIN D 500 MG/5 MCG (200 I.U.) TABLET PO (12:22)
[2025-04-17] MEDS: VANCOMYCIN 1,500 MG/NS 500 ML 1,500 MG/500 ML BAG 250 MG IVPB (12:58)
[2025-04-17] MEDS: GABAPENTIN 100 MG CAPSULE PO (21:32)
[2025-04-17] MEDS: VALSARTAN 40 MG TABLET PO (21:33)
[2025-04-18] VITALS (10 sets, daily range): BP systolic 124–160; BP diastolic 57–89; PULSE 72–86; RESP 18–20; TEMP 36.6–36.7; O2SAT 95–97
[2025-04-18 05:34] LABS: Hematocrit 28.5 % (37.0-47.0); Hemoglobin 9.3 g/dL (12.0-15.0); Mean Corpuscular HGB Conc 32.6 g/dl (32-36); Mean Corpuscular Hemoglobin 32.1 pg (26-34); Mean Corpuscular Volume 98.3 fl (80-100); Platelet Count Result 385 k/mm3 (150-375); Red Blood Count 2.90 M/mm3 (4.2-5.4); White Blood Count 6.6 K/mm3 (4.5-10.0)
[2025-04-18] MEDS: ACETAMINOPHEN 325 MG TABLET 650 MG PO ×3 (05:48→21:03)
[2025-04-18] MEDS: LEVOTHYROXINE SODIUM 88 MCG TABLET PO (05:48)
[2025-04-18 05:54] LABS: Alanine Aminotransferase 11 U/L (6-35); Albumin Level 3.0 g/dL (3.5-5.1); Alkaline Phosphatase 93 U/L (38-126); Anion Gap 2 mmol/L (4-12); Aspartate Amino Transferase 26 U/L (14-36); Bilirubin,Total 0.1 mg/dL (0.2-1.3); Blood Urea Nitrogen 16 mg/dL (7-17); Calcium 8.9 mg/dL (8.4-10.2); Carbon Dioxide 30 mmol/L (22-30); Chloride 96 mmol/L (98-107); Estimated CRCL calculation 52 ml/min; Estimated Glomerular Filt Rate > 60; Glucose 85 mg/dL (65-110); Potassium 3.9 mmol/L (3.4-5.0); Sodium 128 mmol/L (137-145); Total Protein 5.9 g/dL (6.3-8.2)
--- NOTE | 2025-04-18 09:01 | PM.IMPN ---
Progress Note: A&P Assessment and Plan (1) Foreign body of right hip with infection: Code(s): S70.251A - Superficial foreign body, right hip, initial encounter; L08.9 - Local infection of the skin and subcutaneous tissue, unspecified Status: Acute Assessment and Plan: S/p right DHS Plate for Intertrochanteric fracture on 03/10/2025 in [facility]. Earlier in 2024, when she again fell and sustained a closed distal 1/3 femoral shaft fracture that was treated with a retrograde IM pieter. Had scheduled appointment for follow up With Dr. Duke Marin, however was not able to make this appointment due to hyponatremia Approximately 1 week ago patient developed warmth, redness and blistering wound to the lower aspect of surgical incision with clear drainage, this has continues to worsen and new wound formed to mid aspect with clear drainage CT lower extremity: 10.3 x 4.3 x 2.4 cm subcutaneous collection of gas, fluid and some high attenuation material, potentially packing material along a surgical wound lateral to the proximal right femur where there has been recent internal fixation of a recent comminuted intratrochanteric fracture. More advanced healing of a more chronic comminuted extra articular fracture of the distal right femur with separate retrograde intramedullary pieter fixation. Wound culture obtained: pending Antibiotic: Vancomycin and cefepime started on 04/15, added on flagyl on 04/18 per ID. Adjust per wound culture ID consulted, patient will need termite treater antibiotic coverage as no acute surgical intervention at this time Wound care following Ortho consulted, discussed patients care plan and reviewed imaging with Dr. Santamaria No acute surgical intervention at this time, family working on re-scheduling appointment with Dr Duke Marin at [place]. Recommend addressing the hyponatremia PT/OT Wound continues to have drainage. Redness and warmth improving. Patient remains afebrile without leukocytosis. Cultures still pending. Continue current antibiotic regimen, added on flagyl per ID. Discussed patient with ID Dr. Saini who favors more immediate debridement and plans to discuss with Dr. Dela Cruz if possible about transfer. (2) Hyponatremia: Code(s): E87.1 - Hypo-osmolality and hyponatremia Status: Acute Assessment and Plan: Seen by her PCP, Miguel E[employer]TER, had outpatient lab work which showed a sodium of 120. Repeat Na on admission was 118. She was recently hospitalized from 03/31/2025 to 04/05/2025, hyponatremia was noted upon admission at 127, lowest at 125 during her hospitalization. Evaluated by Nephrology who believed the hyponatremia was acute. Risk factors for hyponatremia include thyroid disease and medications (trazodone, sertraline, gabapentin), may have some excessive free water intake. Nephrology recommended salt tabs and fluid restriction, however family did not want the patient to be on a fluid restriction. She was continued on the NaCl tablet at discharge. She has not been taking this due to cost. - Na 128 on am labs - Continue salt tabs and fluid restriction (1600 ml) - diet: regular - nephrology consulted, appreciate recommendations Sodium improving. Patient remains asymptomatic. (3) Hypothyroidism (acquired): Code(s): E03.9 - Hypothyroidism, unspecified Status: Chronic Assessment and Plan: - 04/01: TSH 8.29, T4 0.97, T3 0.55 on 04/01/25 - continue Synthroid 88 mcg daily (4) CKD (chronic kidney disease) stage 3, GFR 30-59 ml/min: Qualifiers: Chronic kidney disease stage 3 subtype: stage 3a (GFR 45-59) Qualified Code(s): N18.31 - Chronic kidney disease, stage 3a Code(s): N18.30 - Chronic kidney disease, stage 3 unspecified Status: Chronic Assessment and Plan: History of CKD. Baseline creatinine ~ 1.1 - 1.3mg/dl - appears at baseline renal function - trend renal function and electrolytes, correct electrolytes as needed - avoid nephrotoxic medications - renally dose medications - monitor I/O (5) Essential (primary) hypertension: Code(s): I10 - Essential (primary) hypertension Status: Chronic Assessment and Plan: Chronic, continue home medications - Amlodipine 10 mg daily and valsartan 40 mg daily - blood pressures reviewed and stable, continue to monitor (6) Depression: Qualifiers: Depression Type: unspecified Qualified Code(s): F32.A - Depression, unspecified Code(s): F32.A - Depression, unspecified Status: Chronic Assessment and Plan: Continue fluoxetine Time Spent With Patient Time with patient: 25 - 35 minutes Subjective Date/time seen: 04/18/25 09:01 Interval history: 79 year old female with past medical history of CKD, anemia, HTN, hypothyroidism, HLD, DM, recent hip surgery 5 weeks ago (undergoing PT/OT w/HH) presents to the hospital with hyponatremia. Patient is pleasant sitting up comfortably in chair with family at bedside. She had no acute events overnight. She continues to drainage from the wound but denies any pain/tingling/numbness is working well with therapy. She has no other complaints denying chest pain, shortness a breath, palpitations, nausea/vomiting, and abdominal pain. Review of Systems Review of Systems: All systems reviewed & are unremarkable except as noted in HPI and below Exam Narrative: AF HR General: female in no acute respiratory distress who is nontoxic appearing, sitting up in bed. HEENT: Normocephalic. Atraumatic. Extraocular movement intact. Sclera clear and anicteric. No facial asymmetry. Chest: Lungs are clear to auscultation bilaterally. CV: Heart was regular rate and rhythm. Abd: Abdomen was soft. Nontender. Nondistended. Positive bowel sounds. Ext: No clubbing, cyanosis, or edema. Surgical incision to the mid lateral hip with two draining wounds to the lower and mid aspect along the incision site, less drainage noted and now serosanguineous. Redness and warmth is improving. No pain with palpation. Objective Data Vital Signs Vital Signs: Vital Signs - 24 hr 04/17/25 09:15 04/17/25 12:00 04/17/25 14:00 Temperature 98 F Pulse Rate 82 79 Respiratory Rate 18 Blood Pressure 148/67 H Pulse Oximetry 97 Oxygen Delivery Room Air 04/17/25 16:00 04/17/25 20:00 04/17/25 20:00 Temperature Pulse Rate 64 76 Respiratory Rate Blood Pressure Pulse Oximetry Oxygen Delivery Room Air 04/17/25 21:04 04/18/25 00:00 04/18/25 04:00 Temperature 97.5 F L Pulse Rate 77 72 72 Respiratory Rate 20 Blood Pressure 160/63 H Pulse Oximetry 98 Oxygen Delivery 04/18/25 05:39 Temperature 98 F Pulse Rate 77 Respiratory Rate 18 Blood Pressure 160/65 H Pulse Oximetry 95 Oxygen Delivery Intake/Output Intake/Output: Intake & Output 04/15/25 04/16/25 04/17/25 04/18/25 23:59 23:59 23:59 23:59 Intake Total 1444 969 6204 100 Output Total 1101 400 Balance 1570 -461 1130 100 Meds/Results Medications: Active Medications Generic Name Dose Route Start Last Admin Trade Name Freq PRN Reason Stop Dose Admin Acetaminophen 650 mg 04/14/25 22:00 04/18/25 05:48 Acetaminophen 325 Mg Tablet PO 650 mg Q8HR VALERIA Administration Hydrocodone Bitart/Acetaminophen 1 tab 04/16/25 12:19 Hydrocodone/Acetaminophen (*Crx) 5-325 Mg Tablet PO Q6H PRN Pain Rated 4-6 Amlodipine Besylate 10 mg 04/15/25 09:00 04/17/25 09:13 Amlodipine Besylate 10 Mg Tablet PO 10 mg QAM VALERIA Administration Ascorbic Acid 1,000 mg 04/15/25 09:00 04/17/25 09:14 Ascorbic Acid 500 Mg Tablet PO 1,000 mg QAM VALERIA Administration Calcium Carbonate 500 mg 04/15/25 12:00 04/17/25 12:22 Calcium/Vitamin D 500 Mg/5 Mcg (200 I.U.) Tablet PO 500 mg DAILY@1200 VALERIA Administration Cyanocobalamin 1,000 mcg 04/15/25 09:00 04/17/25 09:13 Cyanocobalamin 1,000 Mcg Tablet PO 1,000 mcg QAM VALERIA Administration Fluoxetine HCl 20 mg 04/15/25 09:00 04/17/25 09:13 Fluoxetine Hcl 20 Mg Capsule PO 20 mg DAILY VALERIA Administration Gabapentin 100 mg 04/14/25 21:00 04/17/25 21:32 Gabapentin 100 Mg Capsule PO 100 mg QHS VALERIA Administration Cefepime HCl 1 gm/ Sodium 50 mls @ 100 mls/hr 04/15/25 12:00 04/17/25 23:04 Chloride IVPB 100 mls/hr Q12H VALERIA Administration Vancomycin HCl 1,500 mg in 500 mls @ 250 mls/hr 04/17/25 13:00 04/17/25 14:58 Vancomycin 1,500 Mg/Ns 500 Ml IVPB Infused Q24H VALERIA Infusion Levothyroxine Sodium 88 mcg 04/15/25 06:30 04/18/25 05:48 Levothyroxine Sodium 88 Mcg Tablet PO 88 mcg DAILY@0630 VALERIA Administration Sodium Chloride 1,000 mg 04/16/25 09:00 04/17/25 17:11 Sodium Chloride 500 Mg Tablet PO 1,000 mg BID VALERIA Administration Trazodone HCl 150 mg 04/14/25 16:55 04/17/25 21:36 Trazodone Hcl 50 Mg Tablet PO 150 mg HS PRN Administration Sleep Valsartan 40 mg 04/14/25 21:00 04/17/25 21:33 Valsartan 40 Mg Tablet PO 40 mg HS VALERIA Administration Radiology Results: ITS Impressions Chest X-Ray 04/15/25 08:41 IMPRESSION: 1. No acute cardiopulmonary findings given portable technique. Lower Extremity CT 04/15/25 13:10 IMPRESSION: 1. 10.3 x 4.3 x 2.4 cm subcutaneous collection of gas, fluid and some high attenuation material, potentially packing material along a surgical wound lateral to the proximal right femur where there has been recent internal fixation of a recent comminuted intratrochanteric fracture. 3. More advanced healing of a more chronic comminuted extra articular fracture of the distal right femur with separate retrograde intramedullary pieter fixation. Labs Labs: Laboratory Results - last 24 hr 04/17/25 04/18/25 12:13 04:48 WBC 6.6 RBC 2.90 L Hgb 9.3 L Hct 28.5 L MCV 98.3 MCH 32.1 MCHC 32.6 RDW 12.8 Plt Count 385 H MPV 8.9 Sodium 128 L Potassium 3.9 Chloride 96 L Carbon Dioxide 30 Anion Gap 2 L BUN 16 Creatinine 0.81 Estim Creat Clear Calc 52 Estimated GFR > 60 Glucose 85 Calcium 8.9 Total Bilirubin 0.1 L AST 26 ALT 11 Alkaline Phosphatase 93 Total Protein 5.9 L Albumin 3.0 L Vancomycin Trough 13.5 Quality VTE Prophylaxis VTE prophylaxis: mechanical ordered
[2025-04-18] MEDS: SODIUM CHLORIDE 500 MG TABLET 1000 MG PO ×2 (09:44→16:31)
[2025-04-18] MEDS: ASCORBIC ACID 500 MG TABLET 1000 MG PO (09:44)
[2025-04-18] MEDS: CYANOCOBALAMIN 1,000 MCG TABLET 1000 MCG PO (09:44)
--- NOTE | 2025-04-18 10:41 | P.PNNP_ITS ---
Progress Note: A&P Assessment and Plan (1) Hyponatremia: Code(s): E87.1 - Hypo-osmolality and hyponatremia Status: Acute Assessment and Plan: * slow improvement noted * appears acute * noted about during hospitalization (late February/early Mar 2025) in [place] -- sodium running ~ 132 - 136mmol/L at that time * previous sodium levels ~ 135 - 139 since July 2024 * however, has been as low as 130mmol/L in June 2023 * appears otherwise asymptomatic * risk factors for low sodium noted previously: * pain (right hip wound) * medications: - trazodone - fluoxetine (SSRI) --> family says this was started ~ year ago with suzanne garrido 3 months ago... - gabapentin * thyroid disease * possibly excessive free water intake * evaluation to date noted (from last and current hospitalization): * thyroid studies noted * cortisol okay * urine electrolyte non-prerenal (on last admission) * repeat urine electrolytes prerenal * SPEP and serum immunofixation negative * UPEP with asymmetrical beta but urine immunofixation negative * serum osmolality 269 & urine osmolality 194 * head CT noted * CXR negative * on fluid restriction * on salt tablets * follow trend of repeat sodium levels (2) Postoperative wound infection of right hip: Code(s): T81.49XA - Infection following a procedure, other surgical site, initial encounter Status: Acute Assessment and Plan: * s/p right DHS plate for intertrochanteric right hip fracture (on 03/10/2025 in [place], [place]) * ~ 1 week prior to presentation, noted warmth, redness and blistering wound to the lower aspect of surgical incision with clear drainage -- this has continues to worsen and new wound formed to mid aspect with clear drainage * CT right lower extremity (on 04/15) noted: * 10.3 x 4.3 x 2.4 cm subcutaneous collection of gas, fluid and some high attenuation material, potentially packing material along a surgical wound lateral to the proximal right femur where there has been recent internal fixation of a recent comminuted intratrochanteric fracture * more advanced healing of a more chronic comminuted extra articular fracture of the distal right femur with separate retrograde intramedullary pieter fixation * follow culture data * on antibiotics * local wound care * Orthopedic Surgery following * further surgical intervention needed? (3) Anemia: Qualifiers: Anemia type: unspecified type Qualified Code(s): D64.9 - Anemia, unspecified Code(s): D64.9 - Anemia, unspecified Status: Acute Assessment and Plan: * noted on admission * due to possible infection issues/concerns * mild/underlying CKD could be playing a role * follow trend of H/H (4) Obstructive sleep apnea: Onset Date: ~02/2021 Code(s): G47.33 - Obstructive sleep apnea (adult) (pediatric) Status: Chronic Assessment and Plan: * follows with [facility] * on CPAP (5) Essential (primary) hypertension: Code(s): I10 - Essential (primary) hypertension Status: Chronic Assessment and Plan: * reasonable control * follow trend of hemodynamics (6) Type 2 diabetes mellitus in remission: Code(s): E11.9 - Type 2 diabetes mellitus without complications Status: Chronic Assessment and Plan: * apparently diet controlled * not requiring medications * follow blood sugars Will continue to follow. L Subjective Date/time seen: 04/18/25 10:41 Interval history: Follow-up for acute hyponatremia. Sodium remains stable by trend of labs to date and current therapy/interventions (and remains symptomatic even when sodium was quite low on admission); no apparent distress noted at the time of my visit; no pain related to right hip wound but continues to have on/off drainage at this time; family at bedside and we discussed the situation. Exam 2 Narrative: General: elderly but WD/WN female in NAD Heart: normal S1 and S2; no rub Lungs: clear to auscultation Abdomen: soft, nontender, nondistended, positive bowel sounds Extremities: no cyanosis or clubbing; no edema Skin: no rash Objective Data Vital Signs Vital Signs: Vital Signs Temp Pulse Resp BP Pulse Ox O2 Del Method 04/18/25 09:19 73 124/89 97 04/18/25 08:00 Room Air 04/18/25 08:00 77 04/18/25 05:39 98 F 77 18 160/65 H 95 04/18/25 04:00 72 04/18/25 00:00 72 04/17/25 21:04 97.5 F L 77 20 160/63 H 98 04/17/25 20:00 76 04/17/25 20:00 Room Air Intake/Output Intake/Output: Intake & Output 04/15/25 04/16/25 04/17/25 04/18/25 23:59 23:59 23:59 23:59 Intake Total 4569 081 0750 1020 Output Total 1101 400 Balance 1570 -461 1180 1020 Meds/Results Medications: Active Medications Generic Name Dose Route Start Last Admin Trade Name Freq PRN Reason Stop Dose Admin Acetaminophen 650 mg 04/14/25 22:00 04/18/25 13:42 Acetaminophen 325 Mg Tablet PO 650 mg Q8HR VALERIA Administration Hydrocodone Bitart/Acetaminophen 1 tab 04/16/25 12:19 Hydrocodone/Acetaminophen (*Crx) 5-325 Mg Tablet PO Q6H PRN Pain Rated 4-6 Amlodipine Besylate 10 mg 04/15/25 09:00 04/18/25 09:44 Amlodipine Besylate 10 Mg Tablet PO 10 mg QAM VALERIA Administration Ascorbic Acid 1,000 mg 04/15/25 09:00 04/18/25 09:44 Ascorbic Acid 500 Mg Tablet PO 1,000 mg QAM VALERIA Administration Calcium Carbonate 500 mg 04/15/25 12:00 04/18/25 12:14 Calcium/Vitamin D 500 Mg/5 Mcg (200 I.U.) Tablet PO 500 mg DAILY@1200 VALERIA Administration Cyanocobalamin 1,000 mcg 04/15/25 09:00 04/18/25 09:44 Cyanocobalamin 1,000 Mcg Tablet PO 1,000 mcg QAM VALERIA Administration Fluoxetine HCl 20 mg 04/15/25 09:00 04/18/25 09:44 Fluoxetine Hcl 20 Mg Capsule PO 20 mg DAILY VALERIA Administration Gabapentin 100 mg 04/14/25 21:00 04/17/25 21:32 Gabapentin 100 Mg Capsule PO 100 mg QHS VALERIA Administration Cefepime HCl 1 gm/ Sodium 50 mls @ 100 mls/hr 04/15/25 12:00 04/18/25 12:14 Chloride IVPB 100 mls/hr Q12H VALERIA Administration Vancomycin HCl 1,500 mg in 500 mls @ 250 mls/hr 04/17/25 13:00 04/18/25 13:40 Vancomycin 1,500 Mg/Ns 500 Ml IVPB 250 mls/hr Q24H VALERIA Administration Metronidazole 500 mg in 100 mls @ 100 mls/hr 04/18/25 14:00 04/18/25 16:31 Flagyl 500 Mg/Iso Soln 100 Ml IVPB 100 mls/hr Q8HR VALERIA Administration Levothyroxine Sodium 88 mcg 04/15/25 06:30 04/18/25 05:48 Levothyroxine Sodium 88 Mcg Tablet PO 88 mcg DAILY@0630 VALERIA Administration Sodium Chloride 1,000 mg 04/16/25 09:00 04/18/25 16:31 Sodium Chloride 500 Mg Tablet PO 1,000 mg BID VALERIA Administration Trazodone HCl 150 mg 04/14/25 16:55 04/17/25 21:36 Trazodone Hcl 50 Mg Tablet PO 150 mg HS PRN Administration Sleep Valsartan 40 mg 04/14/25 21:00 04/17/25 21:33 Valsartan 40 Mg Tablet PO 40 mg HS VALERIA Administration Radiology Results: ITS Impressions Chest X-Ray 04/15/25 08:41 IMPRESSION: 1. No acute cardiopulmonary findings given portable technique. Lower Extremity CT 04/15/25 13:10 IMPRESSION: 1. 10.3 x 4.3 x 2.4 cm subcutaneous collection of gas, fluid and some high attenuation material, potentially packing material along a surgical wound lateral to the proximal right femur where there has been recent internal fixation of a recent comminuted intratrochanteric fracture. 3. More advanced healing of a more chronic comminuted extra articular fracture of the distal right femur with separate retrograde intramedullary pieter fixation. Labs Labs: Laboratory Tests 04/18/25 04:48 04/18/25 04:48 Calcium 8.9 Total Bilirubin 0.1 L AST 26 ALT 11 Alkaline Phosphatase 93 Total Protein 5.9 L Albumin 3.0 L Microbiology 04/15/25 11:28 Hip Right Aerobic Culture - Final
[2025-04-18] MEDS: CEFEPIME 1 GM in SODIUM CHLORIDE 0.9% IV 50 ML 100 ML IVPB ×2 (12:14→23:01)
[2025-04-18] MEDS: CALCIUM/VITAMIN D 500 MG/5 MCG (200 I.U.) TABLET PO (12:14)
[2025-04-18] MEDS: VANCOMYCIN 1,500 MG/NS 500 ML 1,500 MG/500 ML BAG 250 MG IVPB (13:40)
--- NOTE | 2025-04-18 14:56 | WPDIDCN ---
Assessment and Plan Assessment and plan (1) Postoperative wound infection of right hip: Code(s): T81.49XA - Infection following a procedure, other surgical site, initial encounter Status: Acute Plan Hashtag infection right hip status post ORIF for fractured hip. Question previous. Prostatic tissue. Consider Gram-positive organisms as well as potential for enteric Gram-negative post LA synergistic infection. Gas noted on CT was after manipulation by Wound Care. Clinically not behaving like necrotizing skin soft tissue process although synergistic infection possible. Would be concerned about hardware infection at this point. Original surgery 03/10/2025 in [place]. Plan: Continuecefepime and vancomycin. Add Flagyl. Would favor more immediate debridement if feasible. Left message with clinical coordinator, Pinky, with Dr Dela Cruz' office at [facility]. Phone number [phone]. Discussed with hospitalist service. We will see if arrangement can be made for transfer. Otherwise need to define earliest possible debridement and then formulate antibiotic plan based on that plus available cultures and patient's clinical status. Discussed with patient as well as family via telemedicine at the bedside. Discussed with nursing. Discussed with Primary Care Service. HPI Data of Consult Date/Time: 04/18/25 14:56 Requesting Physician: Maegan Dietrich MD Primary Care Provider: Catrina Beard APRN Consult Narrative Reason for consult: right hip wound Narrative: Bhargavi Denis is a 79 year old female with a history of a right hip fracture this occurred after a fall while she was visiting [place]. Surgery for ORIF was 03/10/2025. Started noticing some drainage last week. Had gone to the ED for hyponatremia. Was to see Dr. Duke Dela Cruz at [facility]/ Trauma Ortho. Had an appointment to see him day of admission but had hyponatremia was called to the ED. Noted to have drainage from the hip wound. CT scan showing some gas around the hardware. By that time, Wound Care had placed some packing. No fevers chills or night sweats presently. Initially started on cefepime and vancomycin. No pre admission oral antibiotics. White count trending down. Seems to be tolerating the antibiotics. No clear increase in pain although still has fairly significant drainage from the open wounds. Orthopedic surgery evaluated the patient in made recommendations to have any debridement at tertiary care center. Cultures from superficial / wound care drainage are pending including Gram stain. PMFSH Past Medical History Medical History (Updated 04/15/25 @ 22:52 by Susan Lopez MD) Hypertensive emergency Hypertensive encephalopathy Cough Spinal stenosis Fatigue B12 deficiency CKD (chronic kidney disease) stage 3, GFR 30-59 ml/min Anemia Essential (primary) hypertension Hypothyroidism (acquired) Insomnia Mixed hyperlipidemia Primary osteoarthritis of both hips Surgical History Surgical History H/O microdiscectomy Family History Family History Sibling Family history of diabetes mellitus in first degree relative Mother Family history of lung cancer Family history of malignant neoplasm of brain Social History Social History Smoking status: Never smoker Second hand tobacco smoke exposure: Yes Alcohol intake: never Substance use: never Substance use type: does not use Do You Feel Safe in your Home?: Yes Lack of Transportation: No Lack of Food: Never True Current Housing: I Have Housing Concerned About Future Housing: No Difficulty Paying Gas/Electric Bills: No Difficulty Paying for Meds: No Currently Unemployed: No Education: High School Diploma/GED Difficulty w/ Childcare or Family Care: No Living arrangements: with family Additional living arrangements comments: SON WITH [employer] L[facility] W/ PATIENT Occupation/Education: retired Gender identity (if verbalized by the patient): Female Sexual Orientation (if Verbalized by the Patient): Straight or Heterosexual Spiritual care concerns: No Agree to blood products: No Meds Home Medications and Allergies Home Medications ?Medication ?Instructions ?Recorded ?Confirmed ?Type mecobalamin (vitamin B12) 1,000 1,000 mcg sublingual DAILY 07/08/19 04/14/25 History mcg disintegrating tablet,sublingual calcium 500 mg (as 1 tablet PO DAILY 08/13/22 04/14/25 History carbonate)-vitamin D3 3.125 mcg (125 unit) tablet (Calcium) ascorbic acid (vitamin C) 1,000 mg 1 g PO DAILY 07/27/24 04/14/25 History capsule acetaminophen 650 mg 650 mg PO Q8H #60 tabs 10/11/24 04/14/25 Rx tablet,extended release (Tylenol 8 Hour) amlodipine 10 mg tablet 10 mg PO QAM #90 tabs 02/03/25 04/14/25 Rx fluoxetine 20 mg tablet 20 mg PO DAILY #90 tabs 02/03/25 04/14/25 Rx levothyroxine 88 mcg tablet 88 mcg PO QAM #90 tabs 02/03/25 04/14/25 Rx trazodone 150 mg tablet See Rx Instructions .Route 02/03/25 04/14/25 Rx .COMPLEX #90 tabs valsartan 40 mg tablet See Rx Instructions .Route 02/03/25 04/14/25 Rx .COMPLEX #90 tabs tramadol 50 mg tablet 50 mg PO Q6H PRN pain #60 tabs 03/22/25 04/14/25 Rx sodium chloride 1,000 mg soluble 500 mg (1/2 x 1,000 mg) PO DAILY 04/05/25 04/14/25 Rx tablet #30 tabs gabapentin 100 mg capsule 100 mg PO QHS 04/14/25 04/14/25 History Allergies Allergy/AdvReac Type Severity Reaction Status Date / Time erythromycin base Allergy Unknown Hyperactive Verified 04/11/25 12:48 Penicillins Allergy Unknown HIVES?, PT Verified 04/11/25 12:48 UNSURE OF REACTION Vital Signs Vital Signs - 24 hr 04/17/25 16:00 04/17/25 20:00 04/17/25 20:00 Temperature Pulse Rate 64 76 Respiratory Rate Blood Pressure Pulse Oximetry Oxygen Delivery Room Air 04/17/25 21:04 04/18/25 00:00 04/18/25 04:00 Temperature 36.4 C L Pulse Rate 77 72 72 Respiratory Rate 20 Blood Pressure 160/63 H Pulse Oximetry 98 Oxygen Delivery 04/18/25 05:39 04/18/25 08:00 04/18/25 08:00 Temperature 36.6 C Pulse Rate 77 77 Respiratory Rate 18 Blood Pressure 160/65 H Pulse Oximetry 95 Oxygen Delivery Room Air 04/18/25 09:19 04/18/25 12:00 04/18/25 13:36 Temperature 36.6 C Pulse Rate 73 78 86 Respiratory Rate Blood Pressure 124/89 150/57 H Pulse Oximetry 97 97 Oxygen Delivery Exam Narrative: She is awake. Alert. Hard of hearing somewhat. I examined her via telemedicine. Family at bedside. I was able to review the wound photos on 04/15 as well as the wound directly via telemedicine. She continues to have drainage in the middle aspect of the wound with there is some packing. Some erythema along the incision. There is no description of crepitus. No pain with range of motion of the knee joint. Limited ROM of the hip due to the swelling. Results Labs 04/18/25 04:48 04/18/25 04:48 Labs: Short CBC 04/18/25 Range/Units 04:48 WBC 6.6 (4.5-10.0) K/mm3 Hgb 9.3 L (12.0-15.0) g/dL Hct 28.5 L (37.0-47.0) % Plt Count 385 H (150-375) k/mm3 BMP 04/18/25 04:48 Sodium 128 L Potassium 3.9 Chloride 96 L Carbon Dioxide 30 BUN 16 Creatinine 0.81 Glucose 85 Calcium 8.9 Liver Function 04/18/25 Range/Units 04:48 Total Bilirubin 0.1 L (0.2-1.3) mg/dL AST 26 (14-36) U/L ALT 11 (6-35) U/L Alkaline Phosphatase 93 (38-126) U/L Albumin 3.0 L (3.5-5.1) g/dL
[2025-04-18] MEDS: metroNIDAZOLE 500 MG/ISO 100ML 500 MG/100 ML BAG 100 MG IVPB ×2 (16:31→21:03)
[2025-04-18] MEDS: GABAPENTIN 100 MG CAPSULE PO (21:03)
[2025-04-18] MEDS: VALSARTAN 40 MG TABLET PO (21:03)
[2025-04-19] VITALS (10 sets, daily range): BP systolic 141–160; BP diastolic 57–67; PULSE 69–95; RESP 12–20; TEMP 36.4–36.6; O2SAT 94–98
[2025-04-19 05:13] LABS: Hematocrit 27.3 % (37.0-47.0); Hemoglobin 8.8 g/dL (12.0-15.0); Mean Corpuscular HGB Conc 32.2 g/dl (32-36); Mean Corpuscular Hemoglobin 31.7 pg (26-34); Mean Corpuscular Volume 98.2 fl (80-100); Platelet Count Result 359 k/mm3 (150-375); Red Blood Count 2.78 M/mm3 (4.2-5.4); White Blood Count 6.4 K/mm3 (4.5-10.0)
[2025-04-19 05:41] LABS: Alanine Aminotransferase 11 U/L (6-35); Albumin Level 2.9 g/dL (3.5-5.1); Alkaline Phosphatase 86 U/L (38-126); Anion Gap 3 mmol/L (4-12); Aspartate Amino Transferase 29 U/L (14-36); Bilirubin,Total < 0.1 mg/dL (0.2-1.3); Blood Urea Nitrogen 17 mg/dL (7-17); Calcium 8.7 mg/dL (8.4-10.2); Carbon Dioxide 28 mmol/L (22-30); Chloride 98 mmol/L (98-107); Estimated CRCL calculation 56 ml/min; Estimated Glomerular Filt Rate > 60; Glucose 85 mg/dL (65-110); Potassium 3.9 mmol/L (3.4-5.0); Sodium 129 mmol/L (137-145); Total Protein 5.7 g/dL (6.3-8.2)
[2025-04-19] MEDS: ACETAMINOPHEN 325 MG TABLET 650 MG PO ×2 (05:49→21:25)
[2025-04-19] MEDS: metroNIDAZOLE 500 MG/ISO 100ML 500 MG/100 ML BAG 100 MG IVPB ×3 (05:49→21:26)
[2025-04-19] MEDS: LEVOTHYROXINE SODIUM 88 MCG TABLET PO (05:49)
--- NOTE | 2025-04-19 07:54 | PM.IMPN ---
Progress Note: A&P Assessment and Plan (1) Foreign body of right hip with infection: Code(s): S70.251A - Superficial foreign body, right hip, initial encounter; L08.9 - Local infection of the skin and subcutaneous tissue, unspecified Status: Acute Assessment and Plan: S/p right DHS Plate for Intertrochanteric fracture on 03/10/2025 in [facility]. Earlier in 2024, when she again fell and sustained a closed distal 1/3 femoral shaft fracture that was treated with a retrograde IM pieter. Had scheduled appointment for follow up With Dr. Duke Marin, however was not able to make this appointment due to hyponatremia Approximately 1 week ago patient developed warmth, redness and blistering wound to the lower aspect of surgical incision with clear drainage, this has continues to worsen and new wound formed to mid aspect with clear drainage CT lower extremity: 10.3 x 4.3 x 2.4 cm subcutaneous collection of gas, fluid and some high attenuation material, potentially packing material along a surgical wound lateral to the proximal right femur where there has been recent internal fixation of a recent comminuted intratrochanteric fracture. More advanced healing of a more chronic comminuted extra articular fracture of the distal right femur with separate retrograde intramedullary pieter fixation. Wound culture obtained: pending Antibiotic: Vancomycin and cefepime started on 04/15, added on flagyl on 04/18 per ID. Adjust per wound culture ID consulted, patient will need superintendent container terminal antibiotic coverage as no acute surgical intervention at this time Wound care following Ortho consulted, discussed patients care plan and reviewed imaging with Dr. Santamaria No acute surgical intervention at this time, family working on re-scheduling appointment with Dr Duke Marin at [facility]. Recommend addressing the hyponatremia PT/OT Wound continues to have drainage. Redness and warmth improving. Patient remains afebrile without leukocytosis. Cultures still pending. Continue current antibiotic regimen. Discussed patient with Dr. Saini who is concerned that outpatient antibiotics would not be sufficient to treat and source control is needed. He discussed patient with Dr. Batista office who are agreeable to transfer as a sap treasury consultant. Patient accepted by hospitalist Dr. Sutherland to [facility] on 04/19. (2) Hyponatremia: Code(s): E87.1 - Hypo-osmolality and hyponatremia Status: Acute Assessment and Plan: Seen by her PCP, Miguel FRAME [employer]AIGHTENER, had outpatient lab work which showed a sodium of 120. Repeat Na on admission was 118. She was recently hospitalized from 03/31/2025 to 04/05/2025, hyponatremia was noted upon admission at 127, lowest at 125 during her hospitalization. Evaluated by Nephrology who believed the hyponatremia was acute. Risk factors for hyponatremia include thyroid disease and medications (trazodone, sertraline, gabapentin), may have some excessive free water intake. Nephrology recommended salt tabs and fluid restriction, however family did not want the patient to be on a fluid restriction. She was continued on the NaCl tablet at discharge. She has not been taking this due to cost. - Na 129 on am labs - Continue salt tabs and fluid restriction (1600 ml) - diet: regular - nephrology consulted, appreciate recommendations Sodium improving. Patient remains asymptomatic. (3) Hypothyroidism (acquired): Code(s): E03.9 - Hypothyroidism, unspecified Status: Chronic Assessment and Plan: - 04/01: TSH 8.29, T4 0.97, T3 0.55 on 04/01/25 - continue Synthroid 88 mcg daily (4) CKD (chronic kidney disease) stage 3, GFR 30-59 ml/min: Qualifiers: Chronic kidney disease stage 3 subtype: stage 3a (GFR 45-59) Qualified Code(s): N18.31 - Chronic kidney disease, stage 3a Code(s): N18.30 - Chronic kidney disease, stage 3 unspecified Status: Chronic Assessment and Plan: History of CKD. Baseline creatinine ~ 1.1 - 1.3mg/dl - appears at baseline renal function - trend renal function and electrolytes, correct electrolytes as needed - avoid nephrotoxic medications - renally dose medications - monitor I/O (5) Essential (primary) hypertension: Code(s): I10 - Essential (primary) hypertension Status: Chronic Assessment and Plan: Chronic, continue home medications - Amlodipine 10 mg daily and valsartan 40 mg daily - blood pressures reviewed and stable, continue to monitor (6) Depression: Qualifiers: Depression Type: unspecified Qualified Code(s): F32.A - Depression, unspecified Code(s): F32.A - Depression, unspecified Status: Chronic Assessment and Plan: Continue fluoxetine Time Spent With Patient Time with patient: Greater than 35 minutes Subjective Date/time seen: 04/19/25 07:54 Interval history: 79 year old female with past medical history of CKD, anemia, HTN, hypothyroidism, HLD, DM, recent hip surgery 5 weeks ago (undergoing PT/OT w/HH) presents to the hospital with hyponatremia. Patient is pleasant sitting up comfortably in her chair. She had no acute interventions overnight. She has no complaints denying chest pain, shortness of breath, palpitations, nausea/vomiting and abdominal pain. Discussed patient with Dr. Saini who is concerned that outpatient antibiotics would not be sufficient to treat and source control is needed. He discussed patient with Dr. Batista office who are agreeable to transfer as a sap treasury consultant. Patient accepted by hospitalist Dr. Sutherland to [facility] on 04/19. Review of Systems Review of Systems: All systems reviewed & are unremarkable except as noted in HPI and below Exam Narrative: AF HR 72 RR 18 SpO2 95 BP 141/57 General: female in no acute respiratory distress who is nontoxic appearing, sitting up in chair HEENT: Normocephalic. Atraumatic. Extraocular movement intact. Sclera clear and anicteric. No facial asymmetry. Chest: Lungs are clear to auscultation bilaterally. CV: Heart was regular rate and rhythm. Abd: Abdomen was soft. Nontender. Nondistended. Positive bowel sounds. Ext: No clubbing, cyanosis, or edema. Surgical incision to the mid lateral hip with two draining wounds to the lower and mid aspect along the incision site, less drainage noted and now serosanguineous. Redness and warmth is improving. No pain with palpation. Objective Data Vital Signs Vital Signs: Vital Signs - 24 hr 04/18/25 08:00 04/18/25 08:00 04/18/25 09:19 Temperature Pulse Rate 77 73 Respiratory Rate Blood Pressure 124/89 Pulse Oximetry 97 Oxygen Delivery Room Air 04/18/25 12:00 04/18/25 13:36 04/18/25 16:00 Temperature 98 F Pulse Rate 78 86 86 Respiratory Rate Blood Pressure 150/57 H Pulse Oximetry 97 Oxygen Delivery 04/18/25 16:00 04/18/25 20:00 04/18/25 20:00 Temperature Pulse Rate 76 73 Respiratory Rate Blood Pressure Pulse Oximetry Oxygen Delivery Room Air 04/18/25 20:47 04/19/25 00:00 04/19/25 04:00 Temperature 98.1 F Pulse Rate 80 76 69 Respiratory Rate 20 Blood Pressure 145/68 H Pulse Oximetry 95 Oxygen Delivery 04/19/25 04:11 Temperature 97.6 F Pulse Rate 72 Respiratory Rate 18 Blood Pressure 141/57 H Pulse Oximetry 95 Oxygen Delivery Intake/Output Intake/Output: Intake & Output 04/16/25 04/17/25 04/18/25 04/19/25 23:59 23:59 23:59 23:59 Intake Total 640 1580 1560 490 Output Total 1101 400 Balance -461 1180 1560 490 Meds/Results Medications: Active Medications Generic Name Dose Route Start Last Admin Trade Name Freq PRN Reason Stop Dose Admin Acetaminophen 650 mg 04/14/25 22:00 04/19/25 05:49 Acetaminophen 325 Mg Tablet PO 650 mg Q8HR VALERIA Administration Hydrocodone Bitart/Acetaminophen 1 tab 04/16/25 12:19 Hydrocodone/Acetaminophen (*Crx) 5-325 Mg Tablet PO Q6H PRN Pain Rated 4-6 Amlodipine Besylate 10 mg 04/15/25 09:00 04/18/25 09:44 Amlodipine Besylate 10 Mg Tablet PO 10 mg QAM VALERIA Administration Ascorbic Acid 1,000 mg 04/15/25 09:00 04/18/25 09:44 Ascorbic Acid 500 Mg Tablet PO 1,000 mg QAM VALERIA Administration Calcium Carbonate 500 mg 04/15/25 12:00 04/18/25 12:14 Calcium/Vitamin D 500 Mg/5 Mcg (200 I.U.) Tablet PO 500 mg DAILY@1200 VALERIA Administration Cyanocobalamin 1,000 mcg 04/15/25 09:00 04/18/25 09:44 Cyanocobalamin 1,000 Mcg Tablet PO 1,000 mcg QAM VALERIA Administration Fluoxetine HCl 20 mg 04/15/25 09:00 04/18/25 09:44 Fluoxetine Hcl 20 Mg Capsule PO 20 mg DAILY VALERIA Administration Gabapentin 100 mg 04/14/25 21:00 04/18/25 21:03 Gabapentin 100 Mg Capsule PO 100 mg QHS VALERIA Administration Cefepime HCl 1 gm/ Sodium 50 mls @ 100 mls/hr 04/15/25 12:00 04/18/25 23:31 Chloride IVPB Infused Q12H VALERIA Infusion Vancomycin HCl 1,500 mg in 500 mls @ 250 mls/hr 04/17/25 13:00 04/18/25 13:40 Vancomycin 1,500 Mg/Ns 500 Ml IVPB 250 mls/hr Q24H VALERIA Administration Metronidazole 500 mg in 100 mls @ 100 mls/hr 04/18/25 14:00 04/19/25 06:49 Flagyl 500 Mg/Iso Soln 100 Ml IVPB Infused Q8HR VALERIA Infusion Levothyroxine Sodium 88 mcg 04/15/25 06:30 04/19/25 05:49 Levothyroxine Sodium 88 Mcg Tablet PO 88 mcg DAILY@0630 VALERIA Administration Sodium Chloride 1,000 mg 04/16/25 09:00 04/18/25 16:31 Sodium Chloride 500 Mg Tablet PO 1,000 mg BID VALERIA Administration Trazodone HCl 150 mg 04/14/25 16:55 04/18/25 21:12 Trazodone Hcl 50 Mg Tablet PO 150 mg HS PRN Administration Sleep Valsartan 40 mg 04/14/25 21:00 04/18/25 21:03 Valsartan 40 Mg Tablet PO 40 mg HS VALERIA Administration Radiology Results: ITS Impressions Chest X-Ray 04/15/25 08:41 IMPRESSION: 1. No acute cardiopulmonary findings given portable technique. Lower Extremity CT 04/15/25 13:10 IMPRESSION: 1. 10.3 x 4.3 x 2.4 cm subcutaneous collection of gas, fluid and some high attenuation material, potentially packing material along a surgical wound lateral to the proximal right femur where there has been recent internal fixation of a recent comminuted intratrochanteric fracture. 3. More advanced healing of a more chronic comminuted extra articular fracture of the distal right femur with separate retrograde intramedullary pieter fixation. Labs Labs: Laboratory Results - last 24 hr 04/19/25 04:19 WBC 6.4 RBC 2.78 L Hgb 8.8 L Hct 27.3 L MCV 98.2 MCH 31.7 MCHC 32.2 RDW 12.6 Plt Count 359 MPV 9.1 Sodium 129 L Potassium 3.9 Chloride 98 Carbon Dioxide 28 Anion Gap 3 L BUN 17 Creatinine 0.76 Estim Creat Clear Calc 56 Estimated GFR > 60 Glucose 85 Calcium 8.7 Total Bilirubin < 0.1 L AST 29 ALT 11 Alkaline Phosphatase 86 Total Protein 5.7 L Albumin 2.9 L Quality VTE Prophylaxis VTE prophylaxis: mechanical ordered
[2025-04-19] MEDS: ASCORBIC ACID 500 MG TABLET 1000 MG PO (09:27)
[2025-04-19] MEDS: SODIUM CHLORIDE 500 MG TABLET 1000 MG PO ×2 (09:27→18:08)
[2025-04-19] MEDS: CYANOCOBALAMIN 1,000 MCG TABLET 1000 MCG PO (09:27)
--- NOTE | 2025-04-19 10:32 | P.PNNP_ITS ---
Progress Note: A&P Assessment and Plan (1) Hyponatremia: Code(s): E87.1 - Hypo-osmolality and hyponatremia Status: Acute Assessment and Plan: * slow improvement noted * appears acute * noted about during hospitalization (late February/early Mar 2025) in [place] -- sodium running ~ 132 - 136mmol/L at that time * previous sodium levels ~ 135 - 139 since July 2024 * however, has been as low as 130mmol/L in June 2023 * appears otherwise asymptomatic * risk factors for low sodium noted previously: * pain (right hip wound) * medications: - trazodone - fluoxetine (SSRI) --> family says this was started ~ year ago with suzanne dietrich increase 3 months ago... - gabapentin * thyroid disease * possibly excessive free water intake * evaluation to date noted (from last and current hospitalization): * thyroid studies noted * cortisol okay * urine electrolyte non-prerenal (on last admission) * repeat urine electrolytes prerenal * SPEP and serum immunofixation negative * UPEP with asymmetrical beta but urine immunofixation negative * serum osmolality 269 & urine osmolality 194 * head CT noted * CXR negative * on fluid restriction * on salt tablets * recommend weaning off fluoxetine and using non SSRI medication for depression if needed (family is planning to discuss with PCP) -- once this is done, would attempt weaning off salt tablets and fluid restriction... * follow trend of repeat sodium levels (2) Postoperative wound infection of right hip: Code(s): T81.49XA - Infection following a procedure, other surgical site, initial encounter Status: Acute Assessment and Plan: * s/p right DHS plate for intertrochanteric right hip fracture (on 03/10/2025 in [place], [place]) * ~ 1 week prior to presentation, noted warmth, redness and blistering wound to the lower aspect of surgical incision with clear drainage -- this has continues to worsen and new wound formed to mid aspect with clear drainage * CT right lower extremity (on 04/15) noted: * 10.3 x 4.3 x 2.4 cm subcutaneous collection of gas, fluid and some high attenuation material, potentially packing material along a surgical wound lateral to the proximal right femur where there has been recent internal fixation of a recent comminuted intratrochanteric fracture * more advanced healing of a more chronic comminuted extra articular fracture of the distal right femur with separate retrograde intramedullary pieter fixation * follow culture data * on antibiotics * local wound care * Infectious Disease recommendations noted... (3) Anemia: Qualifiers: Anemia type: unspecified type Qualified Code(s): D64.9 - Anemia, unspecified Code(s): D64.9 - Anemia, unspecified Status: Acute Assessment and Plan: * noted on admission * due to possible infection issues/concerns * mild/underlying CKD could be playing a role * follow trend of H/H (4) Obstructive sleep apnea: Onset Date: ~02/2021 Code(s): G47.33 - Obstructive sleep apnea (adult) (pediatric) Status: Chronic Assessment and Plan: * follows with [facility] * on CPAP (5) Essential (primary) hypertension: Code(s): I10 - Essential (primary) hypertension Status: Chronic Assessment and Plan: * reasonable control * follow trend of hemodynamics (6) Type 2 diabetes mellitus in remission: Code(s): E11.9 - Type 2 diabetes mellitus without complications Status: Chronic Assessment and Plan: * apparently diet controlled * not requiring medications * follow blood sugars Not much else to add -- will continue to follow intermittently L Subjective Date/time seen: 04/19/25 10:32 Interval history: Follow-up for acute hyponatremia. Sodium remains stable if not better by trend of labs; seen by Infectious Disease yesterday with recommendations noted -- possible transfer to [facility] for further evaluation and possible surgical intervention; no apparent distress voiced at the time of my visit. Exam 2 Narrative: General: elderly but WD/WN female in NAD Heart: normal S1 and S2; no rub Lungs: clear to auscultation Abdomen: soft, nontender, nondistended, positive bowel sounds Extremities: no cyanosis or clubbing; no edema Skin: no nodules Objective Data Vital Signs Vital Signs: Vital Signs Temp Pulse Resp BP Pulse Ox O2 Del Method 04/19/25 08:30 Room Air 04/19/25 08:00 75 04/19/25 04:11 97.6 F 72 18 141/57 H 95 04/19/25 04:00 69 04/19/25 00:00 76 04/18/25 20:47 98.1 F 80 20 145/68 H 95 04/18/25 20:00 73 04/18/25 20:00 Room Air 10/06/25 16:00 76 04/18/25 16:00 86 04/18/25 13:36 98 F 86 150/57 H 97 Intake/Output Intake/Output: Intake & Output 04/16/25 04/17/25 04/18/25 04/19/25 23:59 23:59 23:59 23:59 Intake Total 640 1580 1560 630 Output Total 1101 400 Balance -461 1180 1560 630 Meds/Results Medications: Active Medications Generic Name Dose Route Start Last Admin Trade Name Freq PRN Reason Stop Dose Admin Acetaminophen 650 mg 04/14/25 22:00 04/19/25 05:49 Acetaminophen 325 Mg Tablet PO 650 mg Q8HR VALERIA Administration Hydrocodone Bitart/Acetaminophen 1 tab 04/16/25 12:19 Hydrocodone/Acetaminophen (*Crx) 5-325 Mg Tablet PO Q6H PRN Pain Rated 4-6 Amlodipine Besylate 10 mg 04/15/25 09:00 04/19/25 09:27 Amlodipine Besylate 10 Mg Tablet PO 10 mg QAM VALERIA Administration Ascorbic Acid 1,000 mg 04/15/25 09:00 04/19/25 09:27 Ascorbic Acid 500 Mg Tablet PO 1,000 mg QAM VALERIA Administration Calcium Carbonate 500 mg 04/15/25 12:00 04/19/25 11:50 Calcium/Vitamin D 500 Mg/5 Mcg (200 I.U.) Tablet PO 500 mg DAILY@1200 VALERIA Administration Cyanocobalamin 1,000 mcg 04/15/25 09:00 04/19/25 09:27 Cyanocobalamin 1,000 Mcg Tablet PO 1,000 mcg QAM VALERIA Administration Fluoxetine HCl 20 mg 04/15/25 09:00 04/19/25 09:27 Fluoxetine Hcl 20 Mg Capsule PO 20 mg DAILY VALERIA Administration Gabapentin 100 mg 04/14/25 21:00 04/18/25 21:03 Gabapentin 100 Mg Capsule PO 100 mg QHS VALERIA Administration Cefepime HCl 1 gm/ Sodium 50 mls @ 100 mls/hr 04/15/25 12:00 04/19/25 11:50 Chloride IVPB 100 mls/hr Q12H VALERIA Administration Vancomycin HCl 1,500 mg in 500 mls @ 250 mls/hr 04/17/25 13:00 04/18/25 13:40 Vancomycin 1,500 Mg/Ns 500 Ml IVPB 250 mls/hr Q24H VALERIA Administration Metronidazole 500 mg in 100 mls @ 100 mls/hr 04/18/25 14:00 04/19/25 06:49 Flagyl 500 Mg/Iso Soln 100 Ml IVPB Infused Q8HR VALERIA Infusion Levothyroxine Sodium 88 mcg 04/15/25 06:30 04/19/25 05:49 Levothyroxine Sodium 88 Mcg Tablet PO 88 mcg DAILY@0630 VALERIA Administration Sodium Chloride 1,000 mg 04/16/25 09:00 04/19/25 09:27 Sodium Chloride 500 Mg Tablet PO 1,000 mg BID VALERIA Administration Trazodone HCl 150 mg 04/14/25 16:55 04/18/25 21:12 Trazodone Hcl 50 Mg Tablet PO 150 mg HS PRN Administration Sleep Valsartan 40 mg 04/14/25 21:00 04/18/25 21:03 Valsartan 40 Mg Tablet PO 40 mg HS VALERIA Administration Radiology Results: ITS Impressions Chest X-Ray 04/15/25 08:41 IMPRESSION: 1. No acute cardiopulmonary findings given portable technique. Lower Extremity CT 04/15/25 13:10 IMPRESSION: 1. 10.3 x 4.3 x 2.4 cm subcutaneous collection of gas, fluid and some high attenuation material, potentially packing material along a surgical wound lateral to the proximal right femur where there has been recent internal fixation of a recent comminuted intratrochanteric fracture. 3. More advanced healing of a more chronic comminuted extra articular fracture of the distal right femur with separate retrograde intramedullary pieter fixation. Labs Labs: Laboratory Tests 04/19/25 04:19 04/19/25 04:19 Calcium 8.7 Total Bilirubin < 0.1 L AST 29 ALT 11 Alkaline Phosphatase 86 Total Protein 5.7 L Albumin 2.9 L Microbiology 04/15/25 11:28 Hip Right Aerobic Culture - Final
--- NOTE | 2025-04-19 11:12 | WPDINFPN2 ---
Progress Note: A&P Assessment and Plan (1) Postoperative wound infection of right hip: Code(s): T81.49XA - Infection following a procedure, other surgical site, initial encounter Status: Acute Plan # Infection right hip status post ORIF for fractured hip. Consider Gram-positive organisms as well as potential for enteric Gram-negative post PR synergistic infection. Gas noted on CT was after manipulation by Wound Care. Clinically not behaving like necrotizing skin soft tissue process although synergistic infection possible. Would be concerned about hardware infection at this point. Original surgery 03/10/2025 in [place]. Plan: Continue cefepime and vancomycin and Flagyl. Would favor more immediate debridement if feasible. Dr. Tobias Saini left message with clinical coordinator, Pinky, with Dr Dela Cruz' office at [facility]. Phone number [phone]. We will see if arrangement can be made for transfer. Questions regarding transfer directed toward hospitalist today. Otherwise need to define earliest possible debridement and then formulate antibiotic plan based on that plus available cultures and patient's clinical status. Subjective Date/time seen: 04/19/25 11:12 Interval history: 04/19/2025: Afebrile with stable vital signs. White blood cell 6.4. Wound aerobic culture with mixed skin juan luis; anaerobic culture pending. No specific complaints today. No hip pain. Right hip wound packed with iodoform ribbon gauze earlier today. Review of Systems Review of Systems: All systems reviewed & are unremarkable except as noted in HPI and below Exam Narrative: She is awake. Alert. Hard of hearing somewhat. Pleasant. I examined her via telemedicine. Still with drainage in the middle aspect of the wound with there is some packing. Some erythema along the incision. There is no description of crepitus. No pain with range of motion of the knee joint. Limited ROM of the hip due to the swelling. Objective Data Vital Signs Vital Signs: Vital Signs - 24 hr 04/18/25 12:00 04/18/25 13:36 04/18/25 16:00 Temperature 98 F Pulse Rate 78 86 86 Respiratory Rate Blood Pressure 150/57 H Pulse Oximetry 97 Oxygen Delivery 04/18/25 16:00 04/18/25 20:00 04/18/25 20:00 Temperature Pulse Rate 76 73 Respiratory Rate Blood Pressure Pulse Oximetry Oxygen Delivery Room Air 04/18/25 20:47 04/19/25 00:00 04/19/25 04:00 Temperature 98.1 F Pulse Rate 80 76 69 Respiratory Rate 20 Blood Pressure 145/68 H Pulse Oximetry 95 Oxygen Delivery 04/19/25 04:11 04/19/25 08:00 Temperature 97.6 F Pulse Rate 72 75 Respiratory Rate 18 Blood Pressure 141/57 H Pulse Oximetry 95 Oxygen Delivery Intake/Output Intake/Output: Intake & Output 04/16/25 04/17/25 04/18/25 04/19/25 23:59 23:59 23:59 23:59 Intake Total 640 1580 1560 630 Output Total 1101 400 Balance -461 1180 1560 630 Meds/Results Medications: Active Medications Generic Name Dose Route Start Last Admin Trade Name Freq PRN Reason Stop Dose Admin Acetaminophen 650 mg 04/14/25 22:00 04/19/25 05:49 Acetaminophen 325 Mg Tablet PO 650 mg Q8HR VALERIA Administration Hydrocodone Bitart/Acetaminophen 1 tab 04/16/25 12:19 Hydrocodone/Acetaminophen (*Crx) 5-325 Mg Tablet PO Q6H PRN Pain Rated 4-6 Amlodipine Besylate 10 mg 04/15/25 09:00 04/19/25 09:27 Amlodipine Besylate 10 Mg Tablet PO 10 mg QAM VALERIA Administration Ascorbic Acid 1,000 mg 04/15/25 09:00 04/19/25 09:27 Ascorbic Acid 500 Mg Tablet PO 1,000 mg QAM VALERIA Administration Calcium Carbonate 500 mg 04/15/25 12:00 04/18/25 12:14 Calcium/Vitamin D 500 Mg/5 Mcg (200 I.U.) Tablet PO 500 mg DAILY@1200 VALERIA Administration Cyanocobalamin 1,000 mcg 04/15/25 09:00 04/19/25 09:27 Cyanocobalamin 1,000 Mcg Tablet PO 1,000 mcg QAM VALERIA Administration Fluoxetine HCl 20 mg 04/15/25 09:00 04/19/25 09:27 Fluoxetine Hcl 20 Mg Capsule PO 20 mg DAILY VALERIA Administration Gabapentin 100 mg 04/14/25 21:00 04/18/25 21:03 Gabapentin 100 Mg Capsule PO 100 mg QHS VALERIA Administration Cefepime HCl 1 gm/ Sodium 50 mls @ 100 mls/hr 04/15/25 12:00 04/18/25 23:31 Chloride IVPB Infused Q12H VALERIA Infusion Vancomycin HCl 1,500 mg in 500 mls @ 250 mls/hr 04/17/25 13:00 04/18/25 13:40 Vancomycin 1,500 Mg/Ns 500 Ml IVPB 250 mls/hr Q24H VALERIA Administration Metronidazole 500 mg in 100 mls @ 100 mls/hr 04/18/25 14:00 04/19/25 06:49 Flagyl 500 Mg/Iso Soln 100 Ml IVPB Infused Q8HR VALERIA Infusion Levothyroxine Sodium 88 mcg 04/15/25 06:30 04/19/25 05:49 Levothyroxine Sodium 88 Mcg Tablet PO 88 mcg DAILY@0630 VALERIA Administration Sodium Chloride 1,000 mg 04/16/25 09:00 04/19/25 09:27 Sodium Chloride 500 Mg Tablet PO 1,000 mg BID VALERIA Administration Trazodone HCl 150 mg 04/14/25 16:55 04/18/25 21:12 Trazodone Hcl 50 Mg Tablet PO 150 mg HS PRN Administration Sleep Valsartan 40 mg 04/14/25 21:00 04/18/25 21:03 Valsartan 40 Mg Tablet PO 40 mg HS VALERIA Administration Radiology Results: ITS Impressions Chest X-Ray 04/15/25 08:41 IMPRESSION: 1. No acute cardiopulmonary findings given portable technique. Lower Extremity CT 04/15/25 13:10 IMPRESSION: 1. 10.3 x 4.3 x 2.4 cm subcutaneous collection of gas, fluid and some high attenuation material, potentially packing material along a surgical wound lateral to the proximal right femur where there has been recent internal fixation of a recent comminuted intratrochanteric fracture. 3. More advanced healing of a more chronic comminuted extra articular fracture of the distal right femur with separate retrograde intramedullary pieter fixation. Labs Labs: Laboratory Results - last 24 hr 04/19/25 04:19 WBC 6.4 RBC 2.78 L Hgb 8.8 L Hct 27.3 L MCV 98.2 MCH 31.7 MCHC 32.2 RDW 12.6 Plt Count 359 MPV 9.1 Sodium 129 L Potassium 3.9 Chloride 98 Carbon Dioxide 28 Anion Gap 3 L BUN 17 Creatinine 0.76 Estim Creat Clear Calc 56 Estimated GFR > 60 Glucose 85 Calcium 8.7 Total Bilirubin < 0.1 L AST 29 ALT 11 Alkaline Phosphatase 86 Total Protein 5.7 L Albumin 2.9 L
[2025-04-19] MEDS: CEFEPIME 1 GM in SODIUM CHLORIDE 0.9% IV 50 ML 100 ML IVPB ×2 (11:50→23:13)
[2025-04-19] MEDS: CALCIUM/VITAMIN D 500 MG/5 MCG (200 I.U.) TABLET PO (11:50)
[2025-04-19] MEDS: VANCOMYCIN 1,500 MG/NS 500 ML 1,500 MG/500 ML BAG 250 MG IVPB (13:51)
[2025-04-19] MEDS: MORPHINE SULFATE (*CRX) 4 MG/ML INJ IV PUSH (20:45)
[2025-04-19] MEDS: VALSARTAN 40 MG TABLET PO (21:26)
[2025-04-19] MEDS: GABAPENTIN 100 MG CAPSULE PO (21:26)
[2025-04-20] VITALS (8 sets, daily range): BP systolic 134–165; BP diastolic 62–71; PULSE 66–84; RESP 18–20; TEMP 36.2–36.8; O2SAT 93–98
[2025-04-20 05:21] LABS: Hematocrit 26.5 % (37.0-47.0); Hemoglobin 8.6 g/dL (12.0-15.0); Mean Corpuscular HGB Conc 32.5 g/dl (32-36); Mean Corpuscular Hemoglobin 32.0 pg (26-34); Mean Corpuscular Volume 98.5 fl (80-100); Platelet Count Result 314 k/mm3 (150-375); Red Blood Count 2.69 M/mm3 (4.2-5.4); White Blood Count 7.0 K/mm3 (4.5-10.0)
[2025-04-20 05:35] LABS: Alanine Aminotransferase 16 U/L (6-35); Albumin Level 2.8 g/dL (3.5-5.1); Alkaline Phosphatase 100 U/L (38-126); Anion Gap 3 mmol/L (4-12); Aspartate Amino Transferase 34 U/L (14-36); Bilirubin,Total 0.1 mg/dL (0.2-1.3); Blood Urea Nitrogen 15 mg/dL (7-17); Calcium 8.7 mg/dL (8.4-10.2); Carbon Dioxide 30 mmol/L (22-30); Chloride 97 mmol/L (98-107); Estimated CRCL calculation 52 ml/min; Estimated Glomerular Filt Rate > 60; Glucose 89 mg/dL (65-110); Potassium 4.0 mmol/L (3.4-5.0); Sodium 130 mmol/L (137-145); Total Protein 5.7 g/dL (6.3-8.2)
[2025-04-20] MEDS: LEVOTHYROXINE SODIUM 88 MCG TABLET PO (05:38)
[2025-04-20] MEDS: metroNIDAZOLE 500 MG/ISO 100ML 500 MG/100 ML BAG 100 MG IVPB ×3 (05:38→21:07)
[2025-04-20] MEDS: ACETAMINOPHEN 325 MG TABLET 650 MG PO ×3 (05:38→21:07)
--- NOTE | 2025-04-20 06:48 | P.PNOP_ITS ---
Progress Note: A&P Assessment and Plan (1) Postoperative wound infection of right hip: Code(s): T81.49XA - Infection following a procedure, other surgical site, initial encounter Status: Acute Plan Right Hip post op infection, discharge/transfer planning to [place] with Dr Batista who is aware of patient and is planning to treat the patient for her postop infection (as per family request). Subjective Subjective Date/Time Seen: 04/20/25 06:48 Principal diagnosis: Right Hip Post op infx s/p DHS Screw Fixation Exam Narrative: No change in physical exam, awake alert minimal hip pain, feeling better after increase in Na Objective Data Vital Signs Vital Signs: Vital Signs - 24 hr 04/19/25 08:00 04/19/25 08:30 04/19/25 12:00 Temperature Pulse Rate 75 73 Respiratory Rate Blood Pressure Pulse Oximetry Oxygen Delivery Room Air Fraction of Inspired Oxygen 04/19/25 14:00 04/19/25 16:00 04/19/25 20:00 Temperature Pulse Rate 81 78 Respiratory Rate 12 Blood Pressure 149/67 H Pulse Oximetry 98 Oxygen Delivery Room Air Fraction of Inspired Oxygen 04/19/25 20:00 04/19/25 20:11 04/19/25 21:09 Temperature 36.6 C Pulse Rate 92 95 79 Respiratory Rate 20 20 Blood Pressure 160/64 H Pulse Oximetry 95 94 Oxygen Delivery Room Air Fraction of Inspired Oxygen 21 04/20/25 00:00 04/20/25 03:47 04/20/25 04:00 Temperature 36.2 C L Pulse Rate 74 70 66 Respiratory Rate 20 Blood Pressure 134/62 Pulse Oximetry 93 Oxygen Delivery Fraction of Inspired Oxygen Intake/Output Intake/Output: Intake & Output 04/17/25 04/18/25 04/19/25 04/20/25 23:59 23:59 23:59 23:59 Intake Total 1580 2060 1700 290 Output Total 400 Balance 1180 2060 1700 290 Meds/Results Medications: Active Medications Generic Name Dose Route Start Last Admin Trade Name Freq PRN Reason Stop Dose Admin Acetaminophen 650 mg 04/14/25 22:00 04/20/25 05:38 Acetaminophen 325 Mg Tablet PO 650 mg Q8HR VALERIA Administration Hydrocodone Bitart/Acetaminophen 1 tab 04/16/25 12:19 Hydrocodone/Acetaminophen (*Crx) 5-325 Mg Tablet PO Q6H PRN Pain Rated 4-6 Amlodipine Besylate 10 mg 04/15/25 09:00 04/19/25 09:27 Amlodipine Besylate 10 Mg Tablet PO 10 mg QAM VALERIA Administration Ascorbic Acid 1,000 mg 04/15/25 09:00 04/19/25 09:27 Ascorbic Acid 500 Mg Tablet PO 1,000 mg QAM VALERIA Administration Calcium Carbonate 500 mg 04/15/25 12:00 04/19/25 11:50 Calcium/Vitamin D 500 Mg/5 Mcg (200 I.U.) Tablet PO 500 mg DAILY@1200 VALERIA Administration Cyanocobalamin 1,000 mcg 04/15/25 09:00 04/19/25 09:27 Cyanocobalamin 1,000 Mcg Tablet PO 1,000 mcg QAM VALERIA Administration Fluoxetine HCl 20 mg 04/15/25 09:00 04/19/25 09:27 Fluoxetine Hcl 20 Mg Capsule PO 20 mg DAILY VALERIA Administration Gabapentin 100 mg 04/14/25 21:00 04/19/25 21:26 Gabapentin 100 Mg Capsule PO 100 mg QHS VALERIA Administration Cefepime HCl 1 gm/ Sodium 50 mls @ 100 mls/hr 04/15/25 12:00 04/19/25 23:13 Chloride IVPB 100 mls/hr Q12H VALERIA Administration Vancomycin HCl 1,500 mg in 500 mls @ 250 mls/hr 04/17/25 13:00 04/19/25 15:51 Vancomycin 1,500 Mg/Ns 500 Ml IVPB Infused Q24H VALERIA Infusion Metronidazole 500 mg in 100 mls @ 100 mls/hr 04/18/25 14:00 04/20/25 05:38 Flagyl 500 Mg/Iso Soln 100 Ml IVPB 100 mls/hr Q8HR VALERIA Administration Levothyroxine Sodium 88 mcg 04/15/25 06:30 04/20/25 05:38 Levothyroxine Sodium 88 Mcg Tablet PO 88 mcg DAILY@0630 VALERIA Administration Sodium Chloride 1,000 mg 04/16/25 09:00 04/19/25 18:08 Sodium Chloride 500 Mg Tablet PO 1,000 mg BID VALERIA Administration Trazodone HCl 150 mg 04/14/25 16:55 04/19/25 21:26 Trazodone Hcl 50 Mg Tablet PO 150 mg HS PRN Administration Sleep Valsartan 40 mg 04/14/25 21:00 04/19/25 21:26 Valsartan 40 Mg Tablet PO 40 mg HS VALERIA Administration Radiology Results: ITS Impressions Chest X-Ray 04/15/25 08:41 IMPRESSION: 1. No acute cardiopulmonary findings given portable technique. Lower Extremity CT 04/15/25 13:10 IMPRESSION: 1. 10.3 x 4.3 x 2.4 cm subcutaneous collection of gas, fluid and some high attenuation material, potentially packing material along a surgical wound lateral to the proximal right femur where there has been recent internal fixation of a recent comminuted intratrochanteric fracture. 3. More advanced healing of a more chronic comminuted extra articular fracture of the distal right femur with separate retrograde intramedullary pieter fixation. Labs Labs: Laboratory Results - last 24 hr 04/19/25 04/20/25 11:44 04:52 WBC 7.0 RBC 2.69 L Hgb 8.6 L Hct 26.5 L MCV 98.5 MCH 32.0 MCHC 32.5 RDW 12.6 Plt Count 314 MPV 9.0 Sodium 130 L Potassium 4.0 Chloride 97 L Carbon Dioxide 30 Anion Gap 3 L BUN 15 Creatinine 0.81 Estim Creat Clear Calc 52 Estimated GFR > 60 Glucose 89 Calcium 8.7 Total Bilirubin 0.1 L AST 34 ALT 16 Alkaline Phosphatase 100 Total Protein 5.7 L Albumin 2.8 L Vancomycin Trough 17.4
[2025-04-20] MEDS: CYANOCOBALAMIN 1,000 MCG TABLET 1000 MCG PO (08:53)
[2025-04-20] MEDS: SODIUM CHLORIDE 500 MG TABLET 1000 MG PO ×2 (08:53→17:37)
[2025-04-20] MEDS: ASCORBIC ACID 500 MG TABLET 1000 MG PO (08:53)
[2025-04-20] MEDS: CEFEPIME 1 GM in SODIUM CHLORIDE 0.9% IV 50 ML 100 ML IVPB (12:17)
[2025-04-20] MEDS: CALCIUM/VITAMIN D 500 MG/5 MCG (200 I.U.) TABLET PO (12:17)
[2025-04-20] MEDS: VANCOMYCIN 1,500 MG/NS 500 ML 1,500 MG/500 ML BAG 250 MG IVPB (13:47)
--- NOTE | 2025-04-20 14:08 | P.PNIM_ITS ---
Progress Note: A&P Assessment and Plan (1) Foreign body of right hip with infection: Code(s): S70.251A - Superficial foreign body, right hip, initial encounter; L08.9 - Local infection of the skin and subcutaneous tissue, unspecified Status: Acute Assessment and Plan: S/p right DHS Plate for Intertrochanteric fracture on 03/10/2025 in [facility]. Earlier in 2024, when she again fell and sustained a closed distal 1/3 femoral shaft fracture that was treated with a retrograde IM pieter. Had scheduled appointment for follow up With Dr. Duke Marin, however was not able to make this appointment due to hyponatremia Approximately 1 week ago patient developed warmth, redness and blistering wound to the lower aspect of surgical incision with clear drainage, this has continues to worsen and new wound formed to mid aspect with clear drainage CT lower extremity: 10.3 x 4.3 x 2.4 cm subcutaneous collection of gas, fluid and some high attenuation material, potentially packing material along a maria rgical wound lateral to the proximal right femur where there has been recent internal fixation of a recent comminuted intratrochanteric fracture. More advanced healing of a more chronic comminuted extra articular fracture of the distal right femur with separate retrograde intramedullary pieter fixation. Wound culture obtained: pending Antibiotic: Vancomycin and cefepime started on 04/15, added on flagyl on 04/18 per ID. Adjust per wound culture ID consulted, patient will need senior care antibiotic coverage as no acute surgical intervention at this time Wound care following Ortho consulted, discussed patients care plan and reviewed imaging with Dr. Santamaria No acute surgical intervention at this time, family working on re-scheduling appointment with Dr Duke Marin at [place]. Recommend addressing the hyponatremia PT/OT Wound continues to have drainage. Redness and warmth improving. Patient remains afebrile without leukocytosis. Cultures still pending. Continue current antibiotic regimen. Discussed patient with Dr. Saini who is concerned that outpatient antibiotics would not be sufficient to treat and source control is needed. He discussed patient with Dr. Batista office who are agreeable to transfer as a customer consultant. Patient accepted by hospitalist Dr. Sutherland to [facility] on 04/19. Transfer is pending to [facility]. No acute concerns. ID, ortho following. WBC stable. (2) Hyponatremia: Code(s): E87.1 - Hypo-osmolality and hyponatremia Status: Acute Assessment and Plan: Seen by her PCP, Miguel [facility], had outpatient lab work which showed a sodium of 120. Repeat Na on admission was 118. She was recently hospitalized from 03/31/2025 to 04/05/2025, hyponatremia was noted upon admission at 127, lowest at 125 during her hospitalization. Evaluated by Nephrology who believed the hyponatremia was acute. Risk factors for hyponatremia include thyroid disease and medications (trazodo ne, sertraline, gabapentin), may have some excessive free water intake. Nephrology recommended salt tabs and fluid restriction, however family did not want the patient to be on a fluid restriction. She was continued on the NaCl tablet at discharge. She has not been taking this due to cost. - Na 129 on am labs - Continue salt tabs and fluid restriction (1600 ml) - diet: regular - nephrology consulted, appreciate recommendations Sodium improving. Patient remains asymptomatic. (3) Hypothyroidism (acquired): Code(s): E03.9 - Hypothyroidism, unspecified Status: Chronic Assessment and Plan: - 04/01: TSH 8.29, T4 0.97, T3 0.55 on 04/01/25 - continue Synthroid 88 mcg daily (4) CKD (chronic kidney disease) stage 3, GFR 30-59 ml/min: Qualifiers: Chronic kidney disease stage 3 subtype: stage 3a (GFR 45-59) Qualified Code(s): N18.31 - Chronic kidney disease, stage 3a Code(s): N18.30 - Chronic kidney disease, stage 3 unspecified Status: Chronic Assessment and Plan: History of CKD. Baseline creatinine ~ 1.1 - 1.3mg/dl - appears at baseline renal function - trend renal function and electrolytes, correct electrolytes as needed - avoid nephrotoxic medications - renally dose medications - monitor I/O (5) Essential (primary) hypertension: Code(s): I10 - Essential (primary) hypertension Status: Chronic Assessment and Plan: Chronic, continue home medications - Amlodipine 10 mg daily and valsartan 40 mg daily - blood pressures reviewed and stable, continue to monitor (6) Depression: Qualifiers: Depression Type: unspecified Qualified Code(s): F32.A - Depression, unspecified Code(s): F32.A - Depression, unspecified Status: Chronic Assessment and Plan: Continue fluoxetine Time Spent With Patient Time with patient: 25 - 35 minutes Subjective Date/time seen: 04/20/25 14:08 Interval history: 79 year old female with past medical history of CKD, anemia, HTN, hypothyroidism, HLD, DM, recent hip surgery 5 weeks ago (undergoing PT/OT w/HH) presents to the hospital with hyponatremia. Sodium remains stable if not better by trend of labs; seen by Infectious Disease yesterday with recommendations noted -- possible transfer to [facility] for further evaluation and possible surgical intervention; no apparent distress voiced at the time of my visit. Assuming care. Transfer is pending to [facility]. She is voicing no acute concerns. ID, ortho following. WBC stable. Review of Systems Review of Systems: All systems reviewed & are unremarkable except as noted in HPI and below Exam Narrative: General: female in no acute respiratory distress who is nontoxic appearing, sitting up in chair HEENT: Normocephalic. Atraumatic. Extraocular movement intact. Sclera clear and anicteric. No facial asymmetry. Chest: Lungs are clear to auscultation bilaterally. CV: Heart was regular rate and rhythm. Abd: Abdomen was soft. Nontender. Nondistended. Positive bowel sounds. Ext: No clubbing, cyanosis, or edema. Surgical incision to the mid lateral hip with two draining wounds to the lower and mid aspect along the incision site, less drainage noted and now serosanguineous. Redness and warmth is improving. No pain with palpation. Const: General: comfortable and no acute distress Other: , female, elderly, nontoxic appearance HENMT: Face/Nose/Sinus: Normal nares present Mouth: Yes moist mucous membranes Eyes: General: appearance normal, both eyes and all related structures Sclera: sclerae normal Pupils: Equal, round and reactive pupils present EOM: EOMs intact bilaterally Resp: Effort & Inspection: normal respiratory effort Auscultation: clear to auscultation bilaterally Cardio: Rate: regular rate Rhythm: regular rhythm Other: S1-S2 present without murmur, rub, ectopy GI: Other: Abdomen soft, nondistended, nontender. Normoactive bowel sounds in all quadrants. Skin: General skin exam: normal color and no rashes or lesions noted Wounds: no wounds Neuro: Cranial nerves: Yes Equal, round and reactive pupils present Speech: normal speech Motor exam (neuro): 5/5 motor strength present throughout Sensory Exam: normal sensation Other: A&O x4 Extrem: General: normal to inspection Psych: Mental Status: mental status grossly normal Affect: normal affect Other: Good insight judgment, pleasant Objective Data Vital Signs Vital Signs: Vital Signs - 24 hr 04/19/25 16:00 04/19/25 20:00 04/19/25 20:00 Temperature Pulse Rate 78 92 Respiratory Rate Blood Pressure Pulse Oximetry Oxygen Delivery Room Air Fraction of Inspired Oxygen 04/19/25 20:11 04/19/25 21:09 04/20/25 00:00 Temperature 97.8 F Pulse Rate 95 79 74 Respiratory Rate 20 20 Blood Pressure 160/64 H Pulse Oximetry 95 94 Oxygen Delivery Room Air Fraction of Inspired Oxygen 21 04/20/25 03:47 04/20/25 04:00 04/20/25 08:00 Temperature 97.2 F L Pulse Rate 70 66 71 Respiratory Rate 20 Blood Pressure 134/62 Pulse Oximetry 93 Oxygen Delivery Fraction of Inspired Oxygen 04/20/25 08:50 04/20/25 12:00 Temperature Pulse Rate 71 Respiratory Rate Blood Pressure Pulse Oximetry Oxygen Delivery Room Air Fraction of Inspired Oxygen Intake/Output Intake/Output: Intake & Output 04/17/25 04/18/25 04/19/25 04/20/25 23:59 23:59 23:59 23:59 Intake Total 1580 2060 1750 1120 Output Total 400 Balance 1180 2060 1750 1120 Meds/Results Medications: Active Medications Generic Name Dose Route Start Last Admin Trade Name Freq PRN Reason Stop Dose Admin Acetaminophen 650 mg 04/14/25 22:00 04/20/25 13:48 Acetaminophen 325 Mg Tablet PO 650 mg Q8HR VALERIA Administration Hydrocodone Bitart/Acetaminophen 1 tab 04/16/25 12:19 Hydrocodone/Acetaminophen (*Crx) 5-325 Mg Tablet PO Q6H PRN Pain Rated 4-6 Amlodipine Besylate 10 mg 04/15/25 09:00 04/20/25 08:53 Amlodipine Besylate 10 Mg Tablet PO 10 mg QAM VALERIA Administration Ascorbic Acid 1,000 mg 04/15/25 09:00 04/20/25 08:53 Ascorbic Acid 500 Mg Tablet PO 1,000 mg QAM VALERIA Administration Calcium Carbonate 500 mg 04/15/25 12:00 04/20/25 12:17 Calcium/Vitamin D 500 Mg/5 Mcg (200 I.U.) Tablet PO 500 mg DAILY@1200 VALERIA Administration Cyanocobalamin 1,000 mcg 04/15/25 09:00 04/20/25 08:53 Cyanocobalamin 1,000 Mcg Tablet PO 1,000 mcg QAM VALERIA Administration Fluoxetine HCl 20 mg 04/15/25 09:00 04/20/25 08:53 Fluoxetine Hcl 20 Mg Capsule PO 20 mg DAILY VALERIA Administration Gabapentin 100 mg 04/14/25 21:00 04/19/25 21:26 Gabapentin 100 Mg Capsule PO 100 mg QHS VALERIA Administration Cefepime HCl 1 gm/ Sodium 50 mls @ 100 mls/hr 04/15/25 12:00 04/20/25 12:47 Chloride IVPB Infused Q12H VALERIA Infusion Vancomycin HCl 1,500 mg in 500 mls @ 250 mls/hr 04/17/25 13:00 04/20/25 13:47 Vancomycin 1,500 Mg/Ns 500 Ml IVPB 250 mls/hr Q24H VALERIA Administration Metronidazole 500 mg in 100 mls @ 100 mls/hr 04/18/25 14:00 04/20/25 13:48 Flagyl 500 Mg/Iso Soln 100 Ml IVPB 100 mls/hr Q8HR VALERIA Administration Levothyroxine Sodium 88 mcg 04/15/25 06:30 04/20/25 05:38 Levothyroxine Sodium 88 Mcg Tablet PO 88 mcg DAILY@0630 VALERIA Administration Sodium Chloride 1,000 mg 04/16/25 09:00 04/20/25 08:53 Sodium Chloride 500 Mg Tablet PO 1,000 mg BID VALERIA Administration Trazodone HCl 150 mg 04/14/25 16:55 04/19/25 21:26 Trazodone Hcl 50 Mg Tablet PO 150 mg HS PRN Administration Sleep Valsartan 40 mg 04/14/25 21:00 04/19/25 21:26 Valsartan 40 Mg Tablet PO 40 mg HS VALERIA Administration Radiology Results: ITS Impressions Chest X-Ray 04/15/25 08:41 IMPRESSION: 1. No acute cardiopulmonary findings given portable technique. Lower Extremity CT 04/15/25 13:10 IMPRESSION: 1. 10.3 x 4.3 x 2.4 cm subcutaneous collection of gas, fluid and some high attenuation material, potentially packing material along a surgical wound lateral to the proximal right femur where there has been recent internal fixation of a recent comminuted intratrochanteric fracture. 3. More advanced healing of a more chronic comminuted extra articular fracture of the distal right femur with separate retrograde intramedullary pieter fixation. Labs Labs: Laboratory Results - last 24 hr 04/20/25 04:52 WBC 7.0 RBC 2.69 L Hgb 8.6 L Hct 26.5 L MCV 98.5 MCH 32.0 MCHC 32.5 RDW 12.6 Plt Count 314 MPV 9.0 Sodium 130 L Potassium 4.0 Chloride 97 L Carbon Dioxide 30 Anion Gap 3 L BUN 15 Creatinine 0.81 Estim Creat Clear Calc 52 Estimated GFR > 60 Glucose 89 Calcium 8.7 Total Bilirubin 0.1 L AST 34 ALT 16 Alkaline Phosphatase 100 Total Protein 5.7 L Albumin 2.8 L Quality VTE Prophylaxis VTE prophylaxis: mechanical ordered
--- NOTE | 2025-04-20 16:18 | P.PNINF_ITS ---
Progress Note: A&P Assessment and Plan (1) Postoperative wound infection of right hip: Code(s): T81.49XA - Infection following a procedure, other surgical site, initial encounter Status: Acute Plan # Infection right hip status post ORIF for fractured hip. Consider Gram-positive organisms as well as potential for enteric Gram-negative post OK synergistic infection. Gas noted on CT was after manipulation by Wound Care. Clinically not behaving like necrotizing skin soft tissue process although synergistic infection possible. Would be concerned about hardware infection at this point. Original surgery 03/10/2025 in [place]. Plan: For now, continue cefepime, Flagyl and vancomycin. Follow-up final wound cultures Continued improvement with antibiotics presently but will need washout at some point. Washout will be done at [facility]. If bed not available and patient these have significant improvement on IV antibiotics, could consider target date for outpatient follow-up/ washout and continue patient on oral step-down therapy until washout can be achieved. alternatively, could consider brief course of IV antibiotics to bridge time of discharge through date of surgery if a more extended interval is needed at home before surgery. Otherwise awaiting transfer per discussion with Orthopedic surgery/ Dr. Dela Cruz' service and hospitalist service here. We will continue to follow while patient here. Subjective Date/time seen: 04/20/25 16:18 Interval history: No new complaints. Discussed with Nursing. Decreased redness along the leg. She did have some acute pain along the hip yesterday. Responded to pain medica tion. Cultures still pending. Exam Narrative: Alert oriented to person place and time. Sitting up in bed. Comfortable. No rash. No phlebitis. Wound photos reviewed. Dressed. Objective Data Vital Signs Vital Signs: Vital Signs - 24 hr 04/19/25 20:00 04/19/25 20:00 04/19/25 20:11 Temperature Pulse Rate 92 95 Respiratory Rate 20 Blood Pressure Pulse Oximetry 95 Oxygen Delivery Room Air Room Air Fraction of Inspired Oxygen 21 04/19/25 21:09 04/20/25 00:00 04/20/25 03:47 Temperature 36.6 C 36.2 C L Pulse Rate 79 74 70 Respiratory Rate 20 20 Blood Pressure 160/64 H 134/62 Pulse Oximetry 94 93 Oxygen Delivery Fraction of Inspired Oxygen 04/20/25 04:00 04/20/25 08:00 04/20/25 08:50 Temperature Pulse Rate 66 71 Respiratory Rate Blood Pressure Pulse Oximetry Oxygen Delivery Room Air Fraction of Inspired Oxygen 04/20/25 12:00 04/20/25 14:00 Temperature 36.8 C Pulse Rate 71 84 Respiratory Rate 18 Blood Pressure 165/71 H Pulse Oximetry 97 Oxygen Delivery Fraction of Inspired Oxygen Intake/Output Intake/Output: Intake & Output 04/17/25 04/18/25 04/19/25 04/20/25 23:59 23:59 23:59 23:59 Intake Total 1580 2060 1750 1240 Output Total 400 Balance 1180 2060 1750 1240 Meds/Results Medications: Active Medications Generic Name Dose Route Start Last Admin Trade Name Freq PRN Reason Stop Dose Admin Acetaminophen 650 mg 04/14/25 22:00 04/20/25 13:48 Acetaminophen 325 Mg Tablet PO 650 mg Q8HR VALERIA Administration Hydrocodone Bitart/Acetaminophen 1 tab 04/16/25 12:19 Hydrocodone/Acetaminophen (*Crx) 5-325 Mg Tablet PO Q6H PRN Pain Rated 4-6 Amlodipine Besylate 10 mg 04/15/25 09:00 04/20/25 08:53 Amlodipine Besylate 10 Mg Tablet PO 10 mg QAM VALERIA Administration Ascorbic Acid 1,000 mg 04/15/25 09:00 04/20/25 08:53 Ascorbic Acid 500 Mg Tablet PO 1,000 mg QAM VALERIA Administration Calcium Carbonate 500 mg 04/15/25 12:00 04/20/25 12:17 Calcium/Vitamin D 500 Mg/5 Mcg (200 I.U.) Tablet PO 500 mg DAILY@1200 VALERIA Administration Cyanocobalamin 1,000 mcg 04/15/25 09:00 04/20/25 08:53 Cyanocobalamin 1,000 Mcg Tablet PO 1,000 mcg QAM VALERIA Administration Fluoxetine HCl 20 mg 04/15/25 09:00 04/20/25 08:53 Fluoxetine Hcl 20 Mg Capsule PO 20 mg DAILY VALERIA Administration Gabapentin 100 mg 04/14/25 21:00 04/19/25 21:26 Gabapentin 100 Mg Capsule PO 100 mg QHS VALERIA Administration Cefepime HCl 1 gm/ Sodium 50 mls @ 100 mls/hr 04/15/25 12:00 04/20/25 12:47 Chloride IVPB Infused Q12H VALERIA Infusion Vancomycin HCl 1,500 mg in 500 mls @ 250 mls/hr 04/17/25 13:00 04/20/25 13:47 Vancomycin 1,500 Mg/Ns 500 Ml IVPB 250 mls/hr Q24H VALERIA Administration Metronidazole 500 mg in 100 mls @ 100 mls/hr 04/18/25 14:00 04/20/25 16:08 Flagyl 500 Mg/Iso Soln 100 Ml IVPB 100 mls/hr Q8HR VALERIA Administration Levothyroxine Sodium 88 mcg 04/15/25 06:30 04/20/25 05:38 Levothyroxine Sodium 88 Mcg Tablet PO 88 mcg DAILY@0630 VALERIA Administration Sodium Chloride 1,000 mg 04/16/25 09:00 04/20/25 08:53 Sodium Chloride 500 Mg Tablet PO 1,000 mg BID VALERIA Administration Trazodone HCl 150 mg 04/14/25 16:55 04/19/25 21:26 Trazodone Hcl 50 Mg Tablet PO 150 mg HS PRN Administration Sleep Valsartan 40 mg 04/14/25 21:00 04/19/25 21:26 Valsartan 40 Mg Tablet PO 40 mg HS VALERIA Administration Radiology Results: ITS Impressions Chest X-Ray 04/15/25 08:41 IMPRESSION: 1. No acute cardiopulmonary findings given portable technique. Lower Extremity CT 04/15/25 13:10 IMPRESSION: 1. 10.3 x 4.3 x 2.4 cm subcutaneous collection of gas, fluid and some high att enuation material, potentially packing material along a surgical wound lateral to the proximal right femur where there has been recent internal fixation of a recent comminuted intratrochanteric fracture. 3. More advanced healing of a more chronic comminuted extra articular fracture of the distal right femur with separate retrograde intramedullary pieter fixation. Labs Labs: Laboratory Results - last 24 hr 04/20/25 04:52 WBC 7.0 RBC 2.69 L Hgb 8.6 L Hct 26.5 L MCV 98.5 MCH 32.0 MCHC 32.5 RDW 12.6 Plt Count 314 MPV 9.0 Sodium 130 L Potassium 4.0 Chloride 97 L Carbon Dioxide 30 Anion Gap 3 L BUN 15 Creatinine 0.81 Estim Creat Clear Calc 52 Estimated GFR > 60 Glucose 89 Calcium 8.7 Total Bilirubin 0.1 L AST 34 ALT 16 Alkaline Phosphatase 100 Total Protein 5.7 L Albumin 2.8 L
[2025-04-20] MEDS: VALSARTAN 40 MG TABLET PO (21:07)
[2025-04-20] MEDS: GABAPENTIN 100 MG CAPSULE PO (21:07)
[2025-04-21] MEDS: CEFEPIME 1 GM in SODIUM CHLORIDE 0.9% IV 50 ML 100 ML IVPB ×2 (00:21→12:00)
[2025-04-21 04:56] VITALS: BP 148/59; PULSE 76; RESP 18; TEMP 36.6; O2SAT 95
[2025-04-21] MEDS: LEVOTHYROXINE SODIUM 88 MCG TABLET PO (05:29)
[2025-04-21] MEDS: metroNIDAZOLE 500 MG/ISO 100ML 500 MG/100 ML BAG 100 MG IVPB ×2 (05:29→12:53)
[2025-04-21] MEDS: ACETAMINOPHEN 325 MG TABLET 650 MG PO ×3 (05:29→21:00)
[2025-04-21] MEDS: ASCORBIC ACID 500 MG TABLET 1000 MG PO (08:31)
[2025-04-21] MEDS: CYANOCOBALAMIN 1,000 MCG TABLET 1000 MCG PO (08:31)
[2025-04-21] MEDS: SODIUM CHLORIDE 500 MG TABLET 1000 MG PO ×2 (08:31→17:29)
--- NOTE | 2025-04-21 10:00 | P.PNIM_ITS ---
Progress Note: A&P Assessment and Plan (1) Foreign body of right hip with infection: Code(s): S70.251A - Superficial foreign body, right hip, initial encounter; L08.9 - Local infection of the skin and subcutaneous tissue, unspecified Status: Acute Assessment and Plan: S/p right DHS Plate for Intertrochanteric fracture on 03/10/2025 in [facility]. Earlier in 2024, when she again fell and sustained a closed distal 1/3 femoral shaft fracture that was treated with a retrograde IM pieter. Had scheduled appointment for follow up With Dr. Duke Marin, however was not able to make this appointment due to hyponatremia Approximately 1 week ago patient developed warmth, redness and blistering wound to the lower aspect of surgical incision with clear drainage, this has continues to worsen and new wound formed to mid aspect with clear drainage CT lower extremity: 10.3 x 4.3 x 2.4 cm subcutaneous collection of gas, fluid and some high attenuation material, potentially packing material along a maria rgical wound lateral to the proximal right femur where there has been recent internal fixation of a recent comminuted intratrochanteric fracture. More advanced healing of a more chronic comminuted extra articular fracture of the distal right femur with separate retrograde intramedullary pieter fixation. Wound culture obtained: pending Antibiotic: Vancomycin and cefepime started on 04/15, added on flagyl on 04/18 per ID. Adjust per wound culture ID consulted, patient will need residential antibiotic coverage as no acute surgical intervention at this time Wound care following Ortho consulted, discussed patients care plan and reviewed imaging with Dr. Santamaria No acute surgical intervention at this time, family working on re-scheduling appointment with Dr Duke Marin at [facility]. Recommend addressing the hyponatremia PT/OT Wound continues to have drainage. Redness and warmth improving. Patient remains afebrile without leukocytosis. Cultures still pending. Continue current antibiotic regimen. Discussed patient with Dr. Saini who is concerned that outpatient antibiotics would not be sufficient to treat and source control is needed. He discussed patient with Dr. Batista office who are agreeable to transfer as a health management consultant. Patient accepted by hospitalist Dr. Sutherland to [facility] on 04/19. Transfer is pending to [facility]. No acute concerns. ID, ortho following. WBC stable. added daily labs (2) Hyponatremia: Code(s): E87.1 - Hypo-osmolality and hyponatremia Status: Acute Assessment and Plan: Seen by her PCP, [facility] [employer] [facility], had outpatient lab work which showed a sodium of 120. Repeat Na on admission was 118. She was recently hospitalized from 03/31/2025 to 04/05/2025, hyponatremia was noted upon admission at 127, lowest at 125 during her hospitalization. Evaluated by Nephrology who believed the hyponatremia was acute. Risk factors for hyponatremia include thyroid disease and medications (trazodone, sertraline, gabapentin), may have some excessive free water intake. Nephrology recommended salt tabs and fluid restriction, however family did not want the patient to be on a fluid restriction. She was continued on the NaCl tablet at discharge. She has not been taking this due to cost. - Na 129 on am labs - Continue salt tabs and fluid restriction (1600 ml) - diet: regular - nephrology consulted, appreciate recommendations Sodium improving. Patient remains asymptomatic. 04/21- na 130 today (3) Hypothyroidism (acquired): Code(s): E03.9 - Hypothyroidism, unspecified Status: Chronic Assessment and Plan: - 04/01: TSH 8.29, T4 0.97, T3 0.55 on 04/01/25 - continue Synthroid 88 mcg daily (4) CKD (chronic kidney disease) stage 3, GFR 30-59 ml/min: Qualifiers: Chronic kidney disease stage 3 subtype: stage 3a (GFR 45-59) Qualified Code(s): N18.31 - Chronic kidney disease, stage 3a Code(s): N18.30 - Chronic kidney disease, stage 3 unspecified Status: Chronic Assessment and Plan: History of CKD. Baseline creatinine ~ 1.1 - 1.3mg/dl - appears at baseline renal function - trend renal function and electrolytes, correct electrolytes as needed - avoid nephrotoxic medications - renally dose medications - monitor I/O (5) Essential (primary) hypertension: Code(s): I10 - Essential (primary) hypertension Status: Chronic Assessment and Plan: Chronic, continue home medications - Amlodipine 10 mg daily and valsartan 40 mg daily - blood pressures reviewed and stable, continue to monitor (6) Depression: Qualifiers: Depression Type: unspecified Qualified Code(s): F32.A - Depression, unspecified Code(s): F32.A - Depression, unspecified Status: Chronic Assessment and Plan: Continue fluoxetine Time Spent With Patient Time with patient: 25 - 35 minutes Subjective Date/time seen: 04/21/25 10:00 Interval history: Waiting for transfer. No acute events overnight. Decreased redness along the leg. She did have some acute pain along the hip yesterday. Responded to pain medication. Cultures still pending. Review of Systems Review of Systems: All systems reviewed & are unremarkable except as noted in HPI and below Exam Narrative: General: female in no acute respiratory distress who is nontoxic appearing, sitting up in chair HEENT: Normocephalic. Atraumatic. Extraocular movement intact. Sclera clear and anicteric. No facial asymmetry. Chest: Lungs are clear to auscultation bilaterally. CV: Heart was regular rate and rhythm. Abd: Abdomen was soft. Nontender. Nondistended. Positive bowel sounds. Ext: No clubbing, cyanosis, or edema. Surgical incision to the mid lateral hip with two draining wounds to the lower and mid aspect along the incision site, less drainage noted and now serosanguineous. Redness and warmth is improving. No pain with palpation. Const: General: comfortable and no acute distress Other: , female, elderly, nontoxic appearance HENMT: Face/Nose/Sinus: Normal nares present Mouth: Yes moist mucous membranes Eyes: General: appearance normal, both eyes and all related structures Sclera: sclerae normal Pupils: Equal, round and reactive pupils present EOM: EOMs intact bilaterally Resp: Effort & Inspection: normal respiratory effort Auscultation: clear to auscultation bilaterally Cardio: Rate: regular rate Rhythm: regular rhythm Other: S1-S2 present without murmur, rub, ectopy GI: Other: Abdomen soft, nondistended, nontender. Normoactive bowel sounds in all quadrants. Skin: General skin exam: normal color and no rashes or lesions noted Wounds: no wounds Neuro: Cranial nerves: Yes Equal, round and reactive pupils present Speech: normal speech Motor exam (neuro): 5/5 motor strength present throughout Sensory Exam: normal sensation Other: A&O x4 Extrem: General: normal to inspection Psych: Mental Status: mental status grossly normal Affect: normal affect Other: Good insight judgment, pleasant Objective Data Vital Signs Vital Signs: Vital Signs - 24 hr 04/20/25 12:00 04/20/25 14:00 04/20/25 16:00 Temperature 98.2 F Pulse Rate 71 84 78 Respiratory Rate 18 Blood Pressure 165/71 H Pulse Oximetry 97 Oxygen Delivery 04/20/25 20:00 04/20/25 20:48 04/21/25 04:56 Temperature 97.6 F 97.9 F Pulse Rate 79 76 Respiratory Rate 20 18 Blood Pressure 153/66 H 148/59 H Pulse Oximetry 98 95 Oxygen Delivery Room Air 04/21/25 08:30 Temperature Pulse Rate Respiratory Rate Blood Pressure Pulse Oximetry Oxygen Delivery Room Air Intake/Output Intake/Output: Intake & Output 04/18/25 04/19/25 04/20/25 04/21/25 23:59 23:59 23:59 23:59 Intake Total 2059 1750 2180 390 Balance 2059 1750 2180 390 Meds/Results Medications: Active Medications Generic Name Dose Route Start Last Admin Trade Name Freq PRN Reason Stop Dose Admin Acetaminophen 650 mg 04/14/25 22:00 04/21/25 05:29 Acetaminophen 325 Mg Tablet PO 650 mg Q8HR VALERIA Administration Hydrocodone Bitart/Acetaminophen 1 tab 04/16/25 12:19 Hydrocodone/Acetaminophen (*Crx) 5-325 Mg Tablet PO Q6H PRN Pain Rated 4-6 Amlodipine Besylate 10 mg 04/15/25 09:00 04/21/25 08:31 Amlodipine Besylate 10 Mg Tablet PO 10 mg QAM VALERIA Administration Ascorbic Acid 1,000 mg 04/15/25 09:00 04/21/25 08:31 Ascorbic Acid 500 Mg Tablet PO 1,000 mg QAM VALERIA Administration Calcium Carbonate 500 mg 04/15/25 12:00 04/20/25 12:17 Calcium/Vitamin D 500 Mg/5 Mcg (200 I.U.) Tablet PO 500 mg DAILY@1200 [facility] Administration Cyanocobalamin 1,000 mcg 04/15/25 09:00 04/21/25 08:31 Cyanocobalamin 1,000 Mcg Tablet PO 1,000 mcg QAM VALERIA Administration Fluoxetine HCl 20 mg 04/15/25 09:00 04/21/25 08:31 Fluoxetine Hcl 20 Mg Capsule PO 20 mg DAILY VALERIA Administration Gabapentin 100 mg 04/14/25 21:00 04/20/25 21:07 Gabapentin 100 Mg Capsule PO 100 mg QHS VALERIA Administration Cefepime HCl 1 gm/ Sodium 50 mls @ 100 mls/hr 04/15/25 12:00 04/21/25 00:51 Chloride IVPB Infused Q12H VALERIA Infusion Vancomycin HCl 1,500 mg in 500 mls @ 250 mls/hr 04/17/25 13:00 04/20/25 15:47 Vancomycin 1,500 Mg/Ns 500 Ml IVPB Infused Q24H VALERIA Infusion Metronidazole 500 mg in 100 mls @ 100 mls/hr 04/18/25 14:00 04/21/25 06:29 Flagyl 500 Mg/Iso Soln 100 Ml IVPB Infused Q8HR VALERIA Infusion Levothyroxine Sodium 88 mcg 04/15/25 06:30 04/21/25 05:29 Levothyroxine Sodium 88 Mcg Tablet PO 88 mcg DAILY@0630 VALERIA Administration Sodium Chloride 1,000 mg 04/16/25 09:00 04/21/25 08:31 Sodium Chloride 500 Mg Tablet PO 1,000 mg BID VALERIA Administration Trazodone HCl 150 mg 04/14/25 16:55 04/20/25 21:09 Trazodone Hcl 50 Mg Tablet PO 150 mg HS PRN Administration Sleep Valsartan 40 mg 04/14/25 21:00 04/20/25 21:07 Valsartan 40 Mg Tablet PO 40 mg HS VALERIA Administration Radiology Results: ITS Impressions Chest X-Ray 04/15/25 08:41 IMPRESSION: 1. No acute cardiopulmonary findings given portable technique. Lower Extremity CT 04/15/25 13:10 IMPRESSION: 1. 10.3 x 4.3 x 2.4 cm subcutaneous collection of gas, fluid and some high attenuation material, potentially packing material along a surgical wound lateral to the proximal right femur where there has been recent internal fixation of a recent comminuted intratrochanteric fracture. 3. More advanced healing of a more chronic comminuted extra articular fracture of the distal right femur with separate retrograde intramedullary pieter fixation. Quality VTE Prophylaxis VTE prophylaxis: mechanical ordered
--- NOTE | 2025-04-21 10:51 | PCNWS ---
Weekly nutritional screen. Patient is tolerating current diet with adequate intake. No weight loss reported. No nutritional needs at this time.
[2025-04-21 10:59] LABS: Hematocrit 29.8 % (37.0-47.0); Hemoglobin 9.6 g/dL (12.0-15.0); Mean Corpuscular HGB Conc 32.2 g/dl (32-36); Mean Corpuscular Hemoglobin 32.4 pg (26-34); Mean Corpuscular Volume 100.7 fl (80-100); Platelet Count Result 332 k/mm3 (150-375); Red Blood Count 2.96 M/mm3 (4.2-5.4); White Blood Count 6.0 K/mm3 (4.5-10.0)
[2025-04-21 11:15] LABS: Anion Gap 5 mmol/L (4-12); Blood Urea Nitrogen 15 mg/dL (7-17); Calcium 8.8 mg/dL (8.4-10.2); Carbon Dioxide 29 mmol/L (22-30); Chloride 98 mmol/L (98-107); Estimated CRCL calculation 50 ml/min; Estimated Glomerular Filt Rate > 60; Glucose 174 mg/dL (65-110); Potassium 4.1 mmol/L (3.4-5.0); Sodium 132 mmol/L (137-145)
[2025-04-21] MEDS: CALCIUM/VITAMIN D 500 MG/5 MCG (200 I.U.) TABLET PO (12:01)
[2025-04-21] MEDS: VANCOMYCIN 1,500 MG/NS 500 ML 1,500 MG/500 ML BAG 250 MG IVPB (12:53)
[2025-04-21 14:00] VITALS: BP 138/48; PULSE 77; RESP 16; TEMP 36.9; O2SAT 97
[2025-04-21] MEDS: GABAPENTIN 100 MG CAPSULE PO (21:00)
[2025-04-21] MEDS: VALSARTAN 40 MG TABLET PO (21:00)
--- NOTE | 2025-04-21 21:01 | P.PNINF_ITS ---
Progress Note: A&P Assessment and Plan (1) Postoperative wound infection of right hip: Code(s): T81.49XA - Infection following a procedure, other surgical site, initial encounter Status: Acute Plan # Infection right hip status post ORIF for fractured hip. Consider Gram-positive organisms as well as potential for enteric Gram-negative post NV synergistic infection. --Mixed skin juan luis from superficial Cx Gas noted on CT was after manipulation by Wound Care. Clinically not behaving like necrotizing skin soft tissue process although synergistic infection possible. Would be concerned about hardware infection at this point. Original surgery 03/10/2025 in [place]. Plan: Maintain cefepime, Flagyl and vancomycin. Options if immediate transfer not possible would be oral v. iv outpt but still likely needs surgical debridement; abx will not cure infection at this point. call into Ortho/trauma to [facility] regarding transfer v. targeted date for eval in office. Outpt IV options based on Cx may include cipro PO plus weekly dalbavancin. Would need wound care at home. d/w caregiver/family at bedside. Otherwise awaiting transfer per discussion with Orthopedic surgery/ Dr. Dela Cruz' service and hospitalist service here. We will continue to follow while patient here. Subjective Date/time seen: 04/21/25 21:01 Interval history: feels better by still with drainage. Mixed skin juan luis from cx. no fever. no hip pain vs. Friday night sx. Exam Narrative: Awake. Oriented x 3. Family at bedside right hip inicision less red but still significant drainage with packing. Objective Data Vital Signs Vital Signs: Vital Signs - 24 hr 04/21/25 04:56 04/21/25 08:30 04/21/25 14:00 Temperature 36.6 C 36.9 C Pulse Rate 76 77 Respiratory Rate 18 16 Blood Pressure 148/59 H 138/48 L Pulse Oximetry 95 97 Oxygen Delivery Room Air Intake/Output Intake/Output: Intake & Output 04/18/25 04/19/25 04/20/25 04/21/25 23:59 23:59 23:59 23:59 Intake Total 2059 1750 2180 2200 Balance 2059 1750 2180 2200 Meds/Results Medications: Active Medications Generic Name Dose Route Start Last Admin Trade Name Freq PRN Reason Stop Dose Admin Acetaminophen 650 mg 04/14/25 22:00 04/21/25 21:00 Acetaminophen 325 Mg Tablet PO 650 mg Q8HR VALERIA Administration Hydrocodone Bitart/Acetaminophen 1 tab 04/16/25 12:19 Hydrocodone/Acetaminophen (*Crx) 5-325 Mg Tablet PO Q6H PRN Pain Rated 4-6 Amlodipine Besylate 10 mg 04/15/25 09:00 04/21/25 08:31 Amlodipine Besylate 10 Mg Tablet PO 10 mg QAM VALERIA Administration Ascorbic Acid 1,000 mg 04/15/25 09:00 04/21/25 08:31 Ascorbic Acid 500 Mg Tablet PO 1,000 mg QAM VALERIA Administration Calcium Carbonate 500 mg 04/15/25 12:00 04/21/25 12:01 Calcium/Vitamin D 500 Mg/5 Mcg (200 I.U.) Tablet PO 500 mg DAILY@1200 VALERIA Administration Cyanocobalamin 1,000 mcg 04/15/25 09:00 04/21/25 08:31 Cyanocobalamin 1,000 Mcg Tablet PO 1,000 mcg QAM VALERIA Administration Fluoxetine HCl 20 mg 04/15/25 09:00 04/21/25 08:31 Fluoxetine Hcl 20 Mg Capsule PO 20 mg DAILY VALERIA Administration Gabapentin 100 mg 04/14/25 21:00 04/21/25 21:00 Gabapentin 100 Mg Capsule PO 100 mg QHS VALERIA Administration Cefepime HCl 1 gm/ Sodium 50 mls @ 100 mls/hr 04/15/25 12:00 04/21/25 12:39 Chloride IVPB Infused Q12H VALERIA Infusion Vancomycin HCl 1,500 mg in 500 mls @ 250 mls/hr 04/17/25 13:00 04/21/25 15:13 Vancomycin 1,500 Mg/Ns 500 Ml IVPB Infused Q24H VALERIA Infusion Levothyroxine Sodium 88 mcg 04/15/25 06:30 04/21/25 05:29 Levothyroxine Sodium 88 Mcg Tablet PO 88 mcg DAILY@0630 VALERIA Administration Metronidazole 500 mg 04/21/25 22:00 04/21/25 21:00 Metronidazole 500 Mg Tablet PO 500 mg Q8HR VALERIA Administration Sodium Chloride 1,000 mg 04/16/25 09:00 04/21/25 17:29 Sodium Chloride 500 Mg Tablet PO 1,000 mg BID VALERIA Administration Trazodone HCl 150 mg 04/14/25 16:55 04/21/25 20:59 Trazodone Hcl 50 Mg Tablet PO 150 mg HS PRN Administration Sleep Valsartan 40 mg 04/14/25 21:00 04/21/25 21:00 Valsartan 40 Mg Tablet PO 40 mg HS VALERIA Administration Radiology Results: ITS Impressions Chest X-Ray 04/15/25 08:41 IMPRESSION: 1. No acute cardiopulmonary findings given portable technique. Lower Extremity CT 04/15/25 13:10 IMPRESSION: 1. 10.3 x 4.3 x 2.4 cm subcutaneous collection of gas, fluid and some high attenuation material, potentially packing material along a surgical wound lateral to the proximal right femur where there has been recent internal fixation of a recent comminuted intratrochanteric fracture. 3. More advanced healing of a more chronic comminuted extra articular fracture of the distal right femur with separate retrograde intramedullary pieter fixation. Labs Labs: Laboratory Results - last 24 hr 04/21/25 09:59 WBC 6.0 RBC 2.96 L Hgb 9.6 L Hct 29.8 L MCV 100.7 H MCH 32.4 MCHC 32.2 RDW 12.8 Plt Count 332 MPV 9.3 Sodium 132 L Potassium 4.1 Chloride 98 Carbon Dioxide 29 Anion Gap 5 BUN 15 Creatinine 0.86 Estim Creat Clear Calc 50 Estimated GFR > 60 Glucose 174 H Calcium 8.8
[2025-04-21 21:19] VITALS: BP 148/57; PULSE 73; RESP 18; TEMP 36.6; O2SAT 95
[2025-04-22] MEDS: CEFEPIME 1 GM in SODIUM CHLORIDE 0.9% IV 50 ML 100 ML IVPB (00:35)
[2025-04-22 03:31] VITALS: BP 149/68; PULSE 80; RESP 20; TEMP 36.7; O2SAT 99
[2025-04-22 05:47] LABS: Hematocrit 28.3 % (37.0-47.0); Hemoglobin 9.1 g/dL (12.0-15.0); Mean Corpuscular HGB Conc 32.2 g/dl (32-36); Mean Corpuscular Hemoglobin 31.7 pg (26-34); Mean Corpuscular Volume 98.6 fl (80-100); Platelet Count Result 262 k/mm3 (150-375); Red Blood Count 2.87 M/mm3 (4.2-5.4); White Blood Count 5.9 K/mm3 (4.5-10.0)
[2025-04-22] MEDS: ACETAMINOPHEN 325 MG TABLET 650 MG PO ×2 (05:52→13:19)
[2025-04-22] MEDS: LEVOTHYROXINE SODIUM 88 MCG TABLET PO (05:52)
[2025-04-22 06:11] LABS: Anion Gap 3 mmol/L (4-12); Blood Urea Nitrogen 14 mg/dL (7-17); Calcium 8.7 mg/dL (8.4-10.2); Carbon Dioxide 31 mmol/L (22-30); Chloride 98 mmol/L (98-107); Estimated CRCL calculation 50 ml/min; Estimated Glomerular Filt Rate > 60; Glucose 94 mg/dL (65-110); Potassium 4.1 mmol/L (3.4-5.0); Sodium 132 mmol/L (137-145)
[2025-04-22] MEDS: ASCORBIC ACID 500 MG TABLET 1000 MG PO (09:08)
[2025-04-22] MEDS: SODIUM CHLORIDE 500 MG TABLET 1000 MG PO (09:08)
[2025-04-22] MEDS: CYANOCOBALAMIN 1,000 MCG TABLET 1000 MCG PO (09:08)
[2025-04-22] MEDS: CALCIUM/VITAMIN D 500 MG/5 MCG (200 I.U.) TABLET PO (13:19)
--- NOTE | 2025-04-22 13:34 | PM.DS ---
DS: Admitting Diagnosis Discharge Date 04/22 Admitting Diagnosis hip pain DS: Discharge Diagnosis Discharge Diagnosis (1) Foreign body of right hip with infection: Code(s): S70.251A - Superficial foreign body, right hip, initial encounter; L08.9 - Local infection of the skin and subcutaneous tissue, unspecified Status: Acute (2) Hyponatremia: Code(s): E87.1 - Hypo-osmolality and hyponatremia Status: Acute (3) Hypothyroidism (acquired): Code(s): E03.9 - Hypothyroidism, unspecified Status: Chronic (4) CKD (chronic kidney disease) stage 3, GFR 30-59 ml/min: Qualifiers: Chronic kidney disease stage 3 subtype: stage 3a (GFR 45-59) Qualified Code(s): N18.31 - Chronic kidney disease, stage 3a Code(s): N18.30 - Chronic kidney disease, stage 3 unspecified Status: Chronic (5) Essential (primary) hypertension: Code(s): I10 - Essential (primary) hypertension Status: Chronic (6) Depression: Qualifiers: Depression Type: unspecified Qualified Code(s): F32.A - Depression, unspecified Code(s): F32.A - Depression, unspecified Status: Chronic DS: Summary Hospital Course Hospital Course: 79 year old female with past medical history of CKD, anemia, HTN, hypothyroidism, HLD, DM, recent hip surgery 5 weeks ago (undergoing PT/OT w/HH) presents to the hospital with hyponatremia. # Infection right hip status post ORIF for fractured hip. S/p right DHS Plate for Intertrochanteric fracture on 03/10/[address] [facility]. Earlier in 2024, when she again fell and sustained a closed distal 1/3 femoral shaft fracture that was treated with a retrograde IM pieter. Had scheduled appointment for follow up With Dr. Duke Marin, however was not able to make this appointment due to hyponatremia Approximately 1 week ago patient developed warmth, redness and blistering wound to the lower aspect of surgical incision with clear drainage, this has continues to worsen and new wound formed to mid aspect with clear drainage CT lower extremity: 10.3 x 4.3 x 2.4 cm subcutaneous collection of gas, fluid and some high attenuation material, potentially packing material along a surgical wound lateral to the proximal right femur where there has been recent internal fixation of a recent comminuted intratrochanteric fracture. More advanced healing of a more chronic comminuted extra articular fracture of the distal right femur with separate retrograde intramedullary pieter fixation. Consider Gram-positive organisms as well as potential for enteric Gram-negative post MS synergistic infection. --Mixed skin juan luis from superficial Cx Gas noted on CT was after manipulation by Wound Care. Clinically not behaving like necrotizing skin soft tissue process although synergistic infection possible. Would be concerned about hardware infection at this point. Original surgery 03/10/2025 in [place]. Patient accepted by hospitalist Dr. Sutherland to [facility] on 04/19. [facility] beds not available- and will not be for a while. After discussion with EVELINA Stack - we will discharge pt with a close f/u with ortho at [facility]. Will be sending her home with flagyl, cefadroxil and doxy for 2 weeks- she will be following with her ortho within two weeks. # Hypo-osmolality and hyponatremia Seen by her PCP, Miguel [facility], had outpatient lab work which showed a sodium of 120. Repeat Na on admission was 118. She was recently hospitalized from 03/31/2025 to 04/05/2025, hyponatremia was noted upon admission at 127, lowest at 125 during her hospitalization. Evaluated by Nephrology who believed the hyponatremia was acute. Risk factors for hyponatremia include thyroid disease and medications (trazodone, sertraline, gabapentin), may have some excessive free water intake. Nephrology recommended salt tabs and fluid restriction, however family did not want the patient to be on a fluid restriction. She was continued on the NaCl tablet at discharge. She has not been taking this due to cost. - Na 129 on am labs - Continue salt tabs and fluid restriction (1600 ml) - diet: regular - nephrology consulted, appreciate recommendations Sodium improving. Patient remains asymptomatic. 04/21- na 130 today nephrology recommendation: on fluid restriction on salt tablets recommend weaning off fluoxetine and using non SSRI medication for depression if needed (family is planning to discuss with PCP) -- once this is done, would attempt weaning off salt tablets and fluid restriction.. # Hypothyroidism (acquired) - 04/01: TSH 8.29, T4 0.97, T3 0.55 on 04/01/25 - continue Synthroid 88 mcg daily Time Spent with Patient Time attestation: Total time spent providing and/or coordinating discharge services: Exam Narrative: General: female in no acute respiratory distress who is nontoxic appearing, sitting up in chair HEENT: Normocephalic. Atraumatic. Extraocular movement intact. Sclera clear and anicteric. No facial asymmetry. Chest: Lungs are clear to auscultation bilaterally. CV: Heart was regular rate and rhythm. Abd: Abdomen was soft. Nontender. Nondistended. Positive bowel sounds. Ext: No clubbing, cyanosis, or edema. Surgical incision to the mid lateral hip with two draining wounds to the lower and mid aspect along the incision site, less drainage noted and now serosanguineous. Redness and warmth is improving. No pain with palpation. Const: General: comfortable and no acute distress Other: , female, elderly, nontoxic appearance HENMT: Face/Nose/Sinus: Normal nares present Mouth: Yes moist mucous membranes Eyes: General: appearance normal, both eyes and all related structures Sclera: sclerae normal Pupils: Equal, round and reactive pupils present EOM: EOMs intact bilaterally Resp: Effort & Inspection: normal respiratory effort Auscultation: clear to auscultation bilaterally Cardio: Rate: regular rate Rhythm: regular rhythm Other: S1-S2 present without murmur, rub, ectopy GI: Other: Abdomen soft, nondistended, nontender. Normoactive bowel sounds in all quadrants. Skin: General skin exam: normal color and no rashes or lesions noted Wounds: no wounds Neuro: Cranial nerves: Yes Equal, round and reactive pupils present Speech: normal speech Motor exam (neuro): 5/5 motor strength present throughout Sensory Exam: normal sensation Other: A&O x4 Extrem: General: normal to inspection Psych: Mental Status: mental status grossly normal Affect: normal affect Other: Good insight judgment, pleasant DS: Data Data Completed and Pending Labs on day of discharge: Labs from last 24 hours 04/22/25 05:36 WBC 5.9 RBC 2.87 L Hgb 9.1 L Hct 28.3 L MCV 98.6 MCH 31.7 MCHC 32.2 RDW 12.9 Plt Count 262 MPV 8.7 Sodium 132 L Potassium 4.1 Chloride 98 Carbon Dioxide 31 H Anion Gap 3 L BUN 14 Creatinine 0.86 Estim Creat Clear Calc 50 Estimated GFR > 60 Glucose 94 Calcium 8.7 Discharge Plan Discharge Consulting providers: Susan Lopez; Jane Xie; Mk Santamaria; Donavan Adkins Patient Disposition: Home with Home Health Service Discharge Instructions: Patient will have [facility] follow up with continued services for Home Health. [facility] listed as P)[phone]. # Infection right hip status post ORIF for fractured hip. S/p right DHS Plate for Intertrochanteric fracture on 03/10/[address] [facility]. Patient accepted by hospitalist Dr. Sutherland to [facility] on 04/19. [facility] beds not available- and will not be for a while. After discussion with Dr Santamaria, ID - we will discharge pt with a close f/u with ortho at [facility]. Will be sending her home with flagyl, cefadroxil and doxy for 2 weeks- she will be following with her ortho within two weeks. # low sodium level Seen by her PCP, [facility], had outpatient lab work which showed a sodium of 120. Repeat Na on admission was 118. Sodium improved. Nephrology recommendations: on fluid restriction on salt tablets recommend weaning off fluoxetine and using non SSRI medication for depression if needed (family is planning to discuss with PCP) -- once this is done, would attempt weaning off salt tablets and fluid restriction. Patient Instructions: Antibiotic Form Patient Language: Serbian Stand Alone Forms: General Discharge Information Follow-up/Referrals: Koko,Sanjiv Gerard MD [Non-Staff] - 2 Weeks Referral Note: please f.u with ortho md at [facility] within 2 weeks or sooner Catrina Beard APRN [Primary Care Provider, Internal Medicine] - 1 Week Discharge Medications: New cefadroxil 500 mg capsule 500 mg PO BID 14 Days Qty: 28 1RF metronidazole 500 mg tablet 500 mg PO Q8H 7 Days Qty: 21 0RF doxycycline hyclate 100 mg capsule 100 mg PO BID 14 Days Qty: 28 1RF Continued tramadol 50 mg tablet 50 mg PO Q6H PRN (Reason: pain) Qty: 60 0RF mecobalamin (vitamin B12) 1,000 mcg tablet,disintegrating 1,000 mcg SUBLINGUAL DAILY calcium carbonate-vitamin D3 [Calcium 500 + D (D3)] 500 mg-3.125 mcg (125 unit) tablet 1 tablet PO DAILY ascorbic acid (vitamin C) 1,000 mg capsule 1 g PO DAILY fluoxetine 20 mg tablet 20 mg PO DAILY Qty: 90 1RF amlodipine 10 mg tablet 10 mg PO QAM Qty: 90 1RF levothyroxine 88 mcg tablet 88 mcg PO QAM Qty: 90 1RF trazodone 150 mg tablet See Rx Instructions .ROUTE .COMPLEX Qty: 90 1RF Dose Instruction: TAKE 1 TABLET BY MOUTH DAILY AT BEDTIME NEEDED FOR SLEEP. Rx Instructions: TAKE 1 TABLET BY MOUTH DAILY AT BEDTIME NEEDED FOR SLEEP. valsartan 40 mg tablet See Rx Instructions .ROUTE .COMPLEX Qty: 90 1RF Dose Instruction: TAKE 1 TABLET BY MOUTH EVERYDAY AT BEDTIME Rx Instructions: TAKE 1 TABLET BY MOUTH EVERYDAY AT BEDTIME gabapentin 100 mg capsule 100 mg PO QHS acetaminophen [Tylenol 8 Hour] 650 mg tablet extended release 650 mg PO Q8H Qty: 60 0RF Held sodium chloride 1,000 mg tablet,soluble 500 mg PO DAILY Qty: 30 0RF Hold Instructions: Resume on 04/29/25. restart if needed Date of admission: 04/16/25 13:13 Primary Care Provider: Catrina Beard Admitting Provider: Maegan Dietrich Attending physician on admission: Maegan Dietrich Condition: Stable Quality VTE Prophylaxis VTE prophylaxis: mechanical ordered
[2025-04-22 14:00] VITALS: BP 134/55; PULSE 82; RESP 16; TEMP 36.8; O2SAT 97
== END 2025-04-22 15:10 | disposition home health service (06) | DRG 863 ==
LOC: ANHED 10:14 → ANH2MED 10:59
PROVIDERS: Internal Medicine Nephrology; Student in an Organized Health Care Education/Training Program; Admitting Provider Internal Medicine; Emergency Provider Emergency Medicine; PCP Nurse Practitioner Family; Visit Provider Nurse Practitioner
DX: T81.49XA Infection following a procedure, other surgical site, initial encounter (principal); E87.1 Hypo-osmolality and hyponatremia; S72.491D Other fracture of lower end of right femur, subsequent encounter for closed fracture with routine healing; S72.141G Displaced intertrochanteric fracture of right femur, subsequent encounter for closed fracture with delayed healing; M25.551 Pain in right hip; E03.9 Hypothyroidism, unspecified; N18.31 Chronic kidney disease, stage 3a; D63.1 Anemia in chronic kidney disease; E78.2 Mixed hyperlipidemia; E11.22 Type 2 diabetes mellitus with diabetic chronic kidney disease; I12.9 Hypertensive chronic kidney disease with stage 1 through stage 4 chronic kidney disease, or unspecified chronic kidney disease; M16.0 Bilateral primary osteoarthritis of hip; G47.33 Obstructive sleep apnea (adult) (pediatric); M48.00 Spinal stenosis, site unspecified; F32.A Depression, unspecified; E53.8 Deficiency of other specified B group vitamins; W18.30XD Fall on same level, unspecified, subsequent encounter; Z77.22 Contact with and (suspected) exposure to environmental tobacco smoke (acute) (chronic); Z99.89 Dependence on other enabling machines and devices; Z91.81 History of falling
CPT/HCPCS: 36415; 71045; 73701; 80048; 80053; 80202; 81001; 82570; 82607; 82728; 82746; 83540; 83550; 84156; 84300; 84540; 85025; 85027; 85652; 86140; 87070; 87075; 97110; 97116; 97161; 97165; 97530; 97535; 99212; 99285; A9270; G0378; G0463; J0692; J1836; J2270; J3373; Q9967